=== PATIENT | female | born 1940 | race Caucasian/White ===

== ENCOUNTER 2024-03-10 19:37 | Emergency (ER) | payer MEDICARE, SELFPAY ==
[2024-03-10 19:46] VITALS: BP 127/60; PULSE 84; RESP 18; TEMP 37.8; O2SAT 94; BMI 26.6
[2024-03-10 20:00] VITALS: O2SAT 96
--- NOTE | 2024-03-10 20:02 | ED_ITS ---
HPI - General Adult General Chief complaint: Fever Stated complaint: cancer patient, temp of 101.5 Time Seen by Provider: 03/10/24 20:00 History of Present Illness HPI narrative: Pt presents worried about a fever that she had tonight of 101.5. Upon arrival temp was 100.1. Pt was diagnosed with pancreatic cancer and just recently moved to [place]. Pts daughter has noticed she has been sleeping more often and has had an ongoing cough for 3 weeks. Pt states when she coughs it can cause shortness of breath and abdominal pain. Pt denies any other symptoms. 83-year-old woman presenting to the emergency department with concern of a fever. He does have pancreatic cancer in is currently receiving chemotherapy. Last dosing was 4 days ago. Recently moved to the area from [place]. This evening noted a fever measured at home of 101.5. Arrives here with a temperature of 100.1?. Daughter and son-in-law I believe accompany here today. They noticed that she has been more fatigued. There has been a cough for about 3 weeks as well. 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 Currently anticoagulated with apixaban. Further questioning later about this cough it appears that it is in large part because of a tickle in her throat how she describes it. Is not associated with wheeze. She is not necessarily short of breath otherwise. While coughing can be short of breath along with some abdominal pain. Related Data Home Medications ?Medication ?Instructions ?Recorded ?Confirmed apixaban 5 mg tablet (Eliquis) mg PO 03/06/24 03/06/24 lidocaine-prilocaine 2.5 %-2.5 % topical 03/06/24 03/06/24 topical cream lisinopril 10 mg tablet 10 mg PO DAILY 03/06/24 03/10/24 macularprotect complete PO 03/06/24 magnesium oxide 400 mg (241.3 mg 400 mg PO DAILY 03/06/24 03/10/24 magnesium) tablet metformin 500 mg tablet,extended 500 mg PO BID 03/06/24 03/10/24 release 24 hr metoprolol succinate 50 mg 50 mg PO DAILY 03/06/24 03/10/24 tablet,extended release 24 hr ondansetron 4 mg disintegrating 4 mg PO Q8H PRN 12/09/24 12/13/24 tablet raloxifene 60 mg tablet 60 mg PO DAILY 03/06/24 03/10/24 rosuvastatin 10 mg tablet 10 mg PO QPM 03/06/24 03/10/24 tramadol 50 mg tablet 50 mg PO BID PRN 03/06/24 03/10/24 vitamin D3 25 mcg (1,000 unit)-vit tab PO 03/06/24 03/06/24 K2 90 mcg disintegrating tablet (D3 Plus K2 Dots) Previous Rx's ?Medication ?Instructions ?Recorded benzonatate 100 mg capsule 100 - 200 mg (1 - 2 x 100 mg) PO 03/10/24 TID PRN cough #30 caps Allergies Allergy/AdvReac Type Severity Reaction Status Date / Time No Known Drug Allergies Allergy Verified 03/10/24 19:53 Review of Systems Status of ROS: Reports: 6 or more systems reviewed and unremarkable except as noted in History and below [facility] Social History Smoking Status: Never smoker Do you use any of these nicotine containing products: None Second hand tobacco smoke exposure: No How often do you have a drink containing alcohol: never AUDIT-C Alcohol total score: 0 Non-prescribed substance use: denies use service: No Exam Narrative: Exam Narrative: Very pleasant. NAD. Seated in wheelchair. Breathing easily. Skin is warm and dry. She is well-perfused. Lungs appear to be clear. Oropharynx without notable cobblestoning. There is no facial swelling or erythema and does not sound congested in the nasopharynx. Heart in regular rate and rhythm. Abdomen is soft protuberant nontender. Lower extremities with trace pretibial edema. Const: Vital Signs, click to edit/add: Vital Signs - 24 hr 03/10/24 19:46 03/10/24 20:02 Temperature 100.1 F H Pulse Rate [Right Pulse Oximeter] 84 Respiratory Rate 18 Blood Pressure [Ri ght Upper Arm] 127/60 Pulse Oximetry 94 Oxygen Delivery Me thod Room Air Room Air Documenting provider has reviewed patient's vital signs: yes Course Vital Signs Vital signs: Initial Vital Signs Temperature 100.1 F H 03/10/24 19:46 Temperature Source Temporal Artery Scan 03/10/24 19:46 Pulse Rate 84 03/10/24 19:46 Respiratory Rate 18 03/10/24 19:46 Blood Pressure 127/60 03/10/24 19:46 Blood Pressure Mean 82 03/10/24 19:46 Blood Pressure Position Sitting 03/10/24 19:46 Pulse Oximetry 94 03/10/24 19:46 Oxygen Delivery Method Room Air 03/10/24 19:46 Vital Signs Temperature 100.1 F H 03/10/24 19:46 Pulse Rate 84 03/10/24 19:46 Respiratory Rate 18 03/10/24 19:46 Blood Pressure 127/60 03/10/24 19:46 Pulse Oximetry 94 03/10/24 19:46 Oxygen Delivery Method Room Air 03/10/24 19:46 Temperature 99.5 F 03/11/24 00:26 Pulse Rate 85 03/11/24 00:26 Respiratory Rate 16 03/11/24 00:26 Blood Pressure 120/74 03/11/24 00:26 Pulse Oximetry 96 03/10/24 23:56 Oxygen Delivery Method Room Air 03/10/24 23:56 Medications Administered Medications: Discontinued Medications Generic Name Dose Route Start Last Admin Trade Name Freq PRN Reason Stop Dose Admin Acetaminophen 1,000 mg 03/10/24 23:40 03/10/24 23:45 Acetaminophen 500 Mg Tablet PO 03/10/24 23:41 1,000 mg ONCE ONE Administration Sodium Chloride 1,000 mls @ 1,000 mls/hr 03/10/24 20:09 03/10/24 23:50 0.9 % Sodium Chloride 1000 Ml IV 03/10/24 21:08 Infused .Q1H ONE Infusion Medical Decision Making MDM Narrative Medical decision making narrative: With reported fever in the setting of chemotherapy/immunosuppression will be need look for infection. Only symptom otherwise at this point seems to be cough. Cough might be triggered by allergies or postnasal drip otherwise or perhaps these pulmonary emboli. Possible pneumonia. Suppose it is possible that clot burden may have contributed to elevated temperature as well though this is not a new event. Neutropenia? Does not appear to be demonstrating sepsis. I suspect would benefit from acetaminophen and normal saline fluid bolus. Labs do show mild hyponatremia at 130. Was 134 4 days ago Hemoglobin is 8.3; was 8.9 4 days ago Mild elevation of CRP Is not neutropenic. Chest x-ray independently reviewed by me looks to show some atelectatic changes and port is evident as expected. I do not appreciate infiltrate. Radiology over-read below TECHNIQUE: Chest radiograph, 1 view. COMPARISON: None. FINDINGS: Lines/devices: Right IJ Port-A-Cath. Left anterior chest wall pacemaker pulse generator. Cardiovascular/Mediastinum: Normal heart size. Unremarkable. Lungs: No focal consolidation. Linear band like opacification of the lungs bilaterally, likely subsegmental atelectasis and/or scarring. Airways: Trachea remains midline. Pleura: No pleural effusions or pneumothorax. Bones: No acute osseous abnormalities. Upper abdomen: Unremarkable. IMPRESSION: No acute cardiopulmonary process. Temperature improved over time in the ER. No further events. Given a she describes this tickle in her throat, perhaps Tessalon Perles would be helpful. Again the cough does seem to correspond to timing of pulmonary embolus as well. No source of infection found at this point. Urinalysis also clear. Is not neutropenic. Blood culture pending. See patient discharge plan for further discussion Do focus on hydration. Consider sleeping under the mist of a cool mist humidifier. Mental vapors might be helpful. If your cough drops are helpful for your cough, you certainly can continue those. Perhaps you would like to try Tessalon Perles for your cough as discussed. I will send in a prescription for these to the pharmacy and you can consider them. Can take to 1000 mg of acetaminophen per dose. Certainly something is driving this fever, I just not have not identified it. This may simply be a nonspecific viral illness as prevalent in the community. You have a mildly elevated but nonspecific inflammatory marker. We will be culturing your blood and call if it might warrant treatment. Please a check in on Wednesday with your oncology team and otherwise follow-up with Dr. Negrete as scheduled. Medical Records Medical records reviewed: Yes I reviewed the patient's medical records Lab Data Lab results reviewed: Yes I reviewed the patient's lab results Labs: Lab Results 03/10/24 03/10/24 03/10/24 Range/Units 20:15 20:46 22:36 WBC 5.23 (4.50-11.00) K/uL RBC 2.77 L (4.00-5.20) m/uL Hgb 8.3 L (12.0-16.0) gm/dL Hct 25.3 L (33.0-51.0) % MCV 91 (80-100) fL MCH 30 (26-34) pg MCHC 33 (32-36) gm/dL RDW Coeff of [place] 15.9 H (11.5-15.5) % Plt Count 333 (140-440) K/uL Neut % (Auto) 88.2 H (42.0-72.0) % Lymph % (Auto) 7.6 L (20-44) % Placer % (Auto) 1.3 (0.0-11.0) % Eos % (Auto) 2.3 (0.0-7.0) % Baso % (Auto) 0.4 (0.0-3.0) % Neut # (Auto) 4.60 (1.7-7.0) K/uL Lymph # (Auto) 0.40 L (0.90-2.90) K/uL Placer # (Auto) 0.10 (0.00-0.90) K/UL Eos # (Auto) 0.12 (0.00-0.50) K/uL Baso # (Auto) 0.02 (0.00-0.30) K/uL Abs Immat Gran (auto) 0.01 (0.00-0.30) K/uL Imm/Tot Granulo (auto) 0.2 % Sodium 130 L (135-149) mmol/L Potassium 4.1 (3.6-5.1) mmol/L Chloride 99 (96-114) mmol/L Carbon Dioxide 24 (20-32) mmol/L Anion Gap 7 (7-15) mEq/L BUN 12 (7-30) mg/dL Creatinine 0.4 L (0.5-1.5) mg/dL Estimated Creat Clear 35.26 Estimated GFR 98 ml/min Glucose 200 H (60-115) mg/dL Calcium 8.7 (8.4-10.6) mg/dL Total Bilirubin 0.7 (0.1-1.5) mg/dL Direct Bilirubin 0.0 (0.0-0.5) mg/dL AST 41 H (12-35) U/L ALT 35 (4-35) U/L Alkaline Phosphatase 77 (40-150) U/L C-Reactive Protein 6.7 H (0.5-1.0) mg/dL Total Protein 6.5 (6.0-8.3) g/dL Albumin 3.4 (3.3-5.0) g/dL Urine Color Yellow (Yellow) Urine Appearance Clear (Clear) Urine pH 5.0 (5.0-8.5) Ur Specific [place] 1.020 (1.000-1.030) Urine Protein Trace A (Negative) Urine Glucose (UA) Trace A (Negative) Urine Ketones Trace A (Negative) Urine Blood Negative (Negative) Urine Nitrite Negative (Negative) Urine Bilirubin Negative (Negative) Urine Urobilinogen 1.0 (0.2-1.0) Ur Leukocyte Esterase Negative (Negative) Urine RBC 0-2 (0-2) Urine WBC 0-2 (0-5) Ur Squamous Epith Cells Few (None-Few) Urine Bacteria Few A (None) SARS-CoV-2 (PCR) Negative SARS-CoV-2 (Negative) Influenza Type A (PCR) Negative PCR FLU A (Negative) Influenza Type B (PCR) Negative PCR FLU B (Negative) RSV (PCR) Negative PCR RSV (Negative) Discharge Plan Discharge Clinical Impression: Fever, Cough Patient Disposition: Home w/ Parent or Adult Condition: Stable Additional Instructions: Do focus on hydration. Consider sleeping under the mist of a cool mist humidifier. Mental vapors might be helpful. If your cough drops are helpful for your cough, you certainly can continue those. Perhaps you would like to try Tessalon Perles for your cough as discussed. I will send in a prescription for these to the pharmacy and you can consider them. Can take to 1000 mg of acetaminophen per dose. Certainly something is driving this fever, I just not have not identified it. This may simply be a nonspecific viral illness as prevalent in the community. You have a mildly elevated but nonspecific inflammatory marker. We will be culturing your blood and call if it might warrant treatment. Please a check in on Wednesday morning with your oncology team and otherwise follow-up with Dr. Negrete as scheduled. Prescriptions: New benzonatate 100 mg capsule 100 - 200 mg PO TID PRN (Reason: cough) Qty: 30 0RF No Action magnesium oxide 400 mg (241.3 mg magnesium) tablet 400 mg PO DAILY metformin 500 mg tablet extended release 24 hr 500 mg PO BID metoprolol succinate 50 mg tablet extended release 24 hr 50 mg PO DAILY Eliquis 5 mg tablet PO tramadol 50 mg tablet 50 mg PO BID PRN rosuvastatin 10 mg tablet 10 mg PO QPM ondansetron 4 mg tablet,disintegrating 4 mg PO Q8H PRN lidocaine-prilocaine 2.5-2.5 % cream topical lisinopril 10 mg tablet 10 mg PO DAILY raloxifene 60 mg tablet 60 mg PO DAILY macularprotect complete PO D3 Plus K2 Dots 25 mcg (1,000 unit)-90 mcg tablet,disintegrating PO Follow Up/Referrals: Provider,Not a Local [Non-Staff] - Stand Alone Forms: [facility]
--- NOTE | 2024-03-10 20:09 | CRLHL7_ITS ---
For Patients: As a result of the Century Cures Act, medical imaging exams and procedure reports are released immediately into your electronic medical record. You may view this report before your referring provider. If you have questions, please contact your health care provider. INDICATION: Fever. TECHNIQUE: Chest radiograph, 1 view. COMPARISON: None. FINDINGS: Lines/devices: Right IJ Port-A-Cath. Left anterior chest wall pacemaker pulse generator. Cardiovascular/Mediastinum: Normal heart size. Unremarkable. Lungs: No focal consolidation. Linear band like opacification of the lungs bilaterally, likely subsegmental atelectasis and/or scarring. Airways: Trachea remains midline. Pleura: No pleural effusions or pneumothorax. Bones: No acute osseous abnormalities. Upper abdomen: Unremarkable. IMPRESSION: No acute cardiopulmonary process. Dictated by Jessee Kline MD @ 03/10/2024 8:23:07 PM (Electronically Signed)
[2024-03-10 20:54] LABS: PCR FLU A Negative PCR FLU A (Negative); PCR FLU B Negative PCR FLU B (Negative); PCR RSV Negative PCR RSV (Negative); SARS PCR* Negative SARS-CoV-2 (Negative)
[2024-03-10 21:03] LABS: Basophils Absolute Auto 0.02 K/uL (0.00-0.30); Basophils Percent Auto 0.4 % (0.0-3.0); Eosinophils Absolute Auto 0.12 K/uL (0.00-0.50); Eosinophils Percent Auto 2.3 % (0.0-7.0); Hematocrit 25.3 % (33.0-51.0); Hemoglobin* 8.3 gm/dL (12.0-16.0); Immature Granulocytes Abs Auto 0.01 K/uL (0.00-0.30); Immature Granulocytes Pct Auto 0.2 %; Lymphocytes Percent Auto 7.6 % (20-44); Mean Corpuscular HGB Conc 33 gm/dL (32-36); Mean Corpuscular Hemoglobin 30 pg (26-34); Mean Corpuscular Volume 91 fL (80-100); Monocytes Percent Auto 1.3 % (0.0-11.0); Neutrophils Percent Auto 88.2 % (42.0-72.0); Platelet Count* 333 K/uL (140-440); RDW Coefficient of Variation % 15.9 % (11.5-15.5); Red Blood Count 2.77 m/uL (4.00-5.20); Slide Review Reflex No; White Blood Count* 5.23 K/uL (4.50-11.00)
[2024-03-10 21:12] LABS: Albumin* 3.4 g/dL (3.3-5.0); Chloride* 99 mmol/L (96-114)
[2024-03-10 21:13] LABS: Potassium* 4.1 mmol/L (3.6-5.1); Sodium* 130 mmol/L (135-149)
[2024-03-10 21:15] LABS: Creatinine* 0.4 mg/dL (0.5-1.5); Est. Creatinine Clearance* 35.26; Estimated Glomerular Filt Rate 98 ml/min
[2024-03-10 21:16] LABS: Alanine Aminotransferase* 35 U/L (4-35); Alkaline Phosphatase* 77 U/L (40-150); Anion Gap 7 mEq/L (7-15); Aspartate Amino Transferase* 41 U/L (12-35); Bilirubin Total* 0.7 mg/dL (0.1-1.5); Blood Urea Nitrogen* 12 mg/dL (7-30); Calcium* 8.7 mg/dL (8.4-10.6); Carbon Dioxide* 24 mmol/L (20-32); Glucose* 200 mg/dL (60-115); Total Protein* 6.5 g/dL (6.0-8.3)
[2024-03-10 21:19] LABS: C Reactive Protein* 6.7 mg/dL (0.5-1.0)
[2024-03-10 21:45] VITALS: BP 126/46; PULSE 80; RESP 16; O2SAT 96
[2024-03-10 22:38] LABS: Appearance Urine Clear (Clear); Bilirubin Urine Negative (Negative); Blood Urine Negative (Negative); Color Urine Yellow (Yellow); Glucose Urine Trace (Negative); Ketones Urine Trace (Negative); Leukocyte Esterase Urine Negative (Negative); Nitrite Urine Negative (Negative); Protein Urine Trace (Negative)
[2024-03-10 22:48] LABS: Bacteria Urine Few; RBC Urine 0-2 (0-2); Squamous Epithelial Cell Urine Few (None-Few); WBC Urine 0-2 (0-5)
[2024-03-10] MEDS: 0.9 % SODIUM CHLORIDE 1000 ml 1,000 ML IV (23:03)
[2024-03-10 23:45] VITALS: TEMP 37.8
[2024-03-10] MEDS: ACETAMINOPHEN 500 MG TABLET 1000 MG PO (23:45)
[2024-03-10 23:56] VITALS: BP 120/74; PULSE 85; RESP 16; TEMP 37.5; O2SAT 96
[2024-03-11 00:26] VITALS: BP 120/74; PULSE 85; RESP 16; TEMP 37.5
== END 2024-03-11 00:26 | disposition home or self-care (01) ==
PROVIDERS: Emergency Provider Family Medicine; PCP Internal Medicine
DX: R50.9 Fever, unspecified (principal); R05.9 Cough, unspecified
CPT/HCPCS: 36415; 71045; 80048; 80076; 81001; 85025; 86140; 87040; 87086; 87631; 94761; 99284; A9270; J7030

== ENCOUNTER 2024-03-17 20:15 | Emergency (ER) | payer MEDICARE, SELFPAY ==
[2024-03-17 20:18] VITALS: BP 127/69; PULSE 77; RESP 16; TEMP 37.1; O2SAT 98; BMI 26.6
--- NOTE | 2024-03-17 20:43 | CRLHL7_ITS ---
For Patients: As a result of the Cures Act, medical imaging exams and procedure reports are released immediately into your electronic medical record. You may view this report before your referring provider. If you have questions, please contact your health care provider. Indication: Cough, chemo patient, left lower lobe crackles Technique: Two views of the chest Comparison: Chest radiograph performed 03/10/2024 Findings/Impression: Mild atelectasis, no acute cardiopulmonary process detected. Dictated by Lenard Strauss MD @ 03/17/2024 9:40:05 PM (Electronically Signed)
--- NOTE | 2024-03-17 20:45 | ED.FEVER ---
HPI - Fever General Date Seen: 03/17/24 Chief Complaint: Fever Stated Complaint: fever, cancer patient at [facility] Time Seen by Provider: 03/17/24 20:17 Source: patient and family Mode of arrival: ambulatory Limitations: no limitations History of Present Illness HPI Narrative: Pleasant 83-year-old female with stage III pancreatic cancer presents, she is undergoing treatment here in [facility], with her last treatment being Wednesday. She has had fevers on and off, with up to 101 at home, taken orally. She has taken some Tylenol for this, but because of the fever and ongoing symptoms she came in she was here 7 days ago, for fever and cough also, the workup then was entirely negative including negative blood culture negative urine culture negative chest x-ray. She otherwise feels fine, maybe a little bit more of a cough than then. Denies any shortness of breath coughing up any purulent sputum dysuria frequency of urination any rashes or ulcers noted on her body. She has had no nausea vomiting abdominal pain, headaches, sore throat, or any other symptoms at all. Does have a history of elevated glucose with diabetes. Recently moved here from [place] to be treated, family lives locally. elicited complaint: fever Context: on chemotherapy Exacerbating factors: nothing Relieving factors: nothing Associated symptoms: cough Treatments prior to arrival fever: acetaminophen Related Data Home Medications ?Medication ?Instructions ?Recorded ?Confirmed apixaban 5 mg tablet (Eliquis) 5 mg PO Q12H 03/06/24 03/14/24 lidocaine-prilocaine 2.5 %-2.5 % 1 applic topical DAILY PRN 03/06/24 03/17/24 topical cream lisinopril 10 mg tablet 10 mg PO DAILY 03/06/24 03/14/24 macularprotect complete PO 03/06/24 magnesium oxide 400 mg (241.3 mg 400 mg PO DAILY 03/06/24 03/14/24 magnesium) tablet metformin 500 mg tablet,extended 500 mg PO BID 03/06/24 03/14/24 release 24 hr metoprolol succinate 50 mg 50 mg PO DAILY 03/06/24 03/14/24 tablet,extended release 24 hr ondansetron 4 mg disintegrating 4 mg PO Q8H PRN 03/06/24 03/14/24 tablet raloxifene 60 mg tablet 60 mg PO DAILY 03/06/24 03/14/24 rosuvastatin 10 mg tablet 10 mg PO QPM 03/06/24 03/14/24 tramadol 50 mg tablet 50 mg PO BID PRN 03/06/24 03/14/24 vitamin D3 25 mcg (1,000 unit)-vit tab PO 03/06/24 03/06/24 K2 90 mcg disintegrating tablet (D3 Plus K2 Dots) Previous Rx's ?Medication ?Instructions ?Recorded benzonatate 100 mg capsule 100 - 200 mg (1 - 2 x 100 mg) PO 03/10/24 TID PRN cough #30 caps Allergies Allergy/AdvReac Type Severity Reaction Status Date / Time No Known Drug Allergies Allergy Verified 03/17/24 10:50 Review of Systems Status of ROS Reports: 10 or more systems reviewed and unremarkable except as noted in History and below PFSH [facility] Social History Smoking Status: Never smoker Do you use any of these nicotine containing products: None Second hand tobacco smoke exposure: No How often do you have a drink containing alcohol: never AUDIT-C Alcohol total score: 0 Non-prescribed substance use: denies use service: No Exam Narrative Exam Narrative: On examination in room 1 she is in no apparent distress speaking to me in full sentences, her daughter is also here, her vital signs are listed in entirely normal. Pupils are equal round reactive to light there is no scleral icterus redness, the TMs are normal oropharynx is entirely normal, conjunctiva well perfused, but a little bit pale. Neck is supple, chest is good air entry bilaterally with slight crackles noted in the left base. These do not clear with deep inspiration, she does not splint, heart sounds no clicks murmurs or gallops her abdomen is entirely soft, negative Allen sign, no masses noted, bowel sounds are normal, moves all extremities independently well, and no evidence of rashes, or negative edema of her lower legs with negative Homans sign. Blood tests were done today showing a CBC stable hemoglobin at 7.9, white count of 5.42, platelet count is gone down to 171. Const Vital Signs, click to edit/add: Vital Signs - 24 hr 03/17/24 20:18 Temperature 98.8 F Pulse Rate [Left Pulse Oximeter] 77 Respiratory Rate 16 Blood Pressure [Right Upper Arm] 127/69 Pulse Oximetry 98 Oxygen Delivery Method Room Air Documenting provider has reviewed patient's vital signs: yes Course Course ED Course: Patient looks well, I do not see any evidence of sepsis, her vital signs are stable I will re do her labs, with the absence of the CBC which was just done at a [facility] [place], do blood culture from her port and also peripherally. A urine culture and do a new chest x-ray. I will also repeat her viral studies. She was comfortable this plan. I do not think given the fact that she has a good white count that she needs to be prophylactic on antibiotics if we do not find anything. Reevaluation(s) Time of Reevaluation #1: 22:16 Reevaluation #1: She is feeling good, I went over the laboratory results with her, the chest x-ray, it is all within fairly normal, with a slight decrease in her sodium, and the slight elevation in her attic transaminases, at this point I would just watch this, I think the likelihood of this being sepsis or a septic type picture is low, given how she is doing. She may use some Tylenol feel better. Course if her cultures grow something, then we will call her back. I went over in detail signs and symptoms to watch for, and when to bring her back to the hospital. I would anticipate with her drop in her platelet count also that she will go on to likely get it least Neulasta, or possible blood transfusion in the near future. But given the fact that she is asymptomatic right now, hold off on this. Vital Signs Vital signs: Initial Vital Signs Temperature 98.8 F 03/17/24 20:18 Temperature Source Oral 03/17/24 20:18 Pulse Rate 77 03/17/24 20:18 Pulse Rhythm Regular 03/17/24 20:18 Respiratory Rate 16 03/17/24 20:18 Blood Pressure 127/69 03/17/24 20:18 Blood Pressure Mean 88 03/17/24 20:18 Blood Pressure Position Sitting 03/17/24 20:18 Pulse Oximetry 98 03/17/24 20:18 Oxygen Delivery Method Room Air 03/17/24 20:18 Vital Signs Temperature 98.8 F 03/17/24 20:18 Pulse Rate 77 03/17/24 20:18 Respiratory Rate 16 03/17/24 20:18 Blood Pressure 127/69 03/17/24 20:18 Pulse Oximetry 98 03/17/24 20:18 Oxygen Delivery Method Room Air 03/17/24 20:18 Temperature 98.8 F 03/17/24 20:18 Pulse Rate 77 03/17/24 20:18 Respiratory Rate 16 03/17/24 20:18 Blood Pressure 127/69 03/17/24 20:18 Pulse Oximetry 98 03/17/24 20:18 Oxygen Delivery Method Room Air 03/17/24 20:18 MDM - Fever MDM Narrative Medical decision making narrative: Life-threatening differential diagnosis is include meningitis, encephalitis, pneumonia, intra-abdominal infection, bacteremia, other differential diagnosis include but are not limited to viral upper respiratory tract infection, strep, urinary tract infection, skin infection, osteomyelitis, influenza, fungal infections, diskitis, epidural abscess, or fever of unknown origin. Differential Diagnosis Differential diagnosis: Likely cellulitis, fever of unknown origin, gastroenteritis, community acquired pneumonia, pyelonephritis, viral infection, sepsis and influenza Medical Records Attestation: I reviewed the patient's medical records. Lab Data Attestation: I reviewed the patient's lab results. Lab results narrative: Lab results returned showing slight elevation of her transaminases of her liver. Her pro yee normal. Urinalysis showed just trace leukocyte esterase but no white cells, somewhat a call this negative. Sodium was slightly low, the remainder of the basic metabolic profile was otherwise okay. We will culture urine, Labs: Lab Results 03/17/24 03/17/24 03/17/24 Range/Units 20:43 21:10 21:10 Sodium Cancelled 131 L Potassium Cancelled Chloride Carbon Dioxide Anion Gap BUN Creatinine Estimated Creat Clear Estimated GFR Glucose Calcium Total Bilirubin (0.1-1.5) mg/dL Direct Bilirubin (0.0-0.5) mg/dL AST (12-35) U/L ALT (4-35) U/L Alkaline Phosphatase (40-150) U/L Total Protein (6.0-8.3) g/dL Albumin (3.3-5.0) g/dL Procalcitonin (<0.50) ng/mL Urine Color Yellow (Yellow) Urine Appearance Clear (Clear) Urine pH 5.5 (5.0-8.5) Ur Specific [place] 1.025 (1.000-1.030) Urine Protein Trace A (Negative) Urine Glucose (UA) Negative (Negative) Urine Ketones Trace A (Negative) Urine Blood Trace-intact A (Negative) Urine Nitrite Negative (Negative) Urine Bilirubin Negative (Negative) Urine Urobilinogen 0.2 (0.2-1.0) Ur Leukocyte Esterase Trace A (Negative) Urine RBC 0-2 (0-2) Urine WBC 2-5 (0-5) Ur Squamous Epith Cells Few (None-Few) Amorphous Sediment Few A (None) Urine Bacteria Few A (None) 03/17/24 03/17/24 03/17/24 Range/Units 21:10 21:10 21:10 Sodium Potassium 4.1 Chloride Cancelled 101 Carbon Dioxide Cancelled 26 Anion Gap Cancelled BUN Creatinine Estimated Creat Clear Estimated GFR Glucose Calcium Total Bilirubin (0.1-1.5) mg/dL Direct Bilirubin (0.0-0.5) mg/dL AST (12-35) U/L ALT (4-35) U/L Alkaline Phosphatase (40-150) U/L Total Protein (6.0-8.3) g/dL Albumin (3.3-5.0) g/dL Procalcitonin (<0.50) ng/mL Urine Color (Yellow) Urine Appearance (Clear) Urine pH (5.0-8.5) Ur Specific [place] (1.000-1.030) Urine Protein (Negative) Urine Glucose (UA) (Negative) Urine Ketones (Negative) Urine Blood (Negative) Urine Nitrite (Negative) Urine Bilirubin (Negative) Urine Urobilinogen (0.2-1.0) Ur Leukocyte Esterase (Negative) Urine RBC (0-2) Urine WBC (0-5) Ur Squamous Epith Cells (None-Few) Amorphous Sediment (None) Urine Bacteria (None) 03/17/24 03/17/24 03/17/24 Range/Units 21:10 21:10 21:10 Sodium Potassium Chloride Carbon Dioxide Anion Gap 4 L BUN Cancelled 16 Creatinine Cancelled 0.4 L Estimated Creat Clear Cancelled Estimated GFR Glucose Calcium Total Bilirubin (0.1-1.5) mg/dL Direct Bilirubin (0.0-0.5) mg/dL AST (12-35) U/L ALT (4-35) U/L Alkaline Phosphatase (40-150) U/L Total Protein (6.0-8.3) g/dL Albumin (3.3-5.0) g/dL Procalcitonin (<0.50) ng/mL Urine Color (Yellow) Urine Appearance (Clear) Urine pH (5.0-8.5) Ur Specific [place] (1.000-1.030) Urine Protein (Negative) Urine Glucose (UA) (Negative) Urine Ketones (Negative) Urine Blood (Negative) Urine Nitrite (Negative) Urine Bilirubin (Negative) Urine Urobilinogen (0.2-1.0) Ur Leukocyte Esterase (Negative) Urine RBC (0-2) Urine WBC (0-5) Ur Squamous Epith Cells (None-Few) Amorphous Sediment (None) Urine Bacteria (None) 03/17/24 03/17/24 03/17/24 Range/Units 21:10 21:10 21:10 Sodium Potassium Chloride Carbon Dioxide Anion Gap BUN Creatinine Estimated Creat Clear 35.26 Estimated GFR Cancelled 98 Glucose Cancelled 228 H Calcium Cancelled Total Bilirubin (0.1-1.5) mg/dL Direct Bilirubin (0.0-0.5) mg/dL AST (12-35) U/L ALT (4-35) U/L Alkaline Phosphatase (40-150) U/L Total Protein (6.0-8.3) g/dL Albumin (3.3-5.0) g/dL Procalcitonin (<0.50) ng/mL Urine Color (Yellow) Urine Appearance (Clear) Urine pH (5.0-8.5) Ur Specific [place] (1.000-1.030) Urine Protein (Negative) Urine Glucose (UA) (Negative) Urine Ketones (Negative) Urine Blood (Negative) Urine Nitrite (Negative) Urine Bilirubin (Negative) Urine Urobilinogen (0.2-1.0) Ur Leukocyte Esterase (Negative) Urine RBC (0-2) Urine WBC (0-5) Ur Squamous Epith Cells (None-Few) Amorphous Sediment (None) Urine Bacteria (None) 03/17/24 Range/Units 21:10 Sodium Potassium Chloride Carbon Dioxide Anion Gap BUN Creatinine Estimated Creat Clear Estimated GFR Glucose Calcium 8.8 Total Bilirubin 0.5 (0.1-1.5) mg/dL Direct Bilirubin 0.2 (0.0-0.5) mg/dL AST 57 H (12-35) U/L ALT 54 H (4-35) U/L Alkaline Phosphatase 77 (40-150) U/L Total Protein 6.5 (6.0-8.3) g/dL Albumin 3.5 (3.3-5.0) g/dL Procalcitonin 0.10 (<0.50) ng/mL Urine Color (Yellow) Urine Appearance (Clear) Urine pH (5.0-8.5) Ur Specific [place] (1.000-1.030) Urine Protein (Negative) Urine Glucose (UA) (Negative) Urine Ketones (Negative) Urine Blood (Negative) Urine Nitrite (Negative) Urine Bilirubin (Negative) Urine Urobilinogen (0.2-1.0) Ur Leukocyte Esterase (Negative) Urine RBC (0-2) Urine WBC (0-5) Ur Squamous Epith Cells (None-Few) Amorphous Sediment (None) Urine Bacteria (None) Imaging Data Chest x-ray: Attestation: I have reviewed the pertinent imaging results. My impression: non acute findings Radiologist's impression: Patient: JUSTUS DE SANTIAGO Facility:?[facility] Patient ID:?[id number] Site Patient ID:?[id number]. Site :?[id number] Study:?XRay-Chest 2V-03/17/2024 8:56:40 PM Ordering Physician:Liane Devine Final Report: Indication: Cough, chemo patient, left lower lobe crackles Technique: Two views of the chest Comparison: Chest radiograph performed 03/10/2024 Findings/Impression: Mild atelectasis, no acute cardiopulmonary process detected. Dictated by Lenard Strauss MD @ 03/17/2024 9:40:05 PM (Electronic Signature) Discharge Plan Discharge Clinical Impression: Fever, Pancreatic cancer, Cough, Acute hyponatremia Patient Disposition: Home w/ Parent or Adult Condition: Stable Instructions: Hyponatremia (ED), Fever in Adults (ED), Pancreatic Cancer (DC), How to Take a Temperature (ED) Additional Instructions: Home rest, continue you may use the Tylenol as needed, follow up here if signs symptoms of worsening which we have gone over, we will call you if the culture results show any infection. Reassuring today your laboratory work and your examination. Prescriptions: No Action magnesium oxide 400 mg (241.3 mg magnesium) tablet 400 mg PO DAILY metformin 500 mg tablet extended release 24 hr 500 mg PO BID metoprolol succinate 50 mg tablet extended release 24 hr 50 mg PO DAILY Eliquis 5 mg tablet 5 mg PO Q12H tramadol 50 mg tablet 50 mg PO BID PRN rosuvastatin 10 mg tablet 10 mg PO QPM ondansetron 4 mg tablet,disintegrating 4 mg PO Q8H PRN lidocaine-prilocaine 2.5-2.5 % cream 1 applic topical DAILY PRN lisinopril 10 mg tablet 10 mg PO DAILY raloxifene 60 mg tablet 60 mg PO DAILY macularprotect complete PO D3 Plus K2 Dots 25 mcg (1,000 unit)-90 mcg tablet,disintegrating PO benzonatate 100 mg capsule 100 - 200 mg PO TID PRN (Reason: cough) Qty: 30 0RF Follow Up/Referrals: Yamil Negrete MD [Primary Care Provider] - Stand Alone Forms: MyHealth Info Instructions
[2024-03-17 21:38] LABS: Albumin* 3.5 g/dL (3.3-5.0); Chloride* 101 mmol/L (96-114); Potassium* 4.1 mmol/L (3.6-5.1); Sodium* 131 mmol/L (135-149)
[2024-03-17 21:40] LABS: Anion Gap 4 mEq/L (7-15); Carbon Dioxide* 26 mmol/L (20-32); Creatinine* 0.4 mg/dL (0.5-1.5); Est. Creatinine Clearance* 35.26; Estimated Glomerular Filt Rate 98 ml/min
[2024-03-17 21:41] LABS: Alanine Aminotransferase* 54 U/L (4-35); Alkaline Phosphatase* 77 U/L (40-150); Aspartate Amino Transferase* 57 U/L (12-35); Bilirubin Direct* 0.2 mg/dL (0.0-0.5); Bilirubin Total* 0.5 mg/dL (0.1-1.5); Blood Urea Nitrogen* 16 mg/dL (7-30); Calcium* 8.8 mg/dL (8.4-10.6); Glucose* 228 mg/dL (60-115); Total Protein* 6.5 g/dL (6.0-8.3)
[2024-03-17 21:51] LABS: Appearance Urine Clear (Clear); Bilirubin Urine Negative (Negative); Blood Urine Trace-intact (Negative); Color Urine Yellow (Yellow); Glucose Urine Negative (Negative); Ketones Urine Trace (Negative); Leukocyte Esterase Urine Trace (Negative); Nitrite Urine Negative (Negative); Protein Urine Trace (Negative); Specific Gravity Urine 1.025 (1.000-1.030); Urobilinogen Urine 0.2 (0.2-1.0); pH Urine 5.5 (5.0-8.5)
[2024-03-17 22:12] LABS: Amorphous Sediment Urine Few; Bacteria Urine Few; RBC Urine 0-2 (0-2); Squamous Epithelial Cell Urine Few (None-Few)
[2024-03-17 23:57] LABS: PCR FLU A Negative PCR FLU A (Negative); PCR FLU B Negative PCR FLU B (Negative); PCR RSV Negative PCR RSV (Negative); SARS PCR* Negative SARS-CoV-2 (Negative)
== END 2024-03-17 22:30 | disposition home or self-care (01) ==
PROVIDERS: Emergency Provider Family Medicine; PCP Internal Medicine
DX: R50.9 Fever, unspecified (principal); C25.9 Malignant neoplasm of pancreas, unspecified; R05.9 Cough, unspecified; E87.6 Hypokalemia
CPT/HCPCS: 36415; 71046; 80048; 80076; 81001; 84145; 87040; 87086; 87631; 96374; 99284

== ENCOUNTER 2024-03-28 09:34 | Outpatient (CLI) | payer MEDICARE, SELFPAY | END 2024-03-28 09:35 | disposition home or self-care (01) | PROVIDERS: PCP Internal Medicine; Visit Provider Internal Medicine | DX: C25.9 Malignant neoplasm of pancreas, unspecified (principal) | CPT/HCPCS: 80048; 83735 ==

== ENCOUNTER 2024-05-19 18:29 | Emergency (ER) | payer MEDICARE, SELFPAY ==
--- OUTSIDE RECORDS SUMMARY | 2024-05-19 18:31 | XMS_ITS | Encounter Summary ---
Author Organization [facility] Address [address] [place] [address] Care Team Providers Care Ground Defence Officer Name Role Phone Elsewhere, Pcp Primary Care Provider Unavailabl e Reason for Referral * Radiation Therapy (Routine) - Authorized Specialty Diagnoses / Procedures Referred By Leann joseph Referred To Contact Diagnoses Malignant Neoplasm Of Pancreas Head (HCC) Procedures Initial Rad Onc Treatment Planning CT Simulation Initial Rad Onc Treatment Planning CT Simulation [place] IMRT RADIOTHERAPY PLAN Aidan Estrada M.D. [address] [place] [address] Phone: tel: fax: [facility] Region Referral ID Status Reason Start Date Expiration Date V isits Requested Visits Authorized [id number] Authorized 05/16/2024 08/16/2025 2 2 ONTRACT ADMINISTRATOR * Outpatient (Routine) - Authorized Specialty Diagnoses / Procedures Referred By Leann joseph Referred To Contact Social Work Diagnoses Malignant Neoplasm Of Pancreas Head (HCC) Aidan Estrada M.D. [address] [place] [address] Phone: tel: fax: [facility] Region Referral ID Status Reason Start Date Expiration Date V isits Requested Visits Authorized [id number] Authorized 05/16/2024 11/15/2025 1 1 ONTRACT ADMINISTRATOR * Outpatient (Routine) - Authorized Specialty Diagnoses / Procedures Referred By Contac t Referred To Contact Radiation Oncology Diagnoses Malignant Neoplasm Of Pancreas Head (HCC) Aidan Estrada M.D. [address] [place] [phone] Phone: tel: fax: [facility] Region Referral ID Status Reason Start Date Expiration Date V isits Requested Visits Authorized [id number] Authorized 05/16/2024 11/15/2025 1 1 ONTRACT ADMINISTRATOR * Specialty Diagnoses / Procedures Referred By Contac t Referred To Contact Diagnoses Malignant Neoplasm Of Pancreas Head (HCC) Joyce Kenyon P.A.-C., M.S. [address] [place] [phone] Phone: tel: fax: [facility] Region Referral ID Status Reason Start Date Expiration Date Visits Re quested Visits Authorized Scheduling Instructions Please do not schedule if patient has 10 fractions or less, unless requested by care team. ONTRACT ADMINISTRATOR * Radiation Therapy (Routine) - Authorized Specialty Diagnoses / Procedures Referred By Contac t Referred To Contact Diagnoses Malignant Neoplasm Of Pancreas Head (HCC) Procedures Management Visit Aidan Estrada M.D. [address] [place] [phone] Phone: tel: fax: [facility] Region Referral ID Status Reason Start Date Expiration Date V isits Requested Visits Authorized [id number] Authorized 05/16/2024 08/16/2025 10 10 ONTRACT ADMINISTRATOR * Radiation Therapy (Routine) - Authorized Specialty Diagnoses / Procedures Referred By Leann t Referred To Contact Diagnoses Malignant Neoplasm Of Pancreas Head (HCC) Procedures Prior Auth Rad Tx [place] IMRT COMPLEX [place] GUIDANCE FOR LOC RAD TX [place] IMRT RADIOTHERAPY PLAN IMRT Aidan Estrada M.D. [address] [place] [address] Phone: tel: fax: [place] Region Referral ID Status Reason Start Date Expiration Date V isits Requested Visits Authorized [id number] Authorized 05/29/2024 08/16/2025 25 25 ONTRACT ADMINISTRATOR Encounter Details Date Type Department Care Team (Late st Contact Info) Description 05/16/2024 Orders Only Department of Radiation Oncology in [place], [place] [address] [place] [address] Joyce Kenyon P.A.-C., M.S. [address] [place] [phone] 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) Social History Tobacco Use Types Packs/Day Years Used Date Smoking Tobacco: Never Smokeless Tobacco: Never Alcohol Use Standard Drinks/Week Comments Never 0 (1 standard drink = 0.6 oz pur e alcohol) [facility] Utilities Answer Date Recorded In the past 12 months has P[employer], gas, oil, or water [employer] threatened to shut off services in your home? No 02/04/2024 Exercise Vital Sign Answer Date Recorde d On average, how many days pe r week do you engage in moderate to strenuous exercise (like a brisk walk)? 0 days 02/04/2024 On average, how many minutes do you engage in exercise at this level? 0 min 02/04/2024 Hunger Vital Sign Answer Date Recorded Within the past 12 months, y ou worried that your food would run out before you got the money to buy more. Never true 02/04/20 24 Within the past 12 months, t he food you bought just didn't last and you didn't have money to get more. Never true 02/04/2024 PRAPARE - Transportation Answer Date Re corded In the past 12 months, has l ack of transportation kept you from medical appointments or from getting medications? No 10/2023 In the past 12 months, has l ack of transportation kept you from meetings, work, or from getting things needed for daily living? No 02/04/2024 Nutrition Answer Date Recorded On average, how many serving s of fruits and vegetables do you eat per day (serving size is equal to 1 cup or approximately the size of a tennis ball)? 3-5 02/04/2024 Dental Answer Date Recorded Dental: Regular Dentist Yes 02/04/20 Employment Answer Date Recorded Employment status Retired 02/04/2024 Housing Stability Answer Date Recorded What is your living situation today? I have a [facility] place to live 02/04/2024 Comments Unknown Sex and Gender Information Value Date Recorded Sex Assigned at Female 01/30/2024 2:33 PM SUBCONTRACT ADMINISTRATOR Legal Sex Female 4:38 PM CDT Gender Identity Female 01/30/2024 2:33 PM SUBCONTRACT ADMINISTRATOR Sexual Orientation Straight 01/30/2024 2: 33 PM SUBCONTRACT ADMINISTRATOR documented as of this encounter Plan of Treatment Upcoming Encounters Date Type Department Care Team (Late st Contact Info) Description 05/26/2024 12:30 PM SUBCONTRACT ADMINISTRATOR Appointment Department of Radiation Oncology in [place] [address] [place] [address] Aidan Estrada M.D. [address] [place] [phone] Carlos Gibson R.N. 05/26/2024 1:00 PM SUBCONTRACT ADMINISTRATOR Appointment Department of Radiation Oncology in [place] [address] [place] [phone] Antonette Schulte M.D. [address] [place] [address] 05/26/2024 2:00 PM SUBCONTRACT ADMINISTRATOR Appointment Department of Radiation Oncology in [place] [address] [place] [address] Aidan Estrada M.D. [address] [place] [phone] Antonette Schulte M.D. [address] [place] [phone] Scheduled Orders Name Type Priority Associated Diagnoses Order Schedule Prior Auth Rad Tx Radiation Oncology Routine Malignant Neoplasm Of Pancreas Head (HCC) Ordered: 05/16/2024 Management Visit Radiation Oncology Routine Malignant Neoplasm Of Pancreas Head (HCC) 10 Occurrences starting 05/16/2024 until 08/13/2025 Creatinine with Estimated GFR Lab Routine Malignant Neoplasm Of Pancreas Head (HCC) Expected: 05/19/2024, Expires: 05/27/2024 Scheduled Referrals Name Type Priority Associated Diagnoses Orde r Schedule Radiation Oncology - Nurse education visit (clinic) Outpatient Referral Routine Malignant Neoplasm Of Pancreas Head (HCC) Expected: 05/16/2024, Expires: 08/13/2025 Radiation Oncology - Medical nutrition therapy consult (clinic) Outpatient Referral Routine Malignant Neoplasm Of Pancreas Head (HCC) Expected: 05/16/2024, Expires: 08/13/2025 Social Work - General consult (clinic) Outpatient Referral Routine Malignant Neoplasm Of Pancreas Head (HCC) Expected: 05/16/2024, Expires: 08/13/2025 documented as of this encounter Visit Diagnoses Diagnosis Malignant Neoplasm Of Pancreas Head (HCC)- Primary documented in this encounter Additional Health Concerns Infection Onset Date Last Indicated Resolved Time Protective Environment 02/08/2024 02/08/2024 documented as of this encounter Care Teams Ground Defence Officer Relationship Specialty Start Date End Date Elsewhere, Pcp PCP - General Internal Medicine 01/27/24 documented as of this encounter
--- OUTSIDE RECORDS SUMMARY | 2024-05-19 18:31 | XMS_ITS | Clinical Summary ---
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 For routine questions regarding patient records, call [phone] during business hours, M-F 8:00 AM - 5:00 PM Central Time. Record requests for emergency care only can be directed to [phone] at any time.[facility] Allergies No known active allergies Medications * This document contains information received from the source organization and may not represent a complete record from that organization. metoprolol succinate (Toprol XL) 50 mg 24 hr tablet Take 1 tablet by mouth every morning. 11/04/19 23 Active metFORMIN XR (Glucophage-XR) 500 mg 24 hr tablet Take 500 mg by mouth 2 (two) times a day. Active rosuvastatin (Crestor) 10 mg tablet Take 1 tablet by mouth every evening. 07/12/19 24 Active raloxifene (Evista) 60 mg tablet Take 60 mg by mouth every evening. 01/22/20 23 Active multivit-min/FA/faith tein/zeaxant (MACULAR VITAMIN ORAL) Take 1 tablet by mouth 2 (two) times a day. Macular Protect Active traMADoL (Ultram) 50 mg tablet Take 1 tablet by mouth as needed for pain. 01/06/20 24 Active ondansetron ODT (Zofran-ODT) 4 mg disintegrating tablet Dissolve 4 mg in the mouth as needed for nausea or vomiting. Active lidocaine-prilocai ne (Emla) 2.5-2.5 % cream Apply 1 Application topically as needed (prior to port access). 01/06/20 24 Active cholecalciferol, vitD3,/vit K2 (VITAMIN D3-VITAMIN K2 ORAL) Take 1 tablet by mouth daily. Vitamin D3 5000 units and K2 90 mcg Active apixaban (Eliquis) 5 mg tablet Take 2 tablets (10 mg total) by mouth 2 (two) times a day for 7 days, THEN 1 tablet (5 mg total) 2 (two) times a day. 374 tablet 4 8:48 PM [employer] OPERATOR 02/01/20 24 025 Active dexAMETHasone (Decadron) 4 mg/mL injection Infuse 10 mg into a venous catheter. 02/10/20 24 Active diphenhydrAMINE in NaCl 0.9 % (BenadryL) 25 mg/50 mL IVPB Infuse 50 mg into a venous catheter. 01/13/20 Active famotidine (Pepcid) 10 mg/mL injection Infuse 20 mg into a venous catheter. 01/13/20 24 Active PROTEIN-BOUND PACLItaxel (Abraxane) 5 mg/mL IVPB Infuse 130 mg into a venous catheter. 02/10/20 Active methylPREDNISolone sodium succinate (SOLU-MedroL) 125 mg/mL injection Infuse 125 mg into a venous catheter. 01/13/20 24 Active gemcitabine in 0.9 % NaCl 1,200 mg/120 mL (10 mg/mL) piggyback Infuse 1,000 mg into a venous catheter. 02/10/20 Active granisetron (KytriL) 1 mg/mL injection Infuse 1,000 mcg into a venous catheter. 02/10/20 24 Active magnesium oxide (Mag-Ox) 400 mg (241.3 mg magnesium) tablet Take 1 tablet by mouth daily. 01/28/20 Active sennosides-docusat e sodium (Senokot-S) 8.6-50 mg per tablet Take 1 tablet by mouth daily. Active acetaminophen (TylenoL) 500 mg capsule Take 500 mg by mouth every 6 (six) hours as needed for pain. Active lisinopriL 40 mg tablet Take 1 tablet by mouth daily. 04/27/19 25 Active furosemide (Lasix) 20 mg tablet Take 1 tablet by mouth daily. 04/27/19 25 Active potassium chloride (Klor-Con M) 20 mEq ER tablet Take 1 tablet by mouth daily. 04/27/19 25 Active lisinopriL 10 mg tablet Take 1 tablet by mouth every evening. 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 on 02/03/2024 Repeated Falls 02/01/2024 Supraventricular Tachycardia, Unspecified 2018 Abnormal Cardiovascular Function Test 09/14/2018 Overview (02/01/2024): EF 60% Pacemaker Cardiac Status Post 08/24/2018 Sick Sinus Syndrome 08/11/2018 Hypertension Essential Primary 07/07/2018 Diabetes Mellitus Type 2 Without Complication Encounters * This document contains information received from the source organization and may not represent a complete record from that organization. Date Type Department Care Team Description 05/16/2024 Orders Only Department of Radiation Oncology in [place], [place] [address] [place] [address] Joyce Kenyon P.A.-C., M.S. 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) 05/15/2024 Orders Only Department of Radiation Oncology in [place], [place] [address] [place] [address] Antonette Schulte M.D. 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) 05/10/2024 2:40 PM [employer] OPERATOR Office Visit Department of Oncology in [place], [place] [address] [place] [phone] Dana Guillen APRN, C.N.P., M.S. 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) 05/09/2024 3:11 PM [employer] OPERATOR - 05/09/2024 11:59 PM [employer] OPERATOR Hospital Encounter Department of Radiology, [facility], in [place], [place] [address] [place] [phone] Sanjeev Woods M.D., M.P.H. Malignant Neoplasm Of Pancreas Head (HCC) Discharge Disposition: Home or Self Care 05/09/2024 2:40 PM [employer] PL[employer] OPERATOR Lab Department of Infusion Therapy in [place], [place] [address] [place] [phone] Sanjeev Woods M.D., M.P.H. 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) 05/04/2024 2:00 PM [employer] OPERATOR Clinical Communication Virtual Review in [place], [place] [address] [place] [address] Pre-visit Intake 03/15/2024 Orders Only Department of Oncology in [place], [place] [address] [place] [phone] Sanjeev Woods M.D., M.P.H. 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) 03/15/2024 Clinical Communication Department of Oncology in [address] [phone] Sanjeev Woods M.D., M.P.H. Appointment 03/08/2024 8:55 AM [employer]IN PL[employer] OPERATOR - 03/08/2024 11:59 PM [employer]IN [employer] OPERATOR Hospital Encounter Department of Neurology in [place], [place] [address] [place] [phone] Compa Arnold M.D. Foot Drop Left; Foot Drop Right Discharge Disposition: Home or Self Care 03/07/2024 2:00 PM [employer] OPERATOR Comprehensive Visit Department of Physical Medicine and Rehabilitation in [place], [place] [address] [place] [phone] Compa Arnold M.D. Shoemaker, Alexander, P.T., D.PGerri. Abnormal Gait Non Orthopedic (Primary Dx); Foot Drop Left; Foot Drop Right 03/07/2024 1:00 PM [employer] OPERATOR Comprehensive Visit Department of Physical Medicine and Rehabilitation in [place], [place] [address] [place] [phone] Compa Arnold M.D. Mandler, Krista L, O.T., MOT Foot Drop Right (Primary Dx); Foot Drop Left 03/03/2024 3:00 PM [employer] OPERATOR Comprehensive Visit Department of Physical Medicine and Rehabilitation in [place], [place] [address] [place] [phone] Aidan Easley D.O. Foot Drop Right (Primary Dx); Malignant Neoplasm Of Pancreas Head (HCC); Foot Drop Left 03/01/2024 9:45 AM [employer] OPERATOR Clinical Communication Virtual Review in [place], [place] [address] [place] [address] Pre-visit Intake from Last 3 Months Family History Medical History Relation Name Comments Coronary artery disease Father Celso Salazar Diabetes Mother Chase Salazar Relation Name Status Comments Father Celso Salazar Alive Mother Chase Salazar Alive Social History Tobacco Use Types Packs/Day Years Used Date Smoking Tobacco: Never Smokeless Tobacco: Never Tobacco Cessation:Counseling Given: Not Answered Alcohol Use Standard Drinks/Week Comments Never 0 (1 standard drink = 0.6 oz pur e alcohol) [facility] Answer Date Recorded In the past 12 months has [employer], gas, oil, or water [employer] threatened to shut off services in your [...] your living situation today? I have a [facility] place to live 02/04/2024 Comments Unknown Sex and Gender Information Value Date Recorded Sex Assigned at Female 01/30/2024 2:33 PM [employer] OPERATOR Legal Sex Female 4:38 PM CDT Gender Identity Female 01/30/2024 2:33 PM [employer] OPERATOR Sexual Orientation Straight 01/30/2024 2: 33 PM [employer] OPERATOR Last Filed Vital Signs Vital Sign Reading Time Taken Comments Blood Pressure 156/66 05/10/2024 2:28 PM [employer] OPERATOR Pulse 67 05/10/2024 2:28 PM [employer] OPERATOR Temperature 37.4 C (99.3 F) 05/10/2024 2:25 PM [employer] OPERATOR Respiratory Rate 16 05/10/2024 2:25 PM [employer] OPERATOR Oxygen Saturation 97% 05/10/2024 2:25 PM [employer] OPERATOR Inhaled Oxygen Concentration - - Weight 67.1 kg (147 lb 14.9 oz) 05/10/2024 2:25 PM [employer] OPERATOR Height 155.2 cm (5' 1.1) 05/10/2024 2:25 PM [employer] OPERATOR Body Mass Index 27.86 05/10/2024 2:25 PM [employer] OPERATOR Plan of Treatment Upcoming Encounters Date Type Department Care Team (Late st Contact Info) Description 05/26/2024 12:30 PM [employer] OPERATOR Appointment Department of Radiation Oncology in [place], [place] [address] [place] [phone] Aidan Estrada M.D. [address] [place] [address] Carlos Gibson R.N. 05/26/2024 1:00 PM [employer] OPERATOR Appointment Department of Radiation Oncology in [place], [place] [address] [place] [phone] Antonette Schulte M.D. [address] [place] [phone] 05/26/2024 2:00 PM [employer] OPERATOR Appointment Department of Radiation Oncology in [place], [place] [address] [place] [address] Aidan Estrada M.D. [address] [place] [phone] Antonette Schulte M.D. [address] [place] [phone] Health Maintenance Due Date Last Done Comments Diabetic Office Visit with Foot Exam 1940 Dilated Eye Exam 1940 Hemoglobin A1C 1940 Urine Albumin 1940 COVID-19 Vaccine (#1) 1945 DTaP,Tdap,and Td Vaccines (1 - Tdap) 10/29/1959 Pneumococcal vaccine (50+ years) (1 of 2 - PCV) 10/29/1959 Zoster Vaccines (1 of 2) 10/29/1959 Hepatitis B Vaccines (1 of 3 - Risk 3-dose series) 2000 RSV vaccine - (32-36 weeks) or 60+ years (1 - 1-dose 75+ series) 10/29/2015 Influenza Vaccine (#1) 2023 Depression Screening (Annual PHQ-2) 03/29/2024 Fall Risk Screen (Annual) 03/29/2024 Office Visit for Blood Pressure Check / Re-check 08/07/2024 05/10/2024 Creatinine Level (Kidney Function Test) 05/09/2025 05/09/2024, 05/09/2024, 02/01/2024, Additional history exists Potassium Level 05/09/2025 05/09/2024, 0 07/2023, 02/01/2024 Sodium Level 05/09/2025 05/09/2024, 0 07/2023, 02/01/2024 IPV Vaccines Aged Out No longer eligi ble based on patient's age to complete this topic Medical Devices Implanted Type Area Knit Goods Mender Device Identifier Shelf Expiration Date Model / Serial / Lot Cardiac Stent Cardiac Stent Heart Implantable Port-01/04/2024 Implanted:01/03 (Quantity not on file) Implantable Port Right: Chest Pacemaker-2018 Implanted:08/10 (Quantity not on file) Pacemaker Heart [employer] [id number] / [id number] / Description:Placed in 9 Procedures Procedure Name Priority Date/Time Associated Diagnosis Comments CT ABDOMEN PELVIS WITH IV CONTRAST RAD - Routine (most inpatients and all outpatients) 05/09/2024 4:43 PM [employer] OPERATOR Malignant Neoplasm Of Pancreas Head (HCC) CT CHEST WITH IV CONTRAST RAD - Routine (most inpatients and all outpatients) 05/09/2024 4:43 PM [employer] PL[employer] OPERATOR Malignant Neoplasm Of Pancreas Head (HCC) CREATININE, POCT, B Routine 05/09/2024 3 :38 PM [employer]IN PL[employer] OPERATOR CREATININE, POCT, B Routine 05/09/2024 3 :38 PM [employer]IN PL[employer] OPERATOR CARBOHYDRATE AG 19-9 (CA 19-9), S Routine 05/09/2024 2:59 PM [employer] OPERATOR Malignant Neoplasm Of Pancreas Head (HCC) COMPREHENSIVE METABOLIC PANEL, S/P Routine 05/09/2024 2:59 PM [employer] OPERATOR Malignant Neoplasm Of Pancreas Head (HCC) CBC WITH DIFFERENTIAL, B Routine 05/09/2024 2:59 PM [employer] OPERATOR Malignant Neoplasm Of Pancreas Head (HCC) EMG Routine 03/08/2024 8:55 AM [employer]IN PL[employer] OPERATOR Foot Drop Left Foot Drop Right from Last 3 Months Results * CT Abdomen Pelvis with IV Contrast (05/09/2024 4:43 PM [employer] OPERATOR) Anatomical Region Laterality Modality Abdomen, Pelvis, Abdominal R ST LOS, Abdominal ARZ LOS, Abdominal FLA LOS N/A Computed Tomography 05/09/2024 5:53 PM [employer] PL[employer] OPERATOR Impressions 05/10/2024 7:21 AM [employer]IN PL[employer] OPERATOR Slight decrease size of pancreas head mass. Extensive vascular involvement persists. No new CT evidence of metastatic disease in the abdomen or pelvis. Narrative 05/10/2024 7:21 AM [employer]IN PL[employer] OPERATOR EXAM: CT ABDOMEN PELVIS WITH IV CONTRAST COMPARISON: CT pancreas 02/01/2024 FINDINGS: Slight decrease in size of previously seen hypoenhancing mass in the head of the pancreas, now measuring 3.1 x 2.0 cm compared to 3.3 by 2.3 cm previously. Again seen is upstream atrophy of the pancreas parenchyma and mild dilatation of the main pancreatic duct measuring up to 5 mm. Metallic bile duct stent in place. Also again seen is extensive vascular contact, with less than 180 degrees solid soft tissue contact with the SMA, greater than 180 degrees solid soft tissue contact with the common hepatic artery which remains patent, and less than 180 degrees solid soft tissue contact with the main portal vein and SMV as well as a short segment of the splenic vein, which remain patent. There is very slight narrowing of the portal confluence, unchanged. Tiny focus of ill-defined enhancement in the right hepatic lobe and patchy geographic enhancement in segment 4 are presumed perfusional. No new suspicious liver lesion. No abdominal or pelvic lymphadenopathy. No discrete peritoneal or omental nodularity. No ascites. Splenic granulomas. Adrenals and kidneys are unremarkable. Circumaortic left renal vein. Mild vascular calcifications. Tiny hiatal hernia. This examination was performed in conjunction with a CT of the chest, which will be reported separately. Procedure Note Williams Galaviz M.D. - 05/10/2024 EXAM: CT ABDOMEN PELVIS WITH IV CONTRAST COMPARISON: CT pancreas 02/01/2024 FINDINGS: Slight decrease in size of previously seen hypoenhancing mass in the headof the pancreas, now measuring 3.1 x 2.0 cm compared to 3.3 by 2.3 cmpreviously. Again seen is upstream atrophy of the pancreas parenchyma andmild dilatation of the main pancreatic duct measuring up to 5 mm. Metallic bile duct stent in place. Also again seen is extensive vascular contact, with less than 180 degreessolid soft tissue contact with the SMA, greater than 180 degrees solidsoft tissue contact with the common hepatic artery which remains patent,and less than 180 degrees solid soft tissue contact with the main portal vein and SMV as well as a shortsegment of the splenic vein, which remain patent. There is very slightnarrowing of the portal confluence, unchanged. Tiny focus of ill-defined enhancement in the right hepatic lobe and patchygeographic enhancement in segment 4 are presumed perfusional. No newsuspicious liver lesion. No abdominal or pelvic lymphadenopathy. Nodiscrete peritoneal or omental nodularity. No ascites. Splenic granulomas. Adrenals and kidneys are unremarkable. Circumaorticleft renal vein. Mild vascular calcifications. Tiny hiatal hernia. This examination was performed in conjunction with a CT of the chest,which will be reported separately. IMPRESSION: Slight decrease size of pancreas head mass. Extensive vascular involvementpersists. No new CT evidence of metastatic disease in the abdomen orpelvis. Sanjeev Woods M.D., M.P.H. IMG CT PROCEDURES Final Result * CT Chest with IV Contrast (05/09/2024 4:43 PM [employer]IN PL[employer] OPERATOR) Anatomical Region Laterality Modality Chest, Thoracic RST LOS, Tho racic ARZ LOS, Thoracic ARZ LOS, Thoracic FLA LOS N/A Computed Tomography 05/09/2024 5:08 PM [employer]IN PL[employer] OPERATOR Impressions 05/10/2024 8:22 AM [employer]IN PLANT OPERATOR 1. New small bilateral pleural effusions with suspected pleural nodularities, indeterminate. Short-term follow-up CT can be considered. 2. New patchy groundglass opacities throughout the lungs could be due to infection/inflammation. 3. Stable 5 mm nodule in right lower lobe. 4. Stable mild enlargement of mediastinal lymph nodes. 5. Interval resolution of previously seen right lower lobe pulmonary emboli. Narrative 05/10/2024 8:22 AM LAN[employer]IN PLANT OPERATOR EXAM: CT CHEST WITH IV CONTRAST 3D maximum intensity projection (MIP) images were created on a dependent workstation as ordered by the treating provider and reviewed by the radiologist to increase sensitivity for detection of pulmonary nodules. COMPARISON: 02/01/2024 FINDINGS: Right IJ Port-A-Cath with the tip in the upper SVC. Trachea and central bronchi are patent. No central endobronchial lesion. Biapical scarring. Unchanged 5 mm nodule in right lower lobe (3/410). A few calcified granulomas. No new or enlarging lung nodule. New patchy groundglass opacities throughout the lungs. New small bilateral pleural effusions, right greater than left. Mild pleural nodularity for example in the right lower lobe (3/410, 443) and left lower lobe (3/350, 351). No pneumothorax. Stable mild enlargement of mediastinal lymph nodes. For example, 12 mm right lower paratracheal lymph node. 10 mm left lower paratracheal and para-aortic lymph nodes. A few calcified mediastinal and right hilar lymph nodes. Heterogeneous attenuation of thyroid gland. No cardiomegaly or pericardial effusion. Dual-lead left subclavian pacemaker with lead tips in the right atrium and right ventricle. Small amount of mitral annular and coronary arterial calcifications. The thoracic aorta is normal in course and caliber with mild atherosclerotic changes. The central pulmonary arteries normal in caliber. Degenerative changes spine and glenohumeral joints. No suspicious osseous abnormality. Pectus excavatum deformity. This examination was performed in conjunction with a CT of the abdomen, which will be reported separately. Procedure Note Gaudencio Ferreira M.B.B.S., M.D. - 05/10/2024 EXAM: CT CHEST WITH IV CONTRAST 3D maximum intensity projection (MIP) images were created on a dependentworkstation as ordered by the treating provider and reviewed by theradiologist to increase sensitivity for detection of pulmonary nodules. COMPARISON: 02/01/2024 FINDINGS: Right IJ Port-A-Cath with the tip in the upper SVC. Trachea and central bronchi are patent. No central endobronchial lesion.Biapical scarring. Unchanged 5 mm nodule in right lower lobe (3/410). Afew calcified granulomas. No new or enlarging lung nodule. New patchygroundglass opacities throughout the lungs. New small bilateral pleural effusions, right greater than left.Mild pleural nodularity for example in the right lower lobe (3/410, 443)and left lower lobe (3/350, 351). No pneumothorax. Stable mild enlargement of mediastinal lymph nodes. For example, 12 mmright lower paratracheal lymph node. 10 mm left lower paratracheal andpara-aortic lymph nodes. A few calcified mediastinal and right hilar lymphnodes. Heterogeneous attenuation of thyroid gland. No cardiomegaly or pericardial effusion. Dual-lead left subclavianpacemaker with lead tips in the right atrium and right ventricle. Smallamount of mitral annular and coronary arterial calcifications. Thethoracic aorta is normal in course and caliber with mild atherosclerotic changes. The central pulmonary arteries normalin caliber. Degenerative changes spine and glenohumeral joints. No suspicious osseousabnormality. Pectus excavatum deformity. This examination was performed in conjunction with a CT of the abdomen,which will be reported separately. IMPRESSION: 1. New small bilateral pleural effusions with suspected pleuralnodularities, indeterminate. Short-term follow-up CT can be considered. 2. New patchy groundglass opacities throughout the lungs could be due toinfection/inflammation. 3. Stable 5 mm nodule in right lower lobe. 4. Stable mild enlargement of mediastinal lymph nodes. 5. Interval resolution of previously seen right lower lobe pulmonaryemboli. Sanjeev Woods M.D., M.P.H. IMG CT PROCEDURES Final Result * Creatinine, POCT (05/09/2024 3:38 PM [employer]IN PL[employer] OPERATOR) Only the most recent of2 resultswithin the time period is included. Creatinine, POCT, B 0.8 0.6 - 1.0 mg/dL 05/09/2024 3:46 PM [employer]IN PL[employer] OPERATOR PCDT Comment: ----ADDITIONAL INFORMATION---- Performed at the Point of Care Blood 05/09/2024 3:38 PM [employer]IN PL[employer] OPERATOR 05/09/2024 3:46 PM [employer]IN PL[employer] OPERATOR Unknown Provider LAB POCT ORDERABLES - DEVICE Fi nal Result [facility] [address] [place] [address], [facility] PCDT [facility] POC [address] [place] [address] * (ABNORMAL) Carbohydrate Antigen 19-9 (CA 19-9) (05/09/2024 2:59 PM [employer]IN PL[employer] OPERATOR) Pathologist [facility] Carbohydrate Ag 19-9, S 1313(H) <35 U/mL 05/09/2024 8:43 PM [employer]IN PL[employer] OPERATOR [facility] Comment: ----ADDITIONAL INFORMATION---- The testing method is an immunoenzymatic assay manufactured by [employer] and performed on the freee DxI 800. Values obtained with different assay methods or kits may be different and cannot be used interchangeably. Test results cannot be interpreted as absolute evidence for the presence or absence of malignant disease. Blood (Blood, Venous) 05/09/2024 2:59 PM [employer]IN PL[employer] OPERATOR 05/09/2024 7:51 PM [employer]IN PL[employer] OPERATOR Sanjeev Woods M.D., M.P.H. LAB BLOOD ADD-ON F inal Result [facility] [address] [place] [address] [facility] [address] [place] [address] * (ABNORMAL) CBC with Differential, Blood (05/09/2024 2:59 PM [employer]IN PL[employer] OPERATOR) [facility] Hemoglobin 8.4(L) 11.6 - 15.0 g/dL 05/09/2024 3:43 PM [employer]IN PLANT OPERATOR DTL Hematocrit 26.5(L) 35.5 - 44.9 % 05/09/2024 3:43 PM [employer]IN PLANT OPERATOR DTL Erythrocytes 2.96(L) 3.92 - 5.13 x10(12)/L 05/09/2024 3:43 PM [employer]IN PL[employer] OPERATOR DTL MCV 89.5 78.2 - 97.9 fL 05/09/2024 3:43 PM [employer]IN PL[employer] OPERATOR DTL RBC Distrib Width 15.9 12.2 - 16.1 % 05/09/2024 3:43 PM [employer]IN PL[employer] OPERATOR DTL Platelet Count 104(L) 157 - 371 x10(9)/L 05/09/2024 4:38 PM [employer]IN PL[employer] OPERATOR DTL Leukocytes 7.2 3.4 - 9.6 x10(9)/L 05/09/2024 4:38 PM [employer]IN PL[employer] OPERATOR DTL Neutrophils 4.65 1.56 - 6.45 x10(9)/L 05/09/2024 3:43 PM [employer]IN PL[employer] OPERATOR [facility] Lymphocytes 1.80 0.95 - 3.07 x10(9)/L 05/09/2024 3:43 PM [employer]IN PL[employer] OPERATOR DTL Monocytes 0.45 0.26 - 0.81 x10(9)/L 05/09/2024 3:43 PM [employer]IN PLANT OPERATOR DTL Eosinophils 0.25 0.03 - 0.48 x10(9)/L 05/09/2024 3:43 PM [employer]IN PLANT OPERATOR DTL Basophils <0.03 0.01 - 0.08 x10(9)/L 05/09/2024 3:43 PM [employer]IN PLANT OPERATOR DTL Blood (Blood, Venous) 05/09/2024 2:59 PM [employer] PL[employer] OPERATOR 05/09/2024 3:32 PM [employer]IN PL[employer] OPERATOR Sanjeev Woods M.D., M.P.H. LAB BLOOD ADD-ON F inal Result [facility] [address] [place] [address], [facility] DTL [facility] [address] [place] [address] * (ABNORMAL) Comprehensive Metabolic Panel (05/09/2024 2:59 PM LAN[employer]IN PL[employer] OPERATOR) [facility] Potassium, S 3.9 3.6 - 5.2 mmol/L 05/09/2024 4:05 PM [employer]IN PL[employer] OPERATOR DTL Sodium, S 137 135 - 145 mmol/L 05/09/2024 4:05 PM [employer]IN PL[employer] OPERATOR DTL Chloride, S 101 98 - 107 mmol/L 05/09/2024 4:05 PM [employer]IN PL[employer] OPERATOR DTL Bicarbonate, S 27 22 - 29 mmol/L 05/09/2024 4:05 PM [employer]IN PL[employer] OPERATOR DTL Anion Gap 9 7 - 15 05/09/2024 4:05 PM [employer]IN PL[employer] OPERATOR DTL BUN (Blood Urea Nitrogen), S 18 6 - 21 mg/dL 05/09/2024 4:05 PM [employer]IN PL[employer] OPERATOR DTL Creatinine 0.79 0.59 - 1.04 mg/dL 05/09/2024 4:05 PM [employer]IN [employer] OPERATOR DTL Estimated GFR (eGFR) 74 >=60 mL/min/BS A 05/09/2024 4:05 PM [employer]IN PLANT OPERATOR DTL Comment: Estimated GFR calculated using the 2020 CKD_EPI creatinine equation. Calcium, Total, S 8.4(L) 8.8 - 10.2 mg/dL 05/09/2024 4:05 PM [employer]IN PL[employer] OPERATOR DTL Glucose, S 200(H) 70 - 140 mg/dL 05/09/2024 4:05 PM [employer]IN [employer] OPERATOR DTL Protein, Total, S 6.2(L) 6.3 - 7.9 g/dL 05/09/2024 4:05 PM [employer]IN [employer] OPERATOR DTL Albumin, S 3.1(L) 3.5 - 5.0 g/dL 05/09/2024 4:05 PM [employer] DTL Aspartate Aminotransferase (AST), S 29 8 - 43 U/L 05/09/2024 4:05 PM [employer] DTL Alkaline Phosphatase, S 128(H) 35 - 104 U/L 05/09/2024 4:05 PM [employer] DTL Alanine Aminotransferase (ALT), S 25 7 - 45 U/L 05/09/2024 4:05 PM [employer] DTL Bilirubin, Total, S 0.4 0.0 - 1.2 mg/dL 05/09/2024 4:05 PM [employer] DTL Blood (Blood, Venous) 05/09/2024 2:59 PM [employer] 05/09/2024 3:42 PM [employer] Sanjeev Woods M.D., M.P.H. LAB BLOOD ADD-ON F inal Result [facility] [address] [place] [address], [facility] DTL [facility] [address] [place] [address] * EMG (03/08/2024 8:55 AM [employer]) 03/08/2024 9:15 AM [employer] Narrative [facility] EMG - 03/08/2024 12:01 PM [employer] Table formatting from the original result was not included. 08-Mar-2024 Electromyography Final Report Study Number: 1 EMG Project Portfolio Analyst: Karan Bhat 127 or [phone] Referred by: COMPA RANOLD ([id number])) Referred for: Bilat foot drop L>R Referral Code: 251 RX: 251 [id number] SUMMARY: Prior to starting the procedure, the patient's identity was verified, all available records were reviewed, the nature of the procedure was explained, the appropriate sites of the exam were confirmed directly with the patient, and a pre-procedure pause was performed for final verification of all of the above. Given the patient's use of anticoagulation, the risks and benefits of the needle EMG were reviewed and the patient agreed to proceed. During the examination, adequate hemostasis was achieved and no bleeding complications were noted. Nerve conduction studies demonstrated low amplitude lower limb compound muscle action potentials with focal conduction block in the fibular nerves (68% on the left and 80% on the right) immediately proximal to the fibular heads bilaterally. Sural sensory nerve action potentials were present bilaterally, and fibular sensory nerve action potentials were absent bilaterally. The left median sensory conduction velocity was mildly slowed. Needle electrode examination demonstrated fibrillation potentials and reduced recruitment of large motor unit potentials in distal muscles, more conspicuously in muscles innervated by the fibular nerves distal to the knee. 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 Citlali Bhat (127 or [phone])/SMB NERVE CONDUCTIONS Record Rep Normal Normal Distal Normal F-Wave F-Wave Temp Nerve Type Site Stim Side Amp Amp CV CV Lat Lat Lat Est ( C) Fibular Motor EDB L 0.1 (> 2.0) 36 (> 41) 4.5 (< 6.6) 30.8 Fibular Motor EDB R 0.3 (> 2.0) 38 (> 41) 4.6 (< 6.6) 28.4 Fibular Sensory Ankle L NR (> 0.0) NR (< 4.1) 29.8 Remark: Moved G1 Fibular Sensory Ankle R NR (> 0.0) NR (< 4.1) 28.5 Remark: Moved G1 Tibial Motor AH L 0.8 (> 4.0) 45 (> 40) 4.8 (< 6.1) 30.9 Tibial Motor AH R 0.9 (> 4.0) 40 (> 40) 3.6 (< 6.1) 28.4 Sural Sensory Ankle L 4 (> 0.0) 44 (> 40) 4.0 (< 4.5) 28.9 Sural Sensory Ankle R 5 (> 0.0) 45 (> 40) 4.6 (< 4.5) 28.5 Ulnar Motor ADM L 6.4 (> 6.0) 62 (> 51) 2.2 (< 3.6) 26.5 22.4 33.1 Median Sensory Dig II L 18 (> 15.0) 53 (> 56) 3.5 (< 3.6) 33.6 NEEDLE EMG Ins Spont MUP Recruitment Duration Amplitude Phases Muscle Side Act Fib Fasc Normal Activ Reduced Rapid Long Short High Low % Turns First dorsal interosseous L INC + 0 + Comment: Tremor Brachioradialis L NL 0 0 NL Tensor fasciae latae L NL 0 0 NL Biceps femoris (short head) L NL 0 0 NL Vastus medialis L NL 0 0 NL Gastrocnemius (medial head) L NL 0 0 + + 25% + Tibialis anterior L INC ++ 0 +++ ++ + First dorsal interosseous (pedis) L NL 0 0 ----- This interpretation has been electronically signed: Karan Bhat M.D. at 03/08/2024 12:00:45 PM [employer] Procedure Note Karan Bhat Jr., M.D. - 03/08/2024 08-Mar-2024 Electromyography Final Report Study Number: 1 EMG Project Portfolio Analyst: Karan Bhat 127 or [phone] Referred by: COMPA ARNOLD ([id number])) Referred for: Bilat foot drop L>R Referral Code: 251 RX: 251 200 SUMMARY: Prior to starting the procedure, the patient's identity wasverified, all available records were reviewed, the nature of the procedurewas explained, the appropriate sites of the exam were confirmed directlywith the patient, and a pre-procedure pause was performed for finalverification of all of the above. Given the patient's use ofanticoagulation, the risks and benefits of the needle EMG were reviewedand the patient agreed to proceed. During the examination, adequatehemostasis was achieved and no bleeding complications were noted. Nerve conduction studies demonstrated low amplitude lower limb compoundmuscle action potentials with focal conduction block in the fibular nerves(68% on the left and 80% on the right) immediately proximal to the fibularheads bilaterally. Sural sensory nerve action potentials were presentbilaterally, and fibular sensory nerve action potentials were absentbilaterally. The left median sensory conduction velocity was mildlyslowed. Needle electrode examination demonstrated fibrillation potentialsand reduced recruitment of large motor unit potentials in distal muscles,more conspicuously in muscles innervated by the fibular nerves distal tothe knee. CLINICAL INTERPRETATION: There is evidence of 1) bilateral subacute tochronic fibular neuropathies at the knees, and 2) a chroniclength-dependent sensorimotor peripheral neuropathy with features thatshould anticipate a primarily axonal process. Citlali Bhat (127 or [phone])/SMB NERVE CONDUCTIONS Record Rep Normal Normal Distal Normal F-Wave F-Wave Temp Nerve Type Site Stim Side Amp Amp CV CV Lat Lat Lat Est ( C) Fibular Motor EDB L 0.1 (> 2.0) 36 (> 41) 4.5 (< 6.6) 30.8 Fibular Motor EDB R 0.3 (> 2.0) 38 (> 41) 4.6 (< 6.6) 28.4 Fibular Sensory Ankle L NR (> 0.0) NR (< 4.1) 29.8 Remark: Moved G1 Fibular Sensory Ankle R NR (> 0.0) NR (< 4.1) 28.5 Remark: Moved G1 Tibial Motor AH L 0.8 (> 4.0) 45 (> 40) 4.8 (< 6.1) 30.9 Tibial Motor AH R 0.9 (> 4.0) 40 (> 40) 3.6 (< 6.1) 28.4 Sural Sensory Ankle L 4 (> 0.0) 44 (> 40) 4.0 (< 4.5) 28.9 Sural Sensory Ankle R 5 (> 0.0) 45 (> 40) 4.6 (< 4.5) 28.5 Ulnar Motor ADM L 6.4 (> 6.0) 62 (> 51) 2.2 (< 3.6) 26.5 22.4 33.1 Median Sensory Dig II L 18 (> 15.0) 53 (> 56) 3.5 (< 3.6) 33.6 NEEDLE EMG Ins Spont MUP Recruitment Duration Amplitude Phases Muscle Side Act Fib Fasc Normal Activ Reduced Rapid Long Short High Low %Turns First dorsal interosseous L INC + 0 + Comment: Tremor Brachioradialis L NL 0 0 NL Tensor fasciae latae L NL 0 0 NL Biceps femoris (short head) L NL 0 0 NL Vastus medialis L NL 0 0 NL Gastrocnemius (medial head) L NL 0 0 + + 25% + Tibialis anterior L INC ++ 0 +++ ++ + First dorsal interosseous (pedis) L NL 0 0 ----- This interpretation has been electronically signed: Karan Bhat M.D. at 03/08/2024 12:00:45 PM [employer] Compa Arnold M.D. 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
--- OUTSIDE RECORDS SUMMARY | 2024-05-19 18:31 | XMS_ITS ---
Author Organization [facility] Address [address] [place] [address] Care Team Providers Care Customer Counter Associate Name Role Phone Elsewhere, Pcp Primary Care Provider Unavailabl e Active Problems * This document contains information received from the source organization and may not represent a complete record from that organization. 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 Past Treatment and Therapy Plans No past plan information found.
--- OUTSIDE RECORDS SUMMARY | 2024-05-19 18:31 | XMS_ITS | Encounter Summary ---
Author Organization [facility] Address [address] [place] [id number] Care Team Providers Care Manager Product Name Role Phone Elsewhere, Pcp Primary Care Provider Unavailabl e Reason for Referral * Outpatient (Routine) - Closed Specialty Diagnoses / Procedures Referred By Leann joseph Referred To Contact General Surgery Diagnoses Malignant Neoplasm Of Pancreas (HCC) Ricky Schaefer M.D., Ph.D. [address] [place] [phone] Phone: tel: fax: [facility] Referral ID Status Reason Start Date Expiration Date Visits Re quested Visits Authorized [id number] Closed 01/11/2024 07/12/2025 1 1 * MRI/CAT/PET Scan (Routine) - Closed Specialty Diagnoses / Procedures Referred By Leann joseph Referred To Contact Radiology Diagnoses Malignant Neoplasm Of Pancreas (HCC) Procedures CT Pancreas Angiogram Triple Phase and Pelvis with IV Contrast Ricky Schaefer M.D., Ph.D. [address] [place] [phone] Phone: tel: fax: [facility] Referral ID Status Reason Start Date Expiration Date Visits Re quested Visits Authorized [id number] Closed 01/14/2024 01/13/2025 1 1 * MRI/CAT/PET Scan (Routine) - Closed Specialty Diagnoses / Procedures Referred By Contac t Referred To Contact Radiology Diagnoses Malignant Neoplasm Of Pancreas (HCC) Procedures CT Chest with IV Contrast Sanjeev Woods M.D., M.P.H. [facility] Referral ID Status Reason Start Date Expiration Date Visits Re quested Visits Authorized [id number] Closed 01/14/2024 01/13/2025 1 1 Encounter Details Date Type Department Care Team (Late st Contact Info) Description 12/29/2023 Orders Only Department of Oncology in [place], [place] [address] [place] [phone] [facility], ProviderMD Malignant Neoplasm Of Pancreas (HCC) Social History Tobacco Use Types Packs/Day Years Used Date Smoking Tobacco: Never Assessed Dental Answer Date Recorded Dental: Regular Dentist Unknown 12/28/19 24 Comments Unknown Sex and Gender Information Value Date Recorded Sex Assigned at Female 01/30/2024 2:33 PM DIRECTOR OF STUDENT AFFAIRS Legal Sex Female 4:38 PM CDT Gender Identity Female 01/30/2024 2:33 PM DIRECTOR OF STUDENT AFFAIRS Sexual Orientation Straight 01/30/2024 2: 33 PM DIRECTOR OF STUDENT AFFAIRS documented as of this encounter Plan of Treatment Upcoming Encounters Date Type Department Care Team (Late st Contact Info) Description 05/26/2024 12:30 PM DIRECTOR OF STUDENT AFFAIRS Appointment Department of Radiation Oncology in [place], [place] [address] [place] [phone] Aidan Estrada M.D. [address] [place] [phone] Carlos Gibson, RMelvinNMelvin 05/26/2024 1:00 PM DIRECTOR OF STUDENT AFFAIRS Appointment Department of Radiation Oncology in [place], [place] [address] [place] [phone] Antonette Schulte M.D. [address] [place] [phone] 05/26/2024 2:00 PM DIRECTOR OF STUDENT AFFAIRS Appointment Department of Radiation Oncology in [place], [place] [address] [place] [phone] Aidan Estrada M.D. [address] [place] [phone] Antonette Schulte M.D. [address] [place] [phone] Scheduled Referrals Name Type Priority Associated Diagnoses Order Schedule General Surgery - Pancreas consult (clinic) Outpatient Referral Routine Malignant Neoplasm Of Pancreas (HCC) 1 Occurrences starting 01/11/2024 until 04/12/2025 documented as of this encounter Results * CT Pancreas Angiogram Triple Phase and Pelvis with IV Contrast (02/01/2024 1:34 PM DIRECTOR OF STUDENT AFFAIRS) Anatomical Region Laterality Modality Abdomen, Pelvis, Abdominal R ST LOS, Abdominal ARZ LOS, Vascular Interventional ARZ LOS, Vascular Interventional FLA LOS, Abdominal FLA LOS N/A Computed Tomography, Compute d Tomography 02/01/2024 1:23 PM DIRECTOR OF STUDENT AFFAIRS Impressions 02/01/2024 4:15 PM DIRECTOR OF STUDENT AFFAIRS Tumor: Ill-defined hypoattenuated mass in the pancreatic head/neck. Vascular contact: Present, involving the SMA, TRE, GDA, main portal vein, SMV, splenic vein Metastasis: Mesenteric lymph node contacting the SMA and SMV Narrative 02/01/2024 4:15 PM DIRECTOR OF STUDENT AFFAIRS EXAM: CT PANCREAS ANGIOGRAM TRIPLE PHASE AND PELVIS WITH IV CONTRAST Including 3D image post-processing with or without AI assistance. COMPARISON: FDG PET/CT from January 07, 2024; CT from January 02, 2024 FINDINGS: Pancreatic Mass Morphologic Evaluation Appearance of mass: Ill-defined hypoattenuated mass in the pancreatic parenchymal phase. Size: 3.1 x 2.4cm. Location: Head/Neck of the pancreas. Pancreatic duct: The lesion is associated with upstream dilatation of the main pancreatic duct. Obstructive atrophy of body/tail: Present. Bile duct: The previous observed CBD dilatation is no longer observed, likely related to biliary stent placement. This is now associated with resolution of intra- and extrahepatic biliary ductal dilatation, with mild expected pneumobilia noted. Arterial Evaluation SMA: Tumor Contact: Present Degree of solid soft-tissue contact: less than or equal to 180 degrees (series 5 images 146-152) Ostial stenosis: Absent Collateral flow: Absent Celiac Artery: Tumor Contact: Absent Ostial stenosis: Absent Collateral flow: Absent TRE: Tumor Contact: Present Degree of solid soft-tissue contact: less than or equal to 180 degrees (series 10 image 39, series 15 image 66) Degree of increased hazy attenuation/stranding contact: Greater than 180 degrees (series 15, image 62) Focal vessel narrowing or contour irregularity: Absent Extension to celiac artery: Absent Extension to bifurcation of right/left hepatic artery: Absent Extension to GDA: Present. Degree of solid soft-tissue contact: Greater than 180 degrees (series 5, image 124, series 13 image 18 series 10 image 34), associated with vessel narrowing and contour irregularity. Splenic Artery: Tumor Contact: Absent . Arterial Variant: Present Variant anatomy: Other (origin of replaced or accessory artery. Anatomic variant with trifurcation of the gastroduodenal artery, right hepatic artery, and left hepatic artery, without a proper hepatic artery. This configuration is noted as a variation from the usual hepatic arterial anatomy (series 10, image 34). Variant vessel contact: Absent Venous Evaluation Main Portal Vein: Tumor Contact: Present Patency: Patent Degree of solid soft-tissue contact: less than or equal to 180 degrees Degree of increased hazy attenuation/stranding contact: less than or equal to 180 degrees Focal vessel narrowing or contour irregularity: Present. SMV: Tumor Contact: Present Patency: Patent Degree of solid soft-tissue contact: less than or equal to 180 degrees Degree of increased hazy attenuation/stranding contact: less than or equal to 180 degrees Focal vessel narrowing or contour irregularity: Absent. No tethering or tear drop Extension of first draining vein: Present Venous collaterals: Absent. Splenic Vein: tumor involving the confluence (series 9, image 122) Tumor Contact: Present Patency: Patent Degree of solid soft-tissue contact: less than or equal to 180 degrees Focal vessel narrowing or contour irregularity: Absent. No tethering or tear drop. Venous collaterals: Absent. Venous Drainage Anatomy: IMV drainage: SMV Coronary vein drainage: Portal vein Extrapancreatic Findings: Liver: No suspicious focal liver lesions. Peritoneum/Omentum: Absent Ascites: Absent Suspicious lymph nodes: [place]-regional: Enlarged mesenteric lymph node with ill-defined margins, contacting the SMA and SMV, measuring up to 1.9 cm x 1.3 cm (series 9, image 142 and series 16 image 39). Other scattered celiac, portacaval and mao hepatis lymph nodes do not have suspicious features. Distant: Absent. Other extrapancreatic disease: Absent. Additional findings: Decompressed gallbladder, presenting air content. Adenomyomatosis of gallbladder fundus. Calcified splenic granulomas. Aortic calcifications. Colonic diverticulosis. No suspicious bone lesions. This examination was performed in conjunction with a CT of the chest, which will be reported separately. Procedure Note Jose Yao M.B., Ch.B. - 02/01/2024 EXAM: CT PANCREAS ANGIOGRAM TRIPLE PHASE AND PELVIS WITH IV CONTRAST Including 3D image post-processing with or without AI assistance. COMPARISON: FDG PET/CT from January 07, 2024; CT from January 02, 2024 FINDINGS: Pancreatic Mass Morphologic Evaluation Appearance of mass: Ill-defined hypoattenuated mass in the pancreaticparenchymal phase. Size: 3.1 x 2.4cm. Location: Head/Neck of the pancreas. Pancreatic duct: The lesion is associated with upstream dilatation of themain pancreatic duct. Obstructive atrophy of body/tail: Present. Bile duct: The previous observed CBD dilatation is no longer observed,likely related to biliary stent placement. This is now associated withresolution of intra- and extrahepatic biliary ductal dilatation, with mildexpected pneumobilia noted. Arterial Evaluation SMA: Tumor Contact: Present Degree of solid soft-tissue contact: less than or equal to 180 degrees(series 5 images 146-152) Ostial stenosis: Absent Collateral flow: Absent Celiac Artery: Tumor Contact: Absent Ostial stenosis: Absent Collateral flow: Absent TRE: Tumor Contact: Present Degree of solid soft-tissue contact: less than or equal to 180 degrees(series 10 image 39, series 15 image 66) Degree of increased hazy attenuation/stranding contact: Greater than 180degrees (series 15, image 62) Focal vessel narrowing or contour irregularity: Absent Extension to celiac artery: Absent Extension to bifurcation of right/left hepatic artery: Absent Extension to GDA: Present. Degree of solid soft-tissue contact: Greaterthan 180 degrees (series 5, image 124, series 13 image 18 series 10image 34), associated with vessel narrowing and contour irregularity. Splenic Artery: Tumor Contact: Absent . Arterial Variant: Present Variant anatomy: Other (origin of replaced or accessory artery. Anatomicvariant with trifurcation of the gastroduodenal artery, right hepaticartery, and left hepatic artery, without a proper hepatic artery. Thisconfiguration is noted as a variation from the usual hepatic arterial anatomy (series 10, image 34). Variant vessel contact: Absent Venous Evaluation Main Portal Vein: Tumor Contact: Present Patency: Patent Degree of solid soft-tissue contact: less than or equal to 180 degrees Degree of increased hazy attenuation/stranding contact: less than or equalto 180 degrees Focal vessel narrowing or contour irregularity: Present. SMV: Tumor Contact: Present Patency: Patent Degree of solid soft-tissue contact: less than or equal to 180 degrees Degree of increased hazy attenuation/stranding contact: less than or equalto 180 degrees Focal vessel narrowing or contour irregularity: Absent. No tethering ortear drop Extension of first draining vein: Present Venous collaterals: Absent. Splenic Vein: tumor involving the confluence (series 9, image 122) Tumor Contact: Present Patency: Patent Degree of solid soft-tissue contact: less than or equal to 180 degrees Focal vessel narrowing or contour irregularity: Absent. No tethering ortear drop. Venous collaterals: Absent. Venous Drainage Anatomy: IMV drainage: SMV Coronary vein drainage: Portal vein Extrapancreatic Findings: Liver: No suspicious focal liver lesions. Peritoneum/Omentum: Absent Ascites: Absent Suspicious lymph nodes: [place]-regional: Enlarged mesenteric lymph node with ill-defined margins,contacting the SMA and SMV, measuring up to 1.9 cm x 1.3 cm (series 9,image 142 and series 16 image 39). Other scattered celiac, portacaval andporta hepatis lymph nodes do not have suspicious features. Distant: Absent. Other extrapancreatic disease: Absent. Additional findings: Decompressed gallbladder, presenting air content.Adenomyomatosis of gallbladder fundus. Calcified splenic granulomas.Aortic calcifications. Colonic diverticulosis. No suspicious bonelesions. This examination was performed in conjunction with a CT of the chest,which will be reported separately. IMPRESSION: Tumor: Ill-defined hypoattenuated mass in the pancreatic head/neck. Vascular contact: Present, involving the SMA, TRE, GDA, main portal vein,SMV, splenic vein Metastasis: Mesenteric lymph node contacting the SMA and SMV Ricky Schaefer M.D., Ph.D. IMG CT PROCEDURES Final Result * CT Chest with IV Contrast (02/01/2024 1:34 PM DIRECTOR OF STUDENT AFFAIRS) Anatomical Region Laterality Modality Chest, Thoracic RST LOS, Tho racic ARZ LOS, Thoracic ARZ LOS, Thoracic FLA LOS N/A Computed Tomography, Compute d Tomography 02/01/2024 1:25 PM DIRECTOR OF STUDENT AFFAIRS Impressions 02/01/2024 2:38 PM DIRECTOR OF STUDENT AFFAIRS 1. Acute pulmonary embolism in segmental and subsegmental pulmonary arteries in posterior lower lobes. No right heart strain. 2. Stable 5 mm nodule in right lower lobe. 3. Stable mild enlargement of mediastinal lymph nodes. Narrative 02/01/2024 2:38 PM DIRECTOR OF STUDENT AFFAIRS EXAM: CT CHEST WITH IV CONTRAST 3D maximum intensity projection (MIP) images were created on a dependent workstation as ordered by the treating provider and reviewed by the radiologist to increase sensitivity for detection of pulmonary nodules. COMPARISON: PET/CT 01/07/2024, CT abdomen 01/02/2024 FINDINGS: Right IJ Port-A-Cath with the tip in the upper SVC. Trachea and central bronchi are patent. No central endobronchial lesion. Biapical scarring. Unchanged 5 mm nodule in right lower lobe (3/396). A few calcified granulomas. No new or enlarging lung nodule. Scattered subsegmental atelectasis. No consolidation, pleural effusion or pneumothorax. Stable mild enlargement of mediastinal lymph nodes. For example, 12 mm subcarinal lymph node. 11 mm right hilar lymph node. A few other subcentimeter mediastinal lymph nodes. Heterogeneous attenuation of thyroid gland. No cardiomegaly or pericardial effusion. Dual-lead left subclavian pacemaker with lead tips in the right atrium and right ventricle. Small amount of mitral annular calcifications. The thoracic aorta is normal in course and caliber with mild atherosclerotic changes. The central pulmonary arteries normal in caliber. Acute pulmonary emboli in bilateral posterior cerebral segmental and subsegmental branches of lower lobes. No evidence of right heart strain. Degenerative changes spine and glenohumeral joints. No suspicious osseous abnormality. Pectus excavatum deformity. This examination was performed in conjunction with a CT of the abdomen, which will be reported separately. CRITICAL FINDINGS (CF): Pulmonary embolism Critical findings discussed with Dr. Sanjeev Woods at 1-59 PM on 02/01/2024. Procedure Note Gaudencio Ferreira M.B.B.S., M.D. - 02/01/2024 EXAM: CT CHEST WITH IV CONTRAST 3D maximum intensity projection (MIP) images were created on a dependentworkstation as ordered by the treating provider and reviewed by theradiologist to increase sensitivity for detection of pulmonary nodules. COMPARISON: PET/CT 01/07/2024, CT abdomen 01/02/2024 FINDINGS: Right IJ Port-A-Cath with the tip in the upper SVC. Trachea and central bronchi are patent. No central endobronchial lesion.Biapical scarring. Unchanged 5 mm nodule in right lower lobe (3/396). Afew calcified granulomas. No new or enlarging lung nodule. Scatteredsubsegmental atelectasis. No consolidation, pleural effusion or pneumothorax. Stable mild enlargement of mediastinal lymph nodes. For example, 12 mmsubcarinal lymph node. 11 mm right hilar lymph node. A few othersubcentimeter mediastinal lymph nodes. Heterogeneous attenuation ofthyroid gland. No cardiomegaly or pericardial effusion. Dual-lead left subclavianpacemaker with lead tips in the right atrium and right ventricle. Smallamount of mitral annular calcifications. The thoracic aorta is normal incourse and caliber with mild atherosclerotic changes. The central pulmonary arteries normal in caliber.Acute pulmonary emboli in bilateral posterior cerebral segmental andsubsegmental branches of lower lobes. No evidence of right heart strain. Degenerative changes spine and glenohumeral joints. No suspicious osseousabnormality. Pectus excavatum deformity. This examination was performed in conjunction with a CT of the abdomen,which will be reported separately. CRITICAL FINDINGS (CF): Pulmonary embolism Critical findings discussed with Dr. Sanjeev Woods at 1-59 PM on02/01/2024. IMPRESSION: 1. Acute pulmonary embolism in segmental and subsegmental pulmonaryarteries in posterior lower lobes. No right heart strain. 2. Stable 5 mm nodule in right lower lobe. 3. Stable mild enlargement of mediastinal lymph nodes. Sanjeev Woods M.D., M.P.H. IMG CT PROCEDURES Final Result * (ABNORMAL) CEA (Carcinoembryonic Antigen) (02/01/2024 11:26 AM DIRECTOR OF STUDENT AFFAIRS) Carcinoembryonic Ag (CEA), S 30.5(H) ng/mL 02/01/2024 5:52 PM DIRECTOR OF STUDENT AFFAIRS [facility] Comment: ----REFERENCE VALUE---- <=3.0 (Non-smokers) Some smokers may have elevated CEA, usually <5.0. ----ADDITIONAL INFORMATION---- The testing method is an immunoenzymatic assay manufactured by [employer]. and performed on the [employer] 800. Values obtained with different assay methods or kits may be different and cannot be used interchangeably. Test results cannot be interpreted as absolute evidence for the presence or absence of malignant disease. Blood (Blood, Venous) 02/01/2024 11:26 AM DIRECTOR OF STUDENT AFFAIRS 02/01/2024 5:03 PM DIRECTOR OF STUDENT AFFAIRS Sanjeev Woods M.D., M.P.H. LAB BLOOD ADD-ON F inal Result [facility] [address] [place] [address] [facility] [address] [place] [id number] * (ABNORMAL) Carbohydrate Antigen 19-9 (CA 19-9) (02/01/2024 11:26 AM DIRECTOR OF STUDENT AFFAIRS) Pathologist [facility] Carbohydrate Ag 19-9, S 5433(H) <35 U/mL 02/01/2024 6:24 PM DIRECTOR OF STUDENT AFFAIRS [facility] Comment: ----ADDITIONAL INFORMATION---- The testing method is an immunoenzymatic assay manufactured by [employer] and performed on the [employer] 800. Values obtained with different assay methods or kits may be different and cannot be used interchangeably. Test results cannot be interpreted as absolute evidence for the presence or absence of malignant disease. Blood (Blood, Venous) 02/01/2024 11:26 AM DIRECTOR OF STUDENT AFFAIRS 02/01/2024 5:03 PM DIRECTOR OF STUDENT AFFAIRS us Sanjeev Woods M.D., M.P.H. LAB BLOOD ADD-ON F inal Result [facility] [address] [place] [address] [facility] [address] [place] [address] * (ABNORMAL) Comprehensive Metabolic Panel (02/01/2024 11:26 AM DIRECTOR OF STUDENT AFFAIRS) Pathologist [facility] Potassium, S 5.0 3.6 - 5.2 mmol/L 02/01/2024 12:35 PM DIRECTOR OF STUDENT AFFAIRS DTL Sodium, S 135 135 - 145 mmol/L 02/01/2024 12:35 PM DIRECTOR OF STUDENT AFFAIRS DTL Chloride, S 100 98 - 107 mmol/L 02/01/2024 12:35 PM DIRECTOR OF STUDENT AFFAIRS DTL Bicarbonate, S 25 22 - 29 mmol/L 02/01/2024 12:35 PM DIRECTOR OF STUDENT AFFAIRS DTL Anion Gap 10 7 - 15 02/01/2024 12:35 PM DIRECTOR OF STUDENT AFFAIRS DTL BUN (Blood Urea Nitrogen), S 11 6 - 21 mg/dL 02/01/2024 12:35 PM DIRECTOR OF STUDENT AFFAIRS DTL Creatinine 0.51(L) 0.59 - 1.04 mg/dL 02/01/2024 12:35 PM DIRECTOR OF STUDENT AFFAIRS DTL Estimated GFR (eGFR) >90 >=60 mL/min/BS A 02/01/2024 12:35 PM DIRECTOR OF STUDENT AFFAIRS DTL Comment: Estimated GFR calculated using the 2020 CKD_EPI creatinine equation. Calcium, Total, S 8.8 8.8 - 10.2 mg/dL 02/01/2024 12:35 PM DIRECTOR OF STUDENT AFFAIRS DTL Glucose, S 227(H) 70 - 140 mg/dL 02/01/2024 12:35 PM DIRECTOR OF STUDENT AFFAIRS DTL Protein, Total, S 6.3 6.3 - 7.9 g/dL 02/01/2024 12:35 PM DIRECTOR OF STUDENT AFFAIRS DTL Albumin, S 3.5 3.5 - 5.0 g/dL 02/01/2024 12:35 PM DIRECTOR OF STUDENT AFFAIRS DTL Aspartate Aminotransferase (AST), S 23 8 - 43 U/L 02/01/2024 12:35 PM DIRECTOR OF STUDENT AFFAIRS DTL Alkaline Phosphatase, S 98 35 - 104 U/L 02/01/2024 12:35 PM DIRECTOR OF STUDENT AFFAIRS DTL Alanine Aminotransferase (ALT), S 25 7 - 45 U/L 02/01/2024 12:35 PM DIRECTOR OF STUDENT AFFAIRS DTL Bilirubin, Total, S 0.3 0.0 - 1.2 mg/dL 02/01/2024 12:35 PM DIRECTOR OF STUDENT AFFAIRS DTL Blood (Blood, Venous) 02/01/2024 11:26 AM DIRECTOR OF STUDENT AFFAIRS 02/01/2024 12:10 PM DIRECTOR OF STUDENT AFFAIRS Sanjeev Woods M.D., M.P.H. LAB BLOOD ADD-ON F inal Result [facility] [address] [place] [address], [facility] [address] [place] [address] * (ABNORMAL) CBC with Differential, Blood (02/01/2024 11:26 AM DIRECTOR OF STUDENT AFFAIRS) Hemoglobin 8.9(L) 11.6 - 15.0 g/dL 02/01/2024 12:17 PM DIRECTOR OF STUDENT AFFAIRS DTL Hematocrit 27.4(L) 35.5 - 44.9 % 02/01/2024 12:17 PM DIRECTOR OF STUDENT AFFAIRS DTL Erythrocytes 3.05(L) 3.92 - 5.13 x10(12)/L 02/01/2024 12:17 PM DIRECTOR OF STUDENT AFFAIRS DTL MCV 89.8 78.2 - 97.9 fL 02/01/2024 12:17 PM DIRECTOR OF STUDENT AFFAIRS DTL RBC Distrib Width 14.1 12.2 - 16.1 % 02/01/2024 12:17 PM DIRECTOR OF STUDENT AFFAIRS DTL Platelet Count 233 157 - 371 x10(9)/L 02/01/2024 12:17 PM DIRECTOR OF STUDENT AFFAIRS DTL Leukocytes 3.6 3.4 - 9.6 x10(9)/L 02/01/2024 12:17 PM DIRECTOR OF STUDENT AFFAIRS DTL Neutrophils 1.91 1.56 - 6.45 x10(9)/L 02/01/2024 12:17 PM DIRECTOR OF STUDENT AFFAIRS DHPM Lymphocytes 1.34 0.95 - 3.07 x10(9)/L 02/01/2024 12:17 PM DIRECTOR OF STUDENT AFFAIRS DTL Monocytes 0.21(L) 0.26 - 0.81 x10(9)/L 02/01/2024 12:17 PM DIRECTOR OF STUDENT AFFAIRS DTL Eosinophils 0.08 0.03 - 0.48 x10(9)/L 02/01/2024 12:17 PM DIRECTOR OF STUDENT AFFAIRS DTL Basophils <0.03 0.01 - 0.08 x10(9)/L 02/01/2024 12:17 PM DIRECTOR OF STUDENT AFFAIRS DTL Blood (Blood, Venous) 02/01/2024 11:26 AM DIRECTOR OF STUDENT AFFAIRS 02/01/2024 11:55 AM DIRECTOR OF STUDENT AFFAIRS Sanjeev Woods M.D., M.P.H. LAB BLOOD ADD-ON F inal Result [facility] [address] [place] [address], [facility] DTL [facility] [address] [place] [address] DHPM [facility] [address] [place] [address] documented in this encounter Visit Diagnoses Diagnosis Malignant Neoplasm Of Pancreas (HCC) Malignant Neoplasm Of Pancreas (HCC) documented in this encounter Additional Health Concerns Infection Onset Date Last Indicated Resolved Time Protective Environment 02/08/2024 02/08/2024 documented as of this encounter Care Teams Manager Product Relationship Specialty Start Date End Date Elsewhere, Pcp PCP - General Internal Medicine 01/27/24 documented as of this encounter
--- OUTSIDE RECORDS SUMMARY | 2024-05-19 18:31 | XMS_ITS | Encounter Summary ---
Author Organization [facility] Address [address] [place] [address] Care Team Providers Care Petroleum Terminal Plant Operator Name Role Phone Elsewhere, Pcp Primary Care Provider Unavailabl e Reason for Visit * Reason Onset Date Comments Appointment 03/15/2024 Encounter Details Date Type Department Care Team (Late st Contact Info) Description 03/15/2024 Clinical Communication Department of Oncology in [place], [place] [address] [place] [address] Sanjeev Woods M.D., M.P.H. Appointment Social History Tobacco Use Types Packs/Day Years Used Date Smoking Tobacco: Never Smokeless Tobacco: Never Alcohol Use Standard Drinks/Week Comments Never 0 (1 standard drink = 0.6 oz pur e alcohol) [facility] Utilities Answer Date Recorded In the past 12 months has e electric, gas, oil, or water company threatened to shut off services in your [...] your living situation today? I have a [facility] place to live 02/04/2024 Comments Unknown Sex and Gender Information Value Date Recorded Sex Assigned at Female 01/30/2024 2:33 PM STEAM TABLE ASSOCIATE Legal Sex Female 4:38 PM CDT Gender Identity Female 01/30/2024 2:33 PM STEAM TABLE ASSOCIATE Sexual Orientation Straight 01/30/2024 2: 33 PM STEAM TABLE ASSOCIATE documented as of this encounter Plan of Treatment Upcoming Encounters Date Type Department Care Team (Late st Contact Info) Description 05/26/2024 12:30 PM STEAM TABLE ASSOCIATE Appointment Department of Radiation Oncology in [place], [place] [address] [place] [phone] Aidan Estrada M.D. [address] [place] [phone] Carlos Gibson R.N. 05/26/2024 1:00 PM STEAM TABLE ASSOCIATE Appointment Department of Radiation Oncology in [place], [place] [address] [place] [phone] Antonette Schulte M.D. [address] [place] [phone] 05/26/2024 2:00 PM STEAM TABLE ASSOCIATE Appointment Department of Radiation Oncology in [place], [place] [address] [place] [address] Aidan Estrada M.D. [address] [place] [phone] Antonette Schulte M.D. [address] [place] [address] documented as of this encounter Visit Diagnoses Not on filedocumented in this encounter Additional Health Concerns Infection Onset Date Last Indicated Resolved Time Protective Environment 02/08/2024 02/08/2024 documented as of this encounter Care Teams Petroleum Terminal Plant Operator Relationship Specialty Start Date End Date Elsewhere, Pcp PCP - General Internal Medicine 01/27/24 documented as of this encounter
--- OUTSIDE RECORDS SUMMARY | 2024-05-19 18:31 | XMS_ITS | Encounter Summary ---
Author Organization [facility] Address [address] [place] [address] Care Team Providers Care School Age Teacher Name Role Phone Elsewhere, Pcp Primary Care Provider Unavailabl e Encounter Details Date Type Department Care Team (Late st Contact Info) Description 05/15/2024 Orders Only Department of Radiation Oncology in [place], [place] [address] [place] [phone] Antonette Schulte M.D. 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 I have a [facility] place to live 02/04/2024 Comments Unknown Sex and Gender Information Value Date Recorded Sex Assigned at Female 01/30/2024 2:33 PM RELIGIOUS ASSISTANT Legal Sex Female 4:38 PM CDT Gender Identity Female 01/30/2024 2:33 PM RELIGIOUS ASSISTANT Sexual Orientation Straight 01/30/2024 2: 33 PM RELIGIOUS ASSISTANT documented as of this encounter Plan of Treatment Upcoming Encounters Date Type Department Care Team (Late st Contact Info) Description 05/26/2024 12:30 PM RELIGIOUS ASSISTANT Appointment Department of Radiation Oncology in [place], [place] [address] [place] [phone] Aidan Estrada M.D. [address] [place] [address] Carlos Gibson R.N. 05/26/2024 1:00 PM RELIGIOUS ASSISTANT Appointment Department of Radiation Oncology in [place], [place] [address] [place] [address] Antonette Schulte M.D. [address] [place] [address] 05/26/2024 2:00 PM RELIGIOUS ASSISTANT Appointment Department of Radiation Oncology in [place], [place] [address] [place] [address] Aidan Estrada M.D. [address] [place] [phone] Antonette Schulte M.D. [address] [place] [phone] Scheduled Orders Name Type Priority Associated Diagnoses Order Schedule Cardiac Device Interrogation Implantable Cardiac Device Routine Malignant Neoplasm Of Pancreas Head (HCC) Expected: 05/15/2024, Expires: 08/12/2025 documented as of this encounter Visit Diagnoses Diagnosis Malignant Neoplasm Of Pancreas Head (HCC)- Primary documented in this encounter Additional Health Concerns Infection Onset Date Last Indicated Resolved Time Protective Environment 02/08/2024 02/08/2024 documented as of this encounter Care Teams School Age Teacher Relationship Specialty Start Date End Date Elsewhere, Pcp PCP - General Internal Medicine 01/27/24 documented as of this encounter
--- OUTSIDE RECORDS SUMMARY | 2024-05-19 18:32 | XMS_ITS | Encounter Summary ---
Author Organization [facility] Address [address] [place] [address] Care Team Providers Care Carving Machine Operator Name Role Phone Elsewhere, Pcp Primary Care Provider Unavailabl e Encounter Details Date Type Department Care Team (Latest Contact Info) Description 02/01/2024 Intake [facility] Social History Tobacco Use Types Packs/Day Years Used Date Smoking Tobacco: Never Smokeless Tobacco: Never [facility] Utilities Answer Date Recorded In the past 12 months has th e electric, gas, oil, or water company [...] your living situation today? I have a [facility] place to live 02/04/2024 Comments Unknown Sex and Gender Information Value Date Recorded Sex Assigned at Female 01/30/2024 2:33 PM WATCH ENGINEER Legal Sex Female 4:38 PM CDT Gender Identity Female 01/30/2024 2:33 PM WATCH ENGINEER Sexual Orientation Straight 01/30/2024 2: 33 PM WATCH ENGINEER documented as of this encounter Plan of Treatment Upcoming Encounters Date Type Department Care Team (Late st Contact Info) Description 05/26/2024 12:30 PM WATCH ENGINEER Appointment Department of Radiation Oncology in [address] [phone] Aidan Estrada M.D. [address] [place] [phone] Carlos Gibson, RMelvinNMelvin 05/26/2024 1:00 PM WATCH ENGINEER Appointment Department of Radiation Oncology in [address] [phone] Antonette Schulte M.D. [address] [place] [phone] 05/26/2024 2:00 PM WATCH ENGINEER Appointment Department of Radiation Oncology in [address] [phone] Aidan Estrada M.D. [address] [place] [address] [place] [phone] Antonette Schulte M.D. 200 [place] [phone] documented as of this encounter Visit Diagnoses Not on filedocumented in this encounter Additional Health Concerns Infection Onset Date Last Indicated Resolved Time Protective Environment 02/08/2024 02/08/2024 documented as of this encounter Care Teams Carving Machine Operator Relationship Specialty Start Date End Date Elsewhere, Pcp PCP - General Internal Medicine 01/27/24 documented as of this encounter
--- OUTSIDE RECORDS SUMMARY | 2024-05-19 18:32 | XMS_ITS | Encounter Summary ---
Author Organization [facility] Address [address] [place] [address] Care Team Providers Care Spray Gun Operator Name Role Phone Elsewhere, Pcp Primary Care Provider Unavailabl e Reason for Visit * Reason Onset Date Comments Pre-visit Intake 05/04/2024 * Appointment Request (Routine) - Authorized Specialty Diagnoses / Procedures Referred By Leann joseph Referred To Contact Oncology Referral ID Status Reason Start Date Expiration Date V isits Requested Visits Authorized [id number] Authorized 03/15/2024 03/15/2025 1 1 Encounter Details Date Type Department Care Team (Latest Contact Info) Description 05/04/2024 2:00 PM TRANSFER COORDINATOR Clinical Communication Virtual Review in [place], [place] [address] [place] [address] Pre-visit Intake Social History Tobacco Use Types Packs/Day Years Used Date Smoking Tobacco: Never Smokeless Tobacco: Never Tobacco Cessation:Counseling Given: Not Answered Alcohol Use Standard Drinks/Week Comments Never 0 (1 standard drink = 0.6 oz pur e alcohol) [facility] Utilities Answer Date Recorded In the [...] your living situation today? I have a [facility] place to live 02/04/2024 Comments Unknown Sex and Gender Information Value Date Recorded Sex Assigned at Female 01/30/2024 2:33 PM TRANSFER COORDINATOR Legal Sex Female 4:38 PM CDT Gender Identity Female 01/30/2024 2:33 PM TRANSFER COORDINATOR Sexual Orientation Straight 01/30/2024 2: 33 PM TRANSFER COORDINATOR documented as of this encounter Plan of Treatment Upcoming Encounters Date Type Department Care Team (Late st Contact Info) Description 05/26/2024 12:30 PM TRANSFER COORDINATOR Appointment Department of Radiation Oncology in [place], [place] [address] [place] [phone] Aidan Estrada M.D. [address] [place] [address] Carlos Gibson RMelvinNMelvin 05/26/2024 1:00 PM TRANSFER COORDINATOR Appointment Department of Radiation Oncology in [place], [place] [address] [place] [address] Antonette Schulte M.D. [address] [place] [phone] 05/26/2024 2:00 PM TRANSFER COORDINATOR Appointment Department of Radiation Oncology in [place], [place] [address] [place] [address] Aidan Estrada M.D. [address] [place] [address] Antonette Schulte M.D. [address] [place] [phone] documented as of this encounter Visit Diagnoses Not on filedocumented in this encounter Additional Health Concerns Infection Onset Date Last Indicated Resolved Time Protective Environment 02/08/2024 02/08/2024 documented as of this encounter Care Teams Spray Gun Operator Relationship Specialty Start Date End Date Elsewhere, Pcp PCP - General Internal Medicine 01/27/24 documented as of this encounter
--- OUTSIDE RECORDS SUMMARY | 2024-05-19 18:32 | XMS_ITS | Encounter Summary ---
Author Organization [facility] Address [address] [place] [address] Care Team Providers Care Product Safety Coordinator Name Role Phone Elsewhere, Pcp Primary Care Provider Unavailabl e Reason for Referral * MRI/CAT/PET Scan (Routine) - Closed Specialty Diagnoses / Procedures Referred By Contac t Referred To Contact Radiology Diagnoses Malignant Neoplasm Of Pancreas Head (HCC) Procedures CT Abdomen Pelvis with IV Contrast Sanjeev Woods M.D., M.P.H. [facility] Referral ID Status Reason Start Date Expiration Date Visits Re quested Visits Authorized [id number] Closed 03/15/2024 03/15/2025 1 1 ODS STUDY ANALYST * MRI/CAT/PET Scan (Routine) - Closed Specialty Diagnoses / Procedures Referred By Contac t Referred To Contact Radiology Diagnoses Malignant Neoplasm Of Pancreas Head (HCC) Procedures CT Chest with IV Contrast Sanjeev Woods M.D., M.P.H. [facility] Referral ID Status Reason Start Date Expiration Date Visits Re quested Visits Authorized [id number] Closed 03/15/2024 03/15/2025 1 1 ODS STUDY ANALYST Reason for Visit * MRI/CAT/PET Scan (Routine) - Closed Specialty Diagnoses / Procedures Referred By Contac t Referred To Contact Radiology Diagnoses Malignant Neoplasm Of Pancreas Head (HCC) Procedures CT Abdomen Pelvis with IV Contrast Sanjeev Woods M.D., M.P.H. [facility] Referral ID Status Reason Start Date Expiration Date Visits Re quested Visits Authorized [id number] Closed 03/15/2024 03/15/2025 1 1 Encounter Details Date Type Department Care Team (Latest Contact Info) Description 05/09/2024 3:11 PM METHODS STUDY ANALYST - 05/09/2024 11:59 PM METHODS STUDY ANALYST Hospital Encounter Department of Radiology, [facility], in [place], [place] [address] [place] [address] Sanjeev Woods M.D., M.P.H. Malignant Neoplasm Of Pancreas Head (HCC) Discharge Disposition: Home or Self Care Social History Tobacco Use Types Packs/Day Years Used Date Smoking Tobacco: Never Smokeless Tobacco: Never Alcohol Use Standard Drinks/Week Comments Never 0 (1 standard drink = 0.6 oz pur e alcohol) [facility] Utilities Answer Date Recorded In the past 12 months has e electric, gas, oil, or water [employer] threatened to shut off services in your [...] Date Recorded Dental: Regular Dentist Yes 02/04/20 24 Employment Answer Date Recorded Employment status Retired 02/04/2024 Housing Stability Answer Date Recorded What is your living situation today? I have a [facility] place to live 02/04/2024 Comments Unknown Sex and Gender Information Value Date Recorded Sex Assigned at Female 01/30/2024 2:33 PM METHODS STUDY ANALYST Legal Sex Female 4:38 PM CDT Gender Identity Female 01/30/2024 2:33 PM METHODS STUDY ANALYST Sexual Orientation Straight 01/30/2024 2: 33 PM METHODS STUDY ANALYST documented as of this encounter Medications at Time of Discharge acetaminophen (TylenoL) 500 mg capsule Take 500 mg by mouth every 6 (six) hours as needed for pain. apixaban (Eliquis) 5 mg tablet Take 2 tablets (10 mg total) by mouth 2 (two) times a day for 7 days, THEN 1 tablet (5 mg total) 2 (two) times a day. 374 tablet 02/01/2024 8:48 PM METHODS STUDY ANALYST 02/01/2024 07/31/19 25 cholecalciferol, vitD3,/vit K2 (VITAMIN D3-VITAMIN K2 ORAL) Take 1 tablet by mouth daily. Vitamin D3 5000 units and K2 90 mcg dexAMETHasone (Decadron) 4 mg/mL injection Infuse 10 mg into a venous catheter. 02/10/2024 diphenhydrAMINE in NaCl 0.9 % (BenadryL) 25 mg/50 mL IVPB Infuse 50 mg into a venous catheter. 01/13/2024 famotidine (Pepcid) 10 mg/mL injection Infuse 20 mg into a venous catheter. 01/13/2024 furosemide (Lasix) 20 mg tablet Take 1 tablet by mouth daily. 04/27/2024 gemcitabine in 0.9 % NaCl 1,200 mg/120 mL (10 mg/mL) piggyback Infuse 1,000 mg into a venous catheter. 02/10/2024 granisetron (KytriL) 1 mg/mL injection Infuse 1,000 mcg into a venous catheter. 02/10/2024 lidocaine-prilocain e (Emla) 2.5-2.5 % cream Apply 1 Application topically as needed (prior to port access). 01/06/2024 lisinopriL 40 mg tablet Take 1 tablet by mouth daily. 04/27/2024 magnesium oxide (Mag-Ox) 400 mg (241.3 mg magnesium) tablet Take 1 tablet by mouth daily. 01/28/2024 metFORMIN XR (Glucophage-XR) 500 mg 24 hr tablet Take 500 mg by mouth 2 (two) times a day. methylPREDNISolone sodium succinate (SOLU-MedroL) 125 mg/mL injection Infuse 125 mg into a venous catheter. 01/13/2024 metoprolol succinate (Toprol XL) 50 mg 24 hr tablet Take 1 tablet by mouth every morning. 11/03/2022 multivit-min/FA/lut ein/zeaxant (MACULAR VITAMIN ORAL) Take 1 tablet by mouth 2 (two) times a day. Macular Protect ondansetron ODT (Zofran-ODT) 4 mg disintegrating tablet Dissolve 4 mg in the mouth as needed for nausea or vomiting. potassium chloride (Klor-Con M) 20 mEq ER tablet Take 1 tablet by mouth daily. 04/27/2024 PROTEIN-BOUND PACLItaxel (Abraxane) 5 mg/mL IVPB Infuse 130 mg into a venous catheter. 02/10/2024 raloxifene (Evista) 60 mg tablet Take 60 mg by mouth every evening. 01/21/2023 rosuvastatin (Crestor) 10 mg tablet Take 1 tablet by mouth every evening. 07/12/2023 sennosides-docusate sodium (Senokot-S) 8.6-50 mg per tablet Take 1 tablet by mouth daily. traMADoL (Ultram) 50 mg tablet Take 1 tablet by mouth as needed for pain. 01/06/2024 documented as of this encounter Plan of Treatment Upcoming Encounters Date Type Department Care Team (Late st Contact Info) Description 05/26/2024 12:30 PM METHODS STUDY ANALYST Appointment Department of Radiation Oncology in [place], [place] [address] [place] [address] Aidan Estrada M.D. [address] [place] [phone] Carlos Gibson R.N. 05/26/2024 1:00 PM METHODS STUDY ANALYST Appointment Department of Radiation Oncology in [place], [place] [address] [place] [phone] Antonette Schulte M.D. [address] [place] [phone] 05/26/2024 2:00 PM METHODS STUDY ANALYST Appointment Department of Radiation Oncology in [place], [place] [address] [place] [phone] Aidan Estrada M.D. [address] [place] [phone] Antonette Schulte M.D. [address] [place] [phone] Scheduled Orders Name Type Priority Associated Diagnoses Orde r Schedule Creatinine, POCT Point of Care Testing-Docked Device Routine Routine lab collecti on (next collection) for 1 Occurrences starting 05/09/2024 until 05/09/2024 documented as of this encounter Procedures Procedure Name Priority Date/Time Associated Diagnosis Comments CT ABDOMEN PELVIS WITH IV CONTRAST RAD - Routine (most inpatients and all outpatients) 05/09/2024 4:43 PM METHODS STUDY ANALYST Malignant Neoplasm Of Pancreas Head (HCC) CT CHEST WITH IV CONTRAST RAD - Routine (most inpatients and all outpatients) 05/09/2024 4:43 PM METHODS STUDY ANALYST Malignant Neoplasm Of Pancreas Head (HCC) CREATININE, POCT, B Routine 05/09/2024 3:38 PM METHODS STUDY ANALYST CREATININE, POCT, B Routine 05/09/2024 3:38 PM METHODS STUDY ANALYST documented in this encounter Results * CT Abdomen Pelvis with IV Contrast (05/09/2024 4:43 PM METHODS STUDY ANALYST) Anatomical Region Laterality Modality Abdomen, Pelvis, Abdominal R ST LOS, Abdominal ARZ LOS, Abdominal FLA LOS N/A Computed Tomography 05/09/2024 5:53 PM METHODS STUDY ANALYST Impressions 05/10/2024 7:21 AM METHODS STUDY ANALYST Slight decrease size of pancreas head mass. Extensive vascular involvement persists. No new CT evidence of metastatic disease in the abdomen or pelvis. Narrative 05/10/2024 7:21 AM METHODS STUDY ANALYST EXAM: CT ABDOMEN PELVIS WITH IV CONTRAST [...] Chest with IV Contrast (05/09/2024 4:43 PM METHODS STUDY ANALYST) Anatomical Region Laterality Modality Chest, Thoracic RST LOS, Tho racic ARZ LOS, Thoracic ARZ LOS, Thoracic FLA LOS N/A Computed Tomography 05/09/2024 5:08 PM METHODS STUDY ANALYST Impressions 05/10/2024 8:22 AM METHODS STUDY ANALYST 1. New small bilateral pleural effusions with suspected pleural nodularities, indeterminate. Short-term follow-up CT can be considered. 2. New patchy groundglass opacities throughout the lungs could be due to infection/inflammation. 3. Stable 5 mm nodule in right lower lobe. 4. Stable mild enlargement of mediastinal lymph nodes. 5. Interval resolution of previously seen right lower lobe pulmonary emboli. Narrative 05/10/2024 8:22 AM METHODS STUDY ANALYST EXAM: CT CHEST WITH IV CONTRAST 3D [...] Result * Creatinine, POCT (05/09/2024 3:38 PM METHODS STUDY ANALYST) Creatinine, POCT, B 0.8 0.6 - 1.0 mg/dL 05/09/2024 3:46 PM METHODS STUDY ANALYST PCDT Comment: ----ADDITIONAL INFORMATION---- Performed at the Point of Care Blood 05/09/2024 3:38 PM METHODS STUDY ANALYST 05/09/2024 3:46 PM METHODS STUDY ANALYST Unknown Provider LAB POCT ORDERABLES - DEVICE Fi nal Result [facility] PERFORMING LABS [address] [place] [address], [facility] PCDT [facility] POC [address] [place] [address] * Creatinine, POCT (05/09/2024 3:38 PM METHODS STUDY ANALYST) Estimated GFR (eGFR), POCT 73 >=60 mL/min/BSA 05/09/2024 3:46 PM METHODS STUDY ANALYST PCDT Comment: Estimated GFR calculated using the 2020 CKD_EPI creatinine equation. Blood 05/09/2024 3:38 PM METHODS STUDY ANALYST 05/09/2024 3:46 PM METHODS STUDY ANALYST us Unknown Provider LAB POCT ORDERABLES - DEVICE Fi nal Result POC [facility] PERFORMING LABS [address] [place] [address], [facility] PCDT [facility] POC [address] [place] [address] documented in this encounter Visit Diagnoses Diagnosis Malignant Neoplasm Of Pancreas Head (HCC) documented in this encounter Administered Medications Inactive Administered Medications - up to 3 most recent administrations Medication Order MAR Action Action Date Dose Rate Site heparin flush 500-1,000 Units 500-1,000 Units, intra-catheter, During hospitalization, line care, Prior to discharge, Starting on Wed05/09/24 at 1538, For 1 dose, Implanted Vascular Access Device (IVAD) Venous Non-Valved: flush 5 mL (500 units) per port/lumen following saline flush prior to discharge. Given 05/09/2024 3:40 PM METHODS STUDY ANALYST 500 Units iohexoL 300 mg iodine/mL solution 1-200 mL (Omnipaque) 1-200 mL, intravenous, Once in imaging, contrast, Starting on Wed05/09/24 at 1520, For 1 dose, Imaging Protocol Orders, Dose per Radiant Medication Guidelines Given 05/09/2024 4:04 PM METHODS STUDY ANALYST 100 mL sodium chloride (PF) 0.9 % injection 1-100 mL 1-100 mL, intravenous, Once, On Wed05/09/24 at 1545, For 1 dose, Imaging Protocol Orders, Dose per Radiant Medication Guidelines Given 05/09/2024 4:04 PM METHODS STUDY ANALYST 50 mL sodium chloride 0.9 % injection 10-20 mL 10-20 mL, intravenous, As needed, line care, Implanted Vascular Access Device (IVAD) Venous Non-Valved, Starting on Wed05/09/24 at 1538, Prior to and following infusion and between multiple consecutive infusions, flush 10 mL to each port/lumen. Given 05/09/2024 3:40 PM METHODS STUDY ANALYST 10 mL documented in this encounter Additional Health Concerns Infection Onset Date Last Indicated Resolved Time Protective Environment 02/08/2024 02/08/2024 documented as of this encounter Care Teams Product Safety Coordinator Relationship Specialty Start Date End Date Elsewhere, Pcp PCP - General Internal Medicine 01/27/24 documented as of this encounter
--- OUTSIDE RECORDS SUMMARY | 2024-05-19 18:32 | XMS_ITS | Encounter Summary ---
Author Organization [facility] Address [address] [place] [address] Care Team Providers Care Senior Training Specialist Name Role Phone Elsewhere, Pcp Primary Care Provider Unavailabl e Reason for Referral * Outpatient (Routine) - Authorized Specialty Diagnoses / Procedures Referred By Leann t Referred To Contact Radiation Oncology Diagnoses Malignant Neoplasm Of Pancreas Head (HCC) Dana Guillen APRN, C.N.P., M.S. [address] [place] [address] Phone: tel: fax: [facility] Referral ID Status Reason Start Date Expiration Date V isits Requested Visits Authorized [id number] Authorized 05/10/2024 11/09/2025 1 1 TREATMENT TECHNICIAN Reason for Visit * Outpatient (Routine) - Closed Specialty Diagnoses / Procedures Referred By Contac t Referred To Contact Oncology Sanjeev Woods M.D., M.P.H. [facility] Referral ID Status Reason Start Date Expiration Date Visits Re quested Visits Authorized [id number] Closed 03/15/2024 09/14/2025 1 1 Encounter Details Date Type Department Care Team (Late st Contact Info) Description 05/10/2024 2:40 PM HEAT TREATMENT TECHNICIAN Office Visit Department of Oncology in [place], [place] [address] [place] [address] Dana Guillen, SERGIO C.N.P., M.S. [address] [place] [address] 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) Social History Tobacco Use Types Packs/Day Years Used Date Smoking Tobacco: Never Smokeless Tobacco: Never Alcohol Use Standard Drinks/Week Comments Never 0 (1 standard drink = 0.6 oz pur e alcohol) [facility] Utilities Answer Date Recorded In the past 12 months has e [employer], gas, oil, or water [employer] threatened to shut off services in your [...] your living situation today? I have a [facility] place to live 02/04/2024 Comments Unknown Sex and Gender Information Value Date Recorded Sex Assigned at Female 01/30/2024 2:33 PM HEAT TREATMENT TECHNICIAN Legal Sex Female 4:38 PM CDT Gender Identity Female 01/30/2024 2:33 PM HEAT TREATMENT TECHNICIAN Sexual Orientation Straight 01/30/2024 2: 33 PM HEAT TREATMENT TECHNICIAN documented as of this encounter Last Filed Vital Signs Vital Sign Reading Time Taken Comments Blood Pressure 156/66 05/10/2024 2:28 PM HEAT TREATMENT TECHNICIAN Pulse 67 05/10/2024 2:28 PM HEAT TREATMENT TECHNICIAN Temperature 37.4 C (99.3 F) 05/10/2024 2:25 PM HEAT TREATMENT TECHNICIAN Respiratory Rate 16 05/10/2024 2:25 PM HEAT TREATMENT TECHNICIAN Oxygen Saturation 97% 05/10/2024 2:25 PM HEAT TREATMENT TECHNICIAN Inhaled Oxygen Concentration - - Weight 67.1 kg (147 lb 14.9 oz) 05/10/2024 2:25 PM HEAT TREATMENT TECHNICIAN Height 155.2 cm (5' 1.1) 05/10/2024 2:25 PM HEAT TREATMENT TECHNICIAN Body Mass Index 27.86 05/10/2024 2:25 PM HEAT TREATMENT TECHNICIAN documented in this encounter Progress Notes * Dana Guillen, SERGIO, C.N.P., M.S. 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 CHIEF COMPLAINT / REASON FOR VISIT Marta Carrillo is a 83 y.o. female who presents for evaluation while on therapy for unresectable locally advanced pancreatic adenocarcinoma. The patient verbally consented to an audio recording of their visit to assist with the completion of documentation. HISTORY OF PRESENT ILLNESS Oncology History Malignant Neoplasm Of Pancreas Head (HCC) 12/18/2023 Initial Diagnosis Malignant Neoplasm Of Pancreas Head (HCC) Initially presented with jaundice in December 17, 2023. Workup showed a mass in the head of the pancreas. ERCP and EUS were performed, including a biopsy showing adenocarcinoma. 01/13/2024 - Chemotherapy Gemcitabine + nab-paclitaxel (Days 1, 8, and 15) 02/01/[address] Pancreas Angiogram: Tumor: Ill-defined hypoattenuated mass in the pancreatic head/neck measuring approximately 3.1 x 2.4 cm. Vascular contact: Present, involving the SMA, TRE, GDA, main portal vein, SMV, splenic vein Metastasis: Mesenteric lymph node contacting the SMA and SMV CT Chest: Acute pulmonary embolism in segmental and subsegmental pulmonary arteries in posterior lower lobes.No right heart strain. Stable 5 mm nodule in right lower lobe. Stable mild enlargement of mediastinal lymph nodes. CT PET (External, performed 01/07/24): Large moderately hypermetabolic mass occupying the head and neck of the pancreas most consistent with biopsy-proven adenocarcinoma. Additional moderately hypermetabolic focus in the distal body/tail the pancreas appearing to correspond to a 9 mm low-density lesion on CT. This is concerning for additional pancreatic tumor versus metastasis. Enlarged irregular moderately hypermetabolic central mesenteric lymph node/soft tissue nodule, mostconsistent with metastasis. Additional mildly enlarged mild- moderately hypermetabolic periportal/peripancreatic lymph node is indeterminant with the differential including locoregional metastatic disease versus metastasis. 7 mm nodule in the left adrenal gland with mild-moderate FDG uptake, similar to background liver activity. This may simply represent an adenoma or adenomatous hyperplasia, but metastasis cannot be entirely excluded. Correlation with more remote studies would be helpful to assess for stability. Attention on follow-up is recommended. Mildly hypermetabolic 6-7 mm ill-defined pulmonary nodular opacity in the right lower lobe unchanged in size on the subsequent chest CT from 02/01/2024. This nodule is indeterminate for metastatic disease. 02/03/2024 Clinical Stage Staging form: Exocrine Pancreas, AJCC 8th Edition - Clinical stage from 02/03/2024: Stage III (cT4, cN1, cM0) Stage prefix: Initial diagnosis 05/09/24: CT: C/A/P: New small bilateral pleural effusions with suspected pleural nodularities, indeterminate. Short-term follow-up CT can be considered. New patchy groundglass opacities throughout the lungs could be due to infection/inflammation. Stable 5 mm nodule in right lower lobe. Stable mild enlargement of mediastinal lymph nodes. Interval resolution of previously seen right lower lobe pulmonary emboli. Slight decrease size of pancreas head mass. Extensive vascular involvement persists. No new CT evidence of metastatic disease in the abdomen or pelvis. History of Present Illness Marta Carrillo is an 83 year old female with metastatic pancreatic adenocarcinoma who presentsfor restaging. She is accompanied by Georgette, her caregiver. She is currently undergoing treatment with gemcitabine and Abraxane for metastatic pancreatic adenocarcinoma. She has completed ten treatments, with the eleventh skipped due to low blood counts. Her treatment schedule was adjusted to every other week due to previous low blood counts, and she has not experienced low counts since the adjustment. Her blood work shows a decrease in CA 19-9 levels from 5433 in January to 1313 currently. Hemoglobin has decreased from 9.2 in January to 8.4, and she received a transfusion when levels were at 7.3. Platelet count has decreased from 234 to 104, but white blood cell count is normal. She experiences fatigue, particularly on the third, fourth, and fifth days post-treatment, but has not experiencednausea or pain. She has lost her hair due to chemotherapy. She has peripheral neuropathy with numbness in her left foot, described as 'drop foot' or 'toe drop', which was present slightly before her current treatment. This condition necessitates the use of awalker, and she has had two falls in December, both at a hospital in [place], [place]. She has had a persistent cough since January, which was noted during a recent CT scan showing a small pleural effusion. She visited the emergency room three weeks ago due to breathing difficulties and was diagnosed with pneumonia, treated with antibiotics and furosemide. She is currently taking furosemide once daily. Her previous pulmonary embolism, diagnosed in January, has resolved. She reports a good appetite, mentioning a recent meal where she had seconds of spaghetti and felt very full after eating at a restaurant. Her weight has remained stable. REVIEW OF SYSTEMS Pertinent items are noted in HPI; all other review of systems were negative. OBJECTIVE BP 156/66 Pulse 67 Temp 37.4 ??C (Tympanic) Resp 16 Ht 155.2 cm Wt 67.1 kg SpO2 97% BMI 27.86 kg/m?? DISTRESS SCORE Rate your distress: 1 PHYSICAL EXAMINATION General: Well appearing 83 y.o. who is in no apparent distress. Skin: Non-jaundice. No rashes. Eyes: No scleral icterus. ENT: Oral mucosa is pink and moist. No lesions, ulcerations or thrush. Lungs: non-labored, absent of a cough Extremities: No edema. Neuro: Alert and oriented x 3. Calm interactive and appropriate. No focal neuro deficits. DIAGNOSTICS: I have reviewed the pertinent labs and recent imaging studies. I agree with the interpretation as recorded. ASSESSMENT / PLAN Cancer Staging Malignant Neoplasm Of Pancreas Head (HCC) Staging form: Exocrine Pancreas, AJCC 8th Edition - Clinical stage from 02/03/2024: Stage III (cT4, cN1, cM0) Current Therapy: Gemcitabine/Abraxane Current Disease Status: Responding ECOG Performance Status: 1 Intent of Therapy: Control Intent to Change Therapy: No #1 Malignant Neoplasm Of Pancreas Head (HCC) Assessment & Plan Metastatic Pancreatic Adenocarcinoma An 83-year-old non-binary individual is undergoing gemcitabine and Abraxane therapy, having completed ten treatments with one skipped due to low blood counts. Tumor size has reduced from 3.3 x 2.3 cmto 3.1 x 2.0 cm, and CA 19-9 levels have decreased from 5433 to 1313. She is tolerating treatment well with minimal side effects, primarily fatigue. Family questioning if the plan would be to eventually transitioning to radiation therapy for disease control and a chemotherapy break was discussed. Explained that radiation is administered on a Wednesday - Wednesday schedule for a total of 15 treatments. She would like that administered in [place]. Would recommend using capecitabine to enhance efficacy. Continue gemcitabine and Abraxane until the radiation plan is set up. Schedule a radiation therapy consultation. After completion of the radiation therapy would have a new scan one month later and then go to an every 3 month surveillance. Discussed that the intent is to cause the cancer to become dormant and that at some time the cancer will regrow. Pleural Effusion A small pleural effusion noted on a recent CT scan is likely related to cancer or treatment. A chronic cough since January is not causing significant symptoms. Current diuretic therapy with furosemide should help manage fluid levels. Monitor the pleural effusion and continue current diuretic therapy. Peripheral Neuropathy She reports numbness and toe drop in the left foot, likely chemotherapy-induced. She uses a walker for mobility and has a history of two falls. The potential benefit of a brace for the left foot was discussed. Continue using a walker and evaluate for a brace for the left foot. Pneumonia Treated for pneumonia in March with antibiotics and diuretics. Recent imaging shows some lung infiltration and inflammation, possibly residual from pneumonia or related to chemotherapy. Monitor lung condition and consider further antibiotics if symptoms worsen. General Health Maintenance She is maintaining weight and a good appetite. Blood work shows low protein and albumin levels, expected during chemotherapy. Hemoglobin is 8.4, and platelets are 104,000, both within acceptable ranges for continuing chemotherapy. Monitor blood counts regularly, consider a blood transfusion if hemoglobin drops below 7.0, and monitor nutritional status while encouraging protein intake. Follow-up Schedule a follow-up scan one month after radiation and another scan three months after the initialpost-radiation scan. Coordinate with radiation oncology for treatment planning. They expressed understanding and agreement with the plan. PATIENT EDUCATION Ready to learn, no apparent learning barriers were identified; learning preferences include listening. Explained diagnosis and treatment plan; patient expressed understanding of the content. ADMINISTRATIVE BILLING I personally spent 45 minutes in care of the patient today. Time includes both non face to face andface to face patient care. TREATMENT TECHNICIAN documented in this encounter Plan of Treatment Upcoming Encounters Date Type Department Care Team (Late st [facility] Info) Description 05/26/2024 12:30 PM HEAT TREATMENT TECHNICIAN Appointment Department of Radiation Oncology in [address] [phone] Aidan Estrada M.D. [address] [place] [phone] Carlos Gibson R.N. 05/26/2024 1:00 PM HEAT TREATMENT TECHNICIAN Appointment Department of Radiation Oncology in [address] [phone] Antonette Schulte M.D. [address] [place] [phone] 05/26/2024 2:00 PM HEAT TREATMENT TECHNICIAN Appointment Department of Radiation Oncology in [address] [phone] Aidan Estrada M.D. [address] [place] [phone] Antonette Schulte M.D. [address] [place] [address] Scheduled Referrals Name Type Priority Associated Diagnoses Orde r Schedule Radiation Oncology - GI consult (clinic) Outpatient Referral Routine Malignant Neoplasm Of Pancreas Head (HCC) Expected: 05/10/2024, Expires: 08/07/2025 documented as of this encounter Visit Diagnoses Diagnosis Malignant Neoplasm Of Pancreas Head (HCC)- Primary documented in this encounter Additional Health Concerns Infection Onset Date Last Indicated Resolved Time Protective Environment 02/08/2024 02/08/2024 documented as of this encounter Care Teams Senior Training Specialist Relationship Specialty Start Date End Date Elsewhere, Pcp PCP - General Internal Medicine 01/27/24 documented as of this encounter
--- OUTSIDE RECORDS SUMMARY | 2024-05-19 18:32 | XMS_ITS | Encounter Summary ---
Author Organization [facility] Address [address] [place] [address] Care Team Providers Care Vegetable Farmer Name Role Phone Elsewhere, Pcp Primary Care Provider Unavailabl e Encounter Details Date Type Department Care Team (Late st Contact Info) Description 05/09/2024 2:40 PM [employer] Lab Department of Infusion Therapy in [place], [place] [address] [place] [address] Sanjeev Woods M.D., M.P.H. 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) Social History Tobacco Use Types Packs/Day Years Used Date Smoking Tobacco: Never Smokeless Tobacco: Never Alcohol Use Standard Drinks/Week Comments Never 0 (1 standard drink = 0.6 oz pur e alcohol) [facility] Utilities Answer Date Recorded In the past [...] your living situation today? I have a [facility] place to live 02/04/2024 Comments Unknown Sex and Gender Information Value Date Recorded Sex Assigned at Female 01/30/2024 2:33 PM [employer] Legal Sex Female 4:38 PM CDT Gender Identity Female 01/30/2024 2:33 PM [employer] Sexual Orientation Straight 01/30/2024 2: 33 PM [employer] documented as of this encounter Plan of Treatment Upcoming Encounters Date Type Department Care Team (Late st Contact Info) Description 05/26/2024 12:30 PM [employer] Appointment Department of Radiation Oncology in [place], [place] [address] [place] [phone] Aidan Estrada M.D. [address] [place] [phone] Carlos Gibson R.N. 05/26/2024 1:00 PM [employer] Appointment Department of Radiation Oncology in [place], [place] [address] [place] [phone] Antonette Schulte M.D. [address] [place] [phone] 05/26/2024 2:00 PM [employer] Appointment Department of Radiation Oncology in [place], [place] [address] [place] [phone] Aidan Estrada M.D. [address] [place] [phone] Antonette Schulte M.D. [address] [place] [phone] documented as of this encounter Procedures Procedure Name Priority Date/Time Associated Diagnosis Comments CARBOHYDRATE AG 19-9 (CA 19-9), S Routine 05/09/2024 2:59 PM [employer] Malignant Neoplasm Of Pancreas Head (HCC) CBC WITH DIFFERENTIAL, B Routine 05/09/2024 2:59 PM [employer] Malignant Neoplasm Of Pancreas Head (HCC) COMPREHENSIVE METABOLIC PANEL, S/P Routine 05/09/2024 2:59 PM [employer] Malignant Neoplasm Of Pancreas Head (HCC) documented in this encounter Results * (ABNORMAL) Carbohydrate Antigen 19-9 (CA 19-9) (05/09/2024 2:59 PM [employer]) Carbohydrate Ag 19-9, S 1313(H) <35 U/mL 05/09/2024 8:43 PM [employer] [facility] Comment: ----ADDITIONAL INFORMATION---- The testing method is an immunoenzymatic assay manufactured by [employer] and performed on the [employer] DxI 800. Values obtained with different assay methods or kits may be different and cannot be used interchangeably. Test results cannot be interpreted as absolute evidence for the presence or absence of malignant disease. Blood (Blood, Venous) 05/09/2024 2:59 PM [employer] 05/09/2024 7:51 PM [employer] us Sanjeev Woods M.D., M.P.H. LAB BLOOD ADD-ON F inal Result [facility] [address] [place] [address] [facility] [address] [place] [address] * (ABNORMAL) Comprehensive Metabolic Panel (05/09/2024 2:59 PM [employer]) [facility] Potassium, S 3.9 3.6 - 5.2 mmol/L 05/09/2024 4:05 PM [employer] DTL Sodium, S 137 135 - 145 mmol/L 05/09/2024 4:05 PM [employer] DTL Chloride, S 101 98 - 107 mmol/L 05/09/2024 4:05 PM [employer] DTL Bicarbonate, S 27 22 - 29 mmol/L 05/09/2024 4:05 PM [employer] DTL Anion Gap 9 7 - 15 05/09/2024 4:05 PM [employer] DTL BUN (Blood Urea Nitrogen), S 18 6 - 21 mg/dL 05/09/2024 4:05 PM [employer] DTL Creatinine 0.79 0.59 - 1.04 mg/dL 05/09/2024 4:05 PM [employer] DTL Estimated GFR (eGFR) 74 >=60 mL/min/BS A 05/09/2024 4:05 PM [employer] D[facility] Comment: Estimated GFR calculated using the 2020 CKD_EPI creatinine equation. Calcium, Total, S 8.4(L) 8.8 - 10.2 mg/dL 05/09/2024 4:05 PM [employer] DTL Glucose, S 200(H) 70 - 140 mg/dL 05/09/2024 4:05 PM [employer] DTL Protein, Total, S 6.2(L) 6.3 - 7.9 g/dL 05/09/2024 4:05 PM [employer] DTL Albumin, S 3.1(L) 3.5 - 5.0 g/dL 05/09/2024 4:05 PM [employer] DTL Aspartate Aminotransferase (AST), S 29 8 - 43 U/L 05/09/2024 4:05 PM [employer] DTL Alkaline Phosphatase, S 128(H) 35 - 104 U/L 05/09/2024 4:05 PM [employer] DTL Alanine Aminotransferase (ALT), S 25 7 - 45 U/L 05/09/2024 4:05 PM [employer] DTL Bilirubin, Total, S 0.4 0.0 - 1.2 mg/dL 05/09/2024 4:05 PM [employer] DTL Blood (Blood, Venous) 05/09/2024 2:59 PM [employer] 05/09/2024 3:42 PM [employer] Sanjeev Woods M.D., M.P.H. LAB BLOOD ADD-ON F inal Result [facility] [address] [place] [address], [facility] [place] [address] [place] [address] * (ABNORMAL) CBC with Differential, Blood (05/09/2024 2:59 PM [employer]) Hemoglobin 8.4(L) 11.6 - 15.0 g/dL 05/09/2024 3:43 PM [employer] DTL Hematocrit 26.5(L) 35.5 - 44.9 % 05/09/2024 3:43 PM [employer] DTL Erythrocytes 2.96(L) 3.92 - 5.13 x10(12)/L 05/09/2024 3:43 PM [employer] DTL MCV 89.5 78.2 - 97.9 fL 05/09/2024 3:43 PM [employer] DTL RBC Distrib Width 15.9 12.2 - 16.1 % 05/09/2024 3:43 PM [employer] DTL Platelet Count 104(L) 157 - 371 x10(9)/L 05/09/2024 4:38 PM [employer] DTL Leukocytes 7.2 3.4 - 9.6 x10(9)/L 05/09/2024 4:38 PM [employer] DTL Neutrophils 4.65 1.56 - 6.45 x10(9)/L 05/09/2024 3:43 PM [employer] [facility] Lymphocytes 1.80 0.95 - 3.07 x10(9)/L 05/09/2024 3:43 PM [employer] DTL Monocytes 0.45 0.26 - 0.81 x10(9)/L 05/09/2024 3:43 PM [employer] DTL Eosinophils 0.25 0.03 - 0.48 x10(9)/L 05/09/2024 3:43 PM [employer] DTL Basophils <0.03 0.01 - 0.08 x10(9)/L 05/09/2024 3:43 PM [employer] DTL Blood (Blood, Venous) 05/09/2024 2:59 PM [employer] 05/09/2024 3:32 PM [employer] us Sanjeev Woods M.D., M.P.H. LAB BLOOD ADD-ON F inal Result [facility] [address] [place] [address], [facility] DTL [facility] [address] [place] [address] [facility] [address] [place] [address] documented in this encounter Visit Diagnoses Diagnosis Malignant Neoplasm Of Pancreas Head (HCC)- Primary documented in this encounter Administered Medications Inactive Administered Medications - up to 3 most recent administrations Medication Order MAR Action Action Date Dose Rate Site heparin flush 500 Units 500 Units, intra-catheter, As needed, line care, Starting on Wed05/09/24 at 1504, When IVAD accessed and not infusing: When no infusion to maintain patency flush every 7 days following NaCL flush. 5 mL (500 units) of Heparin 100 units/mL to each port/lumen. When IVAD not accessed or infusing: When no infusion to maintain patency flush every 28 days following NaCL flush. 5 mL (500 units) of Heparin 100 units/mL to each port/lumen.Indications:Malignan t Neoplasm Of Pancreas Head (HCC) Given 05/09/2024 3:05 PM [employer] 500 Units sodium chloride 0.9 % injection 10-20 mL 10-20 mL, intra-catheter, As needed, line care, Starting on Wed05/09/24 at 1504, When IVAD accessed and infusing: Flush prior to and following infusion, between multiple consecutive infusions. 10 mL to each port/lumen.Indications:Malignan t Neoplasm Of Pancreas Head (HCC) Given 05/09/2024 3:05 PM [employer] 20 mL documented in this encounter Additional Health Concerns Infection Onset Date Last Indicated Resolved Time Protective Environment 02/08/2024 02/08/2024 documented as of this encounter Care Teams Vegetable Farmer Relationship Specialty Start Date End Date Elsewhere, Pcp PCP - General Internal Medicine 01/27/24 documented as of this encounter
[2024-05-19 18:40] VITALS: BP 140/58; PULSE 69; RESP 16; TEMP 37.1; O2SAT 95; BMI 27.4
--- NOTE | 2024-05-19 18:52 | CRLHL7_ITS ---
For Patients: As a result of the Century Cures Act, medical imaging exams and procedure reports are released immediately into your electronic medical record. You may view this report before your referring provider. If you have questions, please contact your health care provider. INDICATION: Abdominal Pain, constipation TECHNIQUE: Abdomen Pelvis radiograph 3 views COMPARISON: None FINDINGS: Bowel: Moderate amount of stool is present throughout the colon which may be due to chronic constipation. The bowel gas pattern is normal without evidence of bowel obstruction. Soft tissue: No evidence of pneumoperitoneum present. No suspicious calcifications noted. Pacer wires are partially visualized in the right atrium and ventricle. A metallic biliary stent is noted in the right upper quadrant. Bone: Unremarkable for age. IMPRESSION: 1. Moderate amount of stool is present throughout the colon which may be due to chronic constipation. Dictated by Noah Greenfield MD @ 05/19/2024 8:08:42 PM Dictated by: Noah Greenfield MD @ 05/19/2024 20:08:55 (Electronically Signed)
--- OUTSIDE RECORDS SUMMARY | 2024-05-19 19:08 | XMS_ITS | Encounter Summary ---
Author Organization [facility] Address [address] [place] [address] Care Team Providers Care Equine Pharmacology Technician Name Role Phone Elsewhere, Pcp Primary Care Provider Unavailabl e Reason for Referral * Radiation Therapy (Routine) - Authorized Specialty Diagnoses / Procedures Referred By Leann joseph Referred To Contact Diagnoses Malignant Neoplasm Of Pancreas Head (HCC) Procedures Initial Rad Onc Treatment Planning CT Simulation Initial Rad Onc Treatment Planning CT Simulation IA IMRT RADIOTHERAPY PLAN Aidan Estrada M.D. [address] [place] [address] Phone: tel: fax: [facility] Region Referral ID Status Reason Start Date Expiration Date V isits Requested Visits Authorized [id number] Authorized 05/16/2024 08/16/2025 2 2 ATE INVESTIGATOR SURVEILLANCE * Outpatient (Routine) - Authorized Specialty Diagnoses / Procedures Referred By Leann joseph Referred To Contact Social Work Diagnoses Malignant Neoplasm Of Pancreas Head (HCC) Aidan Estrada M.D. [address] [place] [address] Phone: tel: fax: [facility] Region Referral ID Status Reason Start Date Expiration Date V isits Requested Visits Authorized [id number] Authorized 05/16/2024 11/15/2025 1 1 ATE INVESTIGATOR SURVEILLANCE * Outpatient (Routine) - Authorized Specialty Diagnoses / Procedures Referred By Contac t Referred To Contact Radiation Oncology Diagnoses Malignant Neoplasm Of Pancreas Head (HCC) Aidan Estrada M.D. [address] [place] [phone] Phone: tel: fax: [facility] Region Referral ID Status Reason Start Date Expiration Date V isits Requested Visits Authorized [id number] Authorized 05/16/2024 11/15/2025 1 1 ATE INVESTIGATOR SURVEILLANCE * Specialty Diagnoses / Procedures Referred By Contac t Referred To Contact Diagnoses Malignant Neoplasm Of Pancreas Head (HCC) Joyce Kenyon P.A.-C., M.S. [address] [place] [phone] Phone: tel: fax: [facility] Region Referral ID Status Reason Start Date Expiration Date Visits Re quested Visits Authorized Scheduling Instructions Please do not schedule if patient has 10 fractions or less, unless requested by care team. ATE INVESTIGATOR SURVEILLANCE * Radiation Therapy (Routine) - Authorized Specialty Diagnoses / Procedures Referred By Contac t Referred To Contact Diagnoses Malignant Neoplasm Of Pancreas Head (HCC) Procedures Management Visit Aidan Estrada M.D. [address] [place] [phone] Phone: tel: fax: [facility] Region Referral ID Status Reason Start Date Expiration Date V isits Requested Visits Authorized [id number] Authorized 05/16/2024 08/16/2025 10 10 ATE INVESTIGATOR SURVEILLANCE * Radiation Therapy (Routine) - Authorized Specialty Diagnoses / Procedures Referred By Leann t Referred To Contact Diagnoses Malignant Neoplasm Of Pancreas Head (HCC) Procedures Prior Auth Rad Tx IA IMRT COMPLEX IA GUIDANCE FOR LOC RAD TX IA IMRT RADIOTHERAPY PLAN IMRT Aidan Estrada M.D. [address] [place] [address] Phone: tel: fax: [facility] Region Referral ID Status Reason Start Date Expiration Date V isits Requested Visits Authorized [id number] Authorized 05/29/2024 08/16/2025 25 25 ATE INVESTIGATOR SURVEILLANCE Encounter Details Date Type Department Care Team (Late st Contact Info) Description 05/16/2024 Orders Only Department of Radiation Oncology in [place], [place] [address] [place] [address] Joyce Kenyon P.A.-C., M.S. [address] [place] [phone] 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) Social History Tobacco Use Types Packs/Day Years Used Date Smoking Tobacco: Never Smokeless Tobacco: Never Alcohol Use Standard Drinks/Week Comments Never 0 (1 standard drink = 0.6 oz pur e alcohol) [facility] Utilities Answer Date Recorded In the past 12 months has [employer], gas, oil, or water [employer] threatened to shut off services in your [...] Sex Assigned at Female 01/30/2024 2:33 PM PRIVATE INVESTIGATOR SURVEILLANCE Legal Sex Female 4:38 PM CDT Gender Identity Female 01/30/2024 2:33 PM PRIVATE INVESTIGATOR SURVEILLANCE Sexual Orientation Straight 01/30/2024 2: 33 PM PRIVATE INVESTIGATOR SURVEILLANCE documented as of this encounter Plan of Treatment Upcoming Encounters Date Type Department Care Team (Late st Contact Info) Description 05/26/2024 12:30 PM PRIVATE INVESTIGATOR SURVEILLANCE Appointment Department of Radiation Oncology in [place] [address] [place] [address] Aidan Estrada M.D. [address] [place] [phone] Carlos Gibson R.N. 05/26/2024 1:00 PM PRIVATE INVESTIGATOR SURVEILLANCE Appointment Department of Radiation Oncology in [place] [address] [place] [phone] Antonette Schulte M.D. [address] [place] [phone] 05/26/2024 2:00 PM PRIVATE INVESTIGATOR SURVEILLANCE Appointment Department of Radiation Oncology in [place] [address] [place] [address] Aidan Estrada M.D. [address] [place] [phone] Antonette Schulte M.D. [address] [place] [phone] Scheduled Orders Name Type Priority Associated Diagnoses [...] documented as of this encounter Care Teams Equine Pharmacology Technician Relationship Specialty Start Date End Date Elsewhere, Pcp PCP - General Internal Medicine 01/27/24 documented as of this encounter
--- OUTSIDE RECORDS SUMMARY | 2024-05-19 19:08 | XMS_ITS | Encounter Summary ---
Author Organization [facility] Address [address] [place] [address] Care Team Providers Care Cd Reactor Operator Head Name Role Phone Elsewhere, Pcp Primary Care Provider Unavailabl e Encounter Details Date Type Department Care Team (Late st Contact Info) Description 05/15/2024 Orders Only Department of Radiation Oncology in [place], [place] [address] [place] [phone] Antonette Schulte M.D. [address] [place] [address] 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) Social History Tobacco Use Types Packs/Day Years Used Date Smoking Tobacco: Never Smokeless Tobacco: Never Alcohol Use Standard Drinks/Week Comments Never 0 (1 standard drink = 0.6 oz pur e alcohol) [facility] Utilities Answer Date Recorded In the past 12 months has e [employer], gas, oil, or water company threatened to [...] your living situation today? I have a [facility] place to live 02/04/2024 Comments Unknown Sex and Gender Information Value Date Recorded Sex Assigned at Female 01/30/2024 2:33 PM GENERAL MAINTENANCE MECHANIC Legal Sex Female 4:38 PM CDT Gender Identity Female 01/30/2024 2:33 PM GENERAL MAINTENANCE MECHANIC Sexual Orientation Straight 01/30/2024 2: 33 PM GENERAL MAINTENANCE MECHANIC documented as of this encounter Plan of Treatment Upcoming Encounters Date Type Department Care Team (Late st Contact Info) Description 05/26/2024 12:30 PM GENERAL MAINTENANCE MECHANIC Appointment Department of Radiation Oncology in [place], [place] [address] [place] [phone] Aidan Estrada M.D. [address] [place] [address] Carlos Gibson R.N. 05/26/2024 1:00 PM GENERAL MAINTENANCE MECHANIC Appointment Department of Radiation Oncology in [place], [place] [address] [place] [address] Antonette Schulte M.D. [address] [place] [address] 05/26/2024 2:00 PM GENERAL MAINTENANCE MECHANIC Appointment Department of Radiation Oncology in [place], [place] [address] [place] [address] Aidan Estrada M.D. [address] [place] [phone] Antonette Schulte M.D. [address] [place] [phone] Scheduled Orders Name Type Priority Associated Diagnoses [...] documented as of this encounter Care Teams Cd Reactor Operator Head Relationship Specialty Start Date End Date Elsewhere, Pcp PCP - General Internal Medicine 01/27/24 documented as of this encounter
--- OUTSIDE RECORDS SUMMARY | 2024-05-19 19:08 | XMS_ITS | Encounter Summary ---
Author Organization [facility] Address [address] [place] [address] Care Team Providers Care Dry Kiln Burner Name Role Phone Elsewhere, Pcp Primary Care Provider Unavailabl e Reason for Referral * Outpatient (Routine) - Authorized Specialty Diagnoses / Procedures Referred By Leann t Referred To Contact Radiation Oncology Diagnoses Malignant Neoplasm Of Pancreas Head (HCC) Dana Guillen APRN, C.N.P., M.S. [address] [place] [address] Phone: tel: fax: [facility] Referral ID Status Reason Start Date Expiration Date V isits Requested Visits Authorized [id number] Authorized 05/10/2024 11/09/2025 1 1 PEDIATRICIAN Reason for Visit * Outpatient (Routine) - Closed Specialty Diagnoses / Procedures Referred By Contac t Referred To Contact Oncology Sanjeev Woods M.D., M.P.H. [facility] Referral ID Status Reason Start Date Expiration Date Visits Re quested Visits Authorized [id number] Closed 03/15/2024 09/14/2025 1 1 Encounter Details Date Type Department Care Team (Late st Contact Info) Description 05/10/2024 2:40 PM PODOPEDIATRICIAN Office Visit Department of Oncology in [place], [place] [address] [place] [address] Dana Guillen, SERGIO C.N.P., M.S. [address] [place] [address] 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) Social History Tobacco Use Types Packs/Day Years Used Date Smoking Tobacco: Never Smokeless Tobacco: Never Alcohol Use Standard Drinks/Week Comments Never 0 (1 standard drink = 0.6 oz pur e alcohol) [facility] Utilities Answer Date Recorded In the past 12 months has e [employer], gas, oil, or water [employer] threatened to shut off services in your [...] Sex Assigned at Female 01/30/2024 2:33 PM PODOPEDIATRICIAN Legal Sex Female 4:38 PM CDT Gender Identity Female 01/30/2024 2:33 PM PODOPEDIATRICIAN Sexual Orientation Straight 01/30/2024 2: 33 PM PODOPEDIATRICIAN documented as of this encounter Last Filed Vital Signs Vital Sign Reading Time Taken Comments Blood Pressure 156/66 05/10/2024 2:28 PM PODOPEDIATRICIAN Pulse 67 05/10/2024 2:28 PM PODOPEDIATRICIAN Temperature 37.4 C (99.3 F) 05/10/2024 2:25 PM PODOPEDIATRICIAN Respiratory Rate 16 05/10/2024 2:25 PM PODOPEDIATRICIAN Oxygen Saturation 97% 05/10/2024 2:25 PM PODOPEDIATRICIAN Inhaled Oxygen Concentration - - Weight 67.1 kg (147 lb 14.9 oz) 05/10/2024 2:25 PM PODOPEDIATRICIAN Height 155.2 cm (5' 1.1) 05/10/2024 2:25 PM PODOPEDIATRICIAN Body Mass Index 27.86 05/10/2024 2:25 PM PODOPEDIATRICIAN documented in this encounter Progress Notes * Dana Guillen, SERGIO, C.N.P., M.S. - 05/10/2024 2:40 PM CST SUBJECTIVE PRIMARY CARE PHYSICIAN ELSEWHERE, PCP LOCAL ONCOLOGIST No care team psychologist to display PRIMARY MACY ONCOLOGIST Sanjeev Woods M.D., M.P.H. CHIEF COMPLAINT [...] in December, both at a hospital in [place], [place]. She has had a persistent cough [...] treatments. She would like that administered in [place]. Would recommend using capecitabine to enhance efficacy. [...] to face andface to face patient care. PEDIATRICIAN documented in this encounter Plan of Treatment Upcoming Encounters Date Type Department Care Team (Late st [facility] Info) Description 05/26/2024 12:30 PM PODOPEDIATRICIAN Appointment Department of Radiation Oncology in [address] [phone] Aidan Estrada M.D. [address] [place] [phone] Carlos Gibson R.N. 05/26/2024 1:00 PM PODOPEDIATRICIAN Appointment Department of Radiation Oncology in [address] [phone] Antonette Schulte M.D. [address] [place] [phone] 05/26/2024 2:00 PM PODOPEDIATRICIAN Appointment Department of Radiation Oncology in [address] [phone] Aidan Estrada M.D. [address] [place] [phone] Antonette Schulte M.D. [address] [place] [address] Scheduled Referrals Name Type Priority Associated Diagnoses [...] documented as of this encounter Care Teams Dry Kiln Burner Relationship Specialty Start Date End Date Elsewhere, Pcp PCP - General Internal Medicine 01/27/24 documented as of this encounter
--- OUTSIDE RECORDS SUMMARY | 2024-05-19 19:08 | XMS_ITS | Encounter Summary ---
Author Organization [facility] Address [address] [place] [address] Care Team Providers Care Medical Illustrator Name Role Phone Elsewhere, Pcp Primary Care Provider Unavailabl e Reason for Referral * Outpatient (Routine) - Closed Specialty Diagnoses / Procedures Referred By Leann joseph Referred To Contact General Surgery Diagnoses Malignant Neoplasm Of Pancreas (HCC) Ricky Schaefer M.D., Ph.D. [address] [place] [phone] Phone: tel: fax: [facility] Referral ID Status Reason Start Date Expiration Date Visits Re quested Visits Authorized [id number] Closed 01/11/2024 07/12/2025 1 1 * MRI/CAT/PET Scan (Routine) - Closed Specialty Diagnoses / Procedures Referred By Leann joseph Referred To Contact Radiology Diagnoses Malignant Neoplasm Of Pancreas (HCC) Procedures CT Pancreas Angiogram Triple Phase and Pelvis with IV Contrast Ricky Schaefer M.D., Ph.D. [address] [place] [phone] Phone: tel: fax: [facility] Referral ID Status Reason Start Date Expiration Date Visits Re quested Visits Authorized [id number] Closed 01/14/2024 01/13/2025 1 1 * MRI/CAT/PET Scan (Routine) - Closed Specialty Diagnoses / Procedures Referred By Contac t Referred To Contact Radiology Diagnoses Malignant Neoplasm Of Pancreas (HCC) Procedures CT Chest with IV Contrast Sanjeev Woods M.D., M.P.H. [facility] Referral ID Status Reason Start Date Expiration Date Visits Re quested Visits Authorized [id number] Closed 01/14/2024 01/13/2025 1 1 Encounter Details Date Type Department Care Team (Late st Contact Info) Description 12/29/2023 Orders Only Department of Oncology in [place], [place] [address] [place] [address] [facility], ProviderMD Malignant Neoplasm Of Pancreas (HCC) Social History Tobacco Use Types Packs/Day Years Used Date Smoking Tobacco: Never Assessed Dental Answer Date Recorded Dental: Regular Dentist Unknown 12/28/19 24 Comments Unknown Sex and Gender Information Value Date Recorded Sex Assigned at Female 01/30/2024 2:33 PM STRUCTURES MECHANIC Legal Sex Female 4:38 PM CDT Gender Identity Female 01/30/2024 2:33 PM STRUCTURES MECHANIC Sexual Orientation Straight 01/30/2024 2: 33 PM STRUCTURES MECHANIC documented as of this encounter Plan of Treatment Upcoming Encounters Date Type Department Care Team (Late st Contact Info) Description 05/26/2024 12:30 PM STRUCTURES MECHANIC Appointment Department of Radiation Oncology in [place], [place] [address] [place] [phone] Aidan Estrada M.D. [address] [place] [address] Carlos Gibson, RMelvinNMelvin 05/26/2024 1:00 PM STRUCTURES MECHANIC Appointment Department of Radiation Oncology in [place], [place] [address] [place] [phone] Antonette Schulte M.D. [address] [place] [phone] 05/26/2024 2:00 PM STRUCTURES MECHANIC Appointment Department of Radiation Oncology in [place], [place] [address] [place] [phone] Aidan Estrada M.D. [address] [place] [phone] Antonette Schulte M.D. [address] [place] [phone] Scheduled Referrals Name Type Priority Associated Diagnoses Order Schedule General Surgery - Pancreas consult (clinic) Outpatient Referral Routine Malignant Neoplasm Of Pancreas (HCC) 1 Occurrences starting 01/11/2024 until 04/12/2025 documented as of this encounter Results * CT Pancreas Angiogram Triple Phase and Pelvis with IV Contrast (02/01/2024 1:34 PM STRUCTURES MECHANIC) Anatomical Region Laterality Modality Abdomen, Pelvis, Abdominal R ST LOS, Abdominal ARZ LOS, Vascular Interventional ARZ LOS, Vascular Interventional FLA LOS, Abdominal FLA LOS N/A Computed Tomography, Compute d Tomography 02/01/2024 1:23 PM STRUCTURES MECHANIC Impressions 02/01/2024 4:15 PM STRUCTURES MECHANIC Tumor: Ill-defined hypoattenuated mass in the pancreatic head/neck. Vascular contact: Present, involving the SMA, TRE, GDA, main portal vein, SMV, splenic vein Metastasis: Mesenteric lymph node contacting the SMA and SMV Narrative 02/01/2024 4:15 PM STRUCTURES MECHANIC EXAM: CT PANCREAS ANGIOGRAM TRIPLE PHASE AND [...] Peritoneum/Omentum: Absent Ascites: Absent Suspicious lymph nodes: Lefor-regional: Enlarged mesenteric lymph node with ill-defined margins, [...] Peritoneum/Omentum: Absent Ascites: Absent Suspicious lymph nodes: Lefor-regional: Enlarged mesenteric lymph node with ill-defined margins,contacting [...] Chest with IV Contrast (02/01/2024 1:34 PM STRUCTURES MECHANIC) Anatomical Region Laterality Modality Chest, Thoracic RST LOS, Tho racic ARZ LOS, Thoracic ARZ LOS, Thoracic FLA LOS N/A Computed Tomography, Compute d Tomography 02/01/2024 1:25 PM STRUCTURES MECHANIC Impressions 02/01/2024 2:38 PM STRUCTURES MECHANIC 1. Acute pulmonary embolism in segmental and subsegmental pulmonary arteries in posterior lower lobes. No right heart strain. 2. Stable 5 mm nodule in right lower lobe. 3. Stable mild enlargement of mediastinal lymph nodes. Narrative 02/01/2024 2:38 PM STRUCTURES MECHANIC EXAM: CT CHEST WITH IV CONTRAST 3D [...] (ABNORMAL) CEA (Carcinoembryonic Antigen) (02/01/2024 11:26 AM STRUCTURES MECHANIC) Carcinoembryonic Ag (CEA), S 30.5(H) ng/mL 02/01/2024 5:52 PM STRUCTURES MECHANIC [facility] Comment: ----REFERENCE VALUE---- <=3.0 (Non-smokers) Some smokers may have elevated CEA, usually <5.0. ----ADDITIONAL INFORMATION---- The testing method is an immunoenzymatic assay manufactured by [employer]. and performed on the [employer] 800. Values obtained with different assay methods or kits may be different and cannot be used interchangeably. Test results cannot be interpreted as absolute evidence for the presence or absence of malignant disease. Blood (Blood, Venous) 02/01/2024 11:26 AM STRUCTURES MECHANIC 02/01/2024 5:03 PM STRUCTURES MECHANIC aSnjeev Woods M.D., M.P.H. LAB BLOOD ADD-ON F inal Result [facility] [address] [place] [address] [facility] [address] [place] [phone] * (ABNORMAL) Carbohydrate Antigen 19-9 (CA 19-9) (02/01/2024 11:26 AM STRUCTURES MECHANIC) Pathologist [facility] Carbohydrate Ag 19-9, S 5433(H) <35 U/mL 02/01/2024 6:24 PM STRUCTURES MECHANIC [facility] Comment: ----ADDITIONAL INFORMATION---- The testing method is an immunoenzymatic assay manufactured by [employer] and performed on the [employer] DxI 800. Values obtained with different assay methods or kits may be different and cannot be used interchangeably. Test results cannot be interpreted as absolute evidence for the presence or absence of malignant disease. Blood (Blood, Venous) 02/01/2024 11:26 AM STRUCTURES MECHANIC 02/01/2024 5:03 PM STRUCTURES MECHANIC us Sanjeev Woods M.D., M.P.H. LAB BLOOD ADD-ON F inal Result [facility] [address] [place] [address] [facility] [address] [place] [address] * (ABNORMAL) Comprehensive Metabolic Panel (02/01/2024 11:26 AM STRUCTURES MECHANIC) Pathologist [facility] Potassium, S 5.0 3.6 - 5.2 mmol/L 02/01/2024 12:35 PM STRUCTURES MECHANIC DTL Sodium, S 135 135 - 145 mmol/L 02/01/2024 12:35 PM STRUCTURES MECHANIC DTL Chloride, S 100 98 - 107 mmol/L 02/01/2024 12:35 PM STRUCTURES MECHANIC DTL Bicarbonate, S 25 22 - 29 mmol/L 02/01/2024 12:35 PM STRUCTURES MECHANIC DTL Anion Gap 10 7 - 15 02/01/2024 12:35 PM STRUCTURES MECHANIC DTL BUN (Blood Urea Nitrogen), S 11 6 - 21 mg/dL 02/01/2024 12:35 PM STRUCTURES MECHANIC DTL Creatinine 0.51(L) 0.59 - 1.04 mg/dL 02/01/2024 12:35 PM STRUCTURES MECHANIC DTL Estimated GFR (eGFR) >90 >=60 mL/min/BS A 02/01/2024 12:35 PM STRUCTURES MECHANIC [facility] Comment: Estimated GFR calculated using the 2020 CKD_EPI creatinine equation. Calcium, Total, S 8.8 8.8 - 10.2 mg/dL 02/01/2024 12:35 PM STRUCTURES MECHANIC DTL Glucose, S 227(H) 70 - 140 mg/dL 02/01/2024 12:35 PM STRUCTURES MECHANIC DTL Protein, Total, S 6.3 6.3 - 7.9 g/dL 02/01/2024 12:35 PM STRUCTURES MECHANIC DTL Albumin, S 3.5 3.5 - 5.0 g/dL 02/01/2024 12:35 PM STRUCTURES MECHANIC DTL Aspartate Aminotransferase (AST), S 23 8 - 43 U/L 02/01/2024 12:35 PM STRUCTURES MECHANIC DTL Alkaline Phosphatase, S 98 35 - 104 U/L 02/01/2024 12:35 PM STRUCTURES MECHANIC DTL Alanine Aminotransferase (ALT), S 25 7 - 45 U/L 02/01/2024 12:35 PM STRUCTURES MECHANIC DTL Bilirubin, Total, S 0.3 0.0 - 1.2 mg/dL 02/01/2024 12:35 PM STRUCTURES MECHANIC DTL Blood (Blood, Venous) 02/01/2024 11:26 AM STRUCTURES MECHANIC 02/01/2024 12:10 PM STRUCTURES MECHANIC Sanjeev Woods M.D., M.P.H. LAB BLOOD ADD-ON F inal Result [facility] [address] [place] [address], [facility] [address] [place] [address] * (ABNORMAL) CBC with Differential, Blood (02/01/2024 11:26 AM STRUCTURES MECHANIC) Hemoglobin 8.9(L) 11.6 - 15.0 g/dL 02/01/2024 12:17 PM STRUCTURES MECHANIC DTL Hematocrit 27.4(L) 35.5 - 44.9 % 02/01/2024 12:17 PM STRUCTURES MECHANIC DTL Erythrocytes 3.05(L) 3.92 - 5.13 x10(12)/L 02/01/2024 12:17 PM STRUCTURES MECHANIC DTL MCV 89.8 78.2 - 97.9 fL 02/01/2024 12:17 PM STRUCTURES MECHANIC DTL RBC Distrib Width 14.1 12.2 - 16.1 % 02/01/2024 12:17 PM STRUCTURES MECHANIC DTL Platelet Count 233 157 - 371 x10(9)/L 02/01/2024 12:17 PM STRUCTURES MECHANIC DTL Leukocytes 3.6 3.4 - 9.6 x10(9)/L 02/01/2024 12:17 PM STRUCTURES MECHANIC DTL Neutrophils 1.91 1.56 - 6.45 x10(9)/L 02/01/2024 12:17 PM STRUCTURES MECHANIC DH[facility] Lymphocytes 1.34 0.95 - 3.07 x10(9)/L 02/01/2024 12:17 PM STRUCTURES MECHANIC DTL Monocytes 0.21(L) 0.26 - 0.81 x10(9)/L 02/01/2024 12:17 PM STRUCTURES MECHANIC DTL Eosinophils 0.08 0.03 - 0.48 x10(9)/L 02/01/2024 12:17 PM STRUCTURES MECHANIC DTL Basophils <0.03 0.01 - 0.08 x10(9)/L 02/01/2024 12:17 PM STRUCTURES MECHANIC DTL Blood (Blood, Venous) 02/01/2024 11:26 AM STRUCTURES MECHANIC 02/01/2024 11:55 AM STRUCTURES MECHANIC Sanjeev Woods M.D., M.P.H. LAB BLOOD ADD-ON F inal Result [facility] [address] [place] [address], [facility] DTL [facility] [address] [place] [address] [facility] [address] [place] [address] documented in this encounter Visit Diagnoses Diagnosis Malignant Neoplasm Of Pancreas (HCC) Malignant Neoplasm Of Pancreas (HCC) documented in this encounter Additional Health Concerns Infection Onset Date Last Indicated Resolved Time Protective Environment 02/08/2024 02/08/2024 documented as of this encounter Care Teams Medical Illustrator Relationship Specialty Start Date End Date Elsewhere, Pcp PCP - General Internal Medicine 01/27/24 documented as of this encounter
--- OUTSIDE RECORDS SUMMARY | 2024-05-19 19:08 | XMS_ITS | Encounter Summary ---
Author Organization [facility] Address [address] [place] [address] Care Team Providers Care Nailing Machine Operator Automatic Name Role Phone Elsewhere, Pcp Primary Care Provider Unavailabl e Reason for Visit * Reason Onset Date Comments Appointment 03/15/2024 Encounter Details Date Type Department Care Team (Late st Contact Info) Description 03/15/2024 Clinical Communication Department of Oncology in [place], [place] [address] [place] [address] Sanjeev Woods M.D., M.P.H. Appointment Social History Tobacco Use Types Packs/Day Years Used Date Smoking Tobacco: Never Smokeless Tobacco: Never Alcohol Use Standard Drinks/Week Comments Never 0 (1 standard drink = 0.6 oz pur e alcohol) [facility] Utilities Answer Date Recorded In [...] your living situation today? I have a [facility] place to live 02/04/2024 Comments Unknown Sex and Gender Information Value Date Recorded Sex Assigned at Female 01/30/2024 2:33 PM DIRECTOR OF TEENAGE ACTIVITIES Legal Sex Female 4:38 PM CDT Gender Identity Female 01/30/2024 2:33 PM DIRECTOR OF TEENAGE ACTIVITIES Sexual Orientation Straight 01/30/2024 2: 33 PM DIRECTOR OF TEENAGE ACTIVITIES documented as of this encounter Plan of Treatment Upcoming Encounters Date Type Department Care Team (Late st Contact Info) Description 05/26/2024 12:30 PM DIRECTOR OF TEENAGE ACTIVITIES Appointment Department of Radiation Oncology in [place], [place] [address] [place] [phone] Aidan Estrada M.D. [address] [place] [phone] Carlos Gibson R.N. 05/26/2024 1:00 PM DIRECTOR OF TEENAGE ACTIVITIES Appointment Department of Radiation Oncology in [place], [place] [address] [place] [phone] Antonette Schulte M.D. [address] [place] [phone] 05/26/2024 2:00 PM DIRECTOR OF TEENAGE ACTIVITIES Appointment Department of Radiation Oncology in [place], [place] [address] [place] [phone] Aidan Estrada M.D. [address] [place] [phone] Antonette Schulte M.D. [address] [place] [address] documented as of this encounter Visit Diagnoses Not on filedocumented in this encounter Additional Health Concerns Infection Onset Date Last Indicated Resolved Time Protective Environment 02/08/2024 02/08/2024 documented as of this encounter Care Teams Nailing Machine Operator Automatic Relationship Specialty Start Date End Date Elsewhere, Pcp PCP - General Internal Medicine 01/27/24 documented as of this encounter
--- OUTSIDE RECORDS SUMMARY | 2024-05-19 19:08 | XMS_ITS | Encounter Summary ---
Author Organization [facility] Address [address] [place] [address] Care Team Providers Care Vamp Seamer Name Role Phone Elsewhere, Pcp Primary Care Provider Unavailabl e Reason for Referral * MRI/CAT/PET Scan (Routine) - Closed Specialty Diagnoses / Procedures Referred By Contac t Referred To Contact Radiology Diagnoses Malignant Neoplasm Of Pancreas Head (HCC) Procedures CT Abdomen Pelvis with IV Contrast Sanjeev Woods M.D., M.P.H. [facility] Referral ID Status Reason Start Date Expiration Date Visits Re quested Visits Authorized [id number] Closed 03/15/2024 03/15/2025 1 1 FILLER * MRI/CAT/PET Scan (Routine) - Closed Specialty Diagnoses / Procedures Referred By Contac t Referred To Contact Radiology Diagnoses Malignant Neoplasm Of Pancreas Head (HCC) Procedures CT Chest with IV Contrast Sanjeev Woods M.D., M.P.H. [facility] Referral ID Status Reason Start Date Expiration Date Visits Re quested Visits Authorized [id number] Closed 03/15/2024 03/15/2025 1 1 FILLER Reason for Visit * MRI/CAT/PET Scan (Routine) - Closed Specialty Diagnoses / Procedures Referred By Contac t Referred To Contact Radiology Diagnoses Malignant Neoplasm Of Pancreas Head (HCC) Procedures CT Abdomen Pelvis with IV Contrast Sanjeev Woods M.D., M.P.H. [facility] Referral ID Status Reason Start Date Expiration Date Visits Re quested Visits Authorized [id number] Closed 03/15/2024 03/15/2025 1 1 Encounter Details Date Type Department Care Team (Latest Contact Info) Description 05/09/2024 3:11 PM SLIP FILLER - 05/09/2024 11:59 PM SLIP FILLER Hospital Encounter Department of Radiology, [facility], in [place], [place] [address] [place] [address] Sanjeev Woods M.D., M.P.H. Malignant Neoplasm Of Pancreas Head (HCC) Discharge Disposition: Home or Self Care Social History Tobacco Use Types Packs/Day Years Used Date Smoking Tobacco: Never Smokeless Tobacco: Never Alcohol Use Standard Drinks/Week Comments Never 0 (1 standard drink = 0.6 oz pur e alcohol) [facility] Utilities Answer Date Recorded In the past 12 months has e electric, gas, oil, or water [employer] threatened to shut off services in your [...] your living situation today? I have a [facility] place to live 02/04/2024 Comments Unknown Sex and Gender Information Value Date Recorded Sex Assigned at Female 01/30/2024 2:33 PM SLIP FILLER Legal Sex Female 4:38 PM CDT Gender Identity Female 01/30/2024 2:33 PM SLIP FILLER Sexual Orientation Straight 01/30/2024 2: 33 PM SLIP FILLER documented as of this encounter Medications at [...] a day. 374 tablet 02/01/2024 8:48 PM SLIP FILLER 02/01/2024 07/31/19 25 cholecalciferol, vitD3,/vit K2 (VITAMIN [...] st Contact Info) Description 05/26/2024 12:30 PM SLIP FILLER Appointment Department of Radiation Oncology in [place], [place] [address] [place] [address] Aidan Estrada M.D. [address] [place] [phone] Carlos Gibson R.N. 05/26/2024 1:00 PM SLIP FILLER Appointment Department of Radiation Oncology in [place], [place] [address] [place] [phone] Antonette Schulte M.D. [address] [place] [phone] 05/26/2024 2:00 PM SLIP FILLER Appointment Department of Radiation Oncology in [place], [place] [address] [place] [phone] Aidan Estrada M.D. [address] [place] [phone] Antonette Schulte M.D. [address] [place] [phone] Scheduled Orders Name Type Priority Associated Diagnoses Orde r Schedule Creatinine, POCT Point of Care Testing-Docked Device Routine Routine lab collecti on (next collection) for 1 Occurrences starting 05/09/2024 until 05/09/2024 documented as of this encounter Procedures Procedure Name Priority Date/Time Associated Diagnosis Comments CT ABDOMEN PELVIS WITH IV CONTRAST RAD - Routine (most inpatients and all outpatients) 05/09/2024 4:43 PM SLIP FILLER Malignant Neoplasm Of Pancreas Head (HCC) CT CHEST WITH IV CONTRAST RAD - Routine (most inpatients and all outpatients) 05/09/2024 4:43 PM SLIP FILLER Malignant Neoplasm Of Pancreas Head (HCC) CREATININE, POCT, B Routine 05/09/2024 3:38 PM SLIP FILLER CREATININE, POCT, B Routine 05/09/2024 3:38 PM SLIP FILLER documented in this encounter Results * CT Abdomen Pelvis with IV Contrast (05/09/2024 4:43 PM SLIP FILLER) Anatomical Region Laterality Modality Abdomen, Pelvis, Abdominal R ST LOS, Abdominal ARZ LOS, Abdominal FLA LOS N/A Computed Tomography 05/09/2024 5:53 PM SLIP FILLER Impressions 05/10/2024 7:21 AM SLIP FILLER Slight decrease size of pancreas head mass. Extensive vascular involvement persists. No new CT evidence of metastatic disease in the abdomen or pelvis. Narrative 05/10/2024 7:21 AM SLIP FILLER EXAM: CT ABDOMEN PELVIS WITH IV CONTRAST [...] Chest with IV Contrast (05/09/2024 4:43 PM SLIP FILLER) Anatomical Region Laterality Modality Chest, Thoracic RST LOS, Tho racic ARZ LOS, Thoracic ARZ LOS, Thoracic FLA LOS N/A Computed Tomography 05/09/2024 5:08 PM SLIP FILLER Impressions 05/10/2024 8:22 AM SLIP FILLER 1. New small bilateral pleural effusions with suspected pleural nodularities, indeterminate. Short-term follow-up CT can be considered. 2. New patchy groundglass opacities throughout the lungs could be due to infection/inflammation. 3. Stable 5 mm nodule in right lower lobe. 4. Stable mild enlargement of mediastinal lymph nodes. 5. Interval resolution of previously seen right lower lobe pulmonary emboli. Narrative 05/10/2024 8:22 AM SLIP FILLER EXAM: CT CHEST WITH IV CONTRAST 3D [...] Result * Creatinine, POCT (05/09/2024 3:38 PM SLIP FILLER) Creatinine, POCT, B 0.8 0.6 - 1.0 mg/dL 05/09/2024 3:46 PM SLIP FILLER PCDT Comment: ----ADDITIONAL INFORMATION---- Performed at the Point of Care Blood 05/09/2024 3:38 PM SLIP FILLER 05/09/2024 3:46 PM SLIP FILLER Unknown Provider LAB POCT ORDERABLES - DEVICE Fi nal Result [facility] [address] [place] [address], [facility] PCDT [facility] P[facility] [address] [place] [address] * Creatinine, POCT (05/09/2024 3:38 PM SLIP FILLER) Estimated GFR (eGFR), POCT 73 >=60 mL/min/BSA 05/09/2024 3:46 PM SLIP FILLER PCDT Comment: Estimated GFR calculated using the 2020 CKD_EPI creatinine equation. Blood 05/09/2024 3:38 PM SLIP FILLER 05/09/2024 3:46 PM SLIP FILLER us Unknown Provider LAB POCT ORDERABLES - DEVICE Fi nal Result POC [place] [facility] [address] [place] [address], [facility] PCDT [facility] POC [address] [place] [address] documented in this encounter Visit Diagnoses Diagnosis [...] prior to discharge. Given 05/09/2024 3:40 PM SLIP FILLER 500 Units iohexoL 300 mg iodine/mL solution 1-200 mL (Omnipaque) 1-200 mL, intravenous, Once in imaging, contrast, Starting on Wed05/09/24 at 1520, For 1 dose, Imaging Protocol Orders, Dose per Radiant Medication Guidelines Given 05/09/2024 4:04 PM SLIP FILLER 100 mL sodium chloride (PF) 0.9 % injection 1-100 mL 1-100 mL, intravenous, Once, On Wed05/09/24 at 1545, For 1 dose, Imaging Protocol Orders, Dose per Radiant Medication Guidelines Given 05/09/2024 4:04 PM SLIP FILLER 50 mL sodium chloride 0.9 % injection 10-20 mL 10-20 mL, intravenous, As needed, line care, Implanted Vascular Access Device (IVAD) Venous Non-Valved, Starting on Wed05/09/24 at 1538, Prior to and following infusion and between multiple consecutive infusions, flush 10 mL to each port/lumen. Given 05/09/2024 3:40 PM SLIP FILLER 10 mL documented in this encounter Additional Health Concerns Infection Onset Date Last Indicated Resolved Time Protective Environment 02/08/2024 02/08/2024 documented as of this encounter Care Teams Vamp Seamer Relationship Specialty Start Date End Date Elsewhere, Pcp PCP - General Internal Medicine 01/27/24 documented as of this encounter
--- OUTSIDE RECORDS SUMMARY | 2024-05-19 19:08 | XMS_ITS ---
Author Organization [facility] Address [address] [place] [address] Care Team Providers Care Warp Yarn Sorter Name Role Phone Elsewhere, Pcp Primary Care [...]
--- OUTSIDE RECORDS SUMMARY | 2024-05-19 19:08 | XMS_ITS | Encounter Summary ---
Author Organization [facility] Address [address] [place] [address] Care Team Providers Care Rigging Slinger Name Role Phone Elsewhere, Pcp Primary Care Provider Unavailabl e Reason for Visit * Reason Onset Date Comments Pre-visit Intake 05/04/2024 * Appointment Request (Routine) - Authorized Specialty Diagnoses / Procedures Referred By Leann joseph Referred To Contact Oncology Referral ID Status Reason Start Date Expiration Date V isits Requested Visits Authorized [id number] Authorized 03/15/2024 03/15/2025 1 1 Encounter Details Date Type Department Care Team (Latest Contact Info) Description 05/04/2024 2:00 PM SOUVENIR AND NOVELTY MAKER Clinical Communication Virtual Review in [place], [place] [address] [place] [phone] Pre-visit Intake Social History Tobacco Use Types Packs/Day Years Used Date Smoking Tobacco: Never Smokeless Tobacco: Never Tobacco Cessation:Counseling Given: Not Answered Alcohol Use Standard Drinks/Week Comments Never 0 (1 standard drink = 0.6 oz pur e alcohol) [facility] Utilities Answer Date Recorded In the [...] your living situation today? I have a [facility] place to live 02/04/2024 Comments Unknown Sex and Gender Information Value Date Recorded Sex Assigned at Female 01/30/2024 2:33 PM SOUVENIR AND NOVELTY MAKER Legal Sex Female 4:38 PM CDT Gender Identity Female 01/30/2024 2:33 PM SOUVENIR AND NOVELTY MAKER Sexual Orientation Straight 01/30/2024 2: 33 PM SOUVENIR AND NOVELTY MAKER documented as of this encounter Plan of Treatment Upcoming Encounters Date Type Department Care Team (Late st Contact Info) Description 05/26/2024 12:30 PM SOUVENIR AND NOVELTY MAKER Appointment Department of Radiation Oncology in [place], [place] [address] [place] [phone] Aidan Estrada M.D. [address] [place] [phone] Carlos Gibson RMelvinNMelvin 05/26/2024 1:00 PM SOUVENIR AND NOVELTY MAKER Appointment Department of Radiation Oncology in [place], [place] [address] [place] [address] Antonette Schulte M.D. [address] [place] [phone] 05/26/2024 2:00 PM SOUVENIR AND NOVELTY MAKER Appointment Department of Radiation Oncology in [place], [place] [address] [place] [address] Aidan Estrada M.D. [address] [place] [address] Antonette Schulte M.D. [address] [place] [phone] documented as of this encounter Visit Diagnoses Not on filedocumented in this encounter Additional Health Concerns Infection Onset Date Last Indicated Resolved Time Protective Environment 02/08/2024 02/08/2024 documented as of this encounter Care Teams Rigging Slinger Relationship Specialty Start Date End Date Elsewhere, Pcp PCP - General Internal Medicine 01/27/24 documented as of this encounter
--- OUTSIDE RECORDS SUMMARY | 2024-05-19 19:08 | XMS_ITS | Clinical Summary ---
Author Organization [facility] Address [address] [place] [address] Care Team Providers Care Line Appliance Assembler Name Role Phone Elsewhere, Pcp Primary Care Provider Unavailabl e Source Comments Patient records contain information from all sites at [facility]. For routine questions regarding patient records, call [phone] during business hours, M-F 8:00 AM - 5:00 PM Central Time. Record requests for emergency care only can be directed to [phone] at any time.[facility] Allergies No known active allergies Medications * [...] a day. 374 tablet 4 8:48 PM IDEA WORKER 02/01/20 24 025 Active dexAMETHasone (Decadron) 4 [...] Orders Only Department of Radiation Oncology in [place], [place] [address] [place] [address] Joyce Kenyon P.A.-C., M.S. 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 Malignant Neoplasm Of Pancreas Head (HCC) Discharge Disposition: Home or Self Care 05/09/2024 2:40 PM IDEA WORKER Lab Department of Infusion Therapy in [place], [place] [address] [place] [phone] Sanjeev Woods M.D., M.P.H. 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 Appointment 03/08/2024 8:55 AM IDEA WORKER - 03/08/2024 11:59 PM IDEA WORKER Hospital Encounter Department of Neurology in [place], [place] [address] [place] [phone] Compa Arnold M.D. Foot Drop Left; Foot Drop Right Discharge Disposition: Home or Self Care 03/07/2024 2:00 PM IDEA WORKER Comprehensive Visit Department of Physical Medicine and Rehabilitation in [place], [place] [address] [place] [phone] Compa Arnold M.D. Shoemaker, Alexander, P.T., D.PGerri. Abnormal Gait Non Orthopedic (Primary Dx); Foot Drop Left; Foot Drop Right 03/07/2024 1:00 PM IDEA WORKER Comprehensive Visit Department of Physical Medicine and Rehabilitation in [place], [place] [address] [place] [phone] Compa Arnold M.D. Mandler, Krista L, O.T., MOT Foot Drop Right (Primary Dx); Foot Drop Left 03/03/2024 3:00 PM IDEA WORKER Comprehensive Visit Department of Physical Medicine and Rehabilitation in [place], [place] [address] [place] [phone] Aidan Easley D.O. Foot Drop Right (Primary Dx); Malignant Neoplasm Of Pancreas Head (HCC); Foot Drop Left 03/01/2024 9:45 AM IDEA WORKER Clinical Communication Virtual Review in [place], [place] [address] [place] [phone] Pre-visit Intake from Last 3 Months Family [...] drink = 0.6 oz pur e alcohol) [facility] [employer] Answer Date Recorded In the past 12 months has [employer], gas, oil, or water modu threatened to shut off services in your [...] your living situation today? I have a [facility] place to live 02/04/2024 Comments Unknown Sex and Gender Information Value Date Recorded Sex Assigned at Female 01/30/2024 2:33 PM IDEA WORKER Legal Sex Female 4:38 PM CDT Gender Identity Female 01/30/2024 2:33 PM IDEA WORKER Sexual Orientation Straight 01/30/2024 2: 33 PM IDEA WORKER Last Filed Vital Signs Vital Sign Reading Time Taken Comments Blood Pressure 156/66 05/10/2024 2:28 PM IDEA WORKER Pulse 67 05/10/2024 2:28 PM IDEA WORKER Temperature 37.4 C (99.3 F) 05/10/2024 2:25 PM IDEA WORKER Respiratory Rate 16 05/10/2024 2:25 PM IDEA WORKER Oxygen Saturation 97% 05/10/2024 2:25 PM IDEA WORKER Inhaled Oxygen Concentration - - Weight 67.1 kg (147 lb 14.9 oz) 05/10/2024 2:25 PM IDEA WORKER Height 155.2 cm (5' 1.1) 05/10/2024 2:25 PM IDEA WORKER Body Mass Index 27.86 05/10/2024 2:25 PM IDEA WORKER Plan of Treatment Upcoming Encounters Date Type Department Care Team (Late st Contact Info) Description 05/26/2024 12:30 PM IDEA WORKER Appointment Department of Radiation Oncology in [place], [place] [address] [place] [phone] Aidan Estrada M.D. [address] [place] [address] Carlos Gibson R.N. 05/26/2024 1:00 PM IDEA WORKER Appointment Department of Radiation Oncology in [place], [place] [address] [place] [phone] Antonette Schulte M.D. [address] [place] [phone] 05/26/2024 2:00 PM IDEA WORKER Appointment Department of Radiation Oncology in [place], [place] [address] [place] [address] Aidan Estrada M.D. [address] [place] [phone] Antonette Schulte M.D. [address] [place] [phone] Health Maintenance Due Date Last Done Comments [...] this topic Medical Devices Implanted Type Area Solar Energy Sales Specialist Device Identifier Shelf Expiration Date Model / Serial / Lot Cardiac Stent Cardiac Stent Heart Implantable Port-01/04/2024 Implanted:01/03 (Quantity not on file) Implantable Port Right: Chest Pacemaker-2018 Implanted:08/10 (Quantity not on file) Pacemaker Heart [employer] [id number] / [id number] / Description:Placed in 9 Procedures Procedure Name Priority Date/Time Associated Diagnosis Comments CT ABDOMEN PELVIS WITH IV CONTRAST RAD - Routine (most inpatients and all outpatients) 05/09/2024 4:43 PM IDEA WORKER Malignant Neoplasm Of Pancreas Head (HCC) CT CHEST WITH IV CONTRAST RAD - Routine (most inpatients and all outpatients) 05/09/2024 4:43 PM IDEA WORKER Malignant Neoplasm Of Pancreas Head (HCC) CREATININE, POCT, B Routine 05/09/2024 3 :38 PM IDEA WORKER CREATININE, POCT, B Routine 05/09/2024 3 :38 PM IDEA WORKER CARBOHYDRATE AG 19-9 (CA 19-9), S Routine 05/09/2024 2:59 PM IDEA WORKER Malignant Neoplasm Of Pancreas Head (HCC) COMPREHENSIVE METABOLIC PANEL, S/P Routine 05/09/2024 2:59 PM IDEA WORKER Malignant Neoplasm Of Pancreas Head (HCC) CBC WITH DIFFERENTIAL, B Routine 05/09/2024 2:59 PM IDEA WORKER Malignant Neoplasm Of Pancreas Head (HCC) EMG Routine 03/08/2024 8:55 AM IDEA WORKER Foot Drop Left Foot Drop Right from Last 3 Months Results * CT Abdomen Pelvis with IV Contrast (05/09/2024 4:43 PM IDEA WORKER) Anatomical Region Laterality Modality Abdomen, Pelvis, Abdominal R ST LOS, Abdominal ARZ LOS, Abdominal FLA LOS N/A Computed Tomography 05/09/2024 5:53 PM IDEA WORKER Impressions 05/10/2024 7:21 AM IDEA WORKER Slight decrease size of pancreas head mass. Extensive vascular involvement persists. No new CT evidence of metastatic disease in the abdomen or pelvis. Narrative 05/10/2024 7:21 AM IDEA WORKER EXAM: CT ABDOMEN PELVIS WITH IV CONTRAST [...] Chest with IV Contrast (05/09/2024 4:43 PM IDEA WORKER) Anatomical Region Laterality Modality Chest, Thoracic RST LOS, Tho racic ARZ LOS, Thoracic ARZ LOS, Thoracic FLA LOS N/A Computed Tomography 05/09/2024 5:08 PM IDEA WORKER Impressions 05/10/2024 8:22 AM IDEA WORKER 1. New small bilateral pleural effusions with suspected pleural nodularities, indeterminate. Short-term follow-up CT can be considered. 2. New patchy groundglass opacities throughout the lungs could be due to infection/inflammation. 3. Stable 5 mm nodule in right lower lobe. 4. Stable mild enlargement of mediastinal lymph nodes. 5. Interval resolution of previously seen right lower lobe pulmonary emboli. Narrative 05/10/2024 8:22 AM IDEA WORKER EXAM: CT CHEST WITH IV CONTRAST 3D [...] Result * Creatinine, POCT (05/09/2024 3:38 PM IDEA WORKER) Only the most recent of2 resultswithin the time period is included. Creatinine, POCT, B 0.8 0.6 - 1.0 mg/dL 05/09/2024 3:46 PM IDEA WORKER PCDT Comment: ----ADDITIONAL INFORMATION---- Performed at the Point of Care Blood 05/09/2024 3:38 PM IDEA WORKER 05/09/2024 3:46 PM IDEA WORKER Unknown Provider LAB POCT ORDERABLES - DEVICE Fi nal Result [facility] [address] [place] [address], [facility] PCDT [facility] [address] [place] [address] * (ABNORMAL) Carbohydrate Antigen 19-9 (CA 19-9) (05/09/2024 2:59 PM IDEA WORKER) Pathologist [facility] Carbohydrate Ag 19-9, S 1313(H) <35 U/mL 05/09/2024 8:43 PM IDEA WORKER [facility] Comment: ----ADDITIONAL INFORMATION---- The testing method is an immunoenzymatic assay manufactured by [employer] and performed on the [employer] DxI 800. Values obtained with different assay methods or kits may be different and cannot be used interchangeably. Test results cannot be interpreted as absolute evidence for the presence or absence of malignant disease. Blood (Blood, Venous) 05/09/2024 2:59 PM IDEA WORKER 05/09/2024 7:51 PM IDEA WORKER Sanjeev Woods M.D., M.P.H. LAB BLOOD ADD-ON F inal Result [facility] [address] [place] [address] [facility] [address] [place] [address] * (ABNORMAL) CBC with Differential, Blood (05/09/2024 2:59 PM IDEA WORKER) [facility] Hemoglobin 8.4(L) 11.6 - 15.0 g/dL 05/09/2024 3:43 PM IDEA WORKER DTL Hematocrit 26.5(L) 35.5 - 44.9 % 05/09/2024 3:43 PM IDEA WORKER DTL Erythrocytes 2.96(L) 3.92 - 5.13 x10(12)/L 05/09/2024 3:43 PM IDEA WORKER DTL MCV 89.5 78.2 - 97.9 fL 05/09/2024 3:43 PM IDEA WORKER DTL RBC Distrib Width 15.9 12.2 - 16.1 % 05/09/2024 3:43 PM IDEA WORKER DTL Platelet Count 104(L) 157 - 371 x10(9)/L 05/09/2024 4:38 PM IDEA WORKER DTL Leukocytes 7.2 3.4 - 9.6 x10(9)/L 05/09/2024 4:38 PM IDEA WORKER DTL Neutrophils 4.65 1.56 - 6.45 x10(9)/L 05/09/2024 3:43 PM IDEA WORKER DHPM Lymphocytes 1.80 0.95 - 3.07 x10(9)/L 05/09/2024 3:43 PM IDEA WORKER DTL Monocytes 0.45 0.26 - 0.81 x10(9)/L 05/09/2024 3:43 PM IDEA WORKER DTL Eosinophils 0.25 0.03 - 0.48 x10(9)/L 05/09/2024 3:43 PM IDEA WORKER DTL Basophils <0.03 0.01 - 0.08 x10(9)/L 05/09/2024 3:43 PM IDEA WORKER DTL Blood (Blood, Venous) 05/09/2024 2:59 PM IDEA WORKER 05/09/2024 3:32 PM IDEA WORKER Sanjeev Woods M.D., M.P.H. LAB BLOOD ADD-ON F inal Result [facility] [address] [place] [address], [facility] DTL [facility] [address] [place] [address] * (ABNORMAL) Comprehensive Metabolic Panel (05/09/2024 2:59 PM IDEA WORKER) [facility] Potassium, S 3.9 3.6 - 5.2 mmol/L 05/09/2024 4:05 PM IDEA WORKER DTL Sodium, S 137 135 - 145 mmol/L 05/09/2024 4:05 PM IDEA WORKER DTL Chloride, S 101 98 - 107 mmol/L 05/09/2024 4:05 PM IDEA WORKER DTL Bicarbonate, S 27 22 - 29 mmol/L 05/09/2024 4:05 PM IDEA WORKER DTL Anion Gap 9 7 - 15 05/09/2024 4:05 PM IDEA WORKER DTL BUN (Blood Urea Nitrogen), S 18 6 - 21 mg/dL 05/09/2024 4:05 PM IDEA WORKER DTL Creatinine 0.79 0.59 - 1.04 mg/dL 05/09/2024 4:05 PM IDEA WORKER DTL Estimated GFR (eGFR) 74 >=60 mL/min/BS A 05/09/2024 4:05 PM IDEA WORKER DTL Comment: Estimated GFR calculated using the 2020 CKD_EPI creatinine equation. Calcium, Total, S 8.4(L) 8.8 - 10.2 mg/dL 05/09/2024 4:05 PM IDEA WORKER DTL Glucose, S 200(H) 70 - 140 mg/dL 05/09/2024 4:05 PM IDEA WORKER DTL Protein, Total, S 6.2(L) 6.3 - 7.9 g/dL 05/09/2024 4:05 PM IDEA WORKER DTL Albumin, S 3.1(L) 3.5 - 5.0 g/dL 05/09/2024 4:05 PM IDEA WORKER DTL Aspartate Aminotransferase (AST), S 29 8 - 43 U/L 05/09/2024 4:05 PM IDEA WORKER DTL Alkaline Phosphatase, S 128(H) 35 - 104 U/L 05/09/2024 4:05 PM IDEA WORKER DTL Alanine Aminotransferase (ALT), S 25 7 - 45 U/L 05/09/2024 4:05 PM IDEA WORKER DTL Bilirubin, Total, S 0.4 0.0 - 1.2 mg/dL 05/09/2024 4:05 PM IDEA WORKER DTL Blood (Blood, Venous) 05/09/2024 2:59 PM IDEA WORKER 05/09/2024 3:42 PM IDEA WORKER Sanjeev Woods M.D., M.P.H. LAB BLOOD ADD-ON F inal Result [facility] [address] [place] [address], [facility] DTL [facility] [address] [place] [address] * EMG (03/08/2024 8:55 AM IDEA WORKER) 03/08/2024 9:15 AM IDEA WORKER Narrative [facility] EMG - 03/08/2024 12:01 PM IDEA WORKER Table formatting from the original result was not included. 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 Citlali Bhat (127 or [id number])/SMB NERVE CONDUCTIONS Record Rep Normal Normal Distal [...] Karan Bhat M.D. at 03/08/2024 12:00:45 PM IDEA WORKER Procedure Note Karan Bhat Jr., M.D. - 03/08/2024 08-Mar-2024 Electromyography Final Report Study Number: 1 EMG Instrument Lens Grinder: Karan Bhat 127 or [phone] Referred by: COMPA ARNOLD ([id number])) Referred for: Bilat foot drop L>R Referral [...] primarily axonal process. Citlali Bhat (127 or [phone])/SMB NERVE CONDUCTIONS Record Rep Normal Normal Distal [...] Karan Bhat M.D. at 03/08/2024 12:00:45 PM IDEA WORKER Compa Arnold M.D. 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
--- OUTSIDE RECORDS SUMMARY | 2024-05-19 19:09 | XMS_ITS | Encounter Summary ---
Author Organization [facility] Address [address] [place] [address] Care Team Providers Care Modeling Analyst Name Role Phone Elsewhere, Pcp Primary Care Provider Unavailabl e Encounter Details Date Type Department Care Team (Late st Contact Info) Description 05/09/2024 2:40 PM WINE STEWARD Lab Department of Infusion Therapy in [place], [place] [address] [place] [address] Sanjeev Woods M.D., M.P.H. 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 I have a [facility] place to live 02/04/2024 Comments Unknown Sex and Gender Information Value Date Recorded Sex Assigned at Female 01/30/2024 2:33 PM WINE STEWARD Legal Sex Female 4:38 PM CDT Gender Identity Female 01/30/2024 2:33 PM WINE STEWARD Sexual Orientation Straight 01/30/2024 2: 33 PM WINE STEWARD documented as of this encounter Plan of Treatment Upcoming Encounters Date Type Department Care Team (Late st Contact Info) Description 05/26/2024 12:30 PM WINE STEWARD Appointment Department of Radiation Oncology in [place], [place] [address] [place] [phone] Aidan Estrada M.D. [address] [place] [phone] Carlos Gibson R.N. 05/26/2024 1:00 PM WINE STEWARD Appointment Department of Radiation Oncology in [place], [place] [address] [place] [phone] nAtonette Schulte M.D. [address] [place] [phone] 05/26/2024 2:00 PM WINE STEWARD Appointment Department of Radiation Oncology in [place], [place] [address] [place] [phone] Aidan Estrada M.D. [address] [place] [phone] Antonette Schulte M.D. [address] [place] [phone] documented as of this encounter Procedures Procedure Name Priority Date/Time Associated Diagnosis Comments CARBOHYDRATE AG 19-9 (CA 19-9), S Routine 05/09/2024 2:59 PM WINE STEWARD Malignant Neoplasm Of Pancreas Head (HCC) CBC WITH DIFFERENTIAL, B Routine 05/09/2024 2:59 PM WINE STEWARD Malignant Neoplasm Of Pancreas Head (HCC) COMPREHENSIVE METABOLIC PANEL, S/P Routine 05/09/2024 2:59 PM WINE STEWARD Malignant Neoplasm Of Pancreas Head (HCC) documented in this encounter Results * (ABNORMAL) Carbohydrate Antigen 19-9 (CA 19-9) (05/09/2024 2:59 PM WINE STEWARD) Carbohydrate Ag 19-9, S 1313(H) <35 U/mL 05/09/2024 8:43 PM WINE STEWARD [facility] Comment: ----ADDITIONAL INFORMATION---- The testing method is an immunoenzymatic assay manufactured by [employer] and performed on the [employer] DxI 800. Values obtained with different assay methods or kits may be different and cannot be used interchangeably. Test results cannot be interpreted as absolute evidence for the presence or absence of malignant disease. Blood (Blood, Venous) 05/09/2024 2:59 PM WINE STEWARD 05/09/2024 7:51 PM WINE STEWARD us Sanjeev Woods M.D., M.P.H. LAB BLOOD ADD-ON F inal Result [facility] [address] [place] [address] [facility] [address] [place] [address] * (ABNORMAL) Comprehensive Metabolic Panel (05/09/2024 2:59 PM WINE STEWARD) [facility] Potassium, S 3.9 3.6 - 5.2 mmol/L 05/09/2024 4:05 PM WINE STEWARD DTL Sodium, S 137 135 - 145 mmol/L 05/09/2024 4:05 PM WINE STEWARD DTL Chloride, S 101 98 - 107 mmol/L 05/09/2024 4:05 PM WINE STEWARD DTL Bicarbonate, S 27 22 - 29 mmol/L 05/09/2024 4:05 PM WINE STEWARD DTL Anion Gap 9 7 - 15 05/09/2024 4:05 PM WINE STEWARD DTL BUN (Blood Urea Nitrogen), S 18 6 - 21 mg/dL 05/09/2024 4:05 PM WINE STEWARD DTL Creatinine 0.79 0.59 - 1.04 mg/dL 05/09/2024 4:05 PM WINE STEWARD DTL Estimated GFR (eGFR) 74 >=60 mL/min/BS A 05/09/2024 4:05 PM WINE STEWARD DTL Comment: Estimated GFR calculated using the 2020 CKD_EPI creatinine equation. Calcium, Total, S 8.4(L) 8.8 - 10.2 mg/dL 05/09/2024 4:05 PM WINE STEWARD DTL Glucose, S 200(H) 70 - 140 mg/dL 05/09/2024 4:05 PM WINE STEWARD DTL Protein, Total, S 6.2(L) 6.3 - 7.9 g/dL 05/09/2024 4:05 PM WINE STEWARD DTL Albumin, S 3.1(L) 3.5 - 5.0 g/dL 05/09/2024 4:05 PM WINE STEWARD DTL Aspartate Aminotransferase (AST), S 29 8 - 43 U/L 05/09/2024 4:05 PM WINE STEWARD DTL Alkaline Phosphatase, S 128(H) 35 - 104 U/L 05/09/2024 4:05 PM WINE STEWARD DTL Alanine Aminotransferase (ALT), S 25 7 - 45 U/L 05/09/2024 4:05 PM WINE STEWARD DTL Bilirubin, Total, S 0.4 0.0 - 1.2 mg/dL 05/09/2024 4:05 PM WINE STEWARD DTL Blood (Blood, Venous) 05/09/2024 2:59 PM WINE STEWARD 05/09/2024 3:42 PM WINE STEWARD Sanjeev Woods M.D., M.P.H. LAB BLOOD ADD-ON F inal Result [facility] [address] [place] [address], [facility] [address] [place] [address] * (ABNORMAL) CBC with Differential, Blood (05/09/2024 2:59 PM WINE STEWARD) Hemoglobin 8.4(L) 11.6 - 15.0 g/dL 05/09/2024 3:43 PM WINE STEWARD DTL Hematocrit 26.5(L) 35.5 - 44.9 % 05/09/2024 3:43 PM WINE STEWARD DTL Erythrocytes 2.96(L) 3.92 - 5.13 x10(12)/L 05/09/2024 3:43 PM WINE STEWARD DTL MCV 89.5 78.2 - 97.9 fL 05/09/2024 3:43 PM WINE STEWARD DTL RBC Distrib Width 15.9 12.2 - 16.1 % 05/09/2024 3:43 PM WINE STEWARD DTL Platelet Count 104(L) 157 - 371 x10(9)/L 05/09/2024 4:38 PM WINE STEWARD DTL Leukocytes 7.2 3.4 - 9.6 x10(9)/L 05/09/2024 4:38 PM WINE STEWARD DTL Neutrophils 4.65 1.56 - 6.45 x10(9)/L 05/09/2024 3:43 PM WINE STEWARD [facility] Lymphocytes 1.80 0.95 - 3.07 x10(9)/L 05/09/2024 3:43 PM WINE STEWARD DTL Monocytes 0.45 0.26 - 0.81 x10(9)/L 05/09/2024 3:43 PM WINE STEWARD DTL Eosinophils 0.25 0.03 - 0.48 x10(9)/L 05/09/2024 3:43 PM WINE STEWARD DTL Basophils <0.03 0.01 - 0.08 x10(9)/L 05/09/2024 3:43 PM WINE STEWARD DTL Blood (Blood, Venous) 05/09/2024 2:59 PM WINE STEWARD 05/09/2024 3:32 PM WINE STEWARD us Sanjeev Woods M.D., M.P.H. LAB BLOOD ADD-ON F inal Result [facility] [address] [place] [address], [facility] DTL [facility] [address] [place] [address] [facility] [address] [place] [address] documented in this encounter Visit Diagnoses Diagnosis [...] Pancreas Head (HCC) Given 05/09/2024 3:05 PM WINE STEWARD 500 Units sodium chloride 0.9 % injection 10-20 mL 10-20 mL, intra-catheter, As needed, line care, Starting on Wed05/09/24 at 1504, When IVAD accessed and infusing: Flush prior to and following infusion, between multiple consecutive infusions. 10 mL to each port/lumen.Indications:Malignan t Neoplasm Of Pancreas Head (HCC) Given 05/09/2024 3:05 PM WINE STEWARD 20 mL documented in this encounter Additional Health Concerns Infection Onset Date Last Indicated Resolved Time Protective Environment 02/08/2024 02/08/2024 documented as of this encounter Care Teams Modeling Analyst Relationship Specialty Start Date End Date Elsewhere, Pcp PCP - General Internal Medicine 01/27/24 documented as of this encounter
--- OUTSIDE RECORDS SUMMARY | 2024-05-19 19:09 | XMS_ITS | Encounter Summary ---
Author Organization [facility] Address [address] [place] [address] Care Team Providers Care Compound Mixer Name Role Phone Elsewhere, Pcp Primary Care Provider Unavailabl e Encounter Details Date Type Department Care Team (Latest Contact Info) Description 02/01/2024 Intake [facility] Social History Tobacco Use Types Packs/Day Years Used Date Smoking Tobacco: Never Smokeless Tobacco: Never [facility] Utilities Answer Date Recorded In the [...] your living situation today? I have a [facility] place to live 02/04/2024 Comments Unknown Sex and Gender Information Value Date Recorded Sex Assigned at Female 01/30/2024 2:33 PM SHOTGUN SHELL REPRINTING UNIT OPERATOR Legal Sex Female 4:38 PM CDT Gender Identity Female 01/30/2024 2:33 PM SHOTGUN SHELL REPRINTING UNIT OPERATOR Sexual Orientation Straight 01/30/2024 2: 33 PM SHOTGUN SHELL REPRINTING UNIT OPERATOR documented as of this encounter Plan of Treatment Upcoming Encounters Date Type Department Care Team (Late st Contact Info) Description 05/26/2024 12:30 PM SHOTGUN SHELL REPRINTING UNIT OPERATOR Appointment Department of Radiation Oncology in [address] [phone] Aidan Estrada M.D. [address] [place] [phone] Carlos Gibson, RMelvinNMelvin 05/26/2024 1:00 PM SHOTGUN SHELL REPRINTING UNIT OPERATOR Appointment Department of Radiation Oncology in [address] [phone] Antonette Schulte M.D. [address] [place] [phone] 05/26/2024 2:00 PM SHOTGUN SHELL REPRINTING UNIT OPERATOR Appointment Department of Radiation Oncology in [address] [phone] Aidan Estrada M.D. [address] [place] [address] [place] [address] Antonette Schulte M.D. [address] [place] [phone] documented as of this encounter Visit Diagnoses Not on filedocumented in this encounter Additional Health Concerns Infection Onset Date Last Indicated Resolved Time Protective Environment 02/08/2024 02/08/2024 documented as of this encounter Care Teams Compound Mixer Relationship Specialty Start Date End Date Elsewhere, Pcp PCP - General Internal Medicine 01/27/24 documented as of this encounter
--- NOTE | 2024-05-19 19:16 | ED.GENADULT ---
HPI - General Adult General Chief complaint: Abdominal Pain Stated complaint: constipation, cancer patient Time Seen by Provider: 05/19/24 18:33 Source: patient Mode of arrival: ambulatory Limitations: no limitations History of Present Illness HPI narrative: Patient is an 83-year-old female coming in today complaining of abdominal pain. Pain is located across the lower abdomen, both sides and central. It is constant. Nothing makes it better or worse. Patient is concerned that she is constipated. States that she has not had a bowel movement in approximately 5-6 days. She tried an enema today with no output. Patient is currently undergoing chemotherapy and started tramadol this week as well. She states that she has been having dry heaves for the entire week, no fevers. No pain with urination. She denies urinary frequency or urgency. She has had very little appetite this week. States that she is not sure if she has passed gas in approximately 3 days. Related Data Home Medications ?Medication ?Instructions ?Recorded ?Confirmed lidocaine-prilocaine 2.5 %-2.5 % 1 applic topical DAILY PRN 03/06/24 05/18/24 topical cream metformin 500 mg tablet,extended 500 mg PO BID 03/06/24 05/18/24 release 24 hr ondansetron 4 mg disintegrating 4 mg PO Q8H PRN 03/06/24 05/18/24 tablet raloxifene 60 mg tablet 60 mg PO DAILY 03/06/24 05/18/24 rosuvastatin 10 mg tablet 10 mg PO QPM 03/06/24 05/18/24 tramadol 50 mg tablet 50 mg PO BID PRN 03/06/24 05/18/24 macularprotect complete PO BID 04/03/24 05/18/24 cholecalciferol (vitamin D3) 50 50 mcg PO QDAY 05/01/24 05/18/24 mcg (2,000 unit) capsule Previous Rx's ?Medication ?Instructions ?Recorded apixaban 5 mg tablet (Eliquis) 5 mg PO Q12H #60 tabs 04/17/24 furosemide 20 mg tablet 20 mg PO QAM #30 tabs 05/02/24 potassium chloride 20 mEq/15 mL 20 meq (15 mL) PO QDAY #1,200 mL 05/18/24 oral liquid bisacodyl 10 mg rectal suppository 10 mg HI ONCE constipation not 05/19/24 (Dulcolax (bisacodyl)) relieved with miralax #12 ea lisinopril 40 mg tablet 40 mg PO QDAY #90 tabs 05/19/24 metoprolol succinate 50 mg 50 mg PO DAILY #90 tabs 05/19/24 tablet,extended release 24 hr prochlorperazine maleate 5 mg 5 mg PO Q4H PRN nausea #20 tabs 05/19/24 tablet Allergies Allergy/AdvReac Type Severity Reaction Status Date / Time No Known Drug Allergies Allergy Verified 05/18/24 10:29 Review of Systems Status of ROS: Reports: 10 or more systems reviewed and unremarkable except as noted in History and below [facility] Medical History Diastolic dysfunction ?I51.89 - Other ill-defined heart diseases (ICD-10) Essential hypertension ?I10 - Essential (primary) hypertension (ICD-10) Bilateral foot-drop ?M21.371 - Foot drop, right foot (ICD-10) ?M21.372 - Foot drop, left foot (ICD-10) 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 - Lesion of lateral popliteal nerve, unspecified lower limb (ICD-10) Cataracts, bilateral ?H26.9 - Unspecified cataract (ICD-10) Hyperlipidemia ?E78.5 - Hyperlipidemia, unspecified (ICD-10) Neutropenia ?D70.9 - Neutropenia, unspecified (ICD-10) Anemia ?D64.9 - Anemia, unspecified (ICD-10) Pancreatic cancer (12/17/23) ?C25.9 - Malignant neoplasm of pancreas, unspecified (ICD-10) DM2 (diabetes mellitus, type 2) ?E11.9 - Type 2 diabetes mellitus without complications (ICD-10) Chronic anticoagulation ?Z79.01 - intermediate project manager (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) use of anticoagulants (ICD-10) Pacemaker ?Z95.0 - Presence of cardiac pacemaker (ICD-10) DVT (deep venous thrombosis) (02/01/24) ?I82.409 - Acute embolism and thrombosis of unspecified deep veins of unspecified lower extremity (ICD-10) Pulmonary embolism (02/01/24) ?I26.99 - Other pulmonary embolism without acute cor pulmonale (ICD-10) Surgical History History of electromyography ?Z92.89 - Personal history of other medical treatment (ICD-10) History of tonsillectomy (1947) ?Z90.89 - Acquired absence of other organs (ICD-10) History of cardiac pacemaker (2019) ?Z95.0 - Presence of cardiac pacemaker (ICD-10) Family History Mother Diabetes High blood pressure High cholesterol Heart disease Osteoporosis Father Heart disease Kidney disease Osteoporosis Social History What is your current living situation?: I presently have a place to live Problems where you live: no known problems In the past 12 months, utilities in danger of being shut off: no In past 12 months, lack of transportation kept you from medical appts, meetings, work, or getting things needed for daily living: no In the past 12 mos, have been you worried that your food would run out before you had money to buy more?: never true In the past 12 mos, the food you bought just didn't last and you didn't have money to buy more?: never true Smoking Status: Never smoker Do you use any of these nicotine containing products: None Second hand tobacco smoke exposure: No How often do you have a drink containing alcohol: never AUDIT-C Alcohol total score: 0 Non-prescribed substance use: denies use How often does anyone, including family, friends and others, physically hurt you: never How often does anyone, including family, friends and others, insult or talk down to you: never How often does anyone, including family, friends and others, threaten you with harm: never How often does anyone, including family, friends and others, scream or curse at you: never service: No Exam Narrative: Exam Narrative: The patient acute distress. Alert and oriented x3. Answers questions appropriately. Mood and affect are appropriate. Thoughts are goal oriented and rational. No tangential or magical thinking noted. Patient speaks in full sentences without needing to catch her breath. She does not appear ill or toxic. HEENT: Extraocular muscles are intact. Conjunctivae are moist without any icterus noted. dry mucous membranes. Posterior pharynx is normal. Neck is soft Cardiovascular: Heart is regular rate and rhythm S1 and S2 are present without any murmurs. Lungs: Clear to auscultation bilaterally no wheezes rhonchi or rales are appreciated. Patient takes deep breaths without any discomfort. Abdomen: Soft and nondistended. Patient has epigastric discomfort and suprapubic discomfort. She has hypoactive bowel sounds. No significant tenderness in the right or left upper or lower quadrants. Extremities: Bilateral lower extremities show trace edema. Skin: Well perfused. Pale. Const: Vital Signs, click to edit/add: Vital Signs - 24 hr 05/19/24 18:40 05/19/24 21:07 Temperature 98.7 F Pulse Rate [Right Radial] 69 76 Respiratory Rate 16 16 Blood Pressure [Ri ght Upper Arm] 140/58 H 146/86 H Pulse Oximetry 95 94 Oxygen Delivery Me thod Room Air Room Air Course Course ED Course: Patient was having dry heaving while she was here. She received IV Zofran which did help her symptoms. CBC was unremarkable. Hemoglobins up today from yesterday. Normal lactate. Chemistries show hyponatremia, improved from yesterday a.m.. Normal potassium. Normal LFTs. CRP is elevated at 15.6. Abdominal x-ray, read by me, does not show evidence of obstruction. Given her dry heaving and pain we did proceed with an abdominal CT scan which showed moderate colonic stool burden, no evidence of obstruction. Pancreatic cancer visible consistent with current diagnosis. Patient was seen in the Cancer Clinic yesterday where she did receive IV fluids. Vital Signs Vital signs: Initial Vital Signs Temperature 98.7 F 05/19/24 18:40 Temperature Source Temporal Artery Scan 05/19/24 18:40 Pulse Rate 69 05/19/24 18:40 Pulse Rhythm Regular 05/19/24 18:40 Respiratory Rate 16 05/19/24 18:40 Blood Pressure 140/58 H 05/19/24 18:40 Blood Pressure Mean 85 05/19/24 18:40 Pulse Oximetry 95 05/19/24 18:40 Oxygen Delivery Method Room Air 05/19/24 18:40 Vital Signs Temperature 98.7 F 05/19/24 18:40 Pulse Rate 69 05/19/24 18:40 Respiratory Rate 16 05/19/24 18:40 Blood Pressure 140/58 H 05/19/24 18:40 Pulse Oximetry 95 05/19/24 18:40 Oxygen Delivery Method Room Air 05/19/24 18:40 Temperature 98.7 F 05/19/24 18:40 Pulse Rate 76 05/19/24 21:07 Respiratory Rate 16 05/19/24 21:07 Blood Pressure 146/86 H 05/19/24 21:07 Pulse Oximetry 94 05/19/24 21:07 Oxygen Delivery Method Room Air 05/19/24 21:07 Medications Administered Medications: Discontinued Medications Generic Name Dose Route Start Last Admin Trade Name Hermila PRN Reason Stop Dose Admin Ondansetron HCl 4 mg 05/19/24 19:40 05/19/24 19:44 Ondansetron 2 Mg/Ml Inj IVP 05/19/24 19:41 4 mg ONCE ONE Administration Medical Decision Making MDM Narrative Medical decision making narrative: 83-year-old female with a history of cancer, recent tramadol use presenting with constipation. Discussed 3 day clean out: MiraLax 2 cap fulls 2 times per day along with senna 2 tablets once daily. Elevated lipase and CRP: Potentially represents an acute pancreatitis. Discussed admission and observation verses MiraLax and fluids at home. Patient's daughter feel comfortable doing MiraLax and fluids at home. We discussed having a very low threshold to return to the ER including inability to keep down MiraLax and fluids throughout the day, developing a fever or worsening abdominal pain. Patient has an appointment scheduled for Wednesday already, she will have a lipase repeated at that time. Discussed these plans with Dr. Rivera. Lab Data Lab results reviewed: Yes I reviewed the patient's lab results Labs: Lab Results 05/19/24 Range/Units 19:40 WBC 9.56 (4.50-11.00) K/uL RBC 3.55 L (4.00-5.20) m/uL Hgb 10.4 L (12.0-16.0) gm/dL Hct 32.1 L (33.0-51.0) % MCV 90 (80-100) fL MCH 29 (26-34) pg MCHC 32 (32-36) gm/dL RDW Coeff of [place] 16.1 H (11.5-15.5) % Plt Count 290 (140-440) K/uL Neut % (Auto) 89.0 H (42.0-72.0) % Lymph % (Auto) 8.9 L (20-44) % Barry % (Auto) 0.6 (0.0-11.0) % Eos % (Auto) 1.2 (0.0-7.0) % Baso % (Auto) 0.1 (0.0-3.0) % Neut # (Auto) 8.50 H (1.7-7.0) K/uL Lymph # (Auto) 0.90 (0.90-2.90) K/uL Barry # (Auto) 0.10 (0.00-0.90) K/UL Eos # (Auto) 0.11 (0.00-0.50) K/uL Baso # (Auto) 0.01 (0.00-0.30) K/uL Abs Immat Gran (auto) 0.02 (0.00-0.30) K/uL Imm/Tot Granulo (auto) 0.2 % Sodium 131 L (135-149) mmol/L Potassium 4.1 (3.6-5.1) mmol/L Chloride 95 L (96-114) mmol/L Carbon Dioxide 28 (20-32) mmol/L Anion Gap 8 (7-15) mEq/L BUN 29 (7-30) mg/dL Creatinine 0.8 (0.5-1.5) mg/dL Estimated Creat Clear 32.17 Estimated GFR 73 ml/min Glucose 202 H (60-115) mg/dL Lactate 1.6 (0.5-1.9) mmol/L Calcium 8.9 (8.4-10.6) mg/dL Total Bilirubin 0.6 (0.1-1.5) mg/dL Direct Bilirubin 0.4 (0.0-0.5) mg/dL AST 34 (12-35) U/L ALT 25 (4-35) U/L Alkaline Phosphatase 140 (40-150) U/L C-Reactive Protein 15.6 H (0.5-1.0) mg/dL Total Protein 7.1 (6.0-8.3) g/dL Albumin 3.5 (3.3-5.0) g/dL Lipase 560 H (23-300) U/L Imaging Data CT scan - abdomen: Attestation: I have reviewed the pertinent imaging results. Radiologist's impression: CT abdomen and pelvis acquired with 71 cc Isovue 370 IV contrast. COMPARISON: None. FINDINGS: Lower chest: Small left pleural effusion. Bibasilar atelectasis. Liver: Unremarkable. Normal in size and attenuation. No suspicious masses. Gallbladder and bile ducts: Common bile duct stent with expected pneumobilia. No stones or inflammation. No biliary dilatation. Pancreas: Ill-defined pancreatic head lesion, measuring approximately 1.6 centimeters with pancreatic body/tail atrophy consistent with known pancreatic malignancy. Spleen: Splenic granulomas. Normal in size. No masses. Adrenal glands: Unremarkable. No nodules. Kidneys: Unremarkable. No suspicious masses, stones, or hydronephrosis. GI tract: Tiny hiatal hernia. Moderate colonic stool burden in the proximal colon. Colonic diverticulosis without diverticulitis. No bowel obstruction. Vasculature: Abdominal aorta is normal in caliber. Mesenteric arteries are patent. Lymph nodes: No lymphadenopathy. Peritoneum/Abdominal Wall: Unremarkable. No sign of mass or infiltration. No free air or significant free fluid. Pelvis: Unremarkable. Bones: Unremarkable for age. IMPRESSION: No acute intra-abdominal/pelvic abnormality. Ill-defined pancreatic head lesion with pancreatic body/tail atrophy consistent with known malignancy. Moderate colonic stool burden most pronounced in the proximal colon. Colonic diverticulosis without diverticulitis. Abdominal x-ray: Attestation: I have reviewed the pertinent imaging results. Radiologist's impression: TECHNIQUE: Abdomen Pelvis radiograph 3 views COMPARISON: None FINDINGS: Bowel: Moderate amount of stool is present throughout the colon which may be due to chronic constipation. The bowel gas pattern is normal without evidence of bowel obstruction. Soft tissue: No evidence of pneumoperitoneum present. No suspicious calcifications noted. Pacer wires are partially visualized in the right atrium and ventricle. A metallic biliary stent is noted in the right upper quadrant. Bone: Unremarkable for age. IMPRESSION: 1. Moderate amount of stool is present throughout the colon which may be due to chronic constipation. Discharge Plan Discharge Clinical Impression: Constipation, Pancreatic cancer, Elevated pancreatic enzyme Patient Disposition: Home, Self-Care Condition: Stable Additional Instructions: For 3 days do the following: Take MiraLax 2 cap fulls 2 times per day along with senna 2 tablets once daily at bedtime. Then would recommend continue MiraLax 1 capful daily for the next three weeks. Make sure you are drinking plenty of liquids throughout the day. Recommend a mainly clear liquid diet for the next couple of days. Taking tramadol can also cause constipation-you should discuss this with your primary care doctor. Your lipase, this is your pancreatic enzymes were elevated today as well. This could represent an acute inflammation of the pancreas which can also cause abdominal discomfort and dry heaving like you have been having. This is why a clear liquid diet for the next couple days will be important - to rest the pancreas. In the event you cannot keep down the fluids, you develop a fever or worsening abdominal pain, I want you to have a very low threshold to return to the emergency department right away. You may need to be admitted and receive IV fluids. Prescriptions: No Action metformin 500 mg tablet extended release 24 hr 500 mg PO BID tramadol 50 mg tablet 50 mg PO BID PRN rosuvastatin 10 mg tablet 10 mg PO QPM ondansetron 4 mg tablet,disintegrating 4 mg PO Q8H PRN lidocaine-prilocaine 2.5-2.5 % cream 1 applic topical DAILY PRN raloxifene 60 mg tablet 60 mg PO DAILY macularprotect complete PO BID furosemide 20 mg tablet 20 mg PO QAM Qty: 30 3RF cholecalciferol (vitamin D3) 50 mcg (2,000 unit) capsule 50 mcg PO QDAY potassium chloride 20 mEq/15 mL liquid 20 meq PO QDAY Qty: 1200 0RF Eliquis 5 mg tablet 5 mg PO Q12H Qty: 60 2RF lisinopril 40 mg tablet 40 mg PO QDAY Qty: 90 3RF metoprolol succinate 50 mg tablet extended release 24 hr 50 mg PO DAILY Qty: 90 0RF prochlorperazine maleate 5 mg tablet 5 mg PO Q4H MDD 3 PRN (Reason: nausea) Qty: 20 0RF bisacodyl [Dulcolax (bisacodyl)] 10 mg suppository 10 mg HI ONCE Qty: 12 0RF Follow Up/Referrals: Yamil Negrete MD [Primary Care Provider] - Stand Alone Forms: [employer] Info Instructions
--- NOTE | 2024-05-19 19:41 | CRLHL7_ITS ---
For Patients: As a result of the Century Cures Act, medical imaging exams and procedure reports are released immediately into your electronic medical record. You may view this report before your referring provider. If you have questions, please contact your health care provider. INDICATION: Diffuse abdominal pain, current pancreatic cancer treatment. TECHNIQUE: CT abdomen and pelvis acquired with 71 cc Isovue 370 IV contrast. COMPARISON: None. FINDINGS: Lower chest: Small left pleural effusion. Bibasilar atelectasis. Liver: Unremarkable. Normal in size and attenuation. No suspicious masses. Gallbladder and bile ducts: Common bile duct stent with expected pneumobilia. No stones or inflammation. No biliary dilatation. Pancreas: Ill-defined pancreatic head lesion, measuring approximately 1.6 centimeters with pancreatic body/tail atrophy consistent with known pancreatic malignancy. Spleen: Splenic granulomas. Normal in size. No masses. Adrenal glands: Unremarkable. No nodules. Kidneys: Unremarkable. No suspicious masses, stones, or hydronephrosis. GI tract: Tiny hiatal hernia. Moderate colonic stool burden in the proximal colon. Colonic diverticulosis without diverticulitis. No bowel obstruction. Vasculature: Abdominal aorta is normal in caliber. Mesenteric arteries are patent. Lymph nodes: No lymphadenopathy. Peritoneum/Abdominal Wall: Unremarkable. No sign of mass or infiltration. No free air or significant free fluid. Pelvis: Unremarkable. Bones: Unremarkable for age. IMPRESSION: No acute intra-abdominal/pelvic abnormality. Ill-defined pancreatic head lesion with pancreatic body/tail atrophy consistent with known malignancy. Moderate colonic stool burden most pronounced in the proximal colon. Colonic diverticulosis without diverticulitis. Please note that all CT scans at this facility use dose modulation, iterative reconstruction, and/or weight-based dosing when appropriate to reduce radiation dose to as low as reasonably achievable. Dictated by Gregg Burger MD @ 05/19/2024 8:53:09 PM (Electronically Signed)
[2024-05-19 19:42] LABS: Lactate* 1.6 mmol/L (0.5-1.9)
[2024-05-19] MEDS: ONDANSETRON 2 MG/ML inj 4 MG IVP (19:44)
[2024-05-19 19:45] LABS: Basophils Absolute Auto 0.01 K/uL (0.00-0.30); Basophils Percent Auto 0.1 % (0.0-3.0); Eosinophils Absolute Auto 0.11 K/uL (0.00-0.50); Eosinophils Percent Auto 1.2 % (0.0-7.0); Hematocrit 32.1 % (33.0-51.0); Hemoglobin* 10.4 gm/dL (12.0-16.0); Immature Granulocytes Abs Auto 0.02 K/uL (0.00-0.30); Immature Granulocytes Pct Auto 0.2 %; Lymphocytes Percent Auto 8.9 % (20-44); Mean Corpuscular HGB Conc 32 gm/dL (32-36); Mean Corpuscular Hemoglobin 29 pg (26-34); Mean Corpuscular Volume 90 fL (80-100); Monocytes Percent Auto 0.6 % (0.0-11.0); Platelet Count* 290 K/uL (140-440); RDW Coefficient of Variation % 16.1 % (11.5-15.5); Red Blood Count 3.55 m/uL (4.00-5.20); White Blood Count* 9.56 K/uL (4.50-11.00)
[2024-05-19 19:46] LABS: Slide Review Reflex No
[2024-05-19 21:03] LABS: Albumin* 3.5 g/dL (3.3-5.0)
[2024-05-19 21:04] LABS: Potassium* 4.1 mmol/L (3.6-5.1)
[2024-05-19 21:06] LABS: Aspartate Amino Transferase* 34 U/L (12-35); Bilirubin Direct* 0.4 mg/dL (0.0-0.5); Bilirubin Total* 0.6 mg/dL (0.1-1.5); Carbon Dioxide* 28 mmol/L (20-32); Creatinine* 0.8 mg/dL (0.5-1.5); Est. Creatinine Clearance* 32.17; Estimated Glomerular Filt Rate 73 ml/min; Total Protein* 7.1 g/dL (6.0-8.3)
[2024-05-19 21:07] VITALS: BP 146/86; PULSE 76; RESP 16; O2SAT 94
[2024-05-19 21:07] LABS: Alanine Aminotransferase* 25 U/L (4-35); Alkaline Phosphatase* 140 U/L (40-150); Blood Urea Nitrogen* 29 mg/dL (7-30); Calcium* 8.9 mg/dL (8.4-10.6); Glucose* 202 mg/dL (60-115); Lipase* 560 U/L (23-300)
[2024-05-19 21:10] LABS: Anion Gap 8 mEq/L (7-15); Chloride* 95 mmol/L (96-114); Sodium* 131 mmol/L (135-149)
[2024-05-19 21:21] LABS: C Reactive Protein* 15.6 mg/dL (0.5-1.0)
[2024-05-19 21:46] VITALS: BP 140/96; PULSE 71; RESP 16
== END 2024-05-19 21:47 | disposition home or self-care (01) ==
PROVIDERS: Emergency Provider Family Medicine; PCP Internal Medicine
DX: K59.00 Constipation, unspecified (principal); C25.9 Malignant neoplasm of pancreas, unspecified
CPT/HCPCS: 36415; 74019; 74177; 80048; 80076; 81001; 83605; 83690; 85025; 86140; 87086; 96374; 99284; J2405; Q9967

== ENCOUNTER 2024-05-22 11:11 | Inpatient (IN) | payer MEDICARE, SELFPAY ==
[2024-05-22 11:31] VITALS: BP 197/70; PULSE 66; RESP 18; TEMP 36.9; O2SAT 94; BMI 27.7
--- NOTE | 2024-05-22 11:47 | CRLHL7_ITS ---
For Patients: As a result of the Century Cures Act, medical imaging exams and procedure reports are released immediately into your electronic medical record. You may view this report before your referring provider. If you have questions, please contact your health care provider. INDICATION: FOLLOWING UP PANCREATITIS. PT HAS PANCREAS CANCER TECHNIQUE: CT abdomen and pelvis acquired with 72 cc Isovue 370 IV contrast. COMPARISON: May 19, 2024. FINDINGS: Lower chest: Small left pleural effusion with associated adjacent passive atelectasis. ICD/pacer. Multiple calcified granulomas. ABDOMEN: Liver: Normal enhancement. No focal suspicious hepatic lesions. Gallbladder and biliary: Cholecystectomy. Pneumobilia. Common bile duct stent. Normal caliber bile ducts. Spleen: Calcified splenic granulomas. Pancreas: Atrophic pancreatic body and tail. Stable hypoattenuating mass abutting the common bile duct stent. Increased soft tissue stranding abutting the uncinate region. No peripancreatic fluid collections. Adrenal glands: Normal adrenal glands. Kidneys and ureters: Normal enhancement. No radio-opaque calculi. No hydroureteronephrosis. GI tract: Tiny hiatal hernia. Stomach is relatively decompressed. Normal caliber small and large bowel loops. Normal appendix. Colonic diverticulosis without diverticulitis. Vascular structures: Normal caliber aorta with atherosclerotic calcifications. Lymph nodes: No lymphadenopathy in the abdomen or pelvis by size criteria. Peritoneum: No free air, free fluid, or focal drainable fluid collection. PELVIS: Genitourinary system: Normal urinary bladder. Age-appropriate uterus. SKELETAL STRUCTURES AND SOFT TISSUES: Stable osseous structures. IMPRESSION: 1. Increased soft tissue stranding abutting the uncinate region. No peripancreatic fluid collections. Findings concordant with given history of pancreatitis. 2. Otherwise, stable exam from May 19, 2024. Please note that all CT scans at this facility use dose modulation, iterative reconstruction, and/or weight-based dosing when appropriate to reduce radiation dose to as low as reasonably achievable. Dictated by Jose Mcdaniel MD @ 05/22/2024 1:45:47 PM (Electronically Signed)
--- NOTE | 2024-05-22 12:35 | P.IMHP_ITS ---
Hospitalist- H&P: HPI History of Present Illness Date Seen: 05/22/24 Chief complaint: Direct Admit Narrative: ADMISSION HISTORY AND PHYSICAL - HOSPITALIST Chief Complaint: HPI: 83-year-old female patient presents from the [facility] infusion center. She is currently being treated for primary adenocarcinoma of the pancreas. She received her last round (11. At dose reduced protocols (on May 15. She developed nausea, dry heaving, mild abdominal distension and fatigue within 24 hours of this particular infusion. This was surprising to her because she has been tolerating them so well. She denies fever. She denies diarrhea or abnormal stools. In fact she reports being constipated. She denies vomiting. She denies cough in the blood. She does describe waves of nausea, abdominal burning that radiates to her back and fatigue. She was seen in the Cancer Center 2 days after the onset of symptoms and was given IV fluids and steroids. At that time and throughout her presentation to the hospital she has not had an elevated white blood cell count. It was noted at this 1st follow-up at the [facility] that her lipase was mildly elevated at 430 H but the rest of her electrolytes and LFTs were normal. Her symptoms continued and she was seen in the emergency room 3 days prior to admission. This was on 05/19. She was noted to have a mildly increasing lipase 438 up to 560. Her CT was reassuring and only showed known malignancy changes. No evidence of acute intra-abdominal findings other than for constipation. She was sent home. Her follow-up was today with Gricelda White. Repeat labs show worsening anemia; increasing lipase. Her pain has increased and she is not tolerating substantial oral intake. No fever. No rash. No vomiting. Did pass stool over the weekend. CODE STATUS: EMERGENCY CONTACT PLAN: Tran Blanco Rel To Pat Daughter Cell I've updated the PFSH, medications and allergies in the Expanse tabs. INVESTIGATIONS: LABS/MICRO/ECG/IMAGING Blood pressure has been 172 up to 197/72 and 70 Pulses been in the 60s Respiratory rate 18, unlabored. On room air, with saturations around 94-96% 66.4 kilos CBC this morning in the [facility] reveals a white count of 8.2. Hemoglobin 7.9. Platelets are normal at 205. Goal hemoglobin is 7.8-7.9 her oncology. The 10.4 that is listed at 05/18 04/22 was thought to be lab error/dehydrated She has chronic hyponatremia and is just about 2 points to 3 points less than her baseline at 130. Her potassium is normal. Her renal function is normal. Glucose is 245. Her magnesium is normal her LFTs including bilirubin are normal. Her CRP is elevated and only minimally decreased since last check on 05/19. 15.6 down to 13.9 Her albumin is decreasing. Her lipase is slightly increased from 05/19 [id number] No recent UA Abd/Pelvic CT 1. Increased soft tissue stranding abutting the uncinate region. No peripancreatic fluid collections. Findings concordant with given history of pancreatitis. 2. Otherwise, stable exam from May 19, 2024. REVIEW OF SYSTEMS: 12-point ROS completed with patient and negative unless otherwise stated in HPI or below. PHYSICAL EXAM: CONSTITUTIONAL: Conversive, good historian. A/O. Knows setting and context. looks chronically ill; pale. Not jaundice. GENERAL: Well-developed and above ideal body weight, in no respiratory distress. VITAL SIGNS: see record. HEENT: Sclerae are anicteric. No petechiae. CARDIAC: rhythm is regular. There is no S3 or rub. No harsh murmurs. Extremities show trace edema with symmetrical pulses. ABDOMEN: soft. mild tenderness midepigastric and LUQ. no guarding. PULM: good air entry with no wheeze. NEURO: Speech is fluent. A brief neurologic exam is negative. SKIN: No rashes, petechiae, concerning changes PSYCHIATRIC: Euthymic. ADMIT TO MEDSURG: FLOOR CARE DVT: home eliquis GI: PPI Time spent: Today I spent 75 minutes seeing the patient, discussing the patient with ER staff, reviewing Expanse and EPIC notes/diagnostics, discussing the care plan with our care time that includes social work, PT/OT, pharmacy, RT, [place] [facility] and documenting my impressions and plan in the medical record. MEDICAL NECESSITY FOR HOSPITALIZATION Anticipated midnights in the hospital: 2 Admitting diagnosis: acute pancreatitis Risk of morbidity and mortality: high Acuity is characterized as high and reflected in: advanced age, current immunosuppression from chemotherapy for actively treated pancreatic adenocarcinoma, chronic anticoagulation for atrial fibrillation. This patient will require hospital services as outlined in the assessment and plan in order to stabilize and be safely discharged to a lower level of care. Because of the risk and acuity as described above, this patient cannot be managed at a lower level of care. LENGTH OF STAY: 2 IP ? Anticipated LOS>2 midnights due to acuity of clinical presentation requiring inpatient level of care [facility] Medical History (Updated 05/22/24 @ 14:59 by Sharon Zabala MD) History of sick sinus syndrome ?Z86.79 - Personal history of other diseases of the circulatory system (ICD- 10) Primary pancreatic adenocarcinoma ?C25.9 - Malignant neoplasm of pancreas, unspecified (ICD-10) Hx of deep venous thrombosis ?Z86.718 - Personal history of other venous thrombosis and embolism (ICD-10) History of pulmonary embolus (PE) ?Z86.711 - Personal history of pulmonary embolism (ICD-10) Diastolic dysfunction ?I51.89 - Other ill-defined heart diseases (ICD-10) Essential hypertension ?I10 - Essential (primary) hypertension (ICD-10) Bilateral foot-drop ?M21.371 - Foot drop, right foot (ICD-10) ?M21.372 - Foot drop, left foot (ICD-10) 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 - Lesion of lateral popliteal nerve, unspecified lower limb (ICD-10) Cataracts, bilateral ?H26.9 - Unspecified cataract (ICD-10) Hyperlipidemia ?E78.5 - Hyperlipidemia, unspecified (ICD-10) Pancreatic cancer (12/17/23) ?C25.9 - Malignant neoplasm of pancreas, unspecified (ICD-10) DM2 (diabetes mellitus, type 2) ?E11.9 - Type 2 diabetes mellitus without complications (ICD-10) Chronic anticoagulation ?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 (ICD-10) Pacemaker ?Z95.0 - Presence of cardiac pacemaker (ICD-10) Surgical History History of electromyography ?Z92.89 - Personal history of other medical treatment (ICD-10) History of tonsillectomy (1947) ?Z90.89 - Acquired absence of other organs (ICD-10) History of cardiac pacemaker (2018) ?Z95.0 - Presence of cardiac pacemaker (ICD-10) Family History Mother Diabetes High blood pressure High cholesterol Heart disease Osteoporosis Father Heart disease Kidney disease Osteoporosis Social History What is your current living situation?: I presently have a place to live Problems where you live: no known problems Problems where you live details: N/A In the past 12 months, utilities in danger of being shut off: no In past 12 months, lack of transportation kept you from medical appts, meetings, work, or getting things needed for daily living: no In the past 12 mos, have been you worried that your food would run out before you had money to buy more?: never true In the past 12 mos, the food you bought just didn't last and you didn't have money to buy more?: never true Highest level of school completed/degree received: Bachelor's degree Smoking Status: Never smoker Do you use any of these nicotine containing products: None Second hand tobacco smoke exposure: No How often do you have a drink containing alcohol: never AUDIT-C Alcohol total score: 0 Non-prescribed substance use: denies use Caffeine: Yes How often does anyone, including family, friends and others, physically hurt you : never How often does anyone, including family, friends and others, insult or talk down to you: never How often does anyone, including family, friends and others, threaten you with harm: never How often does anyone, including family, friends and others, scream or curse at you: never service: No Meds Home Medications and Allergies Home Medications ?Medication ?Instructions ?Recorded ?Confirmed ?Type lidocaine-prilocaine 2.5 %-2.5 % 1 applic topical DAILY PRN 03/06/24 05/22/24 History topical cream metformin 500 mg tablet,extended 500 mg PO BID 03/06/24 05/18/24 History release 24 hr ondansetron 4 mg disintegrating 4 mg PO Q8H PRN 03/06/24 05/22/24 History tablet raloxifene 60 mg tablet 60 mg PO HS 03/06/24 05/22/24 History rosuvastatin 10 mg tablet 10 mg PO QPM 03/06/24 05/22/24 History tramadol 50 mg tablet 50 mg PO BID PRN 03/06/24 05/22/24 History macularprotect complete PO BID 04/03/24 05/18/24 History cholecalciferol (vitamin D3) 50 50 mcg PO DAILY 05/01/24 05/22/24 History mcg (2,000 unit) capsule lisinopril 40 mg tablet 40 mg PO DAILY 05/22/24 05/22/24 History potassium chloride 20 mEq 20 meq PO DAILY 05/22/24 05/22/24 History tablet,extended release(part/cryst) Allergies Allergy/AdvReac Type Severity Reaction Status Date / Time No Known Drug Allergies Allergy Verified 05/22/24 13:19 Exam Const: Vital Signs, click to edit/add: Vital Signs - 24 hr 05/22/24 11:31 Temperature 98.4 F Pulse Rate [Pulse Oximeter] 66 Respiratory Rate 18 Blood Pressure [Ri ght Arm] 197/70 H Pulse Oximetry 94 Oxygen Delivery Me thod Room Air Assessment and Plan Assessment and plan (1) Acute pancreatitis: Problem comment: -clears, IVF, IV PPI, bowel rest -trend labs -updated imaging reassuring - no necrosis, pseudocyst or abscess Status: Acute (2) Primary pancreatic adenocarcinoma: Problem comment: -stage III, T4 N1 M0 -dx in 12/20 - invasive moderately differentiated adenoca of pancreas -Gemcitabine and Abraxane every other week; started in 01/19 -lives in [place] - up to [place] for chemo/[facility] consultations - staying with daughter Status: Acute (3) Essential hypertension: Problem comment: -lisinopril, metoprolol ER -hypertensive upon admission, additional Metoprolol IV PRN Status: Chronic (4) DM2 (diabetes mellitus, type 2): Problem comment: -A1C pending -SSI -metformin monotherapy (on hold) Status: Chronic (5) Chronic anticoagulation: Problem comment: Eliquis for hx of DVT and PE Status: Chronic (6) Diastolic dysfunction: Problem comment: reviewed recent [facility] office visit. No known evidence of CHF. Status: Acute (7) History of pulmonary embolus (PE): Status: Acute (8) Hx of deep venous thrombosis: Problem comment: R calf. 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 See scanned report. Status: Chronic
[2024-05-22 12:39] VITALS: PULSE 64
[2024-05-22] MEDS: METOPROLOL TARTRATE 1 MG/ML inj 5 MG IVP ×2 (12:59→17:40)
[2024-05-22] MEDS: 5 % DEXTROSE IN LAC RINGER'S 1,000 ML 125 ML IV ×2 (12:59→20:49)
[2024-05-22 15:00] VITALS: BP 168/56; PULSE 64; PULSE 66; RESP 16; TEMP 36.8; O2SAT 92
[2024-05-22] MEDS: lisinopriL 20 MG TABLET 40 MG PO (15:40)
[2024-05-22] MEDS: PANTOPRAZOLE SODIUM 40 MG INJ IVP (15:40)
[2024-05-22] MEDS: INSULIN ASPART 100 UNIT/ML SUBCUT ×2 (17:37→20:49)
[2024-05-22] MEDS: ROSUVASTATIN CALCIUM 10 MG TABLET PO (17:41)
[2024-05-22 18:48] LABS: Appearance Urine Clear (Clear); Bilirubin Urine Negative (Negative); Blood Urine 3+ (Negative); Color Urine Yellow (Yellow); Glucose Urine Trace (Negative); Ketones Urine Negative (Negative); Leukocyte Esterase Urine Negative (Negative); Nitrite Urine Negative (Negative); Protein Urine 2+ (Negative); Urobilinogen Urine 0.2 (0.2-1.0); pH Urine 5.5 (5.0-8.5)
[2024-05-22 18:54] LABS: Bacteria Urine Few; Squamous Epithelial Cell Urine Few (None-Few)
[2024-05-22 19:00] VITALS: BP 170/58; PULSE 70; RESP 16; TEMP 36.7; O2SAT 92
[2024-05-22] MEDS: APIXABAN 5 MG TABLET PO (20:51)
--- NOTE | 2024-05-22 22:38 | PC.NURSE ---
Patient a direct admit from [facility] for pancreatitis. Abdomen CT completed today. Patient ambulating with SBA and walker. Hypertensive- PRN medications administered. D5LR running at 125mL/hr. Monitoring blood glucose levels and insulin PRN. Patient not reporting abdominal pain. Reported pain in back and knee- better with movement and heat application.? Clear liquid diet. Patient nauseated a couple of times throughout the shift, no vomiting. Patient refusing PRN zofran at this time.?Nursing to continue to monitor.
[2024-05-22 23:00] VITALS: BP 168/65; PULSE 65; PULSE 68; RESP 16; TEMP 36.7; O2SAT 93
[2024-05-23] VITALS (16 sets, daily range): BP systolic 136–186; BP diastolic 53–73; PULSE 58–66; RESP 16–20; TEMP 36.5–37; O2SAT 91–96; BMI 27.8
[2024-05-23] MEDS: ACETAMINOPHEN 325 MG TABLET 650 MG PO (00:30)
[2024-05-23] MEDS: ONDANSETRON ODT 4 MG TAB PO ×2 (00:32→11:46)
--- NOTE | 2024-05-23 03:57 | PC.NURSE ---
Pt alert, oriented and vitally stable. Pt states head and back ache rated 6/10, prn Tylenol given. Pt states mild nausea, prn Zofran given, pt stated improvement. Pt up via 1a, walker and gait belt. Pt in bed, appears to be resting, call light within reach.?
[2024-05-23] MEDS: INSULIN ASPART 100 UNIT/ML SUBCUT ×3 (04:24→11:56)
[2024-05-23] MEDS: 5 % DEXTROSE IN LAC RINGER'S 1,000 ML 125 ML IV (05:02)
[2024-05-23 06:37] LABS: Mean Corpuscular HGB Conc 33 gm/dL (32-36); Mean Corpuscular Hemoglobin 30 pg (26-34); Mean Corpuscular Volume 91 fL (80-100); Platelet Count* 167 K/uL (140-440); Red Blood Count 2.42 m/uL (4.00-5.20); White Blood Count* 9.54 K/uL (4.50-11.00)
[2024-05-23 06:42] LABS: Albumin* 2.5 g/dL (3.3-5.0); Chloride* 99 mmol/L (96-114)
[2024-05-23 06:43] LABS: Potassium* 3.5 mmol/L (3.6-5.1); Sodium* 131 mmol/L (135-149)
[2024-05-23 06:44] LABS: Blood Urea Nitrogen* 17 mg/dL (7-30); Creatinine* 0.8 mg/dL (0.5-1.5)
[2024-05-23 06:45] LABS: Alkaline Phosphatase* 107 U/L (40-150); Anion Gap 6 mEq/L (7-15); Aspartate Amino Transferase* 23 U/L (12-35); Bilirubin Direct* 0.3 mg/dL (0.0-0.5); Bilirubin Total* 0.4 mg/dL (0.1-1.5); Carbon Dioxide* 26 mmol/L (20-32); Est. Creatinine Clearance* 32.17; Estimated Glomerular Filt Rate 73 ml/min; Glucose* 264 mg/dL (60-115); Total Protein* 5.4 g/dL (6.0-8.3)
[2024-05-23 06:46] LABS: Alanine Aminotransferase* 18 U/L (4-35); Calcium* 8.3 mg/dL (8.4-10.6); Lipase* 264 U/L (23-300); Phosphorus* 2.9 mg/dL (2.5-4.5)
[2024-05-23 06:50] LABS: Hemoglobin* 7.2 gm/dL (12.0-16.0); Slide Review Reflex No
[2024-05-23 07:19] LABS: C Reactive Protein* 11.1 mg/dL (0.5-1.0)
[2024-05-23] MEDS: ACETAMINOPHEN 500 MG TABLET 1000 MG PO (08:17)
[2024-05-23] MEDS: FUROSEMIDE 20 MG TABLET PO (09:01)
[2024-05-23] MEDS: APIXABAN 5 MG TABLET PO (09:01)
[2024-05-23] MEDS: METOPROLOL SUCCINATE (XL) 50 MG TAB PO (09:02)
[2024-05-23] MEDS: lisinopriL 20 MG TABLET 40 MG PO (09:03)
[2024-05-23] MEDS: INSULIN GLARGINE,HUM.REC.ANLOG 100 UNIT/ML INSULN.PEN 12 UNIT SUBCUT (09:04)
[2024-05-23] MEDS: SODIUM CHLORIDE 0.9 % (FLUSH) 10 ML SYRINGE 5 ML IVF ×2 (10:06→17:46)
[2024-05-23] MEDS: FUROSEMIDE 10 MG/ML inj 20 MG IV (12:45)
--- NOTE | 2024-05-23 14:54 | PC.NURSE ---
End of shift [id number]: Pt AxOx4, pleasant, and cooperative with cares. Pt SBA GB W, continent of the bladder. Pt advanced to reg diet, tolerating well. Sliding scale BG protocol given, see MAR. Pt given 1 unit of RBC and has 2nd unit of RBC currently running. Pt felt nauseous during the first unit of RBCs, PRN zofran given. Relief noted. Pt had a rise in SBP at the end of the first unit of RBCs. Dr. Jason notified regarding BP and nausea, no further intervention needed. Continued to administer blood per MD orders. Pt tolerating 2nd unit of RBC well. Pt appears resting with family member at bedside, call light within reach.
--- NOTE | 2024-05-23 16:57 | P.DS_ITS ---
DS: Providers Provider Date Seen: 05/23/24 Date of admission: 05/22/24 11:47 Primary care physician: Yamil Negrete MD Admitting Clinician: Sharon Zabala MD Attending Physician on discharge: Huber Jacob MD Date of Discharge: 05/23/24 DS: Diagnosis Discharge Diagnosis (1) Abdominal pain: Status: Acute (2) Constipation: Status: Acute (3) Primary pancreatic adenocarcinoma: Status: Acute Problem details: -stage III, T4 N1 M0 -dx in 12/20 - invasive moderately differentiated adenoca of pancreas -Gemcitabine and Abraxane every other week; started in 01/19 -lives in [place] - up to [place] for chemo/[facility] consultations - staying with daughter (4) Acute pancreatitis: Status: Acute Problem details: -clears, IVF, IV PPI, bowel rest -trend labs -updated imaging reassuring - increased stranding suggestive of acute pancreatitis, with no necrosis, pseudocyst or abscess (5) Hyponatremia: Status: Acute (6) Chronic anticoagulation: Status: Chronic Problem details: Eliquis for hx of DVT and PE (7) Hx of deep venous thrombosis: Status: Acute Problem details: R calf. (8) History of pulmonary embolus (PE): Status: Acute (9) DM2 (diabetes mellitus, type 2): Status: Chronic Problem details: -A1C pending -SSI -metformin monotherapy (on hold) (10) Essential hypertension: Status: Chronic Problem details: -lisinopril, metoprolol ER -hypertensive upon admission, additional Metoprolol IV PRN (11) Diastolic dysfunction: Status: Acute Problem details: reviewed recent [facility] office visit. No known evidence of CHF. (12) History of sick sinus syndrome: Status: Acute Problem details: has dual-chamber pacemaker DS: Summary Hospital Course Hospital Course: Admission history of present illness: ?83-year-old female patient presents from the cancer care and infusion center. She is currently being treated for primary adenocarcinoma of the pancreas. She received her last round (11. At dose reduced protocols (on May 15. She developed nausea, dry heaving, mild abdominal distension and fatigue within 24 hours of this particular infusion. This was surprising to her because she has been tolerating them so well. She denies fever. She denies diarrhea or abnormal stools. In fact she reports being constipated. She denies vomiting. She denies cough in the blood. She does describe waves of nausea, abdominal burning that radiates to her back and fatigue. She was seen in the Cancer Center 2 days after the onset of symptoms and was given IV fluids and steroids. At that time and throughout her presentation to the hospital she has not had an elevated white blood cell count. It was noted at this 1st follow-up at the cancer center that her lipase was mildly elevated at 430 H but the rest of her electrolytes and LFTs were normal. ?Her symptoms continued and she was seen in the emergency room 3 days prior to admission. This was on 05/19. She was noted to have a mildly increasing lipase 438 up to [address]. Her CT was reassuring and only showed known malignancy changes. No evidence of acute intra-abdominal findings other than for constipation. She was sent home. Her follow-up was today with Gricelda White. Repeat labs show worsening anemia; increasing lipase. Her pain has increased and she is not tolerating substantial oral intake. No fever. No rash. No vomiting. Did pass stool over the weekend.? She responded excellently to conservative management efforts such that she had total resolution of abdominal pain. Continues to have her chronic complaint of intermittent episodes of nausea. Status at Discharge Overall status at discharge: patient is back to baseline Time Spent with Patient Time attestation: Total time spent providing and/or coordinating discharge services: Time spent: Greater than 30 minutes Exam Narrative: Exam Narrative: CONSTITUTIONAL: Conversive, good historian. A/O. Knows setting and context. looks chronically ill; pale. Not jaundice. GENERAL: Well-developed and above ideal body weight, in no respiratory distress. VITAL SIGNS: see record. HEENT: Sclerae are anicteric. No petechiae. CARDIAC: rhythm is regular. There is no S3 or rub. No harsh murmurs. Extremities show trace edema with symmetrical pulses. ABDOMEN: soft. No more tenderness midepigastric and LUQ. no guarding. PULM: good air entry with no wheeze. NEURO: Speech is fluent. A brief neurologic exam is negative. SKIN: No rashes, petechiae, concerning changes PSYCHIATRIC: Euthymic. Gracious. Articulate. Const: Vital Signs, click to edit/add: Vital Signs - 24 hr 05/22/24 19:00 05/22/24 23:00 05/22/24 23:00 Temperature 98.0 F 98.1 F Pulse Rate 65 Pulse Rate [Pulse Oximeter] 70 68 Respiratory Rate 16 16 Blood Pressure Blood Pressure [Ri ght Arm] 170/58 H 168/65 H Pulse Oximetry 92 93 Oxygen Delivery Me thod Room Air Room Air 05/22/24 23:00 05/23/24 03:00 05/23/24 05:41 Temperature 97.7 F 97.8 F Pulse Rate Pulse Rate [Pulse Oximeter] 68 63 61 Respiratory Rate 16 16 16 Blood Pressure Blood Pressure [Ri ght Arm] 144/53 H 148/59 H Pulse Oximetry 92 91 Oxygen Delivery Me thod Room Air Room Air 05/23/24 06:18 05/23/24 09:03 05/23/24 09:49 Temperature 98.6 F Pulse Rate 64 61 Pulse Rate [Pulse Oximeter] 66 Respiratory Rate 16 Blood Pressure 152/59 H Blood Pressure [Ri ght Arm] 141/56 H Pulse Oximetry 95 Oxygen Delivery Me thod Room Air 05/23/24 10:13 05/23/24 10:41 05/23/24 12:01 Temperature 98.3 F 98.4 F 98.1 F Pulse Rate 61 60 Pulse Rate [Pulse Oximeter] 60 Respiratory Rate 16 18 18 Blood Pressure 151/64 H 136/56 L Blood Pressure [Ri ght Arm] 167/71 H Pulse Oximetry 96 94 96 Oxygen Delivery Me thod Room Air Room Air Room Air 05/23/24 12:38 05/23/24 13:23 05/23/24 13:42 Temperature 98.1 F 98.3 F 98.3 F Pulse Rate 60 58 L 65 Pulse Rate [Pulse Oximeter] Respiratory Rate 18 20 18 Blood Pressure 180/73 H 171/61 H 170/61 H Blood Pressure [Ri ght Arm] Pulse Oximetry 95 94 95 Oxygen Delivery Me thod Room Air Room Air Room Air 05/23/24 14:09 05/23/24 14:12 05/23/24 15:00 Temperature 98.2 F 98.0 F Pulse Rate 59 L 59 L Pulse Rate [Pulse Oximeter] 59 L Respiratory Rate 18 18 18 Blood Pressure 172/66 H 172/68 H Blood Pressure [Ri ght Arm] Pulse Oximetry 94 94 Oxygen Delivery Me thod Room Air Room Air 05/23/24 15:00 05/23/24 15:15 05/23/24 15:45 Temperature 98.0 F 98.2 F Pulse Rate 61 64 Pulse Rate [Pulse Oximeter] 59 L Respiratory Rate 18 18 Blood Pressure 183/71 H Blood Pressure [Ri ght Arm] 172/68 H Pulse Oximetry 94 94 Oxygen Delivery Me thod Room Air Room Air DS: Data Data Completed and Pending Labs on day of discharge: Labs from last 24 hours 05/23/24 05/22/24 05:46 18:33 WBC 9.54 RBC 2.42 L Hgb 7.2 L* Hct 22.0 L MCV 91 MCH 30 MCHC 33 Plt Count 167 Sodium 131 L Potassium 3.5 L Chloride 99 Carbon Dioxide 26 Anion Gap 6 L BUN 17 Creatinine 0.8 Estimated Creat Clear 32.17 Estimated GFR 73 Glucose 264 H Calcium 8.3 L Phosphorus 2.9 Total Bilirubin 0.4 Direct Bilirubin 0.3 AST 23 ALT 18 Alkaline Phosphatase 107 C-Reactive Protein 11.1 H Total Protein 5.4 L Albumin 2.5 L Lipase 264 Urine Color Yellow Urine Appearance Clear Urine pH 5.5 Ur Specific [place] 1.010 Urine Protein 2+ A Urine Glucose (UA) Trace A Urine Ketones Negative Urine Blood 3+ A Urine Nitrite Negative Urine Bilirubin Negative Urine Urobilinogen 0.2 Ur Leukocyte Esterase Negative Urine RBC 10-25 A Urine WBC 2-5 Ur Squamous Epith Cells Few Urine Bacteria Few A Blood Type A Positive Antibody Screen NEGATIVE Crossmatch (AHG) See Detail Preliminary micro results at discharge 05/22/24 18:33 Urine Culture - Preliminary Urine,Clean Catch <10,000 COL/ML GRAM POSITIVE TERRENCE Imaging CT scan of abdomen and pelvis: Radiologist's impression: IMPRESSION: 1. Increased soft tissue stranding abutting the uncinate region. No peripancreatic fluid collections. Findings concordant with given history of pancreatitis. 2. Otherwise, stable exam from May 19, 2024. Discharge Plan Discharge Disposition: Home, Self-Care Date of Admission: 05/22/24 11:47 Attending Provider on Discharge: Huber Jacob Primary Care Provider: Yamil Negrete Condition: Improved Anticipated Discharge Date/Time: 05/23/24 17:30 Discharge Medications: New senna 8.6 mg capsule 8.6 mg PO BID Qty: 60 1RF polyethylene glycol 3350 [Miralax] 17 gram/dose powder 17 g PO DAILY PRN (Reason: constipation) Qty: 238 1RF Continued metformin 500 mg tablet extended release 24 hr 500 mg PO BID tramadol 50 mg tablet 50 mg PO BID PRN rosuvastatin 10 mg tablet 10 mg PO QPM ondansetron 4 mg tablet,disintegrating 4 mg PO Q8H PRN lidocaine-prilocaine 2.5-2.5 % cream 1 applic topical DAILY PRN raloxifene 60 mg tablet 60 mg PO HS macularprotect complete PO BID furosemide 20 mg tablet 20 mg PO QAM Qty: 30 3RF cholecalciferol (vitamin D3) 50 mcg (2,000 unit) capsule 50 mcg PO DAILY potassium chloride 20 mEq tablet,ER particles/crystals 20 meq PO DAILY Eliquis 5 mg tablet 5 mg PO Q12H Qty: 60 2RF metoprolol succinate 50 mg tablet extended release 24 hr 50 mg PO DAILY Qty: 90 0RF prochlorperazine maleate 5 mg tablet 5 mg PO Q4H MDD 3 PRN (Reason: nausea) Qty: 20 0RF bisacodyl [Dulcolax (bisacodyl)] 10 mg suppository 10 mg SC ONCE Qty: 12 0RF Held lisinopril 40 mg tablet 40 mg PO DAILY Hold Instructions: Resume on 05/30/24. Discharge Orders: Discharge Order (Routine); Ordered 05/23/24 Ordered By: Huber Jacob Patient Education: Polyethylene Glycol 3350 (By mouth), Constipation (DC) Additional Instructions: 1. Keep all follow-up appointments with medical oncology, with pre-visit CBC, Basic metabolic panel at next follow-up 2. Keep all follow-up appointments with radiation oncology 3. Keep all follow-up appointments with primary care physician 4. Follow-up appointment with primary healthcare specialist in 5-10 days regarding low blood pressure 5. Return to clinic or hospital sooner if condition warrants Activity Level: Activity as Tolerated Discharge Diet: Regular Follow Up Appointments: Yamil Negrete MD [Primary Care Provider] - Forms: [employer] Info Instructions
[2024-05-23] MEDS: METOPROLOL TARTRATE 1 MG/ML inj 5 MG IVP (17:06)
[2024-05-23 17:10] LABS: Hemoglobin* 10.9 gm/dL (12.0-16.0)
[2024-05-23] MEDS: ROSUVASTATIN CALCIUM 10 MG TABLET PO (17:45)
[2024-05-23] MEDS: HEPARIN 500 UNIT/5 ML SYRINGE IVF (17:46)
--- NOTE | 2024-05-23 18:49 | PC.NURSE ---
Discharge Summary: Patient pleasant and cooperative. Afebrile. C/o pain in back and aqua k pad applied, declined PRN pain medication. Up to bathroom and chair with SBA, walker and gait belt. Tolerating regular diet with no nausea. Second unit of blood transfused without difficulty, vitals done at 1515, 1545 and 1645. BP increased to 186/69, updated MD, scheduled IV Metoprolol given. Patient discharged at 1800 with all personal belongings accompanied by daughter. Discharge instructions including diagnosis, medications and follow up appointment discussed with patient and voiced understanding. Port de-accessed prior to discharge.
== END 2024-05-23 18:00 | disposition home or self-care (01) | DRG 439 ==
PROVIDERS: Internal Medicine; Admitting Provider Family Medicine; PCP Internal Medicine; Visit Provider Family Medicine
DX: K85.90 Acute pancreatitis without necrosis or infection, unspecified (principal); C25.9 Malignant neoplasm of pancreas, unspecified; E87.1 Hypo-osmolality and hyponatremia; I50.30 Unspecified diastolic (congestive) heart failure; D64.9 Anemia, unspecified; K59.00 Constipation, unspecified; I48.91 Unspecified atrial fibrillation; Z79.01 Long term (current) use of anticoagulants; I11.0 Hypertensive heart disease with heart failure; E11.42 Type 2 diabetes mellitus with diabetic polyneuropathy; E11.65 Type 2 diabetes mellitus with hyperglycemia; Z95.0 Presence of cardiac pacemaker; Z86.711 Personal history of pulmonary embolism; E78.5 Hyperlipidemia, unspecified
CPT/HCPCS: 36415; 36430; 36591; 74019; 74177; 80048; 80053; 80069; 80076; 81001; 82962; 83036; 83605; 83690; 83735; 85018; 85025; 85027; 86140; 86850; 86900; 86901; 86922; 87086; 93005; 96374; 99211; 99214; 99284; A9270; J1642; J1815; J1940; J2405; J2470; J7030; P9016; Q9967

== ENCOUNTER 2024-06-06 19:04 | Inpatient (IN) | payer MEDICARE, SELFPAY ==
--- OUTSIDE RECORDS SUMMARY | 2024-06-06 19:05 | XMS_ITS | Encounter Summary ---
Author Organization [facility] Address [address] [place] [address] Care Team Providers Care Shaker Out Name Role Phone Elsewhere, Pcp Primary Care Provider Unavailabl e Encounter Details Date Type Department Care Team (Latest Contact Info) Description 02/01/2024 Intake [facility] Social History Tobacco Use Types Packs/Day Years Used Date Smoking Tobacco: Never Smokeless Tobacco: Never [facility] Utilities Answer Date Recorded In the [...] situation today? I have a [facility] place to live 02/04/2024 Comments Unknown Sex and Gender Information Value Date Recorded Sex Assigned at Female 01/30/2024 2:33 PM PROCESS SAFETY SPECIALIST Legal Sex Female 4:38 PM CDT Gender Identity Female 01/30/2024 2:33 PM PROCESS SAFETY SPECIALIST Sexual Orientation Straight 01/30/2024 2: 33 PM PROCESS SAFETY SPECIALIST documented as of this encounter Plan of Treatment Upcoming Encounters Date Type Department Care Team (Late st Contact Info) Description 06/09/2024 8:00 AM CDT Comprehensive Visit Department of Neurology in [place], [place] [address] [place] [address] Joanne Castro M.D., Ph.D. [address] [place] [address] 06/12/2024 1:00 PM CDT Appointment Department of Radiation Oncology in [place], [place] [address] [place] [phone] Antonette Schulte M.D. [address] [place] [address] documented as of this encounter Visit Diagnoses Not on filedocumented in this encounter Additional Health Concerns Infection Onset Date Last Indicated Resolved Time Protective Environment 02/08/2024 02/08/2024 documented as of this encounter Care Teams Shaker Out Relationship Specialty Start Date End Date Elsewhere, Pcp PCP - General Internal Medicine 01/27/24 documented as of this encounter
--- OUTSIDE RECORDS SUMMARY | 2024-06-06 19:06 | XMS_ITS | Encounter Summary ---
Author Organization [facility] Address [address] [place] [address] Care Team Providers Care Rink Rat Name Role Phone Elsewhere, Pcp Primary Care Provider Unavailabl e Reason for Referral * MRI/CAT/PET Scan (Routine) - Closed Specialty Diagnoses / Procedures Referred By Contac t Referred To Contact Radiology Diagnoses Malignant Neoplasm Of Pancreas Head (HCC) Procedures CT Abdomen Pelvis with IV Contrast Sanjeev Woods M.D., M.P.H. [facility] Referral ID Status Reason Start Date Expiration Date Visits Re quested Visits Authorized [id number] Closed 03/15/2024 03/15/2025 1 1 DY MILL WORKER * MRI/CAT/PET Scan (Routine) - Closed Specialty Diagnoses / Procedures Referred By Contac t Referred To Contact Radiology Diagnoses Malignant Neoplasm Of Pancreas Head (HCC) Procedures CT Chest with IV Contrast Sanjeev Woods M.D., M.P.H. [facility] Referral ID Status Reason Start Date Expiration Date Visits Re quested Visits Authorized [id number] Closed 03/15/2024 03/15/2025 1 1 DY MILL WORKER Reason for Visit * MRI/CAT/PET Scan (Routine) - Closed Specialty Diagnoses / Procedures Referred By Contac t Referred To Contact Radiology Diagnoses Malignant Neoplasm Of Pancreas Head (HCC) Procedures CT Abdomen Pelvis with IV Contrast Sanjeev Woods M.D., M.P.H. [facility] Referral ID Status Reason Start Date Expiration Date Visits Re quested Visits Authorized [id number] Closed 03/15/2024 03/15/2025 1 1 Encounter Details Date Type Department Care Team (Latest Contact Info) Description 05/09/2024 3:11 PM SHODDY MILL WORKER - 05/09/2024 11:59 PM SHODDY MILL WORKER Hospital Encounter Department of Radiology, [facility], in [place], [place] [address] [place] [address] Sanjeev Woods M.D., M.P.H. Malignant Neoplasm Of Pancreas Head (HCC) Discharge Disposition: Home or Self Care Social History Tobacco Use Types Packs/Day Years Used Date Smoking Tobacco: Never Smokeless Tobacco: Never Alcohol Use Standard Drinks/Week Comments Never 0 (1 standard drink = 0.6 oz pur e alcohol) [facility] Utilities Answer Date Recorded In the past 12 months has e electric, gas, oil, or water [employer] threatened to shut off services in your [...] your living situation today? I have a [facility] place to live 02/04/2024 Comments Unknown Sex and Gender Information Value Date Recorded Sex Assigned at Female 01/30/2024 2:33 PM SHODDY MILL WORKER Legal Sex Female 4:38 PM CDT Gender Identity Female 01/30/2024 2:33 PM SHODDY MILL WORKER Sexual Orientation Straight 01/30/2024 2: 33 PM SHODDY MILL WORKER documented as of this encounter Medications at [...] a day. 374 tablet 02/01/2024 8:48 PM SHODDY MILL WORKER 02/01/2024 07/31/19 25 cholecalciferol, vitD3,/vit K2 (VITAMIN [...] CDT Comprehensive Visit Department of Neurology in [place], [place] [address] [place] [address] Joanne Castro M.D., Ph.D. [address] [place] [phone] 06/12/2024 1:00 PM CDT Appointment Department of Radiation Oncology in [place], [place] [address] [place] [phone] Antonette Schulte M.D. [address] [place] [phone] Scheduled Orders Name Type Priority Associated Diagnoses Orde r Schedule Creatinine, POCT Point of Care Testing-Docked Device Routine Routine lab collecti on (next collection) for 1 Occurrences starting 05/09/2024 until 05/09/2024 documented as of this encounter Procedures Procedure Name Priority Date/Time Associated Diagnosis Comments CT ABDOMEN PELVIS WITH IV CONTRAST RAD - Routine (most inpatients and all outpatients) 05/09/2024 4:43 PM SHODDY MILL WORKER Malignant Neoplasm Of Pancreas Head (HCC) CT CHEST WITH IV CONTRAST RAD - Routine (most inpatients and all outpatients) 05/09/2024 4:43 PM SHODDY MILL WORKER Malignant Neoplasm Of Pancreas Head (HCC) CREATININE, POCT, B Routine 05/09/2024 3:38 PM SHODDY MILL WORKER CREATININE, POCT, B Routine 05/09/2024 3:38 PM SHODDY MILL WORKER documented in this encounter Results * CT Abdomen Pelvis with IV Contrast (05/09/2024 4:43 PM SHODDY MILL WORKER) Anatomical Region Laterality Modality Abdomen, Pelvis, Abdominal R ST LOS, Abdominal ARZ LOS, Abdominal FLA LOS N/A Computed Tomography 05/09/2024 5:53 PM SHODDY MILL WORKER Impressions 05/10/2024 7:21 AM SHODDY MILL WORKER Slight decrease size of pancreas head mass. Extensive vascular involvement persists. No new CT evidence of metastatic disease in the abdomen or pelvis. Narrative 05/10/2024 7:21 AM SHODDY MILL WORKER EXAM: CT ABDOMEN PELVIS WITH IV [...] the abdomen orpelvis. Sanjeev Woods M.D., M.P.H. IM CT PROCEDURES Final Result * CT Chest with IV Contrast (05/09/2024 4:43 PM SHODDY MILL WORKER) Anatomical Region Laterality Modality Chest, Thoracic RST LOS, Tho racic ARZ LOS, Thoracic ARZ LOS, Thoracic FLA LOS N/A Computed Tomography 05/09/2024 5:08 PM SHODDY MILL WORKER Impressions 05/10/2024 8:22 AM SHODDY MILL WORKER 1. New small bilateral pleural effusions with suspected pleural nodularities, indeterminate. Short-term follow-up CT can be considered. 2. New patchy groundglass opacities throughout the lungs could be due to infection/inflammation. 3. Stable 5 mm nodule in right lower lobe. 4. Stable mild enlargement of mediastinal lymph nodes. 5. Interval resolution of previously seen right lower lobe pulmonary emboli. Narrative 05/10/2024 8:22 AM SHODDY MILL WORKER EXAM: CT CHEST WITH IV CONTRAST [...] reported separately. Procedure Note Gaudencio Ferreira M.B.B.S., M.[place]. - 05/10/2024 EXAM: CT CHEST WITH IV [...] of previously seen right lower lobe pulmonaryemboli. us Sanjeev Woods M.D., M.P.H. IMG CT PROCEDURES Final Result * Creatinine, POCT (05/09/2024 3:38 PM SHODDY MILL WORKER) [facility] [address] Creatinine, POCT, B 0.8 0.6 - 1.0 mg/dL 05/09/2024 3:46 PM SHODDY MILL WORKER PCDT Comment: ----ADDITIONAL INFORMATION---- Performed at the Point of Care Blood 05/09/2024 3:38 PM SHODDY MILL WORKER 05/09/2024 3:46 PM SHODDY MILL WORKER Unknown Provider LAB POCT ORDERABLES - DEVICE Fi nal Result Performing Organization Address [facility] Co de Phone Number [facility] PERFORM[facility]S [address] PCDT [facility] POC [address] [place] [address] * Creatinine, POCT (05/09/2024 3:38 PM SHODDY MILL WORKER) [facility] [address] Estimated GFR (eGFR), POCT 73 >=60 mL/min/BSA 05/09/2024 3:46 PM SHODDY MILL WORKER PCDT Comment: Estimated GFR calculated using the 2020 CKD_EPI creatinine equation. Blood 05/09/2024 3:38 PM SHODDY MILL WORKER 05/09/2024 3:46 PM SHODDY MILL WORKER us Unknown Provider LAB POCT ORDERABLES - DEVICE Fi nal Result Performing Organization Address City/[facility] Co de Phone Number [facility] [address] PCDT [facility] POC [address] [place] [address] documented in this encounter Visit Diagnoses Diagnosis [...] prior to discharge. Given 05/09/2024 3:40 PM SHODDY MILL WORKER 500 Units iohexoL 300 mg iodine/mL solution 1-200 mL (Omnipaque) 1-200 mL, intravenous, Once in imaging, contrast, Starting on Wed05/09/24 at 1520, For 1 dose, Imaging Protocol Orders, Dose per Radiant Medication Guidelines Given 05/09/2024 4:04 PM SHODDY MILL WORKER 100 mL sodium chloride (PF) 0.9 % injection 1-100 mL 1-100 mL, intravenous, Once, On Wed05/09/24 at 1545, For 1 dose, Imaging Protocol Orders, Dose per Radiant Medication Guidelines Given 05/09/2024 4:04 PM SHODDY MILL WORKER 50 mL sodium chloride 0.9 % injection 10-20 mL 10-20 mL, intravenous, As needed, line care, Implanted Vascular Access Device (IVAD) Venous Non-Valved, Starting on Wed05/09/24 at 1538, Prior to and following infusion and between multiple consecutive infusions, flush 10 mL to each port/lumen. Given 05/09/2024 3:40 PM SHODDY MILL WORKER 10 mL documented in this encounter Additional Health Concerns Infection Onset Date Last Indicated Resolved Time Protective Environment 02/08/2024 02/08/2024 documented as of this encounter Care Teams Rink Rat Relationship Specialty Start Date End Date Elsewhere, Pcp PCP - General Internal Medicine 01/27/24 documented as of this encounter
--- OUTSIDE RECORDS SUMMARY | 2024-06-06 19:06 | XMS_ITS | Encounter Summary ---
Author Organization [facility] Address [address] [place] [address] Care Team Providers Care Parking Cashier Name Role Phone Elsewhere, Pcp Primary Care Provider Unavailabl e Reason for Referral * Radiation Therapy (Routine) - Authorized Specialty Diagnoses / Procedures Referred By Leann joseph Referred To Contact Diagnoses Malignant Neoplasm Of Pancreas Head (HCC) Procedures Initial Rad Onc Treatment Planning CT Simulation Initial Rad Onc Treatment Planning CT Simulation [place] IM[place] RADIOTHERAPY [place]AN Aidan Estrada M.D. [address] [place] [address] Phone: tel: fax: [facility] Region Referral ID Status Reason Start Date Expiration Date V isits Requested Visits Authorized [id number] Authorized 05/16/2024 08/16/2025 2 2 BASE PROGRAMMER * Outpatient (Routine) - Authorized Specialty Diagnoses / Procedures Referred By Leann joseph Referred To Contact Social Work Diagnoses Malignant Neoplasm Of Pancreas Head (HCC) Aidan Estrada M.D. [address] [place] [address] Phone: tel: fax: [facility] Region Referral ID Status Reason Start Date Expiration Date V isits Requested Visits Authorized [id number] Authorized 05/16/2024 11/15/2025 1 1 BASE PROGRAMMER * Outpatient (Routine) - Authorized Specialty Diagnoses / Procedures Referred By Contac t Referred To Contact Radiation Oncology Diagnoses Malignant Neoplasm Of Pancreas Head (HCC) Aidan Estrada M.D. [address] [place] [phone] Phone: tel: fax: [facility] Region Referral ID Status Reason Start Date Expiration Date V isits Requested Visits Authorized [id number] Authorized 05/16/2024 11/15/2025 1 1 BASE PROGRAMMER * Specialty Diagnoses / Procedures Referred By Contac t Referred To Contact Diagnoses Malignant Neoplasm Of Pancreas Head (HCC) Joyce Kenyon P.A.-C., M.S. [address] [place] [phone] Phone: tel: fax: [facility] Region Referral ID Status Reason Start Date Expiration Date Visits Re quested Visits Authorized Scheduling Instructions Please do not schedule if patient has 10 fractions or less, unless requested by care team. BASE PROGRAMMER * Radiation Therapy (Routine) - Authorized Specialty Diagnoses / Procedures Referred By Contac t Referred To Contact Diagnoses Malignant Neoplasm Of Pancreas Head (HCC) Procedures Management Visit Aidan Estrada M.D. [address] [place] [phone] Phone: tel: fax: [facility] Region Referral ID Status Reason Start Date Expiration Date V isits Requested Visits Authorized [id number] Authorized 05/16/2024 08/16/2025 10 10 BASE PROGRAMMER * Radiation Therapy (Routine) - Authorized Specialty Diagnoses / Procedures Referred By Leann t Referred To Contact Diagnoses Malignant Neoplasm Of Pancreas Head (HCC) Procedures Prior Auth Rad Tx [place] IMRT COMPLEX [place] GUIDANCE FOR LOC RAD [place] RADIOTHERAPY [place] IMRT Aidan Estrada M.D. [address] [place] [address] Phone: tel: fax: [facility] Region Referral ID Status Reason Start Date Expiration Date V isits Requested Visits Authorized [id number] Authorized 05/29/2024 08/16/2025 25 25 BASE PROGRAMMER Encounter Details Date Type Department Care Team (Late st Contact Info) Description 05/16/2024 Orders Only Department of Radiation Oncology in [place], [place] [address] [place] [address] Joyce Kenyon P.A.-C., M.S. [address] [place] [phone] 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) Social History Tobacco Use Types Packs/Day Years Used Date Smoking Tobacco: Never Smokeless Tobacco: Never Alcohol Use Standard Drinks/Week Comments Never 0 (1 standard drink = 0.6 oz pur e alcohol) [facility] Utilities Answer Date Recorded In the past 12 months has [employer], gas, oil, or water [employer] threatened to shut off services in your [...] your living situation today? I have a [facility] place to live 02/04/2024 Comments Unknown Sex and Gender Information Value Date Recorded Sex Assigned at Female 01/30/2024 2:33 PM DATABASE PROGRAMMER Legal Sex Female 4:38 PM CDT Gender Identity Female 01/30/2024 2:33 PM DATABASE PROGRAMMER Sexual Orientation Straight 01/30/2024 2: 33 PM DATABASE PROGRAMMER documented as of this encounter Miscellaneous Notes * Addendum Note - Carlos Ibanez, R.N. - 05/16/2024 8:48 AM CSTAddended by: CARLOS IBANEZ on: 05/29/2024 02:09 PM Modules accepted: Orders BASE PROGRAMMER documented in this encounter Plan of Treatment Upcoming Encounters Date Type Department Care Team (Late st Contact Info) Description 06/09/2024 8:00 AM CDT Comprehensive Visit Department of Neurology in [place], [place] [address] [place] [address] Joanne Castro M.D., Ph.D. [address] [place] [address] 06/12/2024 1:00 PM CDT Appointment Department of Radiation Oncology in [place] [id number] [place] [address] Antonette Schulte M.D. [address] [place] [address] Scheduled Orders Name Type Priority Associated Diagnoses Order Schedule Prior Auth Rad Tx Radiation Oncology Routine Malignant Neoplasm Of Pancreas Head (HCC) Ordered: 05/16/2024 Management Visit Radiation Oncology Routine Malignant Neoplasm Of Pancreas Head (HCC) 10 Occurrences starting 05/16/2024 until 08/13/2025 Cardiac Device Interrogation Implantable Cardiac Device Routine Malignant Neoplasm Of Pancreas Head (HCC) Expected: 06/27/2024, Expires: 08/29/2025 Scheduled Referrals Name Type Priority Associated Diagnoses [...] Expires: 08/13/2025 documented as of this encounter Results * Initial Rad Onc Treatment Planning CT Simulation (05/26/2024 2:00 PM DATABASE PROGRAMMER) Narrative JUDAH NAVARRETE - 05/26/2024 2:00 PM DATABASE PROGRAMMER Antonette Schulte M.D. 05/26/2024 3:13 PM Initial Rad Onc Treatment Planning CT Simulation Performed by: Antonette Schulte M.D. Authorized by: Aidan Estrada M.D. us Aidan Estrada M.D. RADIATION ONCOLOGY ORDERAB LES Final Result JUDAH NAVARRETE na documented in this encounter Visit Diagnoses Diagnosis Malignant Neoplasm Of Pancreas Head (HCC)- Primary Malignant Neoplasm Of Pancreas Head (HCC) documented in this encounter Additional Health Concerns Infection Onset Date Last Indicated Resolved Time Protective Environment 02/08/2024 02/08/2024 documented as of this encounter Care Teams Parking Cashier Relationship Specialty Start Date End Date Elsewhere, Pcp PCP - General Internal Medicine 01/27/24 documented as of this encounter
--- OUTSIDE RECORDS SUMMARY | 2024-06-06 19:06 | XMS_ITS | Encounter Summary ---
Author Organization [facility] Address [address] [place] [id number] Care Team Providers Care Integrated Marketing Specialist Name Role Phone Elsewhere, Pcp Primary Care Provider Unavailabl e Reason for Referral * Outpatient (Routine) - Closed Specialty Diagnoses / Procedures Referred By Contac t Referred To Contact Radiation Oncology Diagnoses Malignant Neoplasm Of Pancreas Head (HCC) Dana Guillen APRN, C.N.P., M.S. [address] [place] [phone] Phone: tel: fax: [facility] Referral ID Status Reason Start Date Expiration Date Visits Re quested Visits Authorized [id number] Closed 05/10/2024 11/09/2025 1 1 R GANG SUPERVISOR Reason for Visit * Outpatient (Routine) - Closed Specialty Diagnoses / Procedures Referred By Contac t Referred To Contact Radiation Oncology Diagnoses Malignant Neoplasm Of Pancreas Head (HCC) Dana Guillen APRN, C.N.P., M.S. [address] [place] [phone] Phone: tel: fax: [facility] Referral ID Status Reason Start Date Expiration Date Visits Re quested Visits Authorized [id number] Closed 05/10/2024 11/09/2025 1 1 Encounter Details Date Type Department Care Team (Latest Contact Info) Description 05/26/2024 11:33 AM LABOR GANG SUPERVISOR - 05/26/2024 1:29 PM LABOR GANG SUPERVISOR Hospital Encounter Department of Radiation Oncology in [place], [place] [address] [place] [phone] Antonette Schulte M.D. [address] [place] [phone] Malignant Neoplasm Of Pancreas Head (HCC) Social History Tobacco Use Types Packs/Day Years Used Date Smoking Tobacco: Never Smokeless Tobacco: Never Alcohol Use Standard Drinks/Week Comments Never 0 (1 standard drink = 0.6 oz pur e alcohol) [facility] Utilities Answer Date Recorded In the past 12 months has e [employer], gas, oil, or water [employer] threatened to shut off services in your [...] your living situation today? I have a [facility] place to live 02/04/2024 Comments Unknown Sex and Gender Information Value Date Recorded Sex Assigned at Female 01/30/2024 2:33 PM LABOR GANG SUPERVISOR Legal Sex Female 4:38 PM CDT Gender Identity Female 01/30/2024 2:33 PM LABOR GANG SUPERVISOR Sexual Orientation Straight 01/30/2024 2: 33 PM LABOR GANG SUPERVISOR documented as of this encounter Last Filed Vital Signs Vital Sign Reading Time Taken Comments Blood Pressure 185/74 05/26/2024 12:49 PM LABOR GANG SUPERVISOR Pulse 77 05/26/2024 12:49 PM LABOR GANG SUPERVISOR Temperature 35.9 C (96.7 F) 05/26/2024 12:49 PM LABOR GANG SUPERVISOR Respiratory Rate - - Oxygen Saturation - - Inhaled Oxygen Concentration - - Weight 68.7 kg (151 lb 7.3 oz) 05/26/2024 12:49 PM LABOR GANG SUPERVISOR Height - - Body Mass Index 28.52 05/10/2024 2:25 PM LABOR GANG SUPERVISOR documented in this encounter Medications at Time of Discharge acetaminophen (TylenoL) 500 mg capsule Take 500 mg by mouth every 6 (six) hours as needed for pain. apixaban (Eliquis) 5 mg tablet Take 2 tablets (10 mg total) by mouth 2 (two) times a day for 7 days, THEN 1 tablet (5 mg total) 2 (two) times a day. 374 tablet 02/01/2024 8:48 PM LABOR GANG SUPERVISOR 02/01/2024 07/31/19 25 cholecalciferol, vitD3,/vit K2 (VITAMIN [...] pain. 01/06/2024 documented as of this encounter Consult Notes * Leana Escalera APRN, C.N.Devyn., M.S.N. - 05/26/2024 1:00 PM CST REQUESTING PROVIDER Dana Guillen APRN, C.N.P., M.S. REASON FOR CONSULT Adenocarcinoma of the pancreas Collaborating physician: Dr. Schulte HISTORY OF PRESENT ILLNESS Marta Carrillo is a 83 y.o.-year-old female from [place], [place], who presents to the Department ofRadiation Oncology for discussion regarding the role of radiotherapy in the management of metastatic adenocarcinoma of the pancreas. Oncologic history is as follows: Oncology History Malignant Neoplasm Of Pancreas Head (HCC) 12/17/2023 Initial Diagnosis Malignant Neoplasm Of Pancreas Head (HCC) Initially presented with jaundice in December 17, 2023. Workup showed a mass in the head of the pancreas. ERCP and EUS were performed, including a biopsy showing adenocarcinoma. FINAL DIAGNOSIS Pancreas, Head, Mass, fine-needle biopsy ([id number]; 12/17/2023): Invasive moderately differentiated adenocarcinoma. 01/02/[address] Abdomen/Pelvis Impression: 1. Ill-defined mass noted in the pancreatic neck and superior pancreatic head. There is origin of the common bile duct with dilatation of the central intrahepatic ducts. The appearance is most compatible with primary pancreatic ductal adenocarcinoma. This lesion appears similar to a prior scan from12/16/23. 2. Multiple, heterogeneous lymph nodes identified along the periceliac, periportal, portacaval, andmesenteric regions concerning for local regional lymphadenopathy. 3. There is a plastic stent in the distal ileum extending into the cecum. This may represent a migrated common duct stent were pancreatic stent. Correlate clinically for any recent history of stent placement. No stent is currently within the common bile duct or pancreatic duct, respectively. 4. No evidence of mechanical small bowel obstruction. 5. Colonic diverticulosis without evidence of acute diverticulitis. 6. Tiny amount of free fluid adjacent to the gallbladder fundus. The gallbladder lumen is mildly distended. The gallbladder distention is likely secondary to distal common duct obstruction by the pancreatic mass. 7. Small amount of hyperdense fluid in the lumen of the cecum. This is of uncertain etiology. 01/03/2024 Surgery and Procedures ERCP was performed. The middle third of the main bile duct contained a single segmental stenosis 8 mm in length. The upper third of the main bile duct was moderately dilated. The largest diameter was13 mm. One 10 Fr by 6 cm uncovered metal stent was placed in the common bile duct. 01/07/2024 Critical Imaging [place] Interpretation of PET-CT Impression: 1. Large moderately hypermetabolic mass occupying the head and neck of the pancreas most consistentwith biopsy-proven adenocarcinoma. Please see the subsequently obtained CT abdomen and pelvis pancreatic angiogram protocol study for a better anatomic description of the mass and adjacent structure i nvolvement. 2. Additional moderately hypermetabolic focus in the distal body/tail the pancreas appearing to correspond to a 9 mm low-density lesion on CT. This is concerning for additional pancreatic tumor versus metastasis. 3. Enlarged irregular moderately hypermetabolic central mesenteric lymph node/soft tissue nodule, most consistent with metastasis. Additional mildly enlarged mild-moderately hypermetabolic periportal/peripancreatic lymph node is indeterminant with the differential including locoregional metastatic disease versus metastasis. 4. 7 mm nodule in the left adrenal gland with mild-moderate FDG uptake, similar to background liveractivity. This may simply represent an adenoma or adenomatous hyperplasia, but metastasis cannot beentirely excluded. Correlation with more remote studies would be helpful to assess for stability. Attention on follow-up is recommended. 5. Mildly hypermetabolic 6-7 mm ill-defined pulmonary nodular opacity in the right lower lobe unchanged in size on the subsequent chest CT from 02/01/2024. This nodule is indeterminate for metastatic disease. Correlation with more remote studies would be helpful to assess for stability. Attention onfollow-up is recommended. 6. Additional findings as described in the body of the report. 01/13/2024 - Chemotherapy Gemcitabine + nab-paclitaxel (Days 1, 8, and 15). 02/01/[address] Pancreas Angiogram: Tumor: [...] (cT4, cN1, cM0) Stage prefix: Initial diagnosis 02/09/[address] Gordon (Hepatobiliary and Pancreas Surgery); surgery was not recommended 05/09/[address] C/A/P: New small bilateral pleural effusions with suspected pleural nodularities, indeterminate.Short-term follow-up CT can be considered. New patchy [...] metastatic disease in the abdomen or pelvis. 05/10/2024 Other Medical Oncology appointment with Dana Guillen C.N.P. who discussed transitioning to radiation therapy for disease control and a chemotherapy break. Discussed that radiation therapy is administered in 15 fractions and recommended concurrent capecitabine to enhance efficacy. Continue gemcitabine and Abraxane until the radiation plan is set up. Referral to Radiation Oncology in [place]. Follow-up one month after radiation. 05/15/2024 - Chemotherapy Cycle 4, day 15, dropped day [address] Sr for future cycles. Gemcitabine dose reduced to final dose of 1000 mg and Abraxane dose reduced to final dose of 130 mg. Cycle 6, day 1, to commence on 05/29/2024. 06/05/2024 - Radiation Therapy Radiation Therapy Treatment Details (Noted on 05/16/2024) Site: Pancreas Technique: No technique specified Goal: Curative Planned Treatment Start Date: 06/05/2024 INTERVAL HISTORY Ms. Carrillo presents this morning accompanied by her daughter and son-in-law. She confirms the aboveinformation in regards to his history. Upon discussion today, she reports feeling fairly well. She tolerated most of her chemotherapy cycles fairly well, up until #12 she notes development of more significant side effects. She has recently been experiencing fatigue, alopecia, nausea with dry heaves, peripheral neuropathy with numbness in the left foot, and change in blood counts. Ms. Carrillo has had pain in her back (from the bra line down) and also across bilateral abdomen region for which she was provided prescription for Tramadol. Today she notes mild pain in the right flank and also had a headache this morning for which she took a dose of Tramadol. She has anti-emetics to use at home for nausea which does work well. She is known to be a small eater and only consumes light portions during meal times. Denies any weight loss. She reports variability in her bowel pattern with episodes of diarrhea as well as constipation for which she has used MiraLAX and Senna. No difficulty with urin ation. No difficulty or pain with swallowing. Ms. Carrillo is independent around the home completing all ADLs; uses a walker for ambulating longer distances. She has otherwise felt relatively well and is with no other complaints or concerns today. Of note, Ms. Carrillo was initiated on chemotherapy on 01/13/2024 while still residing in [place]. She has transferred care to [facility] and is receiving chemotherapy with Gemcitabine and Abraxane at the [facility] with Dr. Sr. She reports a total of 11 cycles received thus far, with #13due on Wednesday05/29/2024 (cycle #11 was skipped as per patient report). Most recent cycle was administered on 05/15/2024. Potential Contraindications to Radiation Therapy: Pacemaker since 2019 The patient IS on therapeutic anticoagulation with Eliquis* She also has a permanent bile duct stent The patient has no history of: - Prior radiation therapy - Inflammatory bowel disease such as ulcerative colitis or Crohn disease - Connective tissue disease such as lupus or scleroderma REVIEW OF SYSTEMS Pertinent items are noted in HPI; all other review of systems were negative. CURRENT MEDICATIONS Reviewed and updated in the EMR. ALLERGIES Reviewed and updated in the EMR. PAST MEDICAL HISTORY Medical History[1] Diabetes mellitus Bilateral segmental and subsegmental pulmonary embolism, bilateral calf vein DVT SURGICAL HISTORY Surgical History[2] SOCIAL HISTORY she reports that she has never smoked. She has never used smokeless tobacco. She reports that she does not drink alcohol and does not use drugs. FAMILY HISTORY Family History[3] PHYSICAL EXAM General: 83 year old female in no acute distress. Sitting comfortably in exam room. Arrived to our department ambulating with assistance of walker. HEENT: Head is normocephalic and atraumatic; alopecia (wearing wig). Extraocular movements intact, pupils equally round and equally reactive to light. Pulmonary: Pulmonary effort is normal; breathing is unlabored on room air. Abdomen: Soft, nontender, nondistended. Point tenderness to palpation across right flank; no palpable abnormalities present. Neuro: Alert and oriented. Speech is fluent without dysarthria. Skin: Right chest port. Musculoskeletal: Normal gait. ECOG 1 Weight: 68.7 kg Pain assessment: 0/10 DIAGNOSTICS: We have reviewed the available imaging, operative and pathology reports as described above and reviewed in the EMR. ASSESSMENT/PLAN #1 Locally advanced adenocarcinoma of the pancreas #2 Stable right lower lung nodule It was a pleasure meeting with Ms. Carrillo along with her daughter and son-in-law this afternoon. Wereviewed her clinical situation in detail, along with pertinent imaging, procedures, and pathologicfindings. In summary, she has unresectable locally advanced pancreatic adenocarcinoma. Ms. Carrillo has been receiving gemcitabine and Abraxane for a total of 11 cycles thus far under the care of our Medical Oncology colleagues, both at [facility] and at the [facility]. Surgical intervention has not been recommended, thus, she was referred to Radiation Oncology for consideration of local therapy and is also recommended to continue Capecitabine to enhance efficacy. Dr. Schulte and I discussed the role and rationale for use of radiation therapy in this setting. Recommend proceeding with external beam radiotherapy (IMRT) to aid in local tumor control. Dr. Schulte plans to also treat the distal tail pancreatic lesion. Reviewed treatment approach to consist of 25 fractions, thus, 5 weeks of once daily M-F treatments. Discussed the logistics of radiotherapy as well as risks, benefits, and alternatives. Discussed thepotential acute and late toxicities which may be associated, as follows: Acute reactions which could occur as a result of the procedure may include some or all of the following: Fatigue or weakness. Stomach inflammation, with nausea or vomiting (usually early-on in treatment), indigestion, or ulceration. Decreased appetite and weight loss. Change in bowel habit, diarrhea, or abdominal cramping. Skin reaction including dryness, redness, pain, loss of hair, and / or blistering and superficial ulceration. Late reactions which could occur as a result of the procedure may include some or all of the following: Permanent change in bowel habits, with a tendency toward diarrhea/intolerance of certain foods, or impaired absorption of certain nutrients. Scarring or narrowing of bowel causing obstruction, ulceration or bleeding, possibly requiring surgical correction. Kidney damage with variable loss of function including high blood pressure. Liver damage: in mild cases, with abnormal blood chemistry only; in severe cases, with fluid retention, disorders of nutrition and high blood pressure. Permanent skin changes including thickening or skin coloration. Rare risk of second cancers. Ms. Carrillo verbalized understanding of this information and wishes to proceed. Discussed logistics of radiotherapy simulation, including empty stomach instructions, use of our deep inspiratory breathhold technique, and subsequent daily treatments. Reviewed treatment start date of 06/05/2024. Questions and concerns were addressed to their satisfaction. Our contact information was provided if any further questions arise in the meantime. I spent 60 minutes face to face and non-face to face caring for the patient today. Signed by: Leana Escalera APRN, C.N.P., M.S.N. 05/26/2024 1:00 PM [1] Past Medical History: Diagnosis Date Cataract 2023 Degeneration Macular 1999 Diabetes Mellitus NOS 2020 Hyperlipidemia 2014 Hypertension NOS 2011 Malignant Primary Neoplasm (Unknown Site) Unspecified (HCC) 2023 Pancreatic Osteopenia 2022 [2] Past Surgical History: Procedure Laterality Date TONSILLECTOMY 194 [3] Family History Problem Relation Name Age of Onset Diabetes Mother Chase Salazar Coronary artery disease Father Moccasin Martin Cosigned by Antonette Schulte M.D. at 05/26/2024 3:12 PM LABOR GANG SUPERVISOR R GANG SUPERVISOR R GANG SUPERVISOR Associated attestation - Antonette Schulte M.D. - 05/26/2024 3:12 PM LABOR GANG SUPERVISOR RADIATION ONCOLOGY CONSULT I saw and evaluated the patient and participated in the meyer portions of the service. I reviewed thedocumentation of Ms. Leana Escalera APRN and agree with the findings and plan. Please see Melvin Lali's detailed note for the patient's initial presentation and work-up. Briefly, Ms. Carrillo is a very pleasant 83 year old with a locally advanced and unresectable pancreatic adenocarcinoma who has received 10 cycles of gemcitabine and abraxane with a nice clinical and biochemical response who presents now to discuss radiation options. I have independently reviewed her imaging, operative and pathology reports. On exam, she appears well. Detailed exam as per Ms. Escalera. We discussed her treatment alternatives including supportive care vs chemo/radiation with the understanding that she is not having surgery. I do not see the distal pancreatic mass well, but will still include this area in the target. We will follow the stable right lung nodule for now. We discussed the acute as well as long term care pharmacist risks from EBRT, including, but not limited to fatigue,nausea/vomiting, diarrhea, bowel/bladder changes (including small bowel obstruction and bowel changes), skin changes, chronic changes in bowel function and small risks for kidney or bone damage or secondary malignacies. They understood and their questions were answered. She wished to proceed with treatment. We tentatively plan on delivering [id number]/3750 cGy in 15 fractions starting June 05, 2024. I spoke with Dr. Sr and she will see her back on Wednesday. She will try to get her oral xeloda for June 05, but this is a quick turn around. So if they medication is not available so quickly, we will delay the start of her radiation to whenever it arrives. We also discussed that we will obtain a physics consultation to ensure that we are safe with her pacemaker. We discussed NPO and antinausea medications prior to each treatment. My thanks to Dana Guillen APRN, Orin Redmond, Heidi, and Pushpa for the opportunity to participate in this patient's care. EDUCATION Ready to learn, no apparent learning barriers were identified; learning preferences include listening. Explained diagnosis and treatment plan; patient expressed understanding of the content. CONSENT Discussed the risks, benefits, alternatives, and the necessity of other members of the healthcare team participating in the procedure. All questions answered and consent given. DIAGNOSIS #1 Locally advanced adenocarcinoma of the pancreas #2 Stable right lower lung nodule Signed by: Antonette Schulte M.D. 05/26/2024 documented in this encounter Plan of Treatment Upcoming Encounters Date Type Department Care Team (Late st Contact Info) Description 06/09/2024 8:00 AM CDT Comprehensive Visit Department of Neurology in [place], [place] [address] [place] [phone] Joanne Castro M.D., Ph.D. [address] [place] [phone] 06/12/2024 1:00 PM CDT Appointment Department of Radiation Oncology in [place], [place] [address] [place] [phone] Antonette Schulte M.D. [address] [place] [phone] Scheduled Referrals Name Type Priority Associated Diagnoses Order Schedule Radiation Oncology - GI consult (clinic) Outpatient Referral Routine Malignant Neoplasm Of Pancreas Head (HCC) Once for 1 Occurrences starting 05/26/2024 until 05/26/2024 documented as of this encounter Visit Diagnoses Diagnosis Malignant Neoplasm Of Pancreas Head (HCC) documented in this encounter Additional Health Concerns Infection Onset Date Last Indicated Resolved Time Protective Environment 02/08/2024 02/08/2024 documented as of this encounter Care Teams Integrated Marketing Specialist Relationship Specialty Start Date End Date Elsewhere, Pcp PCP - General Internal Medicine 01/27/24 documented as of this encounter
--- OUTSIDE RECORDS SUMMARY | 2024-06-06 19:06 | XMS_ITS | Clinical Summary ---
Author Organization [facility] Address [address] [place] [address] Care Team Providers Care Building Maintenance Technician Name Role Phone Elsewhere, Pcp Primary Care Provider Unavailabl e Source Comments Patient records contain information from all sites at [facility]. For routine questions regarding patient records, call [phone] during business hours, M-F 8:00 AM - 5:00 PM Central Time. Record requests for emergency care only can be directed to [phone] at any time.[facility] Allergies No known active allergies Medications * [...] by mouth as needed for pain. 01/06/20 Active ondansetron ODT (Zofran-ODT) 4 mg disintegrating [...] a day. 374 tablet 02/01/2024 8:48 PM BOX HINGE AND LOCK ATTACHER 02/01/20 24 025 Active dexAMETHasone (Decadron) 4 mg/mL injection Infuse 10 mg into a venous catheter. 02/10/20 Active diphenhydrAMINE in NaCl 0.9 % (BenadryL) [...] Take 1 tablet by mouth daily. 04/27/19 Active furosemide (Lasix) 20 mg tablet Take 1 tablet by mouth daily. 04/27/19 Active potassium chloride (Klor-Con M) 20 mEq ER tablet Take 1 tablet by mouth daily. 04/27/19 Active Active Problems Problem Noted Date Diagnosed Date [...] organization. Date Type Department Care Team Description 05/26/2024 2:00 PM BOX HINGE AND LOCK ATTACHER - 05/26/2024 3:13 PM BOX HINGE AND LOCK ATTACHER Hospital Encounter Department of Radiation Oncology in [address] [address] Aidan Estrada M.D. Garces, Yolanda I., M.D. Malignant Neoplasm Of Pancreas Head (HCC) 05/26/2024 1:30 PM BOX HINGE AND LOCK ATTACHER - 05/26/2024 1:59 PM BOX HINGE AND LOCK ATTACHER Hospital Encounter Department of Radiation Oncology in [address] [address] Antonette Schulte M.D. Moorhouse, Alexis E, RMelvinNMelvin 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) 05/26/2024 11:33 AM BOX HINGE AND LOCK ATTACHER - 05/26/2024 1:29 PM BOX HINGE AND LOCK ATTACHER Hospital Encounter Department of Radiation Oncology in [place], [place] [address] [place] [phone] Antonette Schulte M.D. Malignant Neoplasm Of Pancreas Head (HCC) 05/16/2024 Orders Only Department of Radiation Oncology in [address] [address] Joyce Kenyon P.A.-C., M.S. 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) 05/15/2024 Orders Only Department of Radiation Oncology in [address] [address] Antonette Schulte M.D. 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) 05/10/2024 2:40 PM BOX HINGE AND LOCK ATTACHER Office Visit Department of Oncology in [address] [address] Dana Guillen, SERGIO C.N.P., M.S. 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) 05/09/2024 3:11 PM BOX HINGE AND LOCK ATTACHER - 05/09/2024 11:59 PM BOX HINGE AND LOCK ATTACHER Hospital Encounter Department of Radiology, [facility], in [address] [address] Sanjeev Woods M.D., M.P.H. Malignant Neoplasm Of Pancreas Head (HCC) Discharge Disposition: Home or Self Care 05/09/2024 2:40 PM BOX HINGE AND LOCK ATTACHER Lab Department of Infusion Therapy in [address] [address] Sanjeev Woods M.D., M.P.H. 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) 05/04/2024 2:00 PM BOX HINGE AND LOCK ATTACHER Clinical Communication Virtual Review in [address] [address] Pre-visit Intake 03/15/2024 Orders Only Department of Oncology in [address] [address] Sanjeev Woods M.D., M.P.H. 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) 03/15/2024 Clinical Communication Department of Oncology in [place], [place] [address] [place] [address] Sanjeev Woods M.D., M.P.H. Appointment 03/08/2024 8:55 AM BOX HINGE AND LOCK ATTACHER - 03/08/2024 11:59 PM BOX HINGE AND LOCK ATTACHER Hospital Encounter Department of Neurology in [place], [place] [address] [place] [address] Compa Arnold M.D. Foot Drop Left; Foot Drop Right Discharge Disposition: Home or Self Care from Last 3 Months Family History Medical History Relation Name Comments Coronary artery disease Father Alpine Martin Diabetes Mother Chase Salazar Relation Name Status Comments Father Celso Salazar Alive Mother Chase Salazar Alive Social History Tobacco Use Types Packs/Day Years Used Date Smoking Tobacco: Never Smokeless Tobacco: Never Tobacco Cessation:Counseling Given: Not Answered Alcohol Use Standard Drinks/Week Comments Never 0 (1 standard drink = 0.6 oz pur e alcohol) [facility] Utilities Answer Date Recorded In the past 12 months has e electric, gas, oil, or water [employer] threatened to shut off services in your [...] Sex Assigned at Female 01/30/2024 2:33 PM BOX HINGE AND LOCK ATTACHER Legal Sex Female 4:38 PM CDT Gender Identity Female 01/30/2024 2:33 PM BOX HINGE AND LOCK ATTACHER Sexual Orientation Straight 01/30/2024 2: 33 PM BOX HINGE AND LOCK ATTACHER Last Filed Vital Signs Vital Sign Reading Time Taken Comments Blood Pressure 185/74 05/26/2024 12:49 PM BOX HINGE AND LOCK ATTACHER Pulse 77 05/26/2024 12:49 PM BOX HINGE AND LOCK ATTACHER Temperature 35.9 C (96.7 F) 05/26/2024 12:49 PM BOX HINGE AND LOCK ATTACHER Respiratory Rate 16 05/10/2024 2:25 PM BOX HINGE AND LOCK ATTACHER Oxygen Saturation 97% 05/10/2024 2:25 PM BOX HINGE AND LOCK ATTACHER Inhaled Oxygen Concentration - - Weight 68.7 kg (151 lb 7.3 oz) 05/26/2024 12:49 PM BOX HINGE AND LOCK ATTACHER Height 155.2 cm (5' 1.1) 05/10/2024 2:25 PM BOX HINGE AND LOCK ATTACHER Body Mass Index 28.52 05/10/2024 2:25 PM BOX HINGE AND LOCK ATTACHER Plan of Treatment Upcoming Encounters Date Type Department Care Team (Late st Contact Info) Description 06/09/2024 8:00 AM CDT Comprehensive Visit Department of Neurology in [place], [place] [address] [place] [address] Joanne Castro M.D., Ph.D. [address] [place] [address] 06/12/2024 1:00 PM CDT Appointment Department of Radiation Oncology in [place], [place] [address] [place] [phone] Antonette Schulte M.D. [address] [place] [address] Health Maintenance Due Date Last Done Comments [...] Additional history exists Potassium Level 05/09/2025 05/09/2024, 11/0 07/2023, 02/01/2024 Sodium Level 05/09/2025 05/09/2024, 11/0 07/2023, 02/01/2024 HPV Vaccines Aged Out No longer eligi ble based on patient's age to complete this topic IPV Vaccines Aged Out No longer eligi ble based on patient's age to complete this topic Medical Devices Implanted Type Area Cold Molding Press Operator Device Identifier Shelf Expiration Date Model / Serial / Lot Cardiac Stent Cardiac Stent Heart Implantable Port-01/04/2024 Implanted:01/03 (Quantity not on file) Implantable Port Right: Chest Pacemaker-2018 Implanted:08/10 (Quantity not on file) Pacemaker Heart Medtronic [id number] / [id number] / Description:Placed in 9 Procedures Procedure Name Priority Date/Time Associated Diagnosis Comments INITIAL RAD ONC TREATMENT PLANNING CT SIMULATION Routine 05/26/2024 2:00 PM BOX HINGE AND LOCK ATTACHER Malignant Neoplasm Of Pancreas Head (HCC) CT ABDOMEN PELVIS WITH IV CONTRAST RAD - Routine (most inpatients and all outpatients) 05/09/2024 4:43 PM BOX HINGE AND LOCK ATTACHER Malignant Neoplasm Of Pancreas Head (HCC) CT CHEST WITH IV CONTRAST RAD - Routine (most inpatients and all outpatients) 05/09/2024 4:43 PM BOX HINGE AND LOCK ATTACHER Malignant Neoplasm Of Pancreas Head (HCC) CREATININE, POCT, B Routine 05/09/2024 3 :38 PM BOX HINGE AND LOCK ATTACHER CREATININE, POCT, B Routine 05/09/2024 3 :38 PM BOX HINGE AND LOCK ATTACHER CARBOHYDRATE AG 19-9 (CA 19-9), S Routine 05/09/2024 2:59 PM BOX HINGE AND LOCK ATTACHER Malignant Neoplasm Of Pancreas Head (HCC) COMPREHENSIVE METABOLIC PANEL, S/P Routine 05/09/2024 2:59 PM BOX HINGE AND LOCK ATTACHER Malignant Neoplasm Of Pancreas Head (HCC) CBC WITH DIFFERENTIAL, B Routine 05/09/2024 2:59 PM BOX HINGE AND LOCK ATTACHER Malignant Neoplasm Of Pancreas Head (HCC) EMG Routine 03/08/2024 8:55 AM BOX HINGE AND LOCK ATTACHER Foot Drop Left Foot Drop Right from Last 3 Months Results * Initial Rad Onc Treatment Planning CT Simulation (05/26/2024 2:00 PM BOX HINGE AND LOCK ATTACHER) Narrative JUDAH NAVARRETE - 05/26/2024 2:00 PM BOX HINGE AND LOCK ATTACHER Antonette Schulte M.D. 05/26/2024 3:13 PM Initial Rad Onc Treatment Planning CT Simulation Performed by: Antonette Schulte M.D. Authorized by: Aidan Estrada M.D. us Aidan Estrada M.D. RADIATION ONCOLOGY ORDERAB LES Final Result JUDAH NAVARRETE na * CT Abdomen Pelvis with IV Contrast (05/09/2024 4:43 PM BOX HINGE AND LOCK ATTACHER) Anatomical Region Laterality Modality Abdomen, Pelvis, Abdominal R ST LOS, Abdominal ARZ LOS, Abdominal FLA LOS N/A Computed Tomography 05/09/2024 5:53 PM BOX HINGE AND LOCK ATTACHER Impressions 05/10/2024 7:21 AM BOX HINGE AND LOCK ATTACHER Slight decrease size of pancreas head mass. Extensive vascular involvement persists. No new CT evidence of metastatic disease in the abdomen or pelvis. Narrative 05/10/2024 7:21 AM BOX HINGE AND LOCK ATTACHER EXAM: CT ABDOMEN PELVIS WITH IV CONTRAST [...] Chest with IV Contrast (05/09/2024 4:43 PM BOX HINGE AND LOCK ATTACHER) Anatomical Region Laterality Modality Chest, Thoracic RST LOS, Tho racic ARZ LOS, Thoracic ARZ LOS, Thoracic FLA LOS N/A Computed Tomography 05/09/2024 5:08 PM BOX HINGE AND LOCK ATTACHER Impressions 05/10/2024 8:22 AM BOX HINGE AND LOCK ATTACHER 1. New small bilateral pleural effusions with suspected pleural nodularities, indeterminate. Short-term follow-up CT can be considered. 2. New patchy groundglass opacities throughout the lungs could be due to infection/inflammation. 3. Stable 5 mm nodule in right lower lobe. 4. Stable mild enlargement of mediastinal lymph nodes. 5. Interval resolution of previously seen right lower lobe pulmonary emboli. Narrative 05/10/2024 8:22 AM BOX HINGE AND LOCK ATTACHER EXAM: CT CHEST WITH IV CONTRAST 3D [...] Result * Creatinine, POCT (05/09/2024 3:38 PM BOX HINGE AND LOCK ATTACHER) Only the most recent of2 resultswithin the time period is included. Creatinine, POCT, B 0.8 0.6 - 1.0 mg/dL 05/09/2024 3:46 PM BOX HINGE AND LOCK ATTACHER PCDT Comment: ----ADDITIONAL INFORMATION---- Performed at the Point of Care Blood 05/09/2024 3:38 PM BOX HINGE AND LOCK ATTACHER 05/09/2024 3:46 PM BOX HINGE AND LOCK ATTACHER us Unknown Provider LAB POCT ORDERABLES - DEVICE Fi nal Result [facility] [address] [place] [address], [facility] PCDT [facility] POC [address] [place] [address] * (ABNORMAL) Carbohydrate Antigen 19-9 (CA 19-9) (05/09/2024 2:59 PM BOX HINGE AND LOCK ATTACHER) [facility] Carbohydrate Ag 19-9, S 1313(H) <35 U/mL 05/09/2024 8:43 PM BOX HINGE AND LOCK ATTACHER [facility] Comment: ----ADDITIONAL INFORMATION---- The testing method is an immunoenzymatic assay manufactured by [employer] and performed on the Meile[employer] DxI 800. Values obtained with different assay methods or kits may be different and cannot be used interchangeably. Test results cannot be interpreted as absolute evidence for the presence or absence of malignant disease. Blood (Blood, Venous) 05/09/2024 2:59 PM BOX HINGE AND LOCK ATTACHER 05/09/2024 7:51 PM BOX HINGE AND LOCK ATTACHER Sanjeev Woods M.D., M.P.H. LAB BLOOD ADD-ON F inal Result [facility] [address] [place] [address] [facility] [address] [place] [address] * (ABNORMAL) CBC with Differential, Blood (05/09/2024 2:59 PM BOX HINGE AND LOCK ATTACHER) [facility] Hemoglobin 8.4(L) 11.6 - 15.0 g/dL 05/09/2024 3:43 PM BOX HINGE AND LOCK ATTACHER DTL Hematocrit 26.5(L) 35.5 - 44.9 % 05/09/2024 3:43 PM BOX HINGE AND LOCK ATTACHER DTL Erythrocytes 2.96(L) 3.92 - 5.13 x10(12)/L 05/09/2024 3:43 PM BOX HINGE AND LOCK ATTACHER DTL MCV 89.5 78.2 - 97.9 fL 05/09/2024 3:43 PM BOX HINGE AND LOCK ATTACHER DTL RBC Distrib Width 15.9 12.2 - 16.1 % 05/09/2024 3:43 PM BOX HINGE AND LOCK ATTACHER DTL Platelet Count 104(L) 157 - 371 x10(9)/L 05/09/2024 4:38 PM BOX HINGE AND LOCK ATTACHER DTL Leukocytes 7.2 3.4 - 9.6 x10(9)/L 05/09/2024 4:38 PM BOX HINGE AND LOCK ATTACHER DTL Neutrophils 4.65 1.56 - 6.45 x10(9)/L 05/09/2024 3:43 PM BOX HINGE AND LOCK ATTACHER [facility] Lymphocytes 1.80 0.95 - 3.07 x10(9)/L 05/09/2024 3:43 PM BOX HINGE AND LOCK ATTACHER DTL Monocytes 0.45 0.26 - 0.81 x10(9)/L 05/09/2024 3:43 PM BOX HINGE AND LOCK ATTACHER DTL Eosinophils 0.25 0.03 - 0.48 x10(9)/L 05/09/2024 3:43 PM BOX HINGE AND LOCK ATTACHER DTL Basophils <0.03 0.01 - 0.08 x10(9)/L 05/09/2024 3:43 PM BOX HINGE AND LOCK ATTACHER DTL Blood (Blood, Venous) 05/09/2024 2:59 PM BOX HINGE AND LOCK ATTACHER 05/09/2024 3:32 PM BOX HINGE AND LOCK ATTACHER Sanjeev Woods M.D., M.P.H. LAB BLOOD ADD-ON F inal Result [facility] [address] [place] [address], [facility] DTL [facility] [address] [place] [address] [facility] [address] [place] [address] * (ABNORMAL) Comprehensive Metabolic Panel (05/09/2024 2:59 PM BOX HINGE AND LOCK ATTACHER) [facility] Potassium, S 3.9 3.6 - 5.2 mmol/L 05/09/2024 4:05 PM BOX HINGE AND LOCK ATTACHER DTL Sodium, S 137 135 - 145 mmol/L 05/09/2024 4:05 PM BOX HINGE AND LOCK ATTACHER DTL Chloride, S 101 98 - 107 mmol/L 05/09/2024 4:05 PM BOX HINGE AND LOCK ATTACHER DTL Bicarbonate, S 27 22 - 29 mmol/L 05/09/2024 4:05 PM BOX HINGE AND LOCK ATTACHER DTL Anion Gap 9 7 - 15 05/09/2024 4:05 PM BOX HINGE AND LOCK ATTACHER DTL BUN (Blood Urea Nitrogen), S 18 6 - 21 mg/dL 05/09/2024 4:05 PM BOX HINGE AND LOCK ATTACHER DTL Creatinine 0.79 0.59 - 1.04 mg/dL 05/09/2024 4:05 PM BOX HINGE AND LOCK ATTACHER DTL Estimated GFR (eGFR) 74 >=60 mL/min/BS A 05/09/2024 4:05 PM BOX HINGE AND LOCK ATTACHER DTL Comment: Estimated GFR calculated using the 2020 CKD_EPI creatinine equation. Calcium, Total, S 8.4(L) 8.8 - 10.2 mg/dL 05/09/2024 4:05 PM BOX HINGE AND LOCK ATTACHER DTL Glucose, S 200(H) 70 - 140 mg/dL 05/09/2024 4:05 PM BOX HINGE AND LOCK ATTACHER DTL Protein, Total, S 6.2(L) 6.3 - 7.9 g/dL 05/09/2024 4:05 PM BOX HINGE AND LOCK ATTACHER DTL Albumin, S 3.1(L) 3.5 - 5.0 g/dL 05/09/2024 4:05 PM BOX HINGE AND LOCK ATTACHER DTL Aspartate Aminotransferase (AST), S 29 8 - 43 U/L 05/09/2024 4:05 PM BOX HINGE AND LOCK ATTACHER DTL Alkaline Phosphatase, S 128(H) 35 - 104 U/L 05/09/2024 4:05 PM BOX HINGE AND LOCK ATTACHER DTL Alanine Aminotransferase (ALT), S 25 7 - 45 U/L 05/09/2024 4:05 PM BOX HINGE AND LOCK ATTACHER DTL Bilirubin, Total, S 0.4 0.0 - 1.2 mg/dL 05/09/2024 4:05 PM BOX HINGE AND LOCK ATTACHER DTL Blood (Blood, Venous) 05/09/2024 2:59 PM BOX HINGE AND LOCK ATTACHER 05/09/2024 3:42 PM BOX HINGE AND LOCK ATTACHER Sanjeev Woods M.D., M.P.H. LAB BLOOD ADD-ON F inal Result [facility] [address] [place] [address], [facility] DTL [facility] [address] [place] [address] * EMG (03/08/2024 8:55 AM BOX HINGE AND LOCK ATTACHER) 03/08/2024 9:15 AM BOX HINGE AND LOCK ATTACHER Narrative [facility] EMG - 03/08/2024 12:01 PM BOX HINGE AND LOCK ATTACHER Table formatting from the original result was not included. 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 Citlali Bhat (127 or [phone])/SMB NERVE CONDUCTIONS Record Rep Normal Normal Distal [...] Karan Bhat M.D. at 03/08/2024 12:00:45 PM BOX HINGE AND LOCK ATTACHER Procedure Note Karan Bhat Jr., M.D. 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 Citlali Bhat (127 or [phone])/SMB NERVE CONDUCTIONS Record Rep Normal Normal Distal [...] Karan Bhat M.D. at 03/08/2024 12:00:45 PM BOX HINGE AND LOCK ATTACHER Compa Arnold M.D. NEUROLOGY ORDERABLES Ed ited Result - Final [facility] EMG from Last 3 Months Additional Health Concerns Infection Onset Date Last Indicated Protective Environment 02/08/2024 Insurance Advance Directives For more information, please contact: [phone] Documents on File Type Date Recorded Patient Dope Firer Expl anation Advance Directives 02/03/2024 9:38 AM Aidan Carrillo HCPOA/ADVOCATE/AGENT/R EPRESENTATIVE/SURROGAT E Healthcare Agents on File Name Relationship Healthcare Agent Relationship Communication Aidan Blanco Son In-Law Health Care Agent Martin Carrillo First Alternate Health Care Agent Care Teams Building Maintenance Technician Relationship Specialty Start Date End Date Elsewhere, Pcp PCP - General Internal Medicine 01/27/24
--- OUTSIDE RECORDS SUMMARY | 2024-06-06 19:06 | XMS_ITS | Encounter Summary ---
Author Organization [facility] Address [address] [place] [id number] Care Team Providers Care Import Customer Service Manager Name Role Phone Elsewhere, Pcp Primary Care Provider Unavailabl e Reason for Visit * Reason Onset Date Comments Pre-visit Intake 05/04/2024 * Appointment Request (Routine) - Authorized Specialty Diagnoses / Procedures Referred By Leann joseph Referred To Contact Oncology Referral ID Status Reason Start Date Expiration Date V isits Requested Visits Authorized [id number] Authorized 03/15/2024 03/15/2025 1 1 Encounter Details Date Type Department Care Team (Latest Contact Info) Description 05/04/2024 2:00 PM FLAVORING OIL FILTERER Clinical Communication Virtual Review in [place], [place] [address] [place] [address] Pre-visit Intake Social History Tobacco Use Types Packs/Day Years Used Date Smoking Tobacco: Never Smokeless Tobacco: Never Tobacco Cessation:Counseling Given: Not Answered Alcohol Use Standard Drinks/Week Comments Never 0 (1 standard drink = 0.6 oz pur e alcohol) [facility] Utilities Answer Date Recorded In [...] your living situation today? I have a [facility] place to live 02/04/2024 Comments Unknown Sex and Gender Information Value Date Recorded Sex Assigned at Female 01/30/2024 2:33 PM FLAVORING OIL FILTERER Legal Sex Female 4:38 PM CDT Gender Identity Female 01/30/2024 2:33 PM FLAVORING OIL FILTERER Sexual Orientation Straight 01/30/2024 2: 33 PM FLAVORING OIL FILTERER documented as of this encounter Plan of Treatment Upcoming Encounters Date Type Department Care Team (Late st Contact Info) Description 06/09/2024 8:00 AM CDT Comprehensive Visit Department of Neurology in [place], [place] [address] [place] [address] Joanne Castro M.D., Ph.D. [address] [place] [address] 06/12/2024 1:00 PM CDT Appointment Department of Radiation Oncology in [address] [address] Antonette Schulte M.D. [address] [place] [address] documented as of this encounter Visit Diagnoses Not on filedocumented in this encounter Additional Health Concerns Infection Onset Date Last Indicated Resolved Time Protective Environment 02/08/2024 02/08/2024 documented as of this encounter Care Teams Import Customer Service Manager Relationship Specialty Start Date End Date Elsewhere, Pcp PCP - General Internal Medicine 01/27/24 documented as of this encounter
--- OUTSIDE RECORDS SUMMARY | 2024-06-06 19:06 | XMS_ITS ---
Author Organization [facility] Address [address] [place] [address] Care Team Providers Care Top Dyeing Machine Loader Name Role Phone Elsewhere, Pcp Primary Care [...]
--- OUTSIDE RECORDS SUMMARY | 2024-06-06 19:06 | XMS_ITS | Encounter Summary ---
Author Organization [facility] Address [address] [place] [address] Care Team Providers Care Pleating Supervisor Name Role Phone Elsewhere, Pcp Primary Care Provider Unavailabl e Reason for Referral * Radiation Therapy (Routine) - Authorized Specialty Diagnoses / Procedures Referred By Leann joseph Referred To Contact Diagnoses Malignant Neoplasm Of Pancreas Head (HCC) Procedures Initial Rad Onc Treatment Planning CT Simulation Initial Rad Onc Treatment Planning CT Simulation [place] IMRT RADIOTHERAPY PLAN Aidan Estrada M.D. [address] [place] [address] Phone: tel: fax: [facility] Region Referral ID Status Reason Start Date Expiration Date V isits Requested Visits Authorized [id number] Authorized 05/16/2024 08/16/2025 2 2 EY MANAGER Reason for Visit * Radiation Therapy (Routine) - Authorized Specialty Diagnoses / Procedures Referred By Leann joseph Referred To Contact Diagnoses Malignant Neoplasm Of Pancreas Head (HCC) Procedures Initial Rad Onc Treatment Planning CT Simulation Initial Rad Onc Treatment Planning CT Simulation TN IMRT RADIOTHERAPY PLAN Aidan Estrada M.D. [address] [place] [address] Phone: tel: fax: [facility] [employer] [facility] [employer] [facility] Region Referral ID Status Reason Start Date Expiration Date V isits Requested Visits Authorized [id number] Authorized 05/16/2024 08/16/2025 2 2 Encounter Details Date Type Department Care Team (Latest Contact Info) Description 05/26/2024 2:00 PM SURVEY MANAGER - 05/26/2024 3:13 PM SURVEY MANAGER Hospital Encounter Department of Radiation Oncology in [place], [place] [address] [place] [phone] Aidan Estrada M.D. [address] [place] [phone] Antonette Schulte M.D. [address] [place] [phone] Malignant Neoplasm Of Pancreas Head (HCC) Social History Tobacco Use Types Packs/Day Years Used Date Smoking Tobacco: Never Smokeless Tobacco: Never Alcohol Use Standard Drinks/Week Comments Never 0 (1 standard drink = 0.6 oz pur e alcohol) [facility] Utilities Answer Date Recorded In the past 12 months has th e [employer], gas, oil, or water [employer] threatened to shut off services in your [...] your living situation today? I have a [facility] place to live 02/04/2024 Comments Unknown Sex and Gender Information Value Date Recorded Sex Assigned at Female 01/30/2024 2:33 PM SURVEY MANAGER Legal Sex Female 4:38 PM CDT Gender Identity Female 01/30/2024 2:33 PM SURVEY MANAGER Sexual Orientation Straight 01/30/2024 2: 33 PM SURVEY MANAGER documented as of this encounter Medications at [...] a day. 374 tablet 02/01/2024 8:48 PM SURVEY MANAGER 02/01/2024 07/31/19 25 cholecalciferol, vitD3,/vit K2 (VITAMIN [...] pain. 01/06/2024 documented as of this encounter Procedure Notes * Marcia Pulido, RTT - 05/26/2024 2:00 PM CSTAssociated Order(s): Initial Rad Onc Treatment Planning CT Simulation Pre-Procedure Diagnose(s): Malignant Neoplasm Of Pancreas Head (HCC) Post-Procedure Diagnose(s): Malignant Neoplasm Of Pancreas Head (HCC) Initial Rad Onc Treatment Planning CT Simulation Performed by: Antonette Schulte M.D. Authorized by: Aidan Estrada M.D. Simulation was performed under physician supervision based on physician order in preparation for radiation therapy. Physician was immediately available to provide assistance and direction throughout the procedure. Written consent for treatment was completed or confirmed. The patient was appropriately identified and placed in the treatment position using the necessary immobilization to ensure a reproducible treatment position. Reference aviles were placed to facilitate marking of isocenter. Area scanned:Chest and Abdomen Contrast used for the simulation procedure: IV Patient position:head first supine and arms up Custom immobilization: Vac-ed Motion management: 4D CT scan Bolus: No CT guidance: Following positioning of the patient, a series of slices was obtained to be utilized in treatment planning. CT images were transferred to the Eclipse treatment planning system, after a reference isocenter was determined and marked. Segmentation and treatment planning will take place prior to treatment delivery. Patient set up and imaging was appropriate and completed without incident. Apple Peeler Operator use:No Cosigned by Antonette Schulte M.D. at 05/26/2024 3:13 PM SURVEY MANAGER EY MANAGER EY MANAGER Associated attestation - Antonette Schulte M.D. - 05/26/2024 3:13 PM SURVEY MANAGER I was present during all critical and meyer portions of the procedure(s) and immediately available [facility] the entire duration. See note for details. documented in this encounter Plan of Treatment Upcoming Encounters Date Type Department Care Team (Late st Contact Info) Description 06/09/2024 8:00 AM CDT Comprehensive Visit Department of Neurology in [place], [place] [address] [place] [address] Joanne Castro M.D., Ph.D. [address] [place] [address] 06/12/2024 1:00 PM CDT Appointment Department of Radiation Oncology in [place], [place] [address] [place] [phone] Antonette Schulte M.D. [address] [place] [address] documented as of this encounter Procedures Procedure Name Priority Date/Time Associated Diagnosis Comments INITIAL RAD ONC TREATMENT PLANNING CT SIMULATION Routine 05/26/2024 2:00 PM SURVEY MANAGER Malignant Neoplasm Of Pancreas Head (HCC) documented in this encounter Results * Initial Rad Onc Treatment Planning CT Simulation (05/26/2024 2:00 PM SURVEY MANAGER) Narrative JUDAH NAVARRETE - 05/26/2024 2:00 PM SURVEY MANAGER Antonette Schulte M.D. 05/26/2024 3:13 PM Initial Rad Onc Treatment Planning CT Simulation Performed by: Antonette Schulte M.D. Authorized by: Aidan Estrada M.D. Aidan Estrada M.D. RADIATION ONCOLOGY ORDERAB LES Final Result JUDAH NAVARRETE na documented in this encounter Visit Diagnoses Diagnosis Malignant Neoplasm Of Pancreas Head (HCC) documented in this encounter Additional Health Concerns Infection Onset Date Last Indicated Resolved Time Protective Environment 02/08/2024 02/08/2024 documented as of this encounter Care Teams Pleating Supervisor Relationship Specialty Start Date End Date Elsewhere, Pcp PCP - General Internal Medicine 01/27/24 documented as of this encounter
--- OUTSIDE RECORDS SUMMARY | 2024-06-06 19:06 | XMS_ITS | Encounter Summary ---
Author Organization [facility] Address [address] [place] [address] Care Team Providers Care Telescope Operator Name Role Phone Elsewhere, Pcp Primary Care Provider Unavailabl e Encounter Details Date Type Department Care Team (Latest Contact Info) Description 05/26/2024 1:30 PM FOURDRINIER MACHINE TENDER - 05/26/2024 1:59 PM FOURDRINIER MACHINE TENDER Hospital Encounter Department of Radiation Oncology in [place], [place] [address] [place] [address] Antonette Schulte M.D. [address] [place] [address] Carlos Gibson RMelvinNMelvin 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) Social History Tobacco Use Types Packs/Day Years Used Date Smoking Tobacco: Never Smokeless Tobacco: Never Alcohol Use Standard Drinks/Week Comments Never 0 (1 standard drink = 0.6 oz pur e alcohol) [facility] Utilities Answer Date Recorded In [...] your living situation today? I have a [facility] place to live 02/04/2024 Comments Unknown Sex and Gender Information Value Date Recorded Sex Assigned at Female 01/30/2024 2:33 PM FOURDRINIER MACHINE TENDER Legal Sex Female 4:38 PM CDT Gender Identity Female 01/30/2024 2:33 PM FOURDRINIER MACHINE TENDER Sexual Orientation Straight 01/30/2024 2: 33 PM FOURDRINIER MACHINE TENDER documented as of this encounter Medications at [...] a day. 374 tablet 02/01/2024 8:48 PM FOURDRINIER MACHINE TENDER 02/01/2024 07/31/19 25 cholecalciferol, vitD3,/vit K2 (VITAMIN [...] CDT Comprehensive Visit Department of Neurology in [place], [place] [address] [place] [phone] Joanne Castro M.D., Ph.D. [address] [place] [phone] 06/12/2024 1:00 PM CDT Appointment Department of Radiation Oncology in [place], [place] [address] [place] [phone] Antonette Schulte M.D. [address] [place] [address] documented as of this encounter Visit Diagnoses Diagnosis Malignant Neoplasm Of Pancreas Head (HCC)- Primary documented in this encounter Administered Medications Inactive Administered Medications - up to 3 most recent administrations Medication Order MAR Action Action Date Dose Rate Site heparin flush 500-1,000 Units 500-1,000 Units, intra-catheter, During hospitalization, line care, Prior to discharge, Starting on Wed05/26/24 at 1417, For 1 dose, Implanted Vascular Access Device (IVAD) Venous Non-Valved: flush 5 mL (500 units) per port/lumen following saline flush prior to discharge. Given 05/26/2024 2:55 PM FOURDRINIER MACHINE TENDER 500 Units iohexoL 300 mg iodine/mL solution 1-200 mL (Omnipaque) 1-200 mL, intravenous, Once in imaging, contrast, Starting on Wed05/26/24 at 1416, For 1 dose, Intraprocedure (RAD), Administer 1-200 mL, dosing per medication reference document and per protocol. Given 05/26/2024 2:50 PM FOURDRINIER MACHINE TENDER 140 mL NaCl 0.9 % bolus 1-100 mL 1-100 mL, intravenous, at 1-100 mL/hr, Administer over 1 Hours, Once in imaging, other, Give per medication reference and protocol, Starting on Wed05/26/24 at 1416, For 1 dose, Intraprocedure (RAD) New Bag 05/26/2024 2:50 PM FOURDRINIER MACHINE TENDER 50 mL 100 mL/hr sodium chloride 0.9 % injection 10-20 mL 10-20 mL, intravenous, As needed, line care, Implanted Vascular Access Device (IVAD) Venous Non-Valved, Starting on Wed05/26/24 at 1417, Prior to and following infusion and between multiple consecutive infusions, flush 10 mL to each port/lumen. Given 05/26/2024 2:50 PM FOURDRINIER MACHINE TENDER 10 mL sodium chloride 0.9 % injection 10-20 mL 10-20 mL, intravenous, During hospitalization, line care, Prior to discharge, Starting on Wed05/26/24 at 1417, For 1 dose, Implanted Vascular Access Device (IVAD) Venous Non-Valved: Flush 10 mL per port/lumen followed by heparin flush prior to discharge. Given 05/26/2024 2:55 PM FOURDRINIER MACHINE TENDER 10 mL documented in this encounter Additional Health Concerns Infection Onset Date Last Indicated Resolved Time Protective Environment 02/08/2024 02/08/2024 documented as of this encounter Care Teams Telescope Operator Relationship Specialty Start Date End Date Elsewhere, Pcp PCP - General Internal Medicine 01/27/24 documented as of this encounter
--- OUTSIDE RECORDS SUMMARY | 2024-06-06 19:06 | XMS_ITS | Encounter Summary ---
Author Organization [facility] Address [address] [place] [address] Care Team Providers Care Cook Vegetable Name Role Phone Elsewhere, Pcp Primary Care Provider Unavailabl e Reason for Referral * Outpatient (Routine) - Closed Specialty Diagnoses / Procedures Referred By Contac t Referred To Contact Radiation Oncology Diagnoses Malignant Neoplasm Of Pancreas Head (HCC) Dana Guillen APRN, C.N.P., M.S. [address] [place] [address] Phone: tel: fax: [facility] Referral ID Status Reason Start Date Expiration Date Visits Re quested Visits Authorized [id number] Closed 05/10/2024 11/09/2025 1 1 ER MEAT Reason for Visit * Outpatient (Routine) - Closed Specialty Diagnoses / Procedures Referred By Contac t Referred To Contact Oncology Sanjeev Woods M.D., M.P.H. [facility] Referral ID Status Reason Start Date Expiration Date Visits Re quested Visits Authorized [id number] Closed 03/15/2024 09/14/2025 1 1 Encounter Details Date Type Department Care Team (Late st Contact Info) Description 05/10/2024 2:40 PM MOLDER MEAT Office Visit Department of Oncology in [place], [place] [address] [place] [address] Dana Guillen, SERGIO C.N.P., M.S. [address] [place] [address] 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) Social History Tobacco Use Types Packs/Day Years Used Date Smoking Tobacco: Never Smokeless Tobacco: Never Alcohol Use Standard Drinks/Week Comments Never 0 (1 standard drink = 0.6 oz pur e alcohol) [facility] Utilities Answer Date Recorded In the past 12 months has e [employer], gas, oil, or water [employer] threatened to shut off services in your [...] Sex Assigned at Female 01/30/2024 2:33 PM MOLDER MEAT Legal Sex Female 4:38 PM CDT Gender Identity Female 01/30/2024 2:33 PM MOLDER MEAT Sexual Orientation Straight 01/30/2024 2: 33 PM MOLDER MEAT documented as of this encounter Last Filed Vital Signs Vital Sign Reading Time Taken Comments Blood Pressure 156/66 05/10/2024 2:28 PM MOLDER MEAT Pulse 67 05/10/2024 2:28 PM MOLDER MEAT Temperature 37.4 C (99.3 F) 05/10/2024 2:25 PM MOLDER MEAT Respiratory Rate 16 05/10/2024 2:25 PM MOLDER MEAT Oxygen Saturation 97% 05/10/2024 2:25 PM MOLDER MEAT Inhaled Oxygen Concentration - - Weight 67.1 kg (147 lb 14.9 oz) 05/10/2024 2:25 PM MOLDER MEAT Height 155.2 cm (5' 1.1) 05/10/2024 2:25 PM MOLDER MEAT Body Mass Index 27.86 05/10/2024 2:25 PM MOLDER MEAT documented in this encounter Progress Notes * Dana Guillen, SERGIO, C.N.P., M.S. - 05/10/2024 2:40 PM CST SUBJECTIVE PRIMARY CARE PHYSICIAN ELSEWHERE, PCP LOCAL ONCOLOGIST No care fast food team member to display PRIMARY MCFARLAN ONCOLOGIST Sanjeev Woods M.D., M.P.H. CHIEF COMPLAINT [...] in December, both at a hospital in [place], [place]. She has had a persistent cough [...] treatments. She would like that administered in [place]. Would recommend using capecitabine to enhance efficacy. [...] to face andface to face patient care. ER MEAT documented in this encounter Plan of Treatment Upcoming Encounters Date Type Department Care Team (Late st Contact Info) Description 06/09/2024 8:00 AM CDT Comprehensive Visit Department of Neurology in [place], [place] [address] [place] [phone] Joanne Castro M.D., Ph.D. [address] [place] [phone] 06/12/2024 1:00 PM CDT Appointment Department of Radiation Oncology in [place], [place] [address] [place] [phone] Antonette Schulte M.D. [address] [place] [phone] Scheduled Referrals Name Type Priority Associated Diagnoses [...] documented as of this encounter Care Teams Cook Vegetable Relationship Specialty Start Date End Date Elsewhere, Pcp PCP - General Internal Medicine 01/27/24 documented as of this encounter
--- OUTSIDE RECORDS SUMMARY | 2024-06-06 19:06 | XMS_ITS | Encounter Summary ---
Author Organization [facility] Address [address] [place] [address] Care Team Providers Care Claim Taker Name Role Phone Elsewhere, Pcp Primary Care Provider Unavailabl e Encounter Details Date Type Department Care Team (Late st Contact Info) Description 05/15/2024 Orders Only Department of Radiation Oncology in [place], [place] [address] [place] [phone] Antonette Schulte M.D. [address] [place] [address] 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) Social History Tobacco Use Types Packs/Day Years Used Date Smoking Tobacco: Never Smokeless Tobacco: Never Alcohol Use Standard Drinks/Week Comments Never 0 (1 standard drink = 0.6 oz pur e alcohol) [facility] Utilities Answer Date Recorded In the past 12 months has e [employer], gas, oil, or water company threatened to [...] your living situation today? I have a [facility] place to live 02/04/2024 Comments Unknown Sex and Gender Information Value Date Recorded Sex Assigned at Female 01/30/2024 2:33 PM BALANCE SHEET ANALYST Legal Sex Female 4:38 PM CDT Gender Identity Female 01/30/2024 2:33 PM BALANCE SHEET ANALYST Sexual Orientation Straight 01/30/2024 2: 33 PM BALANCE SHEET ANALYST documented as of this encounter Plan of Treatment Upcoming Encounters Date Type Department Care Team (Late st Contact Info) Description 06/09/2024 8:00 AM CDT Comprehensive Visit Department of Neurology in [place], [place] [address] [place] [address] Joanne Castro M.D., Ph.D. [address] [place] [address] 06/12/2024 1:00 PM CDT Appointment Department of Radiation Oncology in [place], [place] [address] [place] [address] Antonette Schulte M.D. [address] [place] [address] Scheduled Orders Name Type Priority Associated Diagnoses [...] documented as of this encounter Care Teams Claim Taker Relationship Specialty Start Date End Date Elsewhere, Pcp PCP - General Internal Medicine 01/27/24 documented as of this encounter
--- OUTSIDE RECORDS SUMMARY | 2024-06-06 19:06 | XMS_ITS | Encounter Summary ---
Author Organization [facility] Address [address] [place] [address] Care Team Providers Care Citizenship Teacher Name Role Phone Elsewhere, Pcp Primary Care Provider Unavailabl e Encounter Details Date Type Department Care Team (Late st Contact Info) Description 05/09/2024 2:40 PM SOAKER MEAT Lab Department of Infusion Therapy in [place], [place] [address] [place] [address] Sanjeev Woods M.D., M.P.H. 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) Social History Tobacco Use Types Packs/Day Years Used Date Smoking Tobacco: Never Smokeless Tobacco: Never Alcohol Use Standard Drinks/Week Comments Never 0 (1 standard drink = 0.6 oz pur e alcohol) [facility] Utilities Answer Date Recorded In [...] your living situation today? I have a [facility] place to live 02/04/2024 Comments Unknown Sex and Gender Information Value Date Recorded Sex Assigned at Female 01/30/2024 2:33 PM SOAKER MEAT Legal Sex Female 4:38 PM CDT Gender Identity Female 01/30/2024 2:33 PM SOAKER MEAT Sexual Orientation Straight 01/30/2024 2: 33 PM SOAKER MEAT documented as of this encounter Plan of Treatment Upcoming Encounters Date Type Department Care Team (Late st Contact Info) Description 06/09/2024 8:00 AM CDT Comprehensive Visit Department of Neurology in [place], [place] [address] [place] [address] Joanne Castro M.D., Ph.D. [address] [place] [address] 06/12/2024 1:00 PM CDT Appointment Department of Radiation Oncology in [place], [place] [address] [place] [phone] Antonette Schulte M.D. [address] [place] [address] documented as of this encounter Procedures Procedure Name Priority Date/Time Associated Diagnosis Comments CARBOHYDRATE AG 19-9 (CA 19-9), S Routine 05/09/2024 2:59 PM SOAKER MEAT Malignant Neoplasm Of Pancreas Head (HCC) CBC WITH DIFFERENTIAL, B Routine 05/09/2024 2:59 PM SOAKER MEAT Malignant Neoplasm Of Pancreas Head (HCC) COMPREHENSIVE METABOLIC PANEL, S/P Routine 05/09/2024 2:59 PM SOAKER MEAT Malignant Neoplasm Of Pancreas Head (HCC) documented in this encounter Results * (ABNORMAL) Carbohydrate Antigen 19-9 (CA 19-9) (05/09/2024 2:59 PM SOAKER MEAT) Pathologist [facility] Carbohydrate Ag 19-9, S 1313(H) <35 U/mL 05/09/2024 8:43 PM SOAKER MEAT [facility] Comment: ----ADDITIONAL INFORMATION---- The testing method is an immunoenzymatic assay manufactured by [employer]. and performed on the [employer] DxI 800. Values obtained with different assay methods or kits may be different and cannot be used interchangeably. Test results cannot be interpreted as absolute evidence for the presence or absence of malignant disease. Blood (Blood, Venous) 05/09/2024 2:59 PM SOAKER MEAT 05/09/2024 7:51 PM SOAKER MEAT Sanjeev Woods M.D., M.P.H. LAB BLOOD ADD-ON F inal Result [facility] [address] [place] [address] [facility] [address] [place] [address] * (ABNORMAL) Comprehensive Metabolic Panel (05/09/2024 2:59 PM SOAKER MEAT) Pathologist [facility] Potassium, S 3.9 3.6 - 5.2 mmol/L 05/09/2024 4:05 PM SOAKER MEAT DTL Sodium, S 137 135 - 145 mmol/L 05/09/2024 4:05 PM SOAKER MEAT DTL Chloride, S 101 98 - 107 mmol/L 05/09/2024 4:05 PM SOAKER MEAT DTL Bicarbonate, S 27 22 - 29 mmol/L 05/09/2024 4:05 PM SOAKER MEAT DTL Anion Gap 9 7 - 15 05/09/2024 4:05 PM SOAKER MEAT DTL BUN (Blood Urea Nitrogen), S 18 6 - 21 mg/dL 05/09/2024 4:05 PM SOAKER MEAT DTL Creatinine 0.79 0.59 - 1.04 mg/dL 05/09/2024 4:05 PM SOAKER MEAT DTL Estimated GFR (eGFR) 74 >=60 mL/min/BS A 05/09/2024 4:05 PM SOAKER MEAT DTL Comment: Estimated GFR calculated using the 2020 CKD_EPI creatinine equation. Calcium, Total, S 8.4(L) 8.8 - 10.2 mg/dL 05/09/2024 4:05 PM SOAKER MEAT DTL Glucose, S 200(H) 70 - 140 mg/dL 05/09/2024 4:05 PM SOAKER MEAT DTL Protein, Total, S 6.2(L) 6.3 - 7.9 g/dL 05/09/2024 4:05 PM SOAKER MEAT DTL Albumin, S 3.1(L) 3.5 - 5.0 g/dL 05/09/2024 4:05 PM SOAKER MEAT DTL Aspartate Aminotransferase (AST), S 29 8 - 43 U/L 05/09/2024 4:05 PM SOAKER MEAT DTL Alkaline Phosphatase, S 128(H) 35 - 104 U/L 05/09/2024 4:05 PM SOAKER MEAT DTL Alanine Aminotransferase (ALT), S 25 7 - 45 U/L 05/09/2024 4:05 PM SOAKER MEAT DTL Bilirubin, Total, S 0.4 0.0 - 1.2 mg/dL 05/09/2024 4:05 PM SOAKER MEAT DTL Blood (Blood, Venous) 05/09/2024 2:59 PM SOAKER MEAT 05/09/2024 3:42 PM SOAKER MEAT us Sanjeev Woods M.D., M.P.H. LAB BLOOD ADD-ON F inal Result [facility] [address] [place] [id number], [facility] DTL [facility] [address] [place] [address] * (ABNORMAL) CBC with Differential, Blood (05/09/2024 2:59 PM SOAKER MEAT) Hemoglobin 8.4(L) 11.6 - 15.0 g/dL 05/09/2024 3:43 PM SOAKER MEAT DTL Hematocrit 26.5(L) 35.5 - 44.9 % 05/09/2024 3:43 PM SOAKER MEAT DTL Erythrocytes 2.96(L) 3.92 - 5.13 x10(12)/L 05/09/2024 3:43 PM SOAKER MEAT DTL MCV 89.5 78.2 - 97.9 fL 05/09/2024 3:43 PM SOAKER MEAT DTL RBC Distrib Width 15.9 12.2 - 16.1 % 05/09/2024 3:43 PM SOAKER MEAT DTL Platelet Count 104(L) 157 - 371 x10(9)/L 05/09/2024 4:38 PM SOAKER MEAT DTL Leukocytes 7.2 3.4 - 9.6 x10(9)/L 05/09/2024 4:38 PM SOAKER MEAT DTL Neutrophils 4.65 1.56 - 6.45 x10(9)/L 05/09/2024 3:43 PM SOAKER MEAT [facility] Lymphocytes 1.80 0.95 - 3.07 x10(9)/L 05/09/2024 3:43 PM SOAKER MEAT DTL Monocytes 0.45 0.26 - 0.81 x10(9)/L 05/09/2024 3:43 PM SOAKER MEAT DTL Eosinophils 0.25 0.03 - 0.48 x10(9)/L 05/09/2024 3:43 PM SOAKER MEAT DTL Basophils <0.03 0.01 - 0.08 x10(9)/L 05/09/2024 3:43 PM SOAKER MEAT DTL Blood (Blood, Venous) 05/09/2024 2:59 PM SOAKER MEAT 05/09/2024 3:32 PM SOAKER MEAT us Sanjeev Woods M.D., M.P.H. LAB BLOOD ADD-ON F inal Result [facility] [address] [place] [address], [place] DTL [facility] [address] [place] [address] [facility] [address] [place] [address] documented in this encounter Visit Diagnoses Diagnosis [...] Pancreas Head (HCC) Given 05/09/2024 3:05 PM SOAKER MEAT 500 Units sodium chloride 0.9 % injection 10-20 mL 10-20 mL, intra-catheter, As needed, line care, Starting on Wed05/09/24 at 1504, When IVAD accessed and infusing: Flush prior to and following infusion, between multiple consecutive infusions. 10 mL to each port/lumen.Indications:Malignan t Neoplasm Of Pancreas Head (HCC) Given 05/09/2024 3:05 PM SOAKER MEAT 20 mL documented in this encounter Additional Health Concerns Infection Onset Date Last Indicated Resolved Time Protective Environment 02/08/2024 02/08/2024 documented as of this encounter Care Teams Citizenship Teacher Relationship Specialty Start Date End Date Elsewhere, Pcp PCP - General Internal Medicine 01/27/24 documented as of this encounter
[2024-06-06 19:14] VITALS: BP 175/69; PULSE 70; RESP 18; TEMP 37.2; O2SAT 94; BMI 27.8
[2024-06-06 19:32] LABS: Bilirubin Urine Negative (Negative); Blood Urine 3+ (Negative); Glucose Urine Trace (Negative); Ketones Urine Negative (Negative); Leukocyte Esterase Urine Trace (Negative); Nitrite Urine Negative (Negative); Protein Urine 3+ (Negative)
[2024-06-06 19:37] LABS: Appearance Urine Slightly Cloudy (Clear); Color Urine Yellow (Yellow)
[2024-06-06 20:27] LABS: Bacteria Urine Few; Squamous Epithelial Cell Urine Few (None-Few)
[2024-06-06 21:42] VITALS: BP 195/89; PULSE 66; RESP 18; O2SAT 93
[2024-06-06 22:50] VITALS: O2SAT 96
[2024-06-06] MEDS: 0.9 % SODIUM CHLORIDE 1000 ml 1,000 ML IV (22:52)
[2024-06-06] MEDS: MORPHINE 4 MG/ML INJ IVP (22:52)
[2024-06-06 22:55] LABS: PCR FLU A Negative PCR FLU A (Negative); PCR FLU B Negative PCR FLU B (Negative); PCR RSV Negative PCR RSV (Negative); SARS PCR* Negative SARS-CoV-2 (Negative)
[2024-06-06 23:23] LABS: Lactate Sepsis w/Reflex* 1.4 mmol/L (0.5-1.9)
--- OUTSIDE RECORDS SUMMARY | 2024-06-06 23:29 | XMS_ITS | Encounter Summary ---
Author Organization [facility] Address [address] [place] [phone] Care Team Providers Care Studio Data Analyst Name Role Phone Elsewhere, Pcp Primary Care Provider Unavailabl e Reason for Referral * Outpatient (Routine) - Closed Specialty Diagnoses / Procedures Referred By Contac t Referred To Contact Radiation Oncology Diagnoses Malignant Neoplasm Of Pancreas Head (HCC) Dana Guillen APRN, C.N.P., M.S. [address] [place] [phone] Phone: tel: fax: [facility] Referral ID Status Reason Start Date Expiration Date Visits Re quested Visits Authorized [id number] Closed 05/10/2024 11/09/2025 1 1 NEL DEVELOPMENT DIRECTOR Reason for Visit * Outpatient (Routine) - Closed Specialty Diagnoses / Procedures Referred By Contac t Referred To Contact Radiation Oncology Diagnoses Malignant Neoplasm Of Pancreas Head (HCC) Dana Guillen APRN, C.N.P., M.S. [address] [place] [phone] Phone: tel: fax: [facility] Referral ID Status Reason Start Date Expiration Date Visits Re quested Visits Authorized [id number] Closed 05/10/2024 11/09/2025 1 1 Encounter Details Date Type Department Care Team (Latest Contact Info) Description 05/26/2024 11:33 AM CHANNEL DEVELOPMENT DIRECTOR - 05/26/2024 1:29 PM CHANNEL DEVELOPMENT DIRECTOR Hospital Encounter Department of Radiation Oncology in [place], [place] [address] [place] [phone] Antonette Schulte M.D. [address] [place] [address] Malignant Neoplasm Of Pancreas Head (HCC) Social History Tobacco Use Types Packs/Day Years Used Date Smoking Tobacco: Never Smokeless Tobacco: Never Alcohol Use Standard Drinks/Week Comments Never 0 (1 standard drink = 0.6 oz pur e alcohol) [facility] Utilities Answer Date Recorded In the past 12 months has e [employer], gas, oil, or water [employer] threatened to shut off services in your [...] your living situation today? I have a [facility] place to live 02/04/2024 Comments Unknown Sex and Gender Information Value Date Recorded Sex Assigned at Female 01/30/2024 2:33 PM CHANNEL DEVELOPMENT DIRECTOR Legal Sex Female 4:38 PM CDT Gender Identity Female 01/30/2024 2:33 PM CHANNEL DEVELOPMENT DIRECTOR Sexual Orientation Straight 01/30/2024 2: 33 PM CHANNEL DEVELOPMENT DIRECTOR documented as of this encounter Last Filed Vital Signs Vital Sign Reading Time Taken Comments Blood Pressure 185/74 05/26/2024 12:49 PM CHANNEL DEVELOPMENT DIRECTOR Pulse 77 05/26/2024 12:49 PM CHANNEL DEVELOPMENT DIRECTOR Temperature 35.9 C (96.7 F) 05/26/2024 12:49 PM CHANNEL DEVELOPMENT DIRECTOR Respiratory Rate - - Oxygen Saturation - - Inhaled Oxygen Concentration - - Weight 68.7 kg (151 lb 7.3 oz) 05/26/2024 12:49 PM CHANNEL DEVELOPMENT DIRECTOR Height - - Body Mass Index 28.52 05/10/2024 2:25 PM CHANNEL DEVELOPMENT DIRECTOR documented in this encounter Medications at Time [...] a day. 374 tablet 02/01/2024 8:48 PM CHANNEL DEVELOPMENT DIRECTOR 02/01/2024 07/31/19 25 cholecalciferol, vitD3,/vit K2 (VITAMIN [...] Carrillo is a 83 y.o.-year-old female from [place], [place], who presents to the Department ofRadiation [...] FINAL DIAGNOSIS Pancreas, Head, Mass, fine-needle biopsy ([id number]; 12/17/2023): Invasive moderately differentiated adenocarcinoma. 01/02/2024 Critical [...] the common bile duct. 01/07/2024 Critical Imaging [place] Interpretation of PET-CT Impression: 1. Large moderately [...] set up. Referral to Radiation Oncology in [place]. Follow-up one month after radiation. 05/15/2024 - [...] chemotherapy on 01/13/2024 while still residing in [place]. She has transferred care to [facility] and is receiving chemotherapy with Gemcitabine and Abraxane at the [facility] with Dr. Sr. She reports a total [...] of our Medical Oncology colleagues, both at [facility] and at the [facility]. Surgical intervention has not been recommended, thus, [...] Mother Chase Salazar Coronary artery disease Father [place] Martin Cosigned by Antonette Schulte M.D. at 05/26/2024 3:12 PM CHANNEL DEVELOPMENT DIRECTOR NEL DEVELOPMENT DIRECTOR NEL DEVELOPMENT DIRECTOR Associated attestation - Antonette Schulte M.D. - 05/26/2024 3:12 PM CHANNEL DEVELOPMENT DIRECTOR RADIATION ONCOLOGY CONSULT I saw and evaluated [...] We discussed the acute as well as termite control technician risks from EBRT, including, but not limited to fatigue,nausea/vomiting, diarrhea, bowel/bladder changes (including small bowel obstruction and bowel changes), skin changes, chronic changes in bowel function and small risks for kidney or bone damage or secondary malignacies. They understood and their questions were answered. She wished to proceed with treatment. We tentatively plan on delivering 1300-5021/3750 cGy in 15 fractions starting June 05, [...] CDT Comprehensive Visit Department of Neurology in [place], [place] [address] [place] [phone] Joanne Castro M.D., Ph.D. [address] [place] [phone] 06/12/2024 1:00 PM CDT Appointment Department of Radiation Oncology in [place], [place] [address] [place] [address] Antonette Schulte M.D. [address] [place] [phone] Scheduled Referrals Name Type Priority Associated Diagnoses [...] documented as of this encounter Care Teams Studio Data Analyst Relationship Specialty Start Date End Date Elsewhere, Pcp PCP - General Internal Medicine 01/27/24 documented as of this encounter
--- OUTSIDE RECORDS SUMMARY | 2024-06-06 23:29 | XMS_ITS | Encounter Summary ---
Author Organization [facility] Address [address] [place] [address] Care Team Providers Care Janitorial Supervisor Name Role Phone Elsewhere, Pcp Primary Care Provider Unavailabl e Reason for Referral * Radiation Therapy (Routine) - Authorized Specialty Diagnoses / Procedures Referred By Leann joseph Referred To Contact Diagnoses Malignant Neoplasm Of Pancreas Head (HCC) Procedures Initial Rad Onc Treatment Planning CT Simulation Initial Rad Onc Treatment Planning CT Simulation MS IMRT RADIOTHERAPY PLAN Aidan Estrada M.D. [address] [place] [address] Phone: tel: fax: [facility] Region Referral ID Status Reason Start Date Expiration Date V isits Requested Visits Authorized [id number] Authorized 05/16/2024 08/16/2025 2 2 ENT MANAGER Reason for Visit * Radiation Therapy (Routine) - Authorized Specialty Diagnoses / Procedures Referred By Leann joseph Referred To Contact Diagnoses Malignant Neoplasm Of Pancreas Head (HCC) Procedures Initial Rad Onc Treatment Planning CT Simulation Initial Rad Onc Treatment Planning CT Simulation MS IMRT RADIOTHERAPY PLAN Aidan Estrada M.D. [address] [place] [address] Phone: tel: fax: [facility] Region Referral ID Status Reason Start Date Expiration Date V isits Requested Visits Authorized [id number] Authorized 05/16/2024 08/16/2025 2 2 Encounter Details Date Type Department Care Team (Latest Contact Info) Description 05/26/2024 2:00 PM CONTENT MANAGER - 05/26/2024 3:13 PM CONTENT MANAGER Hospital Encounter Department of Radiation Oncology in [place], [place] [address] [place] [phone] Aidan Estrada M.D. [address] [place] [phone] Antonette Schulte M.D. [address] [place] [phone] Malignant Neoplasm Of Pancreas Head (HCC) Social History Tobacco Use Types Packs/Day Years Used Date Smoking Tobacco: Never Smokeless Tobacco: Never Alcohol Use Standard Drinks/Week Comments Never 0 (1 standard drink = 0.6 oz pur e alcohol) [facility] Utilities Answer Date Recorded In the past 12 months has th e [employer], gas, oil, or water [employer] threatened to shut off services in your [...] your living situation today? I have a [facility] place to live 02/04/2024 Comments Unknown Sex and Gender Information Value Date Recorded Sex Assigned at Female 01/30/2024 2:33 PM CONTENT MANAGER Legal Sex Female 4:38 PM CDT Gender Identity Female 01/30/2024 2:33 PM CONTENT MANAGER Sexual Orientation Straight 01/30/2024 2: 33 PM CONTENT MANAGER documented as of this encounter Medications [...] a day. 374 tablet 02/01/2024 8:48 PM CONTENT MANAGER 02/01/2024 07/31/19 25 cholecalciferol, vitD3,/vit K2 [...] imaging was appropriate and completed without incident. Dairy Processing Supervisor use:No Cosigned by Antonette Schulte M.D. at 05/26/2024 3:13 PM CONTENT MANAGER ENT MANAGER ENT MANAGER Associated attestation - Antonette Schulte M.D. - 05/26/2024 3:13 PM CONTENT MANAGER I was present during all critical and meyer portions of the procedure(s) and immediately available surgical specialty center services the entire duration. See note for details. documented in this encounter Plan of Treatment Upcoming Encounters Date Type Department Care Team (Late st Contact Info) Description 06/09/2024 8:00 AM CDT Comprehensive Visit Department of Neurology in [place], [place] [address] [place] [address] Joanne Castro M.D., Ph.D. [address] [place] [address] 06/12/2024 1:00 PM CDT Appointment Department of Radiation Oncology in [place], [place] [address] [place] [phone] Antonette Schulte M.D. [address] [place] [phone] documented as of this encounter Procedures Procedure Name Priority Date/Time Associated Diagnosis Comments INITIAL RAD ONC TREATMENT PLANNING CT SIMULATION Routine 05/26/2024 2:00 PM CONTENT MANAGER Malignant Neoplasm Of Pancreas Head (HCC) documented in this encounter Results * Initial Rad Onc Treatment Planning CT Simulation (05/26/2024 2:00 PM CONTENT MANAGER) Narrative JUDAH NAVARRETE - 05/26/2024 2:00 PM CONTENT MANAGER Antonette Schulte M.D. 05/26/2024 3:13 PM [...] documented as of this encounter Care Teams Janitorial Supervisor Relationship Specialty Start Date End Date Elsewhere, Pcp PCP - General Internal Medicine 01/27/24 documented as of this encounter
--- OUTSIDE RECORDS SUMMARY | 2024-06-06 23:29 | XMS_ITS ---
Author Organization [facility] Address [address] [place] [address] Care Team Providers Care Analytical Data Miner Name Role Phone Elsewhere, Pcp Primary Care [...]
--- OUTSIDE RECORDS SUMMARY | 2024-06-06 23:29 | XMS_ITS | Encounter Summary ---
Author Organization [facility] Address [address] [place] [address] Care Team Providers Care Assistant Inventory Manager Name Role Phone Elsewhere, Pcp Primary Care Provider Unavailabl e Reason for Referral * Outpatient (Routine) - Closed Specialty Diagnoses / Procedures Referred By Leann joseph Referred To Contact General Surgery Diagnoses Malignant Neoplasm Of Pancreas (HCC) Ricky Schaefer M.D., Ph.D. [address] [place] [phone] Phone: tel: fax: [facility] Referral ID Status Reason Start Date Expiration Date Visits Re quested Visits Authorized [id number] Closed 01/11/2024 07/12/2025 1 1 * MRI/CAT/PET Scan (Routine) - Closed Specialty Diagnoses / Procedures Referred By Leann joseph Referred To Contact Radiology Diagnoses Malignant Neoplasm Of Pancreas (HCC) Procedures CT Pancreas Angiogram Triple Phase and Pelvis with IV Contrast Ricky Schaefer M.D., Ph.D. [address] [place] [phone] Phone: tel: fax: [facility] Referral ID Status Reason Start Date Expiration Date Visits Re quested Visits Authorized [id number] Closed 01/14/2024 01/13/2025 1 1 * MRI/CAT/PET Scan (Routine) - Closed Specialty Diagnoses / Procedures Referred By Contac t Referred To Contact Radiology Diagnoses Malignant Neoplasm Of Pancreas (HCC) Procedures CT Chest with IV Contrast Sanjeev Woods M.D., M.P.H. [facility] Referral ID Status Reason Start Date Expiration Date Visits Re quested Visits Authorized [id number] Closed 01/14/2024 01/13/2025 1 1 Encounter Details Date Type Department Care Team (Late st Contact Info) Description 12/29/2023 Orders Only Department of Oncology in [place], [place] [address] [place] [phone] [facility], ProviderMD Malignant Neoplasm Of Pancreas (HCC) Social History Tobacco Use Types Packs/Day Years Used Date Smoking Tobacco: Never Assessed Dental Answer Date Recorded Dental: Regular Dentist Unknown 12/28/19 24 Comments Unknown Sex and Gender Information Value Date Recorded Sex Assigned at Female 01/30/2024 2:33 PM UPSET WELDING MACHINE OPERATOR Legal Sex Female 4:38 PM CDT Gender Identity Female 01/30/2024 2:33 PM UPSET WELDING MACHINE OPERATOR Sexual Orientation Straight 01/30/2024 2: 33 PM UPSET WELDING MACHINE OPERATOR documented as of this encounter Plan of Treatment Upcoming Encounters Date Type Department Care Team (Late st Contact Info) Description 06/09/2024 8:00 AM CDT Comprehensive Visit Department of Neurology in [place], [place] [address] [place] [phone] Joanne Castro M.D., Ph.D. [address] [place] [phone] 06/12/2024 1:00 PM CDT Appointment Department of Radiation Oncology in [address] [phone] Antonette Schulte M.D. [address] [place] [address] Scheduled Referrals Name Type Priority Associated Diagnoses Order Schedule General Surgery - Pancreas consult (clinic) Outpatient Referral Routine Malignant Neoplasm Of Pancreas (HCC) 1 Occurrences starting 01/11/2024 until 04/12/2025 documented as of this encounter Results * CT Pancreas Angiogram Triple Phase and Pelvis with IV Contrast (02/01/2024 1:34 PM UPSET WELDING MACHINE OPERATOR) Anatomical Region Laterality Modality Abdomen, Pelvis, Abdominal R ST LOS, Abdominal ARZ LOS, Vascular Interventional ARZ LOS, Vascular Interventional FLA LOS, Abdominal FLA LOS N/A Computed Tomography, Compute d Tomography 02/01/2024 1:23 PM UPSET WELDING MACHINE OPERATOR Impressions 02/01/2024 4:15 PM UPSET WELDING MACHINE OPERATOR Tumor: Ill-defined hypoattenuated mass in the pancreatic head/neck. Vascular contact: Present, involving the SMA, TRE, GDA, main portal vein, SMV, splenic vein Metastasis: Mesenteric lymph node contacting the SMA and SMV Narrative 02/01/2024 4:15 PM UPSET WELDING MACHINE OPERATOR EXAM: CT PANCREAS ANGIOGRAM TRIPLE PHASE AND [...] Peritoneum/Omentum: Absent Ascites: Absent Suspicious lymph nodes: [place]-regional: Enlarged mesenteric lymph node with ill-defined margins, [...] Peritoneum/Omentum: Absent Ascites: Absent Suspicious lymph nodes: [place]-regional: Enlarged mesenteric lymph node with ill-defined margins,contacting [...] Chest with IV Contrast (02/01/2024 1:34 PM UPSET WELDING MACHINE OPERATOR) Anatomical Region Laterality Modality Chest, Thoracic RST LOS, Tho racic ARZ LOS, Thoracic ARZ LOS, Thoracic FLA LOS N/A Computed Tomography, Compute d Tomography 02/01/2024 1:25 PM UPSET WELDING MACHINE OPERATOR Impressions 02/01/2024 2:38 PM UPSET WELDING MACHINE OPERATOR 1. Acute pulmonary embolism in segmental and subsegmental pulmonary arteries in posterior lower lobes. No right heart strain. 2. Stable 5 mm nodule in right lower lobe. 3. Stable mild enlargement of mediastinal lymph nodes. Narrative 02/01/2024 2:38 PM UPSET WELDING MACHINE OPERATOR EXAM: CT CHEST WITH IV CONTRAST [...] PM on 02/01/2024. Procedure Note Gaudencio Ferreira M.B.B.SMelvin, M.D. - 11/05/2024 EXAM: CT CHEST WITH IV CONTRAST 3D [...] (ABNORMAL) CEA (Carcinoembryonic Antigen) (02/01/2024 11:26 AM UPSET WELDING MACHINE OPERATOR) Carcinoembryonic Ag (CEA), S 30.5(H) ng/mL 02/01/2024 5:52 PM UPSET WELDING MACHINE OPERATOR [facility] Comment: ----REFERENCE VALUE---- <=3.0 (Non-smokers) Some smokers may have elevated CEA, usually <5.0. ----ADDITIONAL INFORMATION---- The testing method is an immunoenzymatic assay manufactured by [employer] and performed on the TOTEMS (formerly Nitrogram) DxI 800. Values obtained with different assay methods or kits may be different and cannot be used interchangeably. Test results cannot be interpreted as absolute evidence for the presence or absence of malignant disease. Blood (Blood, Venous) 02/01/2024 11:26 AM UPSET WELDING MACHINE OPERATOR 02/01/2024 5:03 PM UPSET WELDING MACHINE OPERATOR Sanjeev Woods M.D., M.P.H. LAB BLOOD ADD-ON F inal Result Performing Organization Address [facility] de Phone Number [facility] [address] [place] [address] [place] [address] * (ABNORMAL) Carbohydrate Antigen 19-9 (CA 19-9) (02/01/2024 11:26 AM UPSET WELDING MACHINE OPERATOR) [facility] Carbohydrate Ag 19-9, S 5433(H) <35 U/mL 02/01/2024 6:24 PM UPSET WELDING MACHINE OPERATOR [facility] Comment: ----ADDITIONAL INFORMATION---- The testing method is an immunoenzymatic assay manufactured by [employer] and performed on the TOTEMS (formerly Nitrogram) DxI 800. Values obtained with different assay methods or kits may be different and cannot be used interchangeably. Test results cannot be interpreted as absolute evidence for the presence or absence of malignant disease. Blood (Blood, Venous) 02/01/2024 11:26 AM UPSET WELDING MACHINE OPERATOR 02/01/2024 5:03 PM UPSET WELDING MACHINE OPERATOR Sanjeev Woods M.D., M.P.H. LAB BLOOD ADD-ON F inal Result Performing Organization Address [facility] Co de Phone Number [facility] [address] [place] [address] [facility] [address] [place] [address] * (ABNORMAL) Comprehensive Metabolic Panel (02/01/2024 11:26 AM UPSET WELDING MACHINE OPERATOR) Potassium, S 5.0 3.6 - 5.2 mmol/L 02/01/2024 12:35 PM UPSET WELDING MACHINE OPERATOR DTL Sodium, S 135 135 - 145 mmol/L 02/01/2024 12:35 PM UPSET WELDING MACHINE OPERATOR DTL Chloride, S 100 98 - 107 mmol/L 02/01/2024 12:35 PM UPSET WELDING MACHINE OPERATOR DTL Bicarbonate, S 25 22 - 29 mmol/L 02/01/2024 12:35 PM UPSET WELDING MACHINE OPERATOR DTL Anion Gap 10 7 - 15 02/01/2024 12:35 PM UPSET WELDING MACHINE OPERATOR DTL BUN (Blood Urea Nitrogen), S 11 6 - 21 mg/dL 02/01/2024 12:35 PM UPSET WELDING MACHINE OPERATOR DTL Creatinine 0.51(L) 0.59 - 1.04 mg/dL 02/01/2024 12:35 PM UPSET WELDING MACHINE OPERATOR DTL Estimated GFR (eGFR) >90 >=60 mL/min/BS A 02/01/2024 12:35 PM UPSET WELDING MACHINE OPERATOR DTL Comment: Estimated GFR calculated using the 2020 CKD_EPI creatinine equation. Calcium, Total, S 8.8 8.8 - 10.2 mg/dL 02/01/2024 12:35 PM UPSET WELDING MACHINE OPERATOR DTL Glucose, S 227(H) 70 - 140 mg/dL 02/01/2024 12:35 PM UPSET WELDING MACHINE OPERATOR DTL Protein, Total, S 6.3 6.3 - 7.9 g/dL 02/01/2024 12:35 PM UPSET WELDING MACHINE OPERATOR DTL Albumin, S 3.5 3.5 - 5.0 g/dL 02/01/2024 12:35 PM UPSET WELDING MACHINE OPERATOR DTL Aspartate Aminotransferase (AST), S 23 8 - 43 U/L 02/01/2024 12:35 PM UPSET WELDING MACHINE OPERATOR DTL Alkaline Phosphatase, S 98 35 - 104 U/L 02/01/2024 12:35 PM UPSET WELDING MACHINE OPERATOR DTL Alanine Aminotransferase (ALT), S 25 7 - 45 U/L 02/01/2024 12:35 PM UPSET WELDING MACHINE OPERATOR DTL Bilirubin, Total, S 0.3 0.0 - 1.2 mg/dL 02/01/2024 12:35 PM UPSET WELDING MACHINE OPERATOR DTL Blood (Blood, Venous) 02/01/2024 11:26 AM UPSET WELDING MACHINE OPERATOR 02/01/2024 12:10 PM UPSET WELDING MACHINE OPERATOR Sanjeev Woods M.D., M.P.H. LAB BLOOD ADD-ON F inal Result [facility] [address] [place] [address], [facility] DTL [facility] [address] [place] [address] * (ABNORMAL) CBC with Differential, Blood (02/01/2024 11:26 AM UPSET WELDING MACHINE OPERATOR) Hemoglobin 8.9(L) 11.6 - 15.0 g/dL 02/01/2024 12:17 PM UPSET WELDING MACHINE OPERATOR DTL Hematocrit 27.4(L) 35.5 - 44.9 % 02/01/2024 12:17 PM UPSET WELDING MACHINE OPERATOR DTL Erythrocytes 3.05(L) 3.92 - 5.13 x10(12)/L 02/01/2024 12:17 PM UPSET WELDING MACHINE OPERATOR DTL MCV 89.8 78.2 - 97.9 fL 02/01/2024 12:17 PM UPSET WELDING MACHINE OPERATOR DTL RBC Distrib Width 14.1 12.2 - 16.1 % 02/01/2024 12:17 PM UPSET WELDING MACHINE OPERATOR DTL Platelet Count 233 157 - 371 x10(9)/L 02/01/2024 12:17 PM UPSET WELDING MACHINE OPERATOR DTL Leukocytes 3.6 3.4 - 9.6 x10(9)/L 02/01/2024 12:17 PM UPSET WELDING MACHINE OPERATOR DTL Neutrophils 1.91 1.56 - 6.45 x10(9)/L 02/01/2024 12:17 PM UPSET WELDING MACHINE OPERATOR [facility] Lymphocytes 1.34 0.95 - 3.07 x10(9)/L 02/01/2024 12:17 PM UPSET WELDING MACHINE OPERATOR DTL Monocytes 0.21(L) 0.26 - 0.81 x10(9)/L 02/01/2024 12:17 PM UPSET WELDING MACHINE OPERATOR DTL Eosinophils 0.08 0.03 - 0.48 x10(9)/L 02/01/2024 12:17 PM UPSET WELDING MACHINE OPERATOR DTL Basophils <0.03 0.01 - 0.08 x10(9)/L 02/01/2024 12:17 PM UPSET WELDING MACHINE OPERATOR DTL Blood (Blood, Venous) 02/01/2024 11:26 AM UPSET WELDING MACHINE OPERATOR 02/01/2024 11:55 AM UPSET WELDING MACHINE OPERATOR Sanjeev Woods M.D., M.P.H. LAB BLOOD ADD-ON F inal Result [facility] [address] [place] [address], [facility] DTL [facility] [address] [place] [address] DHPM [facility] [address] [place] [address] documented in this encounter Visit Diagnoses Diagnosis Malignant Neoplasm Of Pancreas (HCC) Malignant Neoplasm Of Pancreas (HCC) documented in this encounter Additional Health Concerns Infection Onset Date Last Indicated Resolved Time Protective Environment 02/08/2024 02/08/2024 documented as of this encounter Care Teams Assistant Inventory Manager Relationship Specialty Start Date End Date Elsewhere, Pcp PCP - General Internal Medicine 01/27/24 documented as of this encounter
--- OUTSIDE RECORDS SUMMARY | 2024-06-06 23:29 | XMS_ITS | Encounter Summary ---
Author Organization [facility] Address [address] [place] [address] Care Team Providers Care Flash Designer Name Role Phone Elsewhere, Pcp Primary Care Provider Unavailabl e Encounter Details Date Type Department Care Team (Latest Contact Info) Description 05/26/2024 1:30 PM LODE MINER - 05/26/2024 1:59 PM LODE MINER Hospital Encounter Department of Radiation Oncology in [place], [place] [address] [place] [address] Antonette Schulte M.D. [address] [place] [address] Carlos Gibson RMelvinNMelvin 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) Social History Tobacco Use Types Packs/Day Years Used Date Smoking Tobacco: Never Smokeless Tobacco: Never Alcohol Use Standard Drinks/Week Comments Never 0 (1 standard drink = 0.6 oz pur e alcohol) [facility] Utilities Answer Date Recorded In [...] your living situation today? I have a [facility] place to live 02/04/2024 Comments Unknown Sex and Gender Information Value Date Recorded Sex Assigned at Female 01/30/2024 2:33 PM LODE MINER Legal Sex Female 4:38 PM CDT Gender Identity Female 01/30/2024 2:33 PM LODE MINER Sexual Orientation Straight 01/30/2024 2: 33 PM LODE MINER documented as of this encounter Medications at [...] a day. 374 tablet 02/01/2024 8:48 PM LODE MINER 02/01/2024 07/31/19 25 cholecalciferol, vitD3,/vit K2 (VITAMIN [...] CDT Comprehensive Visit Department of Neurology in [place], [place] [address] [place] [phone] Joanne Castro M.D., Ph.D. [address] [place] [phone] 06/12/2024 1:00 PM CDT Appointment Department of Radiation Oncology in [place], [place] [address] [place] [phone] Antonette Schulte M.D. [address] [place] [address] documented as of this encounter Visit Diagnoses [...] prior to discharge. Given 05/26/2024 2:55 PM LODE MINER 500 Units iohexoL 300 mg iodine/mL solution 1-200 mL (Omnipaque) 1-200 mL, intravenous, Once in imaging, contrast, Starting on Wed05/26/24 at 1416, For 1 dose, Intraprocedure (RAD), Administer 1-200 mL, dosing per medication reference document and per protocol. Given 05/26/2024 2:50 PM LODE MINER 140 mL NaCl 0.9 % bolus 1-100 mL 1-100 mL, intravenous, at 1-100 mL/hr, Administer over 1 Hours, Once in imaging, other, Give per medication reference and protocol, Starting on Wed05/26/24 at 1416, For 1 dose, Intraprocedure (RAD) New Bag 05/26/2024 2:50 PM LODE MINER 50 mL 100 mL/hr sodium chloride 0.9 % injection 10-20 mL 10-20 mL, intravenous, As needed, line care, Implanted Vascular Access Device (IVAD) Venous Non-Valved, Starting on Wed05/26/24 at 1417, Prior to and following infusion and between multiple consecutive infusions, flush 10 mL to each port/lumen. Given 05/26/2024 2:50 PM LODE MINER 10 mL sodium chloride 0.9 % injection 10-20 mL 10-20 mL, intravenous, During hospitalization, line care, Prior to discharge, Starting on Wed05/26/24 at 1417, For 1 dose, Implanted Vascular Access Device (IVAD) Venous Non-Valved: Flush 10 mL per port/lumen followed by heparin flush prior to discharge. Given 05/26/2024 2:55 PM LODE MINER 10 mL documented in this encounter Additional Health Concerns Infection Onset Date Last Indicated Resolved Time Protective Environment 02/08/2024 02/08/2024 documented as of this encounter Care Teams Flash Designer Relationship Specialty Start Date End Date Elsewhere, Pcp PCP - General Internal Medicine 01/27/24 documented as of this encounter
--- OUTSIDE RECORDS SUMMARY | 2024-06-06 23:29 | XMS_ITS | Clinical Summary ---
Author Organization [facility] Address [address] [place] [address] Care Team Providers Care Raw Material Planner Name Role Phone Elsewhere, Pcp Primary Care Provider Unavailabl e Source Comments Patient records contain information from all sites at [facility]. For routine questions regarding patient records, call [phone] during business hours, M-F 8:00 AM - 5:00 PM Central Time. Record requests for emergency care only can be directed to [phone] at any time.[facility] Allergies No known active allergies Medications [...] a day. 374 tablet 02/01/2024 8:48 PM GUILLOTINE OPERATOR 02/01/20 24 025 Active dexAMETHasone (Decadron) [...] Department Care Team Description 05/26/2024 2:00 PM GUILLOTINE OPERATOR - 05/26/2024 3:13 PM GUILLOTINE OPERATOR Hospital Encounter Department of Radiation Oncology in [address] [address] Aidan Estrada M.D. Garces, Yolanda I., M.D. Malignant Neoplasm Of Pancreas Head (HCC) 05/26/2024 1:30 PM GUILLOTINE OPERATOR - 05/26/2024 1:59 PM GUILLOTINE OPERATOR Hospital Encounter Department of Radiation Oncology in [address] [address] Antonette Schulte M.D. Moorhouse, Alexis E, RMelvinNMelvin 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) 05/26/2024 11:33 AM GUILLOTINE OPERATOR - 05/26/2024 1:29 PM GUILLOTINE OPERATOR Hospital Encounter Department of Radiation Oncology in [place], [place] [address] [place] [phone] Antonette Schulte M.D. Malignant Neoplasm Of Pancreas Head (HCC) 05/16/2024 Orders Only Department of Radiation Oncology in [address] [address] Joyce Kenyon P.A.-C., M.S. 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) 05/15/2024 Orders Only Department of Radiation Oncology in [address] [address] Antonette Schulte M.D. 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) 05/10/2024 2:40 PM GUILLOTINE OPERATOR Office Visit Department of Oncology in [address] [phone] Dana Guillen, SERGIO C.N.P., M.S. 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) 05/09/2024 3:11 PM GUILLOTINE OPERATOR - 05/09/2024 11:59 PM GUILLOTINE OPERATOR Hospital Encounter Department of Radiology, [facility], in [address] [address] Sanjeev Woods M.D., M.P.H. Malignant Neoplasm Of Pancreas Head (HCC) Discharge Disposition: Home or Self Care 05/09/2024 2:40 PM GUILLOTINE OPERATOR Lab Department of Infusion Therapy in [address] [address] Sanjeev Woods M.D., M.P.H. 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) 05/04/2024 2:00 PM GUILLOTINE OPERATOR Clinical Communication Virtual Review in [address] [address] Pre-visit Intake 03/15/2024 Orders Only Department of Oncology in [address] [phone] Sanjeev Woods M.D., M.P.H. 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) 03/15/2024 Clinical Communication Department of Oncology in [place], [place] [address] [place] [address] Sanjeev Woods M.D., M.P.H. Appointment 03/08/2024 8:55 AM GUILLOTINE OPERATOR - 03/08/2024 11:59 PM GUILLOTINE OPERATOR Hospital Encounter Department of Neurology in [place], [place] [address] [place] [address] Compa Arnold M.D. Foot Drop Left; Foot Drop Right Discharge Disposition: Home or Self Care from Last 3 Months Family History Medical History Relation Name Comments Coronary artery disease Father [place] Martin Diabetes Mother Chase Salazar Relation Name Status Comments Father Celso Salazar Alive Mother Chase Salazar Alive Social History Tobacco Use Types Packs/Day Years Used Date Smoking Tobacco: Never Smokeless Tobacco: Never Tobacco Cessation:Counseling Given: Not Answered Alcohol Use Standard Drinks/Week Comments Never 0 (1 standard drink = 0.6 oz pur e alcohol) [facility] Utilities Answer Date Recorded In the past 12 months has e electric, gas, oil, or water [employer] threatened to shut off services in your [...] your living situation today? I have a [facility] place to live 02/04/2024 Comments Unknown Sex and Gender Information Value Date Recorded Sex Assigned at Female 01/30/2024 2:33 PM GUILLOTINE OPERATOR Legal Sex Female 4:38 PM CDT Gender Identity Female 01/30/2024 2:33 PM GUILLOTINE OPERATOR Sexual Orientation Straight 01/30/2024 2: 33 PM GUILLOTINE OPERATOR Last Filed Vital Signs Vital Sign Reading Time Taken Comments Blood Pressure 185/74 05/26/2024 12:49 PM GUILLOTINE OPERATOR Pulse 77 05/26/2024 12:49 PM GUILLOTINE OPERATOR Temperature 35.9 C (96.7 F) 05/26/2024 12:49 PM GUILLOTINE OPERATOR Respiratory Rate 16 05/10/2024 2:25 PM GUILLOTINE OPERATOR Oxygen Saturation 97% 05/10/2024 2:25 PM GUILLOTINE OPERATOR Inhaled Oxygen Concentration - - Weight 68.7 kg (151 lb 7.3 oz) 05/26/2024 12:49 PM GUILLOTINE OPERATOR Height 155.2 cm (5' 1.1) 05/10/2024 2:25 PM GUILLOTINE OPERATOR Body Mass Index 28.52 05/10/2024 2:25 PM GUILLOTINE OPERATOR Plan of Treatment Upcoming Encounters Date Type Department Care Team (Late st Contact Info) Description 06/09/2024 8:00 AM CDT Comprehensive Visit Department of Neurology in [place], [place] [address] [place] [address] Joanne Castro M.D., Ph.D. [address] [place] [address] 06/12/2024 1:00 PM CDT Appointment Department of Radiation Oncology in [place], [place] [address] [place] [phone] Antonette Schulte M.D. [address] [place] [address] Health Maintenance Due Date Last Done Comments [...] this topic Medical Devices Implanted Type Area Apparel Sales Associate Device Identifier Shelf Expiration Date Model / Serial / Lot Cardiac Stent Cardiac Stent Heart Implantable Port-01/04/2024 Implanted:01/03 (Quantity not on file) Implantable Port Right: Chest Pacemaker-2018 Implanted:08/10 (Quantity not on file) Pacemaker Heart Medtronic [id number] / [id number] / Description:Placed in 9 Procedures Procedure Name Priority Date/Time Associated Diagnosis Comments INITIAL RAD ONC TREATMENT PLANNING CT SIMULATION Routine 05/26/2024 2:00 PM GUILLOTINE OPERATOR Malignant Neoplasm Of Pancreas Head (HCC) CT ABDOMEN PELVIS WITH IV CONTRAST RAD - Routine (most inpatients and all outpatients) 05/09/2024 4:43 PM GUILLOTINE OPERATOR Malignant Neoplasm Of Pancreas Head (HCC) CT CHEST WITH IV CONTRAST RAD - Routine (most inpatients and all outpatients) 05/09/2024 4:43 PM GUILLOTINE OPERATOR Malignant Neoplasm Of Pancreas Head (HCC) CREATININE, POCT, B Routine 05/09/2024 3 :38 PM GUILLOTINE OPERATOR CREATININE, POCT, B Routine 05/09/2024 3 :38 PM GUILLOTINE OPERATOR CARBOHYDRATE AG 19-9 (CA 19-9), S Routine 05/09/2024 2:59 PM GUILLOTINE OPERATOR Malignant Neoplasm Of Pancreas Head (HCC) COMPREHENSIVE METABOLIC PANEL, S/P Routine 05/09/2024 2:59 PM GUILLOTINE OPERATOR Malignant Neoplasm Of Pancreas Head (HCC) CBC WITH DIFFERENTIAL, B Routine 05/09/2024 2:59 PM GUILLOTINE OPERATOR Malignant Neoplasm Of Pancreas Head (HCC) EMG Routine 03/08/2024 8:55 AM GUILLOTINE OPERATOR Foot Drop Left Foot Drop Right from Last 3 Months Results * Initial Rad Onc Treatment Planning CT Simulation (05/26/2024 2:00 PM GUILLOTINE OPERATOR) Narrative JUDAH NAVARRETE - 05/26/2024 2:00 PM GUILLOTINE OPERATOR Antonette Schulte M.D. 05/26/2024 3:13 PM Initial Rad Onc Treatment Planning CT Simulation Performed by: Antonette Schulte M.D. Authorized by: Aidan Estrada M.D. us Aidan Estrada M.D. RADIATION ONCOLOGY ORDERAB LES Final Result JUDAH NAVARRETE na * CT Abdomen Pelvis with IV Contrast (05/09/2024 4:43 PM GUILLOTINE OPERATOR) Anatomical Region Laterality Modality Abdomen, Pelvis, Abdominal R ST LOS, Abdominal ARZ LOS, Abdominal FLA LOS N/A Computed Tomography 05/09/2024 5:53 PM GUILLOTINE OPERATOR Impressions 05/10/2024 7:21 AM GUILLOTINE OPERATOR Slight decrease size of pancreas head mass. Extensive vascular involvement persists. No new CT evidence of metastatic disease in the abdomen or pelvis. Narrative 05/10/2024 7:21 AM GUILLOTINE OPERATOR EXAM: CT ABDOMEN PELVIS WITH IV [...] Chest with IV Contrast (05/09/2024 4:43 PM GUILLOTINE OPERATOR) Anatomical Region Laterality Modality Chest, Thoracic RST LOS, Tho racic ARZ LOS, Thoracic ARZ LOS, Thoracic FLA LOS N/A Computed Tomography 05/09/2024 5:08 PM GUILLOTINE OPERATOR Impressions 05/10/2024 8:22 AM GUILLOTINE OPERATOR 1. New small bilateral pleural effusions with suspected pleural nodularities, indeterminate. Short-term follow-up CT can be considered. 2. New patchy groundglass opacities throughout the lungs could be due to infection/inflammation. 3. Stable 5 mm nodule in right lower lobe. 4. Stable mild enlargement of mediastinal lymph nodes. 5. Interval resolution of previously seen right lower lobe pulmonary emboli. Narrative 05/10/2024 8:22 AM GUILLOTINE OPERATOR EXAM: CT CHEST WITH IV CONTRAST [...] Result * Creatinine, POCT (05/09/2024 3:38 PM GUILLOTINE OPERATOR) Only the most recent of2 resultswithin the time period is included. Creatinine, POCT, B 0.8 0.6 - 1.0 mg/dL 05/09/2024 3:46 PM GUILLOTINE OPERATOR PCDT Comment: ----ADDITIONAL INFORMATION---- Performed at the Point of Care Blood 05/09/2024 3:38 PM GUILLOTINE OPERATOR 05/09/2024 3:46 PM GUILLOTINE OPERATOR us Unknown Provider LAB POCT ORDERABLES - DEVICE Fi nal Result [facility] [address] [place] [address], [facility] PCDT [facility] POC [address] [place] [address] * (ABNORMAL) Carbohydrate Antigen 19-9 (CA 19-9) (05/09/2024 2:59 PM GUILLOTINE OPERATOR) [facility] Carbohydrate Ag 19-9, S 1313(H) <35 U/mL 05/09/2024 8:43 PM GUILLOTINE OPERATOR [facility] Comment: ----ADDITIONAL INFORMATION---- The testing method is an immunoenzymatic assay manufactured by [employer] and performed on the [employer]ud[employer] DxI 800. Values obtained with different assay methods or kits may be different and cannot be used interchangeably. Test results cannot be interpreted as absolute evidence for the presence or absence of malignant disease. Blood (Blood, Venous) 05/09/2024 2:59 PM GUILLOTINE OPERATOR 05/09/2024 7:51 PM GUILLOTINE OPERATOR Sanjeev Woods M.D., M.P.H. LAB BLOOD ADD-ON F inal Result [facility] [address] [place] [address] [facility] [address] [place] [address] * (ABNORMAL) CBC with Differential, Blood (05/09/2024 2:59 PM GUILLOTINE OPERATOR) [facility] Hemoglobin 8.4(L) 11.6 - 15.0 g/dL 05/09/2024 3:43 PM GUILLOTINE OPERATOR DTL Hematocrit 26.5(L) 35.5 - 44.9 % 05/09/2024 3:43 PM GUILLOTINE OPERATOR DTL Erythrocytes 2.96(L) 3.92 - 5.13 x10(12)/L 05/09/2024 3:43 PM GUILLOTINE OPERATOR DTL MCV 89.5 78.2 - 97.9 fL 05/09/2024 3:43 PM GUILLOTINE OPERATOR DTL RBC Distrib Width 15.9 12.2 - 16.1 % 05/09/2024 3:43 PM GUILLOTINE OPERATOR DTL Platelet Count 104(L) 157 - 371 x10(9)/L 05/09/2024 4:38 PM GUILLOTINE OPERATOR DTL Leukocytes 7.2 3.4 - 9.6 x10(9)/L 05/09/2024 4:38 PM GUILLOTINE OPERATOR DTL Neutrophils 4.65 1.56 - 6.45 x10(9)/L 05/09/2024 3:43 PM GUILLOTINE OPERATOR [facility] Lymphocytes 1.80 0.95 - 3.07 x10(9)/L 05/09/2024 3:43 PM GUILLOTINE OPERATOR DTL Monocytes 0.45 0.26 - 0.81 x10(9)/L 05/09/2024 3:43 PM GUILLOTINE OPERATOR DTL Eosinophils 0.25 0.03 - 0.48 x10(9)/L 05/09/2024 3:43 PM GUILLOTINE OPERATOR DTL Basophils <0.03 0.01 - 0.08 x10(9)/L 05/09/2024 3:43 PM GUILLOTINE OPERATOR DTL Blood (Blood, Venous) 05/09/2024 2:59 PM GUILLOTINE OPERATOR 05/09/2024 3:32 PM GUILLOTINE OPERATOR Sanjeev Woods M.D., M.P.H. LAB BLOOD ADD-ON F inal Result [facility] [address] [place] [address], [facility] DTL [facility] [address] [place] [address] [facility] [address] [place] [address] * (ABNORMAL) Comprehensive Metabolic Panel (05/09/2024 2:59 PM GUILLOTINE OPERATOR) [facility] Potassium, S 3.9 3.6 - 5.2 mmol/L 05/09/2024 4:05 PM GUILLOTINE OPERATOR DTL Sodium, S 137 135 - 145 mmol/L 05/09/2024 4:05 PM GUILLOTINE OPERATOR DTL Chloride, S 101 98 - 107 mmol/L 05/09/2024 4:05 PM GUILLOTINE OPERATOR DTL Bicarbonate, S 27 22 - 29 mmol/L 05/09/2024 4:05 PM GUILLOTINE OPERATOR DTL Anion Gap 9 7 - 15 05/09/2024 4:05 PM GUILLOTINE OPERATOR DTL BUN (Blood Urea Nitrogen), S 18 6 - 21 mg/dL 05/09/2024 4:05 PM GUILLOTINE OPERATOR DTL Creatinine 0.79 0.59 - 1.04 mg/dL 05/09/2024 4:05 PM GUILLOTINE OPERATOR DTL Estimated GFR (eGFR) 74 >=60 mL/min/BS A 05/09/2024 4:05 PM GUILLOTINE OPERATOR DTL Comment: Estimated GFR calculated using the 2020 CKD_EPI creatinine equation. Calcium, Total, S 8.4(L) 8.8 - 10.2 mg/dL 05/09/2024 4:05 PM GUILLOTINE OPERATOR DTL Glucose, S 200(H) 70 - 140 mg/dL 05/09/2024 4:05 PM GUILLOTINE OPERATOR DTL Protein, Total, S 6.2(L) 6.3 - 7.9 g/dL 05/09/2024 4:05 PM GUILLOTINE OPERATOR DTL Albumin, S 3.1(L) 3.5 - 5.0 g/dL 05/09/2024 4:05 PM GUILLOTINE OPERATOR DTL Aspartate Aminotransferase (AST), S 29 8 - 43 U/L 05/09/2024 4:05 PM GUILLOTINE OPERATOR DTL Alkaline Phosphatase, S 128(H) 35 - 104 U/L 05/09/2024 4:05 PM GUILLOTINE OPERATOR DTL Alanine Aminotransferase (ALT), S 25 7 - 45 U/L 05/09/2024 4:05 PM GUILLOTINE OPERATOR DTL Bilirubin, Total, S 0.4 0.0 - 1.2 mg/dL 05/09/2024 4:05 PM GUILLOTINE OPERATOR DTL Blood (Blood, Venous) 05/09/2024 2:59 PM GUILLOTINE OPERATOR 05/09/2024 3:42 PM GUILLOTINE OPERATOR Sanjeev Woods M.D., M.P.H. LAB BLOOD ADD-ON F inal Result [facility] [address] [place] [address], [facility] DTL [facility] [address] [place] [address] * EMG (03/08/2024 8:55 AM GUILLOTINE OPERATOR) 03/08/2024 9:15 AM GUILLOTINE OPERATOR Narrative [facility] EMG - 03/08/2024 12:01 PM GUILLOTINE OPERATOR Table formatting from the original result was not included. 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 Citlali Bhat (127 or [phone])/SMB NERVE CONDUCTIONS Record Rep Normal Normal Distal [...] Karan Bhat M.D. at 03/08/2024 12:00:45 PM GUILLOTINE OPERATOR Procedure Note Karan Bhat Jr., M.D. 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 Citlali Bhat (127 or [phone])/SMB NERVE CONDUCTIONS Record Rep Normal Normal Distal [...] Karan Bhat M.D. at 03/08/2024 12:00:45 PM GUILLOTINE OPERATOR Compa Arnold M.D. NEUROLOGY ORDERABLES Ed ited Result - Final [facility] EMG from Last 3 Months Additional Health Concerns Infection Onset Date Last Indicated Protective Environment 02/08/2024 [place] [address] Advance Directives For more information, please contact: [phone] Documents on File Type Date Recorded Patient Spiral Winding Machine Helper Expl anation Advance Directives 02/03/2024 9:38 AM Aidan Carrillo HCPOA/ADVOCATE/AGENT/R EPRESENTATIVE/SURROGAT E Healthcare Agents on File Name Relationship Healthcare Agent Relationship Communication Aidan Blanco Son In-Law Health Care Agent Martin Carrillo First Alternate Health Care Agent Care Teams Raw Material Planner Relationship Specialty Start Date End Date Elsewhere, Pcp PCP - General Internal Medicine 01/27/24
--- OUTSIDE RECORDS SUMMARY | 2024-06-06 23:29 | XMS_ITS | Encounter Summary ---
Author Organization [facility] Address [address] [place] [address] Care Team Providers Care Shank Boner Name Role Phone Elsewhere, Pcp Primary Care Provider Unavailabl e Encounter Details Date Type Department Care Team (Latest Contact Info) Description 02/01/2024 Intake [facility] Social History Tobacco Use Types Packs/Day Years Used Date Smoking Tobacco: Never Smokeless Tobacco: Never [facility] Utilities Answer Date Recorded In [...] your living situation today? I have a [facility] place to live 02/04/2024 Comments Unknown Sex and Gender Information Value Date Recorded Sex Assigned at Female 01/30/2024 2:33 PM MANAGER PUBLISHING Legal Sex Female 4:38 PM CDT Gender Identity Female 01/30/2024 2:33 PM MANAGER PUBLISHING Sexual Orientation Straight 01/30/2024 2: 33 PM MANAGER PUBLISHING documented as of this encounter Plan of Treatment Upcoming Encounters Date Type Department Care Team (Late st Contact Info) Description 06/09/2024 8:00 AM CDT Comprehensive Visit Department of Neurology in [place], [place] [address] [place] [address] Joanne Castro M.D., Ph.D. [address] [place] [address] 06/12/2024 1:00 PM CDT Appointment Department of Radiation Oncology in [place], [place] [address] [place] [phone] Antonette Schulte M.D. [address] [place] [address] documented as of this encounter Visit Diagnoses Not on filedocumented in this encounter Additional Health Concerns Infection Onset Date Last Indicated Resolved Time Protective Environment 02/08/2024 02/08/2024 documented as of this encounter Care Teams Shank Boner Relationship Specialty Start Date End Date Elsewhere, Pcp PCP - General Internal Medicine 01/27/24 documented as of this encounter
--- OUTSIDE RECORDS SUMMARY | 2024-06-06 23:29 | XMS_ITS | Encounter Summary ---
Author Organization [facility] Address [address] [place] [address] Care Team Providers Care Ice Cream Freezer Helper Name Role Phone Elsewhere, Pcp Primary Care Provider Unavailabl e Reason for Referral * Radiation Therapy (Routine) - Authorized Specialty Diagnoses / Procedures Referred By Leann joseph Referred To Contact Diagnoses Malignant Neoplasm Of Pancreas Head (HCC) Procedures Initial Rad Onc Treatment Planning CT Simulation Initial Rad Onc Treatment Planning CT Simulation [place] IMRT RADIOTHERAPY PLAN Aidan Estrada M.D. [address] [place] [address] Phone: tel: fax: [facility] Region Referral ID Status Reason Start Date Expiration Date V isits Requested Visits Authorized [id number] Authorized 05/16/2024 08/16/2025 2 2 COMPANY MANAGER * Outpatient (Routine) - Authorized Specialty Diagnoses / Procedures Referred By Leann joseph Referred To Contact Social Work Diagnoses Malignant Neoplasm Of Pancreas Head (HCC) Aidan Estrada M.D. [address] [place] [address] Phone: tel: fax: [facility] Region Referral ID Status Reason Start Date Expiration Date V isits Requested Visits Authorized [id number] Authorized 05/16/2024 11/15/2025 1 1 COMPANY MANAGER * Outpatient (Routine) - Authorized Specialty Diagnoses / Procedures Referred By Contac t Referred To Contact Radiation Oncology Diagnoses Malignant Neoplasm Of Pancreas Head (HCC) Aidan Estrada M.D. [address] [place] [phone] Phone: tel: fax: [facility] Region Referral ID Status Reason Start Date Expiration Date V isits Requested Visits Authorized [id number] Authorized 05/16/2024 11/15/2025 1 1 COMPANY MANAGER * Specialty Diagnoses / Procedures Referred By Contac t Referred To Contact Diagnoses Malignant Neoplasm Of Pancreas Head (HCC) Joyce Kenyon P.A.-C., M.S. [address] [place] [phone] Phone: tel: fax: [facility] Region Referral ID Status Reason Start Date Expiration Date Visits Re quested Visits Authorized Scheduling Instructions Please do not schedule if patient has 10 fractions or less, unless requested by care team. COMPANY MANAGER * Radiation Therapy (Routine) - Authorized Specialty Diagnoses / Procedures Referred By Contac t Referred To Contact Diagnoses Malignant Neoplasm Of Pancreas Head (HCC) Procedures Management Visit Aidan Estrada M.D. [address] [place] [phone] Phone: tel: fax: [facility] Region Referral ID Status Reason Start Date Expiration Date V isits Requested Visits Authorized [id number] Authorized 05/16/2024 08/16/2025 10 10 COMPANY MANAGER * Radiation Therapy (Routine) - Authorized Specialty Diagnoses / Procedures Referred By Leann t Referred To Contact Diagnoses Malignant Neoplasm Of Pancreas Head (HCC) Procedures Prior Auth Rad Tx WI IMRT COMPLEX WI GUIDANCE FOR LOC RAD TX WI IMRT RADIOTHERAPY PLAN IMRT Aidan Estrada M.D. [address] [place] [address] Phone: tel: fax: [place] Region Referral ID Status Reason Start Date Expiration Date V isits Requested Visits Authorized [id number] Authorized 05/29/2024 08/16/2025 25 25 COMPANY MANAGER Encounter Details Date Type Department Care Team (Late st Contact Info) Description 05/16/2024 Orders Only Department of Radiation Oncology in [place], [place] [address] [place] [address] Joyce Kenyon P.A.-C., M.S. [address] [place] [phone] 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) Social History Tobacco Use Types Packs/Day Years Used Date Smoking Tobacco: Never Smokeless Tobacco: Never Alcohol Use Standard Drinks/Week Comments Never 0 (1 standard drink = 0.6 oz pur e alcohol) [facility] Utilities Answer Date Recorded In the past 12 months has [email or web address], gas, oil, or water [employer] threatened to shut off services in your [...] your living situation today? I have a [facility] place to live 02/04/2024 Comments Unknown Sex and Gender Information Value Date Recorded Sex Assigned at Female 01/30/2024 2:33 PM BUS COMPANY MANAGER Legal Sex Female 4:38 PM CDT Gender Identity Female 01/30/2024 2:33 PM BUS COMPANY MANAGER Sexual Orientation Straight 01/30/2024 2: 33 PM BUS COMPANY MANAGER documented as of this encounter Miscellaneous Notes * Addendum Note - Carlos Ibanez, R.N. - 05/16/2024 8:48 AM CSTAddended by: CARLOS IBANEZ on: 05/29/2024 02:09 PM Modules accepted: Orders COMPANY MANAGER documented in this encounter Plan of Treatment Upcoming Encounters Date Type Department Care Team (Late st Contact Info) Description 06/09/2024 8:00 AM CDT Comprehensive Visit Department of Neurology in [place], [place] [address] [place] [address] Joanne Castro M.D., Ph.D. [address] [place] [address] 06/12/2024 1:00 PM CDT Appointment Department of Radiation Oncology in [place] [id number] [place] [address] Antonette Schulte M.D. [address] [place] [address] Scheduled Orders Name Type Priority Associated Diagnoses [...] Treatment Planning CT Simulation (05/26/2024 2:00 PM BUS COMPANY MANAGER) Narrative JUDAH NAVARRETE - 05/26/2024 2:00 PM BUS COMPANY MANAGER Antonette Schulte M.D. 05/26/2024 3:13 PM [...] documented as of this encounter Care Teams Ice Cream Freezer Helper Relationship Specialty Start Date End Date Elsewhere, Pcp PCP - General Internal Medicine 01/27/24 documented as of this encounter
--- OUTSIDE RECORDS SUMMARY | 2024-06-06 23:29 | XMS_ITS | Encounter Summary ---
Author Organization [facility] Address [address] [place] [address] Care Team Providers Care Child Care Cook Name Role Phone Elsewhere, Pcp Primary Care Provider Unavailabl e Reason for Referral * MRI/CAT/PET Scan (Routine) - Closed Specialty Diagnoses / Procedures Referred By Contac t Referred To Contact Radiology Diagnoses Malignant Neoplasm Of Pancreas Head (HCC) Procedures CT Abdomen Pelvis with IV Contrast Sanjeev Woods M.D., M.P.[facility] Referral ID Status Reason Start Date Expiration Date Visits Re quested Visits Authorized [id number] Closed 03/15/2024 03/15/2025 1 1 CAL FACILITIES SECTION DIRECTOR * MRI/CAT/PET Scan (Routine) - Closed Specialty Diagnoses / Procedures Referred By Contac t Referred To Contact Radiology Diagnoses Malignant Neoplasm Of Pancreas Head (HCC) Procedures CT Chest with IV Contrast Sanjeev Woods M.D., M.P.[facility] Referral ID Status Reason Start Date Expiration Date Visits Re quested Visits Authorized [id number] Closed 03/15/2024 03/15/2025 1 1 CAL FACILITIES SECTION DIRECTOR Reason for Visit * MRI/CAT/PET Scan (Routine) - Closed Specialty Diagnoses / Procedures Referred By Contac t Referred To Contact Radiology Diagnoses Malignant Neoplasm Of Pancreas Head (HCC) Procedures CT Abdomen Pelvis with IV Contrast Sanjeev Woods M.D., M.P.[facility] Referral ID Status Reason Start Date Expiration Date Visits Re quested Visits Authorized [id number] Closed 03/15/2024 03/15/2025 1 1 Encounter Details Date Type Department Care Team (Latest Contact Info) Description 05/09/2024 3:11 PM MEDICAL FACILITIES SECTION DIRECTOR - 05/09/2024 11:59 PM MEDICAL FACILITIES SECTION DIRECTOR Hospital Encounter Department of Radiology, [facility], in [place], [place] [address] [place] [address] Sanjeev Woods M.D., M.P.H. Malignant Neoplasm Of Pancreas Head (HCC) Discharge Disposition: Home or Self Care Social History Tobacco Use Types Packs/Day Years Used Date Smoking Tobacco: Never Smokeless Tobacco: Never Alcohol Use Standard Drinks/Week Comments Never 0 (1 standard drink = 0.6 oz pur e alcohol) [facility] Utilities Answer Date Recorded In the past 12 months has e electric, gas, oil, or water [employer] threatened to shut off services in your [...] your living situation today? I have a [facility] place to live 02/04/2024 Comments Unknown Sex and Gender Information Value Date Recorded Sex Assigned at Female 01/30/2024 2:33 PM MEDICAL FACILITIES SECTION DIRECTOR Legal Sex Female 4:38 PM CDT Gender Identity Female 01/30/2024 2:33 PM MEDICAL FACILITIES SECTION DIRECTOR Sexual Orientation Straight 01/30/2024 2: 33 PM MEDICAL FACILITIES SECTION DIRECTOR documented as of this encounter Medications at [...] a day. 374 tablet 02/01/2024 8:48 PM MEDICAL FACILITIES SECTION DIRECTOR 02/01/2024 07/31/19 25 cholecalciferol, vitD3,/vit K2 [...] CDT Comprehensive Visit Department of Neurology in [place], [place] [address] [place] [address] Joanne Castro M.D., Ph.D. [address] [place] [phone] 06/12/2024 1:00 PM CDT Appointment Department of Radiation Oncology in [place], [place] [address] [place] [phone] Antonette Schulte M.D. [address] [place] [phone] Scheduled Orders Name Type Priority Associated Diagnoses Orde r Schedule Creatinine, POCT Point of Care Testing-Docked Device Routine Routine lab collecti on (next collection) for 1 Occurrences starting 05/09/2024 until 05/09/2024 documented as of this encounter Procedures Procedure Name Priority Date/Time Associated Diagnosis Comments CT ABDOMEN PELVIS WITH IV CONTRAST RAD - Routine (most inpatients and all outpatients) 05/09/2024 4:43 PM MEDICAL FACILITIES SECTION DIRECTOR Malignant Neoplasm Of Pancreas Head (HCC) CT CHEST WITH IV CONTRAST RAD - Routine (most inpatients and all outpatients) 05/09/2024 4:43 PM MEDICAL FACILITIES SECTION DIRECTOR Malignant Neoplasm Of Pancreas Head (HCC) CREATININE, POCT, B Routine 05/09/2024 3:38 PM MEDICAL FACILITIES SECTION DIRECTOR CREATININE, POCT, B Routine 05/09/2024 3:38 PM MEDICAL FACILITIES SECTION DIRECTOR documented in this encounter Results * CT Abdomen Pelvis with IV Contrast (05/09/2024 4:43 PM MEDICAL FACILITIES SECTION DIRECTOR) Anatomical Region Laterality Modality Abdomen, Pelvis, Abdominal R ST LOS, Abdominal ARZ LOS, Abdominal FLA LOS N/A Computed Tomography 05/09/2024 5:53 PM MEDICAL FACILITIES SECTION DIRECTOR Impressions 05/10/2024 7:21 AM MEDICAL FACILITIES SECTION DIRECTOR Slight decrease size of pancreas head mass. Extensive vascular involvement persists. No new CT evidence of metastatic disease in the abdomen or pelvis. Narrative 05/10/2024 7:21 AM MEDICAL FACILITIES SECTION DIRECTOR EXAM: CT ABDOMEN PELVIS WITH IV CONTRAST [...] Chest with IV Contrast (05/09/2024 4:43 PM MEDICAL FACILITIES SECTION DIRECTOR) Anatomical Region Laterality Modality Chest, Thoracic RST LOS, Tho racic ARZ LOS, Thoracic ARZ LOS, Thoracic FLA LOS N/A Computed Tomography 05/09/2024 5:08 PM MEDICAL FACILITIES SECTION DIRECTOR Impressions 05/10/2024 8:22 AM MEDICAL FACILITIES SECTION DIRECTOR 1. New small bilateral pleural effusions with suspected pleural nodularities, indeterminate. Short-term follow-up CT can be considered. 2. New patchy groundglass opacities throughout the lungs could be due to infection/inflammation. 3. Stable 5 mm nodule in right lower lobe. 4. Stable mild enlargement of mediastinal lymph nodes. 5. Interval resolution of previously seen right lower lobe pulmonary emboli. Narrative 05/10/2024 8:22 AM MEDICAL FACILITIES SECTION DIRECTOR EXAM: CT CHEST WITH IV CONTRAST 3D [...] Result * Creatinine, POCT (05/09/2024 3:38 PM MEDICAL FACILITIES SECTION DIRECTOR) [facility] Creatinine, POCT, B 0.8 0.6 - 1.0 mg/dL 05/09/2024 3:46 PM MEDICAL FACILITIES SECTION DIRECTOR PCDT Comment: ----ADDITIONAL INFORMATION---- Performed at the Point of Care Blood 05/09/2024 3:38 PM MEDICAL FACILITIES SECTION DIRECTOR 05/09/2024 3:46 PM MEDICAL FACILITIES SECTION DIRECTOR Unknown Provider LAB POCT ORDERABLES - DEVICE Fi nal Result Performing Organization Address [facility] Co de Phone Number [facility] PERFORMING LABS [address] PCDT [facility] POC [address] [place] [address] * Creatinine, POCT (05/09/2024 3:38 PM MEDICAL FACILITIES SECTION DIRECTOR) [facility] Estimated GFR (eGFR), POCT 73 >=60 mL/min/BSA 05/09/2024 3:46 PM MEDICAL FACILITIES SECTION DIRECTOR PCDT Comment: Estimated GFR calculated using the 2020 CKD_EPI creatinine equation. Blood 05/09/2024 3:38 PM MEDICAL FACILITIES SECTION DIRECTOR 05/09/2024 3:46 PM MEDICAL FACILITIES SECTION DIRECTOR us Unknown Provider LAB POCT ORDERABLES - DEVICE Fi nal Result Performing Organization Address City/[facility] Co de Phone Number [facility] PERFORMING LABS [address] PCDT [facility] POC [address] [place] [address] documented in this encounter Visit Diagnoses Diagnosis [...] prior to discharge. Given 05/09/2024 3:40 PM MEDICAL FACILITIES SECTION DIRECTOR 500 Units iohexoL 300 mg iodine/mL solution 1-200 mL (Omnipaque) 1-200 mL, intravenous, Once in imaging, contrast, Starting on Wed05/09/24 at 1520, For 1 dose, Imaging Protocol Orders, Dose per Radiant Medication Guidelines Given 05/09/2024 4:04 PM MEDICAL FACILITIES SECTION DIRECTOR 100 mL sodium chloride (PF) 0.9 % injection 1-100 mL 1-100 mL, intravenous, Once, On Wed05/09/24 at 1545, For 1 dose, Imaging Protocol Orders, Dose per Radiant Medication Guidelines Given 05/09/2024 4:04 PM MEDICAL FACILITIES SECTION DIRECTOR 50 mL sodium chloride 0.9 % injection 10-20 mL 10-20 mL, intravenous, As needed, line care, Implanted Vascular Access Device (IVAD) Venous Non-Valved, Starting on Wed05/09/24 at 1538, Prior to and following infusion and between multiple consecutive infusions, flush 10 mL to each port/lumen. Given 05/09/2024 3:40 PM MEDICAL FACILITIES SECTION DIRECTOR 10 mL documented in this encounter Additional Health Concerns Infection Onset Date Last Indicated Resolved Time Protective Environment 02/08/2024 02/08/2024 documented as of this encounter Care Teams Child Care Cook Relationship Specialty Start Date End Date Elsewhere, Pcp PCP - General Internal Medicine 01/27/24 documented as of this encounter
--- OUTSIDE RECORDS SUMMARY | 2024-06-06 23:29 | XMS_ITS | Encounter Summary ---
Author Organization [facility] Address [address] [place] [address] Care Team Providers Care Co Founder And Ceo Name Role Phone Elsewhere, Pcp Primary Care Provider Unavailabl e Reason for Referral * Outpatient (Routine) - Closed Specialty Diagnoses / Procedures Referred By Contac t Referred To Contact Radiation Oncology Diagnoses Malignant Neoplasm Of Pancreas Head (HCC) Dana Guillen APRN, C.N.P., M.S. [address] [place] [address] Phone: tel: fax: [facility] Referral ID Status Reason Start Date Expiration Date Visits Re quested Visits Authorized [id number] Closed 05/10/2024 11/09/2025 1 1 RACK OPERATOR Reason for Visit * Outpatient (Routine) - Closed Specialty Diagnoses / Procedures Referred By Contac t Referred To Contact Oncology Sanjeev Woods M.D., M.P.H. [facility] Referral ID Status Reason Start Date Expiration Date Visits Re quested Visits Authorized [id number] Closed 03/15/2024 09/14/2025 1 1 Encounter Details Date Type Department Care Team (Late st Contact Info) Description 05/10/2024 2:40 PM WASH RACK OPERATOR Office Visit Department of Oncology in [place], [place] [address] [place] [address] Dana Guillen, SERGIO C.N.P., M.S. [address] [place] [address] 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) Social History Tobacco Use Types Packs/Day Years Used Date Smoking Tobacco: Never Smokeless Tobacco: Never Alcohol Use Standard Drinks/Week Comments Never 0 (1 standard drink = 0.6 oz pur e alcohol) [facility] Utilities Answer Date Recorded In the past 12 months has e [employer], gas, oil, or water [employer] threatened to shut off services in your [...] Sex Assigned at Female 01/30/2024 2:33 PM WASH RACK OPERATOR Legal Sex Female 4:38 PM CDT Gender Identity Female 01/30/2024 2:33 PM WASH RACK OPERATOR Sexual Orientation Straight 01/30/2024 2: 33 PM WASH RACK OPERATOR documented as of this encounter Last Filed Vital Signs Vital Sign Reading Time Taken Comments Blood Pressure 156/66 05/10/2024 2:28 PM WASH RACK OPERATOR Pulse 67 05/10/2024 2:28 PM WASH RACK OPERATOR Temperature 37.4 C (99.3 F) 05/10/2024 2:25 PM WASH RACK OPERATOR Respiratory Rate 16 05/10/2024 2:25 PM WASH RACK OPERATOR Oxygen Saturation 97% 05/10/2024 2:25 PM WASH RACK OPERATOR Inhaled Oxygen Concentration - - Weight 67.1 kg (147 lb 14.9 oz) 05/10/2024 2:25 PM WASH RACK OPERATOR Height 155.2 cm (5' 1.1) 05/10/2024 2:25 PM WASH RACK OPERATOR Body Mass Index 27.86 05/10/2024 2:25 PM WASH RACK OPERATOR documented in this encounter Progress Notes * Dana Guillen, SERGIO, C.N.P., M.S. - 05/10/2024 2:40 PM CST SUBJECTIVE PRIMARY CARE PHYSICIAN ELSEWHERE, PCP LOCAL ONCOLOGIST No care steam trap worker to display PRIMARY [place] ONCOLOGIST Sanjeev Woods M.D., M.P.H. CHIEF COMPLAINT [...] in December, both at a hospital in [place], [place]. She has had a persistent cough [...] treatments. She would like that administered in [place]. Would recommend using capecitabine to enhance efficacy. [...] to face andface to face patient care. RACK OPERATOR documented in this encounter Plan of Treatment Upcoming Encounters Date Type Department Care Team (Late st Contact Info) Description 06/09/2024 8:00 AM CDT Comprehensive Visit Department of Neurology in [place], [place] [address] [place] [phone] Joanne Castro M.D., Ph.D. [address] [place] [phone] 06/12/2024 1:00 PM CDT Appointment Department of Radiation Oncology in [place], [place] [address] [place] [phone] Antonette Schulte M.D. [address] [place] [phone] Scheduled Referrals Name Type Priority Associated Diagnoses [...] documented as of this encounter Care Teams Co Founder And Ceo Relationship Specialty Start Date End Date Elsewhere, Pcp PCP - General Internal Medicine 01/27/24 documented as of this encounter
--- OUTSIDE RECORDS SUMMARY | 2024-06-06 23:29 | XMS_ITS | Encounter Summary ---
Author Organization [facility] Address [address] [place] [address] Care Team Providers Care Staff Nuclear Medicine Technologist Name Role Phone Elsewhere, Pcp Primary Care Provider Unavailabl e Encounter Details Date Type Department Care Team (Late st Contact Info) Description 05/15/2024 Orders Only Department of Radiation Oncology in [place], [place] [address] [place] [phone] Antonette Schulte M.D. [address] [place] [address] 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) Social History Tobacco Use Types Packs/Day Years Used Date Smoking Tobacco: Never Smokeless Tobacco: Never Alcohol Use Standard Drinks/Week Comments Never 0 (1 standard drink = 0.6 oz pur e alcohol) [facility] Utilities Answer Date Recorded In the past 12 months has e [employer], gas, oil, or water company threatened to [...] your living situation today? I have a [facility] place to live 02/04/2024 Comments Unknown Sex and Gender Information Value Date Recorded Sex Assigned at Female 01/30/2024 2:33 PM OUTBOUND TELEMARKETER Legal Sex Female 4:38 PM CDT Gender Identity Female 01/30/2024 2:33 PM OUTBOUND TELEMARKETER Sexual Orientation Straight 01/30/2024 2: 33 PM OUTBOUND TELEMARKETER documented as of this encounter Plan of Treatment Upcoming Encounters Date Type Department Care Team (Late st Contact Info) Description 06/09/2024 8:00 AM CDT Comprehensive Visit Department of Neurology in [place], [place] [address] [place] [address] Joanne Castro M.D., Ph.D. 200 [place] [address] 06/12/2024 1:00 PM CDT Appointment Department of Radiation Oncology in [place], [place] [address] [place] [address] Antonette Schulte M.D. [address] [place] [address] Scheduled Orders Name Type Priority Associated Diagnoses [...] documented as of this encounter Care Teams Staff Nuclear Medicine Technologist Relationship Specialty Start Date End Date Elsewhere, Pcp PCP - General Internal Medicine 01/27/24 documented as of this encounter
--- OUTSIDE RECORDS SUMMARY | 2024-06-06 23:30 | XMS_ITS | Encounter Summary ---
Author Organization [facility] Address [address] [place] [address] Care Team Providers Care Manager Floral Name Role Phone Elsewhere, Pcp Primary Care Provider Unavailabl e Encounter Details Date Type Department Care Team (Late st Contact Info) Description 05/09/2024 2:40 PM REVERSE UNIT OPERATOR Lab Department of Infusion Therapy in [place], [place] [address] [place] [address] Sanjeev Woods M.D., M.P.H. 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) Social History Tobacco Use Types Packs/Day Years Used Date Smoking Tobacco: Never Smokeless Tobacco: Never Alcohol Use Standard Drinks/Week Comments Never 0 (1 standard drink = 0.6 oz pur e alcohol) [facility] Utilities Answer Date Recorded In the [...] your living situation today? I have a [employer] [facility] to live 02/04/2024 Comments Unknown Sex and Gender Information Value Date Recorded Sex Assigned at Female 01/30/2024 2:33 PM REVERSE UNIT OPERATOR Legal Sex Female 4:38 PM CDT Gender Identity Female 01/30/2024 2:33 PM REVERSE UNIT OPERATOR Sexual Orientation Straight 01/30/2024 2: 33 PM REVERSE UNIT OPERATOR documented as of this encounter Plan of Treatment Upcoming Encounters Date Type Department Care Team (Late st Contact Info) Description 06/09/2024 8:00 AM CDT Comprehensive Visit Department of Neurology in [place], [place] [address] [place] [address] Joanne Castro M.D., Ph.D. [address] [place] [address] 06/12/2024 1:00 PM CDT Appointment Department of Radiation Oncology in [place], [place] [address] [place] [phone] Antonette Schulte M.D. [address] [place] [address] documented as of this encounter Procedures Procedure Name Priority Date/Time Associated Diagnosis Comments CARBOHYDRATE AG 19-9 (CA 19-9), S Routine 05/09/2024 2:59 PM REVERSE UNIT OPERATOR Malignant Neoplasm Of Pancreas Head (HCC) CBC WITH DIFFERENTIAL, B Routine 05/09/2024 2:59 PM REVERSE UNIT OPERATOR Malignant Neoplasm Of Pancreas Head (HCC) COMPREHENSIVE METABOLIC PANEL, S/P Routine 05/09/2024 2:59 PM REVERSE UNIT OPERATOR Malignant Neoplasm Of Pancreas Head (HCC) documented in this encounter Results * (ABNORMAL) Carbohydrate Antigen 19-9 (CA 19-9) (05/09/2024 2:59 PM REVERSE UNIT OPERATOR) Pathologist [facility] Carbohydrate Ag 19-9, S 1313(H) <35 U/mL 05/09/2024 8:43 PM REVERSE UNIT OPERATOR [facility] Comment: ----ADDITIONAL INFORMATION---- The testing method is an immunoenzymatic assay manufactured by [employer]. and performed on the Moz DxI 800. Values obtained with different assay methods or kits may be different and cannot be used interchangeably. Test results cannot be interpreted as absolute evidence for the presence or absence of malignant disease. Blood (Blood, Venous) 05/09/2024 2:59 PM REVERSE UNIT OPERATOR 05/09/2024 7:51 PM REVERSE UNIT OPERATOR Sanjeev Woods M.D., M.P.H. LAB BLOOD ADD-ON F inal Result [facility] [address] [place] [address] [facility] [address] [place] [address] * (ABNORMAL) Comprehensive Metabolic Panel (05/09/2024 2:59 PM REVERSE UNIT OPERATOR) Pathologist [facility] Potassium, S 3.9 3.6 - 5.2 mmol/L 05/09/2024 4:05 PM REVERSE UNIT OPERATOR DTL Sodium, S 137 135 - 145 mmol/L 05/09/2024 4:05 PM REVERSE UNIT OPERATOR DTL Chloride, S 101 98 - 107 mmol/L 05/09/2024 4:05 PM REVERSE UNIT OPERATOR DTL Bicarbonate, S 27 22 - 29 mmol/L 05/09/2024 4:05 PM REVERSE UNIT OPERATOR DTL Anion Gap 9 7 - 15 05/09/2024 4:05 PM REVERSE UNIT OPERATOR DTL BUN (Blood Urea Nitrogen), S 18 6 - 21 mg/dL 05/09/2024 4:05 PM REVERSE UNIT OPERATOR DTL Creatinine 0.79 0.59 - 1.04 mg/dL 05/09/2024 4:05 PM REVERSE UNIT OPERATOR DTL Estimated GFR (eGFR) 74 >=60 mL/min/BS A 05/09/2024 4:05 PM REVERSE UNIT OPERATOR DTL Comment: Estimated GFR calculated using the 2020 CKD_EPI creatinine equation. Calcium, Total, S 8.4(L) 8.8 - 10.2 mg/dL 05/09/2024 4:05 PM REVERSE UNIT OPERATOR DTL Glucose, S 200(H) 70 - 140 mg/dL 05/09/2024 4:05 PM REVERSE UNIT OPERATOR DTL Protein, Total, S 6.2(L) 6.3 - 7.9 g/dL 05/09/2024 4:05 PM REVERSE UNIT OPERATOR DTL Albumin, S 3.1(L) 3.5 - 5.0 g/dL 05/09/2024 4:05 PM REVERSE UNIT OPERATOR DTL Aspartate Aminotransferase (AST), S 29 8 - 43 U/L 05/09/2024 4:05 PM REVERSE UNIT OPERATOR DTL Alkaline Phosphatase, S 128(H) 35 - 104 U/L 05/09/2024 4:05 PM REVERSE UNIT OPERATOR DTL Alanine Aminotransferase (ALT), S 25 7 - 45 U/L 05/09/2024 4:05 PM REVERSE UNIT OPERATOR DTL Bilirubin, Total, S 0.4 0.0 - 1.2 mg/dL 05/09/2024 4:05 PM REVERSE UNIT OPERATOR DTL Blood (Blood, Venous) 05/09/2024 2:59 PM REVERSE UNIT OPERATOR 05/09/2024 3:42 PM REVERSE UNIT OPERATOR us Sanjeev Woods M.D., M.P.H. LAB BLOOD ADD-ON F inal Result [facility] [address] [place] [id number], [facility] DTL [facility] [address] [place] [address] * (ABNORMAL) CBC with Differential, Blood (05/09/2024 2:59 PM REVERSE UNIT OPERATOR) Hemoglobin 8.4(L) 11.6 - 15.0 g/dL 05/09/2024 3:43 PM REVERSE UNIT OPERATOR DTL Hematocrit 26.5(L) 35.5 - 44.9 % 05/09/2024 3:43 PM REVERSE UNIT OPERATOR DTL Erythrocytes 2.96(L) 3.92 - 5.13 x10(12)/L 05/09/2024 3:43 PM REVERSE UNIT OPERATOR DTL MCV 89.5 78.2 - 97.9 fL 05/09/2024 3:43 PM REVERSE UNIT OPERATOR DTL RBC Distrib Width 15.9 12.2 - 16.1 % 05/09/2024 3:43 PM REVERSE UNIT OPERATOR DTL Platelet Count 104(L) 157 - 371 x10(9)/L 05/09/2024 4:38 PM REVERSE UNIT OPERATOR DTL Leukocytes 7.2 3.4 - 9.6 x10(9)/L 05/09/2024 4:38 PM REVERSE UNIT OPERATOR DTL Neutrophils 4.65 1.56 - 6.45 x10(9)/L 05/09/2024 3:43 PM REVERSE UNIT OPERATOR [facility] Lymphocytes 1.80 0.95 - 3.07 x10(9)/L 05/09/2024 3:43 PM REVERSE UNIT OPERATOR DTL Monocytes 0.45 0.26 - 0.81 x10(9)/L 05/09/2024 3:43 PM REVERSE UNIT OPERATOR DTL Eosinophils 0.25 0.03 - 0.48 x10(9)/L 05/09/2024 3:43 PM REVERSE UNIT OPERATOR DTL Basophils <0.03 0.01 - 0.08 x10(9)/L 05/09/2024 3:43 PM REVERSE UNIT OPERATOR DTL Blood (Blood, Venous) 05/09/2024 2:59 PM REVERSE UNIT OPERATOR 05/09/2024 3:32 PM REVERSE UNIT OPERATOR us Sanjeev Woods M.D., M.P.H. LAB BLOOD ADD-ON F inal Result [facility] [address] [place] [address], [place] DTL [facility] [address] [place] [address] [facility] [address] [place] [address] documented in this encounter Visit Diagnoses Diagnosis [...] Pancreas Head (HCC) Given 05/09/2024 3:05 PM REVERSE UNIT OPERATOR 500 Units sodium chloride 0.9 % injection 10-20 mL 10-20 mL, intra-catheter, As needed, line care, Starting on Wed05/09/24 at 1504, When IVAD accessed and infusing: Flush prior to and following infusion, between multiple consecutive infusions. 10 mL to each port/lumen.Indications:Malignan t Neoplasm Of Pancreas Head (HCC) Given 05/09/2024 3:05 PM REVERSE UNIT OPERATOR 20 mL documented in this encounter Additional Health Concerns Infection Onset Date Last Indicated Resolved Time Protective Environment 02/08/2024 02/08/2024 documented as of this encounter Care Teams Manager Floral Relationship Specialty Start Date End Date Elsewhere, Pcp PCP - General Internal Medicine 01/27/24 documented as of this encounter
[2024-06-06 23:45] VITALS: O2SAT 82
[2024-06-06 23:48] VITALS: RESP 10; O2SAT 96
--- NOTE | 2024-06-06 23:48 | ED.GENADULT ---
HPI - General Adult General Date Seen: 06/06/24 Chief complaint: Urogenital Problems, Female Stated complaint: Dehydarstion, possible UTI shortness of breath Time Seen by Provider: 06/06/24 21:55 History of Present Illness HPI narrative: Patient is an 83-year-old woman here for evaluation of weakness. She is here with her daughter and son-in-law. She has a history of pancreatic cancer, currently undergoing chemotherapy. Last treatment was at the end of April and she has got another 1 coming up in the near future. She says today she just felt generally weak and fatigued. She notes shortness of breath although she says that she is often short of breath with exertion so she is not sure how new that is. She has back pain which is chronic and unchanged. She is due for pain medication now. She went to urgent care 1[facility], she was noted to be hypertensive there and due to complexity of her situation it was recommended that she come to the ER. She was not placed into a room for over 2 hours due to volumes and acuity in the ER. She denies fevers, cough, vomiting, diarrhea, black or bloody stools. No fainting or chest pain. Related Data Home Medications ?Medication ?Instructions ?Recorded ?Confirmed lidocaine-prilocaine 2.5 %-2.5 % 1 applic topical DAILY PRN 03/06/24 06/07/24 topical cream metformin 500 mg tablet,extended 500 mg PO BID 03/06/24 06/07/24 release 24 hr raloxifene 60 mg tablet 60 mg PO HS 03/06/24 06/07/24 rosuvastatin 10 mg tablet 10 mg PO QPM 03/06/24 06/07/24 macularprotect complete PO BID 04/03/24 06/06/24 cholecalciferol (vitamin D3) 50 50 mcg PO DAILY 05/01/24 06/07/24 mcg (2,000 unit) capsule lisinopril 40 mg tablet 40 mg PO DAILY 05/22/24 06/07/24 potassium chloride 20 mEq 20 meq PO DAILY 05/22/24 06/07/24 tablet,extended release(part/cryst) Previous Rx's ?Medication ?Instructions ?Recorded apixaban 5 mg tablet (Eliquis) 5 mg PO Q12H #60 tabs 04/17/24 furosemide 20 mg tablet 20 mg PO QAM #30 tabs 05/02/24 bisacodyl 10 mg rectal suppository 10 mg NE ONCE constipation not 05/19/24 (Dulcolax (bisacodyl)) relieved with miralax #12 ea metoprolol succinate 50 mg 50 mg PO DAILY #90 tabs 05/19/24 tablet,extended release 24 hr prochlorperazine maleate 5 mg 5 mg PO Q4H PRN nausea #20 tabs 05/19/24 tablet polyethylene glycol 3350 17 17 g PO DAILY PRN constipation 05/23/24 gram/dose oral powder (Miralax) #238 grams sennosides 8.6 mg capsule (senna) 8.6 mg PO BID #60 caps 05/23/24 ondansetron 4 mg disintegrating 4 mg PO Q8-12H PRN nausea and 05/24/24 tablet vomiting #30 tabs tramadol 50 mg tablet 50 mg PO BID PRN pain #30 tabs 05/24/24 capecitabine 500 mg tablet (Xeloda) 1,000 mg (2 x 500 mg) PO BID #60 05/29/24 tabs sodium chloride 1,000 mg soluble 1,000 mg PO QDAY PRN electrolyte 05/29/24 tablet replenishment #7 tabs gentamicin 0.3 % eye drops 2 drp ophthalmic (eye) Q4H #5 mL 05/30/24 Allergies Allergy/AdvReac Type Severity Reaction Status Date / Time No Known Drug Allergies Allergy Verified 06/06/24 19:20 Review of Systems Status of ROS: Reports: 10 or more systems reviewed and unremarkable except as noted in History and below [facility] Medical History (Updated 06/09/24 @ 11:47 by Lorena Rivera MD) Conjunctivitis ?H10.9 - Unspecified conjunctivitis (ICD-10) Headache ?R51.9 - Headache, unspecified (ICD-10) Acute pancreatitis ?K85.90 - Acute pancreatitis without necrosis or infection, unspecified (ICD-10) Nausea ?R11.0 - Nausea (ICD-10) History of sick sinus syndrome ?Z86.79 - Personal history of other diseases of the circulatory system (ICD-10) Primary pancreatic adenocarcinoma ?C25.9 - Malignant neoplasm of pancreas, unspecified (ICD-10) Hx of deep venous thrombosis ?Z86.718 - Personal history of other venous thrombosis and embolism (ICD-10) History of pulmonary embolus (PE) ?Z86.711 - Personal history of pulmonary embolism (ICD-10) Diastolic dysfunction ?I51.89 - Other ill-defined heart diseases (ICD-10) Essential hypertension ?I10 - Essential (primary) hypertension (ICD-10) Bilateral foot-drop ?M21.371 - Foot drop, right foot (ICD-10) ?M21.372 - Foot drop, left foot (ICD-10) 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 - Lesion of lateral popliteal nerve, unspecified lower limb (ICD-10) Cataracts, bilateral ?H26.9 - Unspecified cataract (ICD-10) Hyperlipidemia ?E78.5 - Hyperlipidemia, unspecified (ICD-10) Pancreatic cancer (12/17/23) ?C25.9 - Malignant neoplasm of pancreas, unspecified (ICD-10) DM2 (diabetes mellitus, type 2) ?E11.9 - Type 2 diabetes mellitus without complications (ICD-10) Chronic anticoagulation ?Z79.01 - terminal clerk (current) use of anticoagulants (ICD-10) Pacemaker ?Z95.0 - Presence of cardiac pacemaker (ICD-10) Surgical History History of electromyography ?Z92.89 - Personal history of other medical treatment (ICD-10) History of tonsillectomy (1947) ?Z90.89 - Acquired absence of other organs (ICD-10) History of cardiac pacemaker (2018) ?Z95.0 - Presence of cardiac pacemaker (ICD-10) Family History Mother Diabetes High blood pressure High cholesterol Heart disease Osteoporosis Father Heart disease Kidney disease Osteoporosis Social History What is your current living situation?: I presently have a place to live Problems where you live: no known problems Problems where you live details: none In the past 12 months, utilities in danger of being shut off: no In past 12 months, lack of transportation kept you from medical appts, meetings, work, or getting things needed for daily living: no In the past 12 mos, have been you worried that your food would run out before you had money to buy more?: never true In the past 12 mos, the food you bought just didn't last and you didn't have money to buy more?: never true Highest level of school completed/degree received: Bachelor's degree Smoking Status: Never smoker Do you use any of these nicotine containing products: None Second hand tobacco smoke exposure: No How often do you have a drink containing alcohol: never AUDIT-C Alcohol total score: 0 Non-prescribed substance use: denies use Caffeine: Yes (Dr Redd) How often does anyone, including family, friends and others, physically hurt you: never How often does anyone, including family, friends and others, insult or talk down to you: never How often does anyone, including family, friends and others, threaten you with harm: never How often does anyone, including family, friends and others, scream or curse at you: never service: No Exam Narrative: Exam Narrative: Vital signs reviewed In general, an alert, nontoxic but chronically ill-appearing elderly woman. Head: Normocephalic, atraumatic. Eyes: Sclera clear. Pupils equal and reactive. ENT: Mucous membranes slightly dry. Neck: Supple without adenopathy. Heart: Regular rate and rhythm without murmur. Lungs: Clear. No increased work of breathing, crackles or wheezes. Abdomen: Soft, nontender to palpation. Extremities: Well perfused, pulses intact. Trace edema in bilateral ankles, compression stockings are in place. Neurologic: Alert, conversant. Speech fluent, face symmetric. Moves all extremities equally. Skin: Somewhat pale, warm and dry. Affect: Normal. Const: Vital Signs, click to edit/add: Vital Signs - 24 hr 06/06/24 19:14 06/06/24 21:42 06/06/24 22:50 Temperature 98.9 F Pulse Rate [Right Pulse Oximeter] 70 66 Respiratory Rate 18 18 Blood Pressure [Le ft Upper Arm] 175/69 H 195/89 H Pulse Oximetry 94 93 96 Oxygen Delivery Me thod Room Air Room Air Oxygen Flow Rate 06/06/24 23:45 06/06/24 23:48 06/07/24 00:00 Temperature Pulse Rate [Right Pulse Oximeter] 67 Respiratory Rate 10 L 12 Blood Pressure [Le ft Upper Arm] 202/85 H Pulse Oximetry 82 L 96 96 Oxygen Delivery Me thod Room Air Nasal Cannula Nasal Cannula Oxygen Flow Rate 2 06/07/24 00:30 06/07/24 00:35 06/07/24 01:00 Temperature Pulse Rate [Right Pulse Oximeter] 62 Respiratory Rate 14 Blood Pressure [Le ft Upper Arm] 166/73 H Pulse Oximetry 86 L 96 96 Oxygen Delivery Me thod Room Air Nasal Cannula Nasal Cannula Oxygen Flow Rate 2 2 Documenting provider has reviewed patient's vital signs: yes Course Course ED Course: Following initial evaluation, patient had an EKG which by my review showed a sinus rhythm, ventricular rate of 64. Small voltages, no ST segment changes. Her initial complaint was primarily of weakness, she downplayed her shortness of breath. Labs were drawn and she had a chest x-ray. X-ray of the chest by my review shows a fairly sizable effusion on the left. Looking at her prior CT scan of the abdomen at the end of April she does have a small effusion at that time. It looks as if this has gotten worse. Radiology reads that is probably effusion plus atelectasis, cannot rule out underlying mass or infiltrate. 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 Her white blood cell count was elevated, significance of this is unclear. She has had slowly rising white blood cell count since the end of April, was started on prednisone on May 30 which might potentially be contributing. She does not believe she has been given any medications such as Neupogen. Hemoglobin is 14.4 platelets are normal. Her metabolic panel is notable for a sodium of 128, potassium 3.5. BUN creatinine are normal, blood sugar elevated at 239 lactate is normal at 1.4, calcium 7.9. She had a recent admission for pancreatitis and LFTs were little elevated at that time they now appear largely normal, alk-phos is mildly elevated at 209 but transaminases are normal, total bilirubin is 0.8. Troponin is 0.0 for, CRP is elevated at 12.9. Procalcitonin was ordered, apparently was not done possibly because of a problem with the machine or 2 small blood sample, they report that she was very difficult to draw blood from. TSH was normal. Urinalysis showed protein, 3+ blood and 10-25 red cells but 2-5 white cells. Culture pending, doubt this is related to urinary tract infection in the absence of any urinary symptoms. Viral swab was negative. Her oxygen saturations ran about 87 88% on room air, 82% with ambulation. Given that she has this large effusion, I think that is probably the causative factor. My suspicion for PE as a cause is relatively low given that she has been consistently anticoagulated, but I am going to order a CT scan of the chest, PE protocol just to ensure there is nothing new there, also evaluate for possible mass or infiltrate. At this time, I have held off on antibiotics, she does not have any cough for fever, significance of the elevated white blood cell count is unclear. It CT of the chest shows more of a consolidation and would initiate antibiotics. She did have a blood culture drawn on arrival. Plan will be to admit to the hospitalist, as she is requiring oxygen supplementation to keep her O2 sats above 90. Vital Signs Vital signs: Initial Vital Signs Temperature 98.9 F 06/06/24 19:14 Temperature Source Temporal Artery Scan 06/06/24 19:14 Pulse Rate 70 06/06/24 19:14 Respiratory Rate 18 06/06/24 19:14 Blood Pressure 175/69 H 06/06/24 19:14 Blood Pressure Mean 104 06/06/24 19:14 Blood Pressure Position Sitting 06/06/24 19:14 Pulse Oximetry 94 06/06/24 19:14 Oxygen Delivery Method Room Air 06/06/24 19:14 Vital Signs Temperature 98.9 F 06/06/24 19:14 Pulse Rate 70 06/06/24 19:14 Respiratory Rate 18 06/06/24 19:14 Blood Pressure 175/69 H 06/06/24 19:14 Pulse Oximetry 94 06/06/24 19:14 Oxygen Delivery Method Room Air 06/06/24 19:14 Temperature 99 F 06/09/24 07:00 Pulse Rate 50 L 06/09/24 08:00 Respiratory Rate 20 06/09/24 08:00 Blood Pressure 191/69 H 06/09/24 07:00 Pulse Oximetry 94 06/09/24 07:00 Oxygen Delivery Method Room Air 06/09/24 07:00 Oxygen Flow Rate 1.5 06/08/24 11:37 Medications Administered Medications: Discontinued Medications Generic Name Dose Route Start Last Admin Trade Name Freq PRN Reason Stop Dose Admin Apixaban 5 mg 06/09/24 09:00 06/09/24 09:43 Apixaban 5 Mg Tablet PO 5 mg BID PEARL Administration Furosemide 20 mg 06/09/24 09:00 06/09/24 09:42 Furosemide 20 Mg Tablet PO 20 mg QAM PEARL Administration Gentamicin Sulfate 2 drop 06/07/24 05:00 06/09/24 09:40 Gentamicin 0.3% Ophth EYE-BOTH 2 drop Q4H PEARL Administration Heparin Sodium (Porcine) 500 unit 06/09/24 02:55 06/09/24 06:05 Heparin 500 Unit/5 Ml Syringe IVF 500 unit FLUSHPRN PRN Administration Sodium Chloride 1,000 mls @ 1,000 mls/hr 06/06/24 22:15 06/06/24 23:30 0.9 % Sodium Chloride 1000 Ml IV 06/06/24 23:14 Infused .Q1H PEARL Infusion Sodium Chloride 1,000 mls @ 75 mls/hr 06/07/24 05:37 06/08/24 12:34 0.9 % Sodium Chloride 1000 Ml IV 0 mls/hr .[id number] PEARL Infusion Calcium Gluconate/Sodium Chloride 1,000 mg in 50 mls @ 100 mls/hr 06/08/24 09:51 06/08/24 11:38 Calcium Gluc 1,000mg/50 Ml IVPB 06/08/24 10:20 Infused ONCE ONE Infusion Insulin Aspart 0 unit 06/07/24 07:30 06/09/24 09:44 Insulin Aspart 100 Unit/Ml SUBCUT 1 unit ACHS PEARL Administration Protocol Lidocaine/Prilocaine 1 applic 06/07/24 02:06 06/07/24 02:11 Lidocaine/Prilocaine 2.5-2.5% Cream TOPICAL 06/07/24 02:07 1 applic ONCE ONE Administration Lisinopril 40 mg 06/07/24 09:00 06/09/24 09:41 Lisinopril 20 Mg Tablet PO 40 mg DAILY PEARL Administration Metformin HCl 500 mg 06/07/24 08:00 06/07/24 08:28 Metformin Er 500 Mg PO 500 mg BIDWM PEARL Administration Metoprolol Succinate 50 mg 06/07/24 09:00 06/09/24 09:43 Metoprolol Succinate (Xl) 50 Mg Tab PO 50 mg DAILY PEARL Administration Morphine Sulfate 4 mg 06/06/24 22:05 06/06/24 22:52 Morphine 4 Mg/Ml Inj IVP 06/06/24 22:06 4 mg ONCE ONE Administration Ondansetron HCl 4 mg 06/07/24 12:17 06/08/24 10:17 Ondansetron 2 Mg/Ml Inj IVP 4 mg Q6H PRN Administration Nausea Oxycodone HCl 5 mg 06/07/24 04:58 06/08/24 22:57 Oxycodone 5 Mg Tablet PO 5 mg TID PRN Administration pain Potassium Bicarbonate 25 meq 06/07/24 10:53 06/07/24 11:21 Potassium Bicarb 25 Meq Effervescent Tab PO 06/07/24 10:54 25 meq ONCE ONE Administration Potassium Bicarbonate 25 meq 06/08/24 09:50 06/08/24 10:25 Potassium Bicarb 25 Meq Effervescent Tab PO 06/08/24 09:51 25 meq ONCE ONE Administration Potassium Chloride 20 meq 06/08/24 09:00 06/09/24 09:41 Potassium Chloride 10 Meq Capsule Er PO 20 meq DAILY PEARL Administration Rosuvastatin Calcium 10 mg 06/07/24 18:00 06/08/24 17:42 Rosuvastatin Calcium 10 Mg Tablet PO 10 mg QPM PEARL Administration Sennosides 8.6 tab 06/07/24 09:00 06/07/24 08:43 Sennosides 1 Tab Tablet PO 8.6 tab BID PEARL Administration Sennosides 1 tab 06/07/24 09:00 06/09/24 09:42 Sennosides 1 Tab Tablet PO 1 tab BID PEARL Administration Sodium Chloride 5 ml 06/07/24 05:38 06/08/24 03:03 Sodium Chloride 0.9 % (Flush) 10 Ml Syringe IVF 5 ml .FLUSH PRN Administration Sodium Chloride 5 ml 06/07/24 09:00 06/09/24 09:55 Sodium Chloride 0.9 % (Flush) 10 Ml Syringe IVF Not Given BID PEARL Tramadol HCl 50 mg 06/07/24 04:58 06/08/24 21:08 Tramadol Hcl 50 Mg Tablet PO 50 mg BID PRN Administration pain Medical Decision Making Lab Data Labs: Lab Results 06/06/24 06/06/24 06/06/24 Range/Units 19:20 22:14 23:15 WBC 18.94 H (4.50-11.00) K/uL RBC 4.79 (4.00-5.20) m/uL Hgb 14.4 (12.0-16.0) gm/dL Hct 44.0 (33.0-51.0) % MCV 92 (80-100) fL MCH 30 (26-34) pg MCHC 33 (32-36) gm/dL RDW Coeff of Elba 16.2 H (11.5-15.5) % Plt Count 240 (140-440) K/uL Neut % (Auto) 84.8 H (42.0-72.0) % Lymph % (Auto) 8.1 L (20-44) % Isabella % (Auto) 4.9 (0.0-11.0) % Eos % (Auto) 0.8 (0.0-7.0) % Baso % (Auto) 0.1 (0.0-3.0) % Neut # (Auto) 16.10 H (1.7-7.0) K/uL Lymph # (Auto) 1.50 (0.90-2.90) K/uL Isabella # (Auto) 0.90 (0.00-0.90) K/UL Eos # (Auto) 0.20 (0.00-0.50) K/uL Baso # (Auto) 0.00 (0.00-0.30) K/uL Abs Immat Gran (auto) 0.20 (0.00-0.30) K/uL Imm/Tot Granulo (auto) 1.3 % Sodium 128 L (135-149) mmol/L Potassium 3.5 L (3.6-5.1) mmol/L Chloride 92 L (96-114) mmol/L Carbon Dioxide 31 (20-32) mmol/L Anion Gap 5 L (7-15) mEq/L BUN 22 (7-30) mg/dL Creatinine 0.7 (0.5-1.5) mg/dL Estimated Creat Clear 32.17 Estimated GFR 86 ml/min Glucose 239 H (60-115) mg/dL Lactate 1.4 (0.5-1.9) mmol/L Calcium 7.9 L (8.4-10.6) mg/dL Magnesium 1.7 (1.5-2.6) mg/dL Total Bilirubin 0.8 (0.1-1.5) mg/dL Direct Bilirubin 0.6 H (0.0-0.5) mg/dL AST 22 (12-35) U/L ALT 23 (4-35) U/L Alkaline Phosphatase 209 H (40-150) U/L Troponin I 0.04 (0.01-0.04) ng/mL C-Reactive Protein 12.9 H (0.5-1.0) mg/dL Total Protein 6.0 (6.0-8.3) g/dL Albumin 2.7 L (3.3-5.0) g/dL Procalcitonin Cancelled TSH 3.090 (0.270-4.200) uIU/mL Urine Color Yellow (Yellow) Urine Appearance Slightly Cloudy A (Clear) Urine pH 7.0 (5.0-8.5) Ur Specific Shedd 1.020 (1.000-1.030) Urine Protein 3+ A (Negative) Urine Glucose (UA) Trace A (Negative) Urine Ketones Negative (Negative) Urine Blood 3+ A (Negative) Urine Nitrite Negative (Negative) Urine Bilirubin Negative (Negative) Urine Urobilinogen 2.0 A (0.2-1.0) Ur Leukocyte Esterase Trace A (Negative) Urine RBC 10-25 A (0-2) Urine WBC 2-5 (0-5) Ur Squamous Epith Cells Few (None-Few) Urine Bacteria Few A (None) SARS-CoV-2 (PCR) Negative SARS-CoV-2 (Negative) Influenza Type A (PCR) Negative PCR FLU A (Negative) Influenza Type B (PCR) Negative PCR FLU B (Negative) RSV (PCR) Negative PCR RSV (Negative) Lab Acknowledgement 06/07/24 Range/Units 07:23 WBC (4.50-11.00) K/uL RBC (4.00-5.20) m/uL Hgb (12.0-16.0) gm/dL Hct (33.0-51.0) % MCV (80-100) fL MCH (26-34) pg MCHC (32-36) gm/dL RDW Coeff of Elba (11.5-15.5) % Plt Count (140-440) K/uL Neut % (Auto) (42.0-72.0) % Lymph % (Auto) (20-44) % Isabella % (Auto) (0.0-11.0) % Eos % (Auto) (0.0-7.0) % Baso % (Auto) (0.0-3.0) % Neut # (Auto) (1.7-7.0) K/uL Lymph # (Auto) (0.90-2.90) K/uL Isabella # (Auto) (0.00-0.90) K/UL Eos # (Auto) (0.00-0.50) K/uL Baso # (Auto) (0.00-0.30) K/uL Abs Immat Gran (auto) (0.00-0.30) K/uL Imm/Tot Granulo (auto) % Sodium (135-149) mmol/L Potassium (3.6-5.1) mmol/L Chloride (96-114) mmol/L Carbon Dioxide (20-32) mmol/L Anion Gap (7-15) mEq/L BUN (7-30) mg/dL Creatinine (0.5-1.5) mg/dL Estimated Creat Clear Estimated GFR ml/min Glucose (60-115) mg/dL Lactate (0.5-1.9) mmol/L Calcium (8.4-10.6) mg/dL Magnesium (1.5-2.6) mg/dL Total Bilirubin (0.1-1.5) mg/dL Direct Bilirubin (0.0-0.5) mg/dL AST (12-35) U/L ALT (4-35) U/L Alkaline Phosphatase (40-150) U/L Troponin I (0.01-0.04) ng/mL C-Reactive Protein (0.5-1.0) mg/dL Total Protein (6.0-8.3) g/dL Albumin (3.3-5.0) g/dL Procalcitonin TSH (0.270-4.200) uIU/mL Urine Color (Yellow) Urine Appearance (Clear) Urine pH (5.0-8.5) Ur Specific Shedd (1.000-1.030) Urine Protein (Negative) Urine Glucose (UA) (Negative) Urine Ketones (Negative) Urine Blood (Negative) Urine Nitrite (Negative) Urine Bilirubin (Negative) Urine Urobilinogen (0.2-1.0) Ur Leukocyte Esterase (Negative) Urine RBC (0-2) Urine WBC (0-5) Ur Squamous Epith Cells (None-Few) Urine Bacteria (None) SARS-CoV-2 (PCR) (Negative) Influenza Type A (PCR) (Negative) Influenza Type B (PCR) (Negative) RSV (PCR) (Negative) Lab Acknowledgement Test Added Discharge Plan Discharge Condition: Improved Activity Level: Activity as Tolerated Discharge Diet: Regular Diet Detail: as tolerated
[2024-06-06 23:49] LABS: Chloride* 92 mmol/L (96-114); Potassium* 3.5 mmol/L (3.6-5.1); Sodium* 128 mmol/L (135-149)
[2024-06-06 23:51] LABS: Basophils Percent Auto 0.1 % (0.0-3.0); Eosinophils Percent Auto 0.8 % (0.0-7.0); Hemoglobin* 14.4 gm/dL (12.0-16.0); Immature Granulocytes Pct Auto 1.3 %; Lymphocytes Percent Auto 8.1 % (20-44); Mean Corpuscular HGB Conc 33 gm/dL (32-36); Mean Corpuscular Hemoglobin 30 pg (26-34); Mean Corpuscular Volume 92 fL (80-100); Monocytes Percent Auto 4.9 % (0.0-11.0); Neutrophils Percent Auto 84.8 % (42.0-72.0); Platelet Count* 240 K/uL (140-440); RDW Coefficient of Variation % 16.2 % (11.5-15.5); Red Blood Count 4.79 m/uL (4.00-5.20); White Blood Count* 18.94 K/uL (4.50-11.00)
[2024-06-06 23:52] LABS: Anion Gap 5 mEq/L (7-15); Blood Urea Nitrogen* 22 mg/dL (7-30); Carbon Dioxide* 31 mmol/L (20-32); Creatinine* 0.7 mg/dL (0.5-1.5); Est. Creatinine Clearance* 32.17; Estimated Glomerular Filt Rate 86 ml/min; Glucose* 239 mg/dL (60-115); Slide Review Reflex No
[2024-06-06 23:53] LABS: Calcium* 7.9 mg/dL (8.4-10.6)
[2024-06-07] VITALS (14 sets, daily range): BP systolic 166–202; BP diastolic 62–85; PULSE 60–77; RESP 12–22; TEMP 36.9–38.2; O2SAT 86–96; BMI 28.7
[2024-06-07] LABS: Albumin* 2.7 g/dL (3.3-5.0)
[2024-06-07 00:01] LABS: Alanine Aminotransferase* 23 U/L (4-35); Alkaline Phosphatase* 209 U/L (40-150); Aspartate Amino Transferase* 22 U/L (12-35); Bilirubin Direct* 0.6 mg/dL (0.0-0.5); Bilirubin Total* 0.8 mg/dL (0.1-1.5); Magnesium* 1.7 mg/dL (1.5-2.6)
[2024-06-07 00:04] LABS: Troponin I* 0.04 ng/mL (0.01-0.04)
[2024-06-07 00:08] LABS: C Reactive Protein* 12.9 mg/dL (0.5-1.0)
[2024-06-07] MEDS: LIDOCAINE/PRILOCAINE 2.5-2.5% CREAM 1 APPLIC TOPICAL (02:11)
--- NOTE | 2024-06-07 02:12 | PC.NURSE ---
Pt about to have a 6th iv stick as she has not wanted her port assessed because it hurts. Emla order obtained for port site with all cares explained to pt who is agreement with plan of care. Pt now needs CT with contrast
--- NOTE | 2024-06-07 03:56 | PC.NURSE ---
patient brought to room 255 on medsurg. [facility]
--- NOTE | 2024-06-07 06:06 | PC.NURSE ---
Pt came to the floor around 0430 accompanied by her daughter with whom she lives. VSS with BP being elevated whick pt stated she was aware of at home also. Lung sounds slightly diminished. with some fine crackles to bases. abdomin soft and nontender. up to commode and void moderate amount of dark non odorous urine. IVF started per MD order.
[2024-06-07] MEDS: 0.9 % SODIUM CHLORIDE 1000 ml 1,000 ML 75 ML IV ×2 (07:01→19:25)
--- NOTE | 2024-06-07 07:10 | W.PM.TELEH&P ---
Telehealth- H&P: HPI History of Present Illness Date Seen: 06/07/24 Chief complaint: Dehydarstion, possible UTI shortness of breath Narrative: Marta Carrillo is seen as an Interactive Telehealth visit. Marta Carrillo 83-year-old female with a history of stage III pancreatic cancer, history of pulmonary embolism with DVT on chronic anticoagulation who presented to the hospital due to a myriad of symptoms including weakness fatigue, shortness of breath and dark urine. She denies any fevers or chills. Patient is currently being treated for pancreatic cancer at the [facility] and is currently on chemotherapy. Last chemotherapy was last week. She is tolerated it well. However she is noted to be very weak and has poor appetite. In the emergency room she was noted to be weak and fatigued but was noted to be hypertensive. Patient denied vomiting diarrhea. Patient denied any chest pain. Patient temperature 98.9, pulse 70, blood pressure was elevated 179/69. EKG was read as sinus rhythm, no ST changes. Chest x-ray showed a fairly sizable left-sided pleural effusion. Patient CBC was noted to have be all elevated. Patient was asked about recent Neupogen/CSF which she does not recall. Prior CBC showed the patient was anemic and at 1 point she needed a transfusion recently. During evaluation in the emergency room she was noted to have some episodes of hypoxia. Patient underwent CT scan of the chest to rule out pulmonary embolism. Patient was found to have a large left-sided pleural effusion. Review of Systems Status of ROS: Reports: 10 or more systems reviewed and unremarkable except as noted in History and below Const: Denies: fever Cardio: Reports: shortness of breath with exertion Resp: Reports: shortness of breath GI: Denies: abdominal pain, nausea or vomiting : Denies: painful urination, urinary frequency or urinary incontinence Neuro: Denies: headache Psych: Denies: anxiety [facility] Medical History (Updated 06/03/24 @ 00:01 by Background Daemon) Conjunctivitis ?H10.9 - Unspecified conjunctivitis (ICD-10) Headache ?R51.9 - Headache, unspecified (ICD-10) Acute pancreatitis ?K85.90 - Acute pancreatitis without necrosis or infection, unspecified (ICD-10) Nausea ?R11.0 - Nausea (ICD-10) History of sick sinus syndrome ?Z86.79 - Personal history of other diseases of the circulatory system (ICD-10) Primary pancreatic adenocarcinoma ?C25.9 - Malignant neoplasm of pancreas, unspecified (ICD-10) Hx of deep venous thrombosis ?Z86.718 - Personal history of other venous thrombosis and embolism (ICD-10) History of pulmonary embolus (PE) ?Z86.711 - Personal history of pulmonary embolism (ICD-10) Diastolic dysfunction ?I51.89 - Other ill-defined heart diseases (ICD-10) Essential hypertension ?I10 - Essential (primary) hypertension (ICD-10) Bilateral foot-drop ?M21.371 - Foot drop, right foot (ICD-10) ?M21.372 - Foot drop, left foot (ICD-10) 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 - Lesion of lateral popliteal nerve, unspecified lower limb (ICD-10) Cataracts, bilateral ?H26.9 - Unspecified cataract (ICD-10) Hyperlipidemia ?E78.5 - Hyperlipidemia, unspecified (ICD-10) Pancreatic cancer (12/17/23) ?C25.9 - Malignant neoplasm of pancreas, unspecified (ICD-10) DM2 (diabetes mellitus, type 2) ?E11.9 - Type 2 diabetes mellitus without complications (ICD-10) Chronic anticoagulation ?Z79.01 - FDC (current) use of anticoagulants (ICD-10) Pacemaker ?Z95.0 - Presence of cardiac pacemaker (ICD-10) Surgical History History of electromyography ?Z92.89 - Personal history of other medical treatment (ICD-10) History of tonsillectomy (1947) ?Z90.89 - Acquired absence of other organs (ICD-10) History of cardiac pacemaker (2018) ?Z95.0 - Presence of cardiac pacemaker (ICD-10) Family History Mother Diabetes High blood pressure High cholesterol Heart disease Osteoporosis Father Heart disease Kidney disease Osteoporosis Social History What is your current living situation?: I presently have a place to live Problems where you live: no known problems Problems where you live details: none In the past 12 months, utilities in danger of being shut off: no In past 12 months, lack of transportation kept you from medical appts, meetings, work, or getting things needed for daily living: no In the past 12 mos, have been you worried that your food would run out before you had money to buy more?: never true In the past 12 mos, the food you bought just didn't last and you didn't have money to buy more?: never true Highest level of school completed/degree received: Bachelor's degree Smoking Status: Never smoker Do you use any of these nicotine containing products: None Second hand tobacco smoke exposure: No How often do you have a drink containing alcohol: never AUDIT-C Alcohol total score: 0 Non-prescribed substance use: denies use Caffeine: Yes (Dr Redd) How often does anyone, including family, friends and others, physically hurt you: never How often does anyone, including family, friends and others, insult or talk down to you: never How often does anyone, including family, friends and others, threaten you with harm: never How often does anyone, including family, friends and others, scream or curse at you: never service: No Meds Home Medications and Allergies Home Medications ?Medication ?Instructions ?Recorded ?Confirmed ?Type lidocaine-prilocaine 2.5 %-2.5 % 1 applic topical DAILY PRN 03/06/24 06/06/24 History topical cream metformin 500 mg tablet,extended 500 mg PO BID 03/06/24 06/06/24 History release 24 hr raloxifene 60 mg tablet 60 mg PO HS 03/06/24 06/06/24 History rosuvastatin 10 mg tablet 10 mg PO QPM 03/06/24 06/06/24 History macularprotect complete PO BID 04/03/24 06/06/24 History cholecalciferol (vitamin D3) 50 50 mcg PO DAILY 05/01/24 06/06/24 History mcg (2,000 unit) capsule lisinopril 40 mg tablet 40 mg PO DAILY 05/22/24 06/06/24 History potassium chloride 20 mEq 20 meq PO DAILY 05/22/24 06/06/24 History tablet,extended release(part/cryst) Allergies Allergy/AdvReac Type Severity Reaction Status Date / Time No Known Drug Allergies Allergy Verified 06/06/24 19:20 Exam Narrative Exam Narrative: Physical Exam GENERAL: ?vital signs reviewed, well developed dry mouth HEENT: mucosa dry NECK: Supple without lymphadenopathy or thyromegaly according to nursing staff examination observation HEART: Regular rate and rhythm without any rubs, murmurs, or gallops. LUNGS: left side lung crackles, rales ABDOMEN: Observation from nurse assisted exam, abdomen appears soft, nontender, and nondistended with Positive bowel sounds noted. EXTREMITIES: Strength and sensation is observed to be grossly within normal limits in the upper and lower extremities.? No focal strength deficit is observed. SKIN:? Observed warm and dry with color normal Const Vital Signs, click to edit/add: Vital Signs - 24 hr 06/06/24 19:14 06/06/24 21:42 06/06/24 22:50 Temperature 98.9 F Pulse Rate [Pulse Oximeter] Pulse Rate [Right Pulse Oximeter] 70 66 Respiratory Rate 18 18 Blood Pressure [Left Upper Arm] 175/69 H 195/89 H Blood Pressure [Right Arm] Pulse Oximetry 94 93 96 Oxygen Delivery Method Room Air Room Air Oxygen Flow Rate 06/06/24 23:45 06/06/24 23:48 06/07/24 00:00 Temperature Pulse Rate [Pulse Oximeter] Pulse Rate [Right Pulse Oximeter] 67 Respiratory Rate 10 L 12 Blood Pressure [Left Upper Arm] 202/85 H Blood Pressure [Right Arm] Pulse Oximetry 82 L 96 96 Oxygen Delivery Method Room Air Nasal Cannula Nasal Cannula Oxygen Flow Rate 2 06/07/24 00:30 06/07/24 00:35 06/07/24 01:00 Temperature Pulse Rate [Pulse Oximeter] Pulse Rate [Right Pulse Oximeter] 62 Respiratory Rate 14 Blood Pressure [Left Upper Arm] 166/73 H Blood Pressure [Right Arm] Pulse Oximetry 86 L 96 96 Oxygen Delivery Method Room Air Nasal Cannula Nasal Cannula Oxygen Flow Rate 2 2 06/07/24 04:13 Temperature Pulse Rate [Pulse Oximeter] 77 Pulse Rate [Right Pulse Oximeter] Respiratory Rate 20 Blood Pressure [Left Upper Arm] Blood Pressure [Right Arm] 200/77 H Pulse Oximetry 88 Oxygen Delivery Method Nasal Cannula Oxygen Flow Rate 2 Hospitalist - H&P: Result Labs Labs: Short CBC 06/06/24 Range/Units 23:15 WBC 18.94 H (4.50-11.00) K/uL Hgb 14.4 (12.0-16.0) gm/dL Hct 44.0 (33.0-51.0) % Plt Count 240 (140-440) K/uL BMP 06/06/24 23:15 Sodium 128 L Potassium 3.5 L Chloride 92 L Carbon Dioxide 31 BUN 22 Creatinine 0.7 Glucose 239 H Calcium 7.9 L Cardiac Enzymes 06/06/24 Range/Units 23:15 Troponin I 0.04 (0.01-0.04) ng/mL Liver Function 06/06/24 Range/Units 23:15 Total Bilirubin 0.8 (0.1-1.5) mg/dL Direct Bilirubin 0.6 H (0.0-0.5) mg/dL AST 22 (12-35) U/L ALT 23 (4-35) U/L Alkaline Phosphatase 209 H (40-150) U/L Albumin 2.7 L (3.3-5.0) g/dL Urine 06/06/24 Range/Units 19:20 Urine Color Yellow (Yellow) Urine Appearance Slightly Cloudy A (Clear) Urine pH 7.0 (5.0-8.5) Ur Specific [place] 1.020 (1.000-1.030) Urine Protein 3+ A (Negative) Urine Glucose (UA) Trace A (Negative) Assessment and Plan Assessment and plan (1) Headache: Status: Acute (2) Hyponatremia: Status: Acute (3) Hx of deep venous thrombosis: Problem comment: R calf. Status: Acute (4) History of pulmonary embolus (PE): Status: Acute (5) DM2 (diabetes mellitus, type 2): Problem comment: -A1C pending -SSI -metformin monotherapy (on hold) Status: Chronic (6) Essential hypertension: Problem comment: -lisinopril, metoprolol ER -hypertensive upon admission, additional Metoprolol IV PRN Status: Chronic (7) Primary pancreatic adenocarcinoma: Problem comment: -stage III, T4 N1 M0 -dx in 12/20 - invasive moderately differentiated adenoca of pancreas -Gemcitabine and Abraxane every other week; started in 01/19 -lives in [place] - up to [place] for chemo/[facility] consultations - staying with daughter Status: Acute (8) History of sick sinus syndrome: Problem comment: has dual-chamber pacemaker Status: Acute Plan Assessment plan Dehydration: This patient clinically looks dehydrated. She appears to be dry oral mucosa. She has not been eating or drinking very well. Although she has minimal lower extremity edema, I do not think she is fluid overloaded. Her BNP is only moderately elevated. She takes Lasix daily. Given her dark urine appearance, I would venture to believe she is more on the dehydrated state. Her CBC is very telling as it does appear to be hemoconcentration. Therefore I will continue with normal saline at 75 mL/h. Hypoxia likely secondary to left-sided pleural effusion: Patient has a very large sized left-sided effusion. From what it appears, this appears to be the first time this has been diagnosed. Given her diagnosis of pancreatic cancer, I think it is clinically warranted to investigate this. I have ordered a ultrasound-guided thoracentesis. I have ordered labs of this including cytology. This patient however is on Eliquis and the safest thing would be to hold off on her Eliquis for 24 hours and then undergo a thoracentesis. Her this patient's last Eliquis dose was on June 06 at 6 PM. I have requested the thoracentesis to be ordered on June 08. Hypertension: Patient's blood pressures are elevated. Will restart her lisinopril and metoprolol. Provide as needed labetalol History of pancreatic cancer on chemotherapy care as per [facility] oncology. She does get her infusions at [facility]. History of pulmonary embolism: At this time holding Eliquis for plan for thoracentesis. Hyponatremia: This is acute on chronic: Sodium is 128. Patient does take salt tabs. Will continue this. Will continue IV fluids. History of diastolic dysfunction currently appears to be dehydrated. Holding diuretic History of diabetes: Holding metformin, continue sliding scale Code full DVT prophylaxis SCDs Telehealth Visit: Todays History and Physical is via interactive telehealth by Dr Lam Faith MD The Patient is located [facility], physician is located at [facility]. Nursing staff assisted in the patient's exam. The visit being done today meets criteria for a telehealth visit and the patient or patient's parent/guardian is aware the visit is a telehealth visit. Camera Start time 4:30 AM Camera End time 5 AM Telehealth: Statement Statement Telehealth Visit: Today's History and Physical is provided via interactive telehealth by aLm Faith MD.? Patient is located at [facility].? Provider is located at [facility].? Nursing staff assisted with the patient's exam. The visit being done today meets criteria for a telehealth visit and the patient or patient?s parent/guardian is aware the visit is a telehealth visit.
[2024-06-07 08:26] LABS: Albumin* 2.4 g/dL (3.3-5.0)
[2024-06-07] MEDS: GENTAMICIN 0.3% OPHTH 2 DROP EYE-BOTH ×5 (08:28→23:58)
[2024-06-07] MEDS: INSULIN ASPART 100 UNIT/ML SUBCUT ×4 (08:28→20:28)
[2024-06-07] MEDS: METFORMIN ER 500 MG PO (08:28)
[2024-06-07 08:29] LABS: Bilirubin Total* 0.8 mg/dL (0.1-1.5); INR 2.49 (0.91-1.10); Lactate Dehydrogenase* 236 U/L (120-246); Prothrombin Time 28.1 Seconds; Total Protein* 5.6 g/dL (6.0-8.3)
[2024-06-07 08:30] LABS: Cholesterol* 104 mg/dL (90-199); Lipase* 423 U/L (23-300)
[2024-06-07] MEDS: SENNOSIDES 1 TAB TABLET 8.6 TAB PO (08:43)
[2024-06-07] MEDS: METOPROLOL SUCCINATE (XL) 50 MG TAB PO (08:43)
[2024-06-07] MEDS: lisinopriL 20 MG TABLET 40 MG PO (08:44)
[2024-06-07] MEDS: SODIUM CHLORIDE 0.9 % (FLUSH) 10 ML SYRINGE 5 ML IVF ×2 (08:44→20:30)
--- NOTE | 2024-06-07 09:42 | PM.IMPN1 ---
Progress Note: A&P Assessment and plan (1) Acute hypoxic respiratory failure: Problem details: - presumably 2/2 pleural effusion, presented with O2 saturation of 82% on RA - continue supplemental oxygen Status: Acute (2) Pleural effusion: Problem details: - noted 06/07 imaging, presumably malignant, infectious less likely - General Surgery consulted; planning thoracentesis 06/08 at this time Status: Acute (3) Primary pancreatic adenocarcinoma: Problem details: - stage III, T4 N1 M0 - diagnosed 11/2023 - invasive moderately differentiated adenocarcinoma of pancreas - Gemcitabine and Abraxane every other week; started 12/2023 - lives in [place] but in [place] and staying with daughter for chemo/[facility] consultation Status: Acute (4) Leukocytosis: Problem details: - noted on admission; no fever, rash or evidence of infection - continue to follow, blood and urine cultures NGTD, no empiric abx needed at this time, low threshold to initiate with any clinical changes Status: Acute (5) Hyponatremia: Problem details: - currently 128, outpatient baseline 130-134 - 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, SIADH from malignancy - on outpatient sodium supplementation, IVFs, continue to follow Status: Acute (6) History of pulmonary embolus (PE): Problem details: - and DVT, on Apixaban as outpatient (HOLDING 06/07 for planned thoracentesis 06/08) Status: Acute (7) DM2 (diabetes mellitus, type 2): Problem details: - A1C was 7.3 05/23 - SSI - metformin monotherapy as an outpatient - holding 06/07 given illness Status: Chronic (8) Essential hypertension: Problem details: - lisinopril, metoprolol ER - hypertensive upon admission, additional Metoprolol IV PRN Status: Chronic (9) History of sick sinus syndrome: Problem details: - has dual-chamber pacemaker Status: Acute Plan - per above (supplemental oxygen, thoracentesis 06/07) - HOLDING [facility] for ppx - plans to go home with daughter when medically stable Subjective Date Seen: 06/07/24 Interval history: Marta was admitted early this morning for dyspnea in the setting of L sided pleural effusion, known pancreatic cancer. On Apixaban for h/o DVT and PE, last dose was 06/06/24 at 1800. Current plan is for thoracentesis 06/08 with General Surgery. This morning, Marta is tired but has no pain or other complaints for the hospitalist team. Tolerating supplemental oxygen. Data: WBC 18 with PMN predominance, no fevers, rashes, GI symptoms. Trace leukocyte esterase on UA, negative nitrite, urine and blood cultures NGTD. Noted to have elevated blood pressure, asymptomatic. Exam Narrative: Exam Narrative: GEN: Alert and oriented, nontoxic HEENT: Alopecia, EOMIs, no scleral icterus CV: RRR, No concerning murmurs R: LCTA bilaterally without concerning wheezing, air movement adequate Ext: wwp, no concerning edema Skin: No concerning skin lesions or rashes on exposed skin Neuro: No focal deficits on limited exam Psych: Appropriate Const: Vital Signs, click to edit/add: Vital Signs - 24 hr 06/06/24 19:14 06/06/24 21:42 06/06/24 22:50 Temperature 98.9 F Pulse Rate [Pulse Oximeter] Pulse Rate [Right Pulse Oximeter] 70 66 Respiratory Rate 18 18 Blood Pressure [Le ft Upper Arm] 175/69 H 195/89 H Blood Pressure [Ri ght Arm] Pulse Oximetry 94 93 96 Oxygen Delivery Me thod Room Air Room Air Oxygen Flow Rate 06/06/24 23:45 06/06/24 23:48 06/07/24 00:00 Temperature Pulse Rate [Pulse Oximeter] Pulse Rate [Right Pulse Oximeter] 67 Respiratory Rate 10 L 12 Blood Pressure [Le ft Upper Arm] 202/85 H Blood Pressure [Ri ght Arm] Pulse Oximetry 82 L 96 96 Oxygen Delivery Me thod Room Air Nasal Cannula Nasal Cannula Oxygen Flow Rate 2 06/07/24 00:30 06/07/24 00:35 06/07/24 01:00 Temperature Pulse Rate [Pulse Oximeter] Pulse Rate [Right Pulse Oximeter] 62 Respiratory Rate 14 Blood Pressure [Le ft Upper Arm] 166/73 H Blood Pressure [Ri ght Arm] Pulse Oximetry 86 L 96 96 Oxygen Delivery Me thod Room Air Nasal Cannula Nasal Cannula Oxygen Flow Rate 2 2 06/07/24 04:13 06/07/24 05:58 06/07/24 08:34 Temperature 98.6 F Pulse Rate [Pulse Oximeter] 77 63 Pulse Rate [Right Pulse Oximeter] Respiratory Rate 20 18 Blood Pressure [Le ft Upper Arm] Blood Pressure [Ri ght Arm] 200/77 H 191/70 H Pulse Oximetry 88 92 91 Oxygen Delivery Me thod Nasal Cannula Nasal Cannula Nasal Cannula Oxygen Flow Rate 2 2 1.5 Labs Labs: Laboratory Results - last 24 hr 06/06/24 06/06/24 06/06/24 19:20 22:14 23:15 WBC 18.94 H RBC 4.79 Hgb 14.4 Hct 44.0 MCV 92 MCH 30 MCHC 33 RDW Coeff of [place] 16.2 H Plt Count 240 Neut % (Auto) 84.8 H Lymph % (Auto) 8.1 L [place] % (Auto) 4.9 Eos % (Auto) 0.8 Baso % (Auto) 0.1 Neut # (Auto) 16.10 H Lymph # (Auto) 1.50 [place] # (Auto) 0.90 Eos # (Auto) 0.20 Baso # (Auto) 0.00 Abs Immat Gran (auto) 0.20 Imm/Tot Granulo (auto) 1.3 INR Sodium 128 L Potassium 3.5 L Chloride 92 L Carbon Dioxide 31 Anion Gap 5 L BUN 22 Creatinine 0.7 Estimated Creat Clear 32.17 Estimated GFR 86 Glucose 239 H Lactate 1.4 Calcium 7.9 L Magnesium 1.7 Total Bilirubin 0.8 Direct Bilirubin 0.6 H AST 22 ALT 23 Alkaline Phosphatase 209 H Lactate Dehydrogenase Troponin I 0.04 C-Reactive Protein 12.9 H Total Protein 6.0 Albumin 2.7 L Cholesterol Lipase Procalcitonin Cancelled TSH 3.090 Urine Color Yellow Urine Appearance Slightly Cloudy A Urine pH 7.0 Ur Specific [place] 1.020 Urine Protein 3+ A Urine Glucose (UA) Trace A Urine Ketones Negative Urine Blood 3+ A Urine Nitrite Negative Urine Bilirubin Negative Urine Urobilinogen 2.0 A Ur Leukocyte Esterase Trace A Urine RBC 10-25 A Urine WBC 2-5 Ur Squamous Epith Cells Few Urine Bacteria Few A SARS-CoV-2 (PCR) Negative SARS-CoV-2 Influenza Type A (PCR) Negative PCR FLU A Influenza Type B (PCR) Negative PCR FLU B RSV (PCR) Negative PCR RSV Lab Acknowledgement 06/07/24 06/07/24 07:23 07:55 WBC RBC Hgb Hct MCV MCH MCHC RDW Coeff of [place] Plt Count Neut % (Auto) Lymph % (Auto) [place] % (Auto) Eos % (Auto) Baso % (Auto) Neut # (Auto) Lymph # (Auto) [place] # (Auto) Eos # (Auto) Baso # (Auto) Abs Immat Gran (auto) Imm/Tot Granulo (auto) INR 2.49 H Sodium Potassium Chloride Carbon Dioxide Anion Gap BUN Creatinine Estimated Creat Clear Estimated GFR Glucose Lactate Calcium Magnesium Total Bilirubin 0.8 Direct Bilirubin AST ALT Alkaline Phosphatase Lactate Dehydrogenase 236 Troponin I C-Reactive Protein Total Protein 5.6 L Albumin 2.4 L Cholesterol 104 Lipase 423 H Procalcitonin TSH Urine Color Urine Appearance Urine pH Ur Specific [place] Urine Protein Urine Glucose (UA) Urine Ketones Urine Blood Urine Nitrite Urine Bilirubin Urine Urobilinogen Ur Leukocyte Esterase Urine RBC Urine WBC Ur Squamous Epith Cells Urine Bacteria SARS-CoV-2 (PCR) Influenza Type A (PCR) Influenza Type B (PCR) RSV (PCR) Lab Acknowledgement Test Added
[2024-06-07] MEDS: POTASSIUM BICARB 25 MEQ EFFERVESCENT TAB PO (11:21)
[2024-06-07] MEDS: ONDANSETRON 2 MG/ML inj 4 MG IVP (12:21)
[2024-06-07] MEDS: ROSUVASTATIN CALCIUM 10 MG TABLET PO (17:51)
--- NOTE | 2024-06-07 18:00 | PM.GSCN ---
History of Present Illness Consult details Date Seen: 06/07/24 Consult date: 06/07/24 Narrative: The patient is an 83-year-old female who presented to the emergency department last evening with shortness of breath. She is currently undergoing treatment at [facility] for pancreatic cancer. She received her last dose of chemotherapy on May 15. Over the past week she has had significant weakness and poor appetite. She states that she would get very short of breath with walking even around her house. In the emergency room, she was found to have a large left-sided pleural effusion. She does take Eliquis for history of PE. This was diagnosed after her pancreatic cancer diagnosis. She had been getting her care in [place], however moved here to be closer to her daughter and is as mentioned getting care at [place]. Her son-in-law says that at the beginning of April she was noted to have a small effusion. They had discussed holding further chemotherapy however she did get her dose is scheduled on the . After that the patient and her family states that she had fairly significant decline. [facility] Medical History (Updated 06/07/24 @ 11:09 by Lorena Rivera MD) Conjunctivitis ?H10.9 - Unspecified conjunctivitis (ICD-10) Headache ?R51.9 - Headache, unspecified (ICD-10) Acute pancreatitis ?K85.90 - Acute pancreatitis without necrosis or infection, unspecified (ICD-10) Nausea ?R11.0 - Nausea (ICD-10) History of sick sinus syndrome ?Z86.79 - Personal history of other diseases of the circulatory system (ICD-10) Primary pancreatic adenocarcinoma ?C25.9 - Malignant neoplasm of pancreas, unspecified (ICD-10) Hx of deep venous thrombosis ?Z86.718 - Personal history of other venous thrombosis and embolism (ICD-10) History of pulmonary embolus (PE) ?Z86.711 - Personal history of pulmonary embolism (ICD-10) Diastolic dysfunction ?I51.89 - Other ill-defined heart diseases (ICD-10) Essential hypertension ?I10 - Essential (primary) hypertension (ICD-10) Bilateral foot-drop ?M21.371 - Foot drop, right foot (ICD-10) ?M21.372 - Foot drop, left foot (ICD-10) 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 - Lesion of lateral popliteal nerve, unspecified lower limb (ICD-10) Cataracts, bilateral ?H26.9 - Unspecified cataract (ICD-10) Hyperlipidemia ?E78.5 - Hyperlipidemia, unspecified (ICD-10) Pancreatic cancer (12/17/23) ?C25.9 - Malignant neoplasm of pancreas, unspecified (ICD-10) DM2 (diabetes mellitus, type 2) ?E11.9 - Type 2 diabetes mellitus without complications (ICD-10) Chronic anticoagulation ?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 (ICD-10) Pacemaker ?Z95.0 - Presence of cardiac pacemaker (ICD-10) Surgical History History of electromyography ?Z92.89 - Personal history of other medical treatment (ICD-10) History of tonsillectomy (1947) ?Z90.89 - Acquired absence of other organs (ICD-10) History of cardiac pacemaker (2018) ?Z95.0 - Presence of cardiac pacemaker (ICD-10) Family History Mother Diabetes High blood pressure High cholesterol Heart disease Osteoporosis Father Heart disease Kidney disease Osteoporosis Social History What is your current living situation?: I presently have a place to live Problems where you live: no known problems Problems where you live details: none In the past 12 months, utilities in danger of being shut off: no In past 12 months, lack of transportation kept you from medical appts, meetings, work, or getting things needed for daily living: no In the past 12 mos, have been you worried that your food would run out before you had money to buy more?: never true In the past 12 mos, the food you bought just didn't last and you didn't have money to buy more?: never true Highest level of school completed/degree received: Bachelor's degree Smoking Status: Never smoker Do you use any of these nicotine containing products: None Second hand tobacco smoke exposure: No How often do you have a drink containing alcohol: never AUDIT-C Alcohol total score: 0 Non-prescribed substance use: denies use Caffeine: Yes (Dr Redd) How often does anyone, including family, friends and others, physically hurt you: never How often does anyone, including family, friends and others, insult or talk down to you: never How often does anyone, including family, friends and others, threaten you with harm: never How often does anyone, including family, friends and others, scream or curse at you: never service: No Meds Home Medications and Allergies Home Medications ?Medication ?Instructions ?Recorded ?Confirmed ?Type lidocaine-prilocaine 2.5 %-2.5 % 1 applic topical DAILY PRN 03/06/24 06/07/24 History topical cream metformin 500 mg tablet,extended 500 mg PO BID 03/06/24 06/07/24 History release 24 hr raloxifene 60 mg tablet 60 mg PO HS 03/06/24 06/07/24 History rosuvastatin 10 mg tablet 10 mg PO QPM 03/06/24 06/07/24 History macularprotect complete PO BID 04/03/24 06/06/24 History cholecalciferol (vitamin D3) 50 50 mcg PO DAILY 05/01/24 06/07/24 History mcg (2,000 unit) capsule lisinopril 40 mg tablet 40 mg PO DAILY 05/22/24 06/07/24 History potassium chloride 20 mEq 20 meq PO DAILY 05/22/24 06/07/24 History tablet,extended release(part/cryst) Allergies Allergy/AdvReac Type Severity Reaction Status Date / Time No Known Drug Allergies Allergy Verified 06/06/24 19:20 Exam Narrative: Exam Narrative: General: No acute distress. Patient resting comfortably in bed Respiratory: Patient breathing comfortably on 1.5 L nasal cannula CV: Regular rate Psych: Normal affect Neuro: No focal deficits Const: Vital Signs, click to edit/add: Vital Signs - 24 hr 06/06/24 19:14 06/06/24 21:42 06/06/24 22:50 Temperature 98.9 F Pulse Rate Pulse Rate [Pulse Oximeter] Pulse Rate [Right Pulse Oximeter] 70 66 Respiratory Rate 18 18 Blood Pressure [Le ft Arm] Blood Pressure [Le ft Upper Arm] 175/69 H 195/89 H Blood Pressure [Ri ght Arm] Pulse Oximetry 94 93 96 Oxygen Delivery Me thod Room Air Room Air Oxygen Flow Rate 06/06/24 23:45 06/06/24 23:48 06/07/24 00:00 Temperature Pulse Rate Pulse Rate [Pulse Oximeter] Pulse Rate [Right Pulse Oximeter] 67 Respiratory Rate 10 L 12 Blood Pressure [Le ft Arm] Blood Pressure [Le ft Upper Arm] 202/85 H Blood Pressure [Ri ght Arm] Pulse Oximetry 82 L 96 96 Oxygen Delivery Me thod Room Air Nasal Cannula Nasal Cannula Oxygen Flow Rate 2 06/07/24 00:30 06/07/24 00:35 06/07/24 01:00 Temperature Pulse Rate Pulse Rate [Pulse Oximeter] Pulse Rate [Right Pulse Oximeter] 62 Respiratory Rate 14 Blood Pressure [Le ft Arm] Blood Pressure [Le ft Upper Arm] 166/73 H Blood Pressure [Ri ght Arm] Pulse Oximetry 86 L 96 96 Oxygen Delivery Me thod Room Air Nasal Cannula Nasal Cannula Oxygen Flow Rate 2 2 06/07/24 04:13 06/07/24 05:58 06/07/24 08:34 Temperature 98.6 F Pulse Rate Pulse Rate [Pulse Oximeter] 77 63 Pulse Rate [Right Pulse Oximeter] Respiratory Rate 20 18 Blood Pressure [Le ft Arm] Blood Pressure [Le ft Upper Arm] Blood Pressure [Ri ght Arm] 200/77 H 191/70 H Pulse Oximetry 88 92 91 Oxygen Delivery Me thod Nasal Cannula Nasal Cannula Nasal Cannula Oxygen Flow Rate 2 2 1.5 06/07/24 08:34 06/07/24 09:02 06/07/24 11:23 Temperature 98.5 F Pulse Rate 60 Pulse Rate [Pulse Oximeter] 60 Pulse Rate [Right Pulse Oximeter] Respiratory Rate 18 18 Blood Pressure [Le ft Arm] Blood Pressure [Le ft Upper Arm] Blood Pressure [Ri ght Arm] 173/62 H Pulse Oximetry 92 Oxygen Delivery Me thod Nasal Cannula Oxygen Flow Rate 1.5 06/07/24 15:08 06/07/24 15:12 06/07/24 15:12 Temperature 99.0 F Pulse Rate Pulse Rate [Pulse Oximeter] 63 63 63 Pulse Rate [Right Pulse Oximeter] Respiratory Rate 22 22 Blood Pressure [Le ft Arm] 191/66 H Blood Pressure [Le ft Upper Arm] Blood Pressure [Ri ght Arm] 197/70 H Pulse Oximetry 92 Oxygen Delivery Me thod Nasal Cannula Oxygen Flow Rate 1.5 Results Labs Labs: Abnormal lab results 06/06/24 06/06/24 06/07/24 Range/Units 19:20 23:15 07:55 WBC 18.94 H (4.50-11.00) K/uL RDW Coeff of Elba 16.2 H (11.5-15.5) % Neut % (Auto) 84.8 H (42.0-72.0) % Lymph % (Auto) 8.1 L (20-44) % Neut # (Auto) 16.10 H (1.7-7.0) K/uL INR 2.49 H (0.91-1.10) Sodium 128 L (135-149) mmol/L Potassium 3.5 L (3.6-5.1) mmol/L Chloride 92 L (96-114) mmol/L Anion Gap 5 L (7-15) mEq/L Glucose 239 H (60-115) mg/dL Calcium 7.9 L (8.4-10.6) mg/dL Direct Bilirubin 0.6 H (0.0-0.5) mg/dL Alkaline Phosphatase 209 H (40-150) U/L C-Reactive Protein 12.9 H (0.5-1.0) mg/dL Total Protein 5.6 L (6.0-8.3) g/dL Albumin 2.7 L 2.4 L (3.3-5.0) g/dL Lipase 423 H (23-300) U/L Urine Appearance Slightly Cloudy A (Clear) Urine Protein 3+ A (Negative) Urine Glucose (UA) Trace A (Negative) Urine Blood 3+ A (Negative) Urine Urobilinogen 2.0 A (0.2-1.0) Ur Leukocyte Esterase Trace A (Negative) Urine RBC 10-25 A (0-2) Urine Bacteria Few A (None) Diabetes panel 06/06/24 06/07/24 Range/Units 23:15 07:55 Sodium 128 L (135-149) mmol/L Potassium 3.5 L (3.6-5.1) mmol/L Chloride 92 L (96-114) mmol/L Carbon Dioxide 31 (20-32) mmol/L BUN 22 (7-30) mg/dL Creatinine 0.7 (0.5-1.5) mg/dL Glucose 239 H (60-115) mg/dL Calcium 7.9 L (8.4-10.6) mg/dL AST 22 (12-35) U/L ALT 23 (4-35) U/L Alkaline Phosphatase 209 H (40-150) U/L Total Protein 6.0 5.6 L (6.0-8.3) g/dL Albumin 2.7 L 2.4 L (3.3-5.0) g/dL Thyroid panel 06/06/24 Range/Units 23:15 TSH 3.090 (0.270-4.200) uIU/mL Calcium panel 06/06/24 06/07/24 Range/Units 23:15 07:55 Calcium 7.9 L (8.4-10.6) mg/dL Albumin 2.7 L 2.4 L (3.3-5.0) g/dL Pituitary panel 06/06/24 Range/Units 23:15 Sodium 128 L (135-149) mmol/L Potassium 3.5 L (3.6-5.1) mmol/L Chloride 92 L (96-114) mmol/L Carbon Dioxide 31 (20-32) mmol/L BUN 22 (7-30) mg/dL Creatinine 0.7 (0.5-1.5) mg/dL Glucose 239 H (60-115) mg/dL Calcium 7.9 L (8.4-10.6) mg/dL TSH 3.090 (0.270-4.200) uIU/mL Adrenal panel 06/06/24 06/07/24 Range/Units 23:15 07:55 Sodium 128 L (135-149) mmol/L Potassium 3.5 L (3.6-5.1) mmol/L Chloride 92 L (96-114) mmol/L Carbon Dioxide 31 (20-32) mmol/L BUN 22 (7-30) mg/dL Creatinine 0.7 (0.5-1.5) mg/dL Glucose 239 H (60-115) mg/dL Calcium 7.9 L (8.4-10.6) mg/dL Total Bilirubin 0.8 0.8 (0.1-1.5) mg/dL AST 22 (12-35) U/L ALT 23 (4-35) U/L Alkaline Phosphatase 209 H (40-150) U/L Total Protein 6.0 5.6 L (6.0-8.3) g/dL Albumin 2.7 L 2.4 L (3.3-5.0) g/dL All other labs normal. Imaging Abdomen CT scan report/results: report reviewed and image reviewed CT scan - chest: report reviewed and image reviewed Additional studies: CT scan abdomen pelvis done on 05/22/2024: This shows increased soft tissue stranding abutting the uncinate region of the pancreas. No peripancreatic fluid collections. Left pleural effusion noted. CT chest 06/07/2024: IMPRESSION: 1. No acute pulmonary embolism. 2. Redemonstrated large left pleural effusion with underlying severe left lung atelectasis. 3. Small pericardial effusion. Dictated by Ck Deutsch MD @ 06/07/2024 3:50:57 AM Progress Note:A&P Assessment and plan (1) Leukocytosis: Status: Acute (2) Acute hypoxic respiratory failure: Status: Acute (3) Pleural effusion: Status: Acute Plan The patient is an 83-year-old female with pancreatic cancer, currently undergoing treatment with chemotherapy at [facility], now with a large left pleural effusion. Diagnostic and therapeutic thoracentesis has been requested. I reviewed the procedure as well as risks and benefits with the patient. She agreed to proceed. We are planning on doing this in the morning as she last took her Eliquis last night and she is stable from a respiratory standpoint. This will minimize bleeding risk. She understands that we may not be able to drain all of the fluid and she may need repeat thoracentesis. This is because of risk of re-expansion pulmonary edema. -She asked excellent questions and is agreeable to proceed.
--- NOTE | 2024-06-07 18:16 | PC.NURSE ---
End of Shift: Patient pleasant and cooperative. Patient hypertensive, MD aware but stable, left side of posterior lungs diminished compared to right, otherwise with fine crackles, BS WNL, IV SL and right chest port running NS at 75. Patient denies pain. Zophran given once, patient became nauseous and was dry heaving. Patient with small appetite, but tolerating regular diet. Patient SBA/walker. Aqua K pad used for comfort, and patient was up in chair for some time in chair. Tele=Paced. Blood sugars 233, 206, 220.
[2024-06-07] MEDS: TRAMADOL HCL 50 MG TABLET PO (20:35)
[2024-06-08] VITALS (14 sets, daily range): BP systolic 176–209; BP diastolic 75–92; PULSE 60–73; RESP 16–22; TEMP 36.9–37.4; O2SAT 90–96
[2024-06-08] MEDS: TRAMADOL HCL 50 MG TABLET PO ×2 (02:59→21:08)
[2024-06-08] MEDS: ONDANSETRON 2 MG/ML inj 4 MG IVP ×2 (03:03→10:17)
[2024-06-08] MEDS: SODIUM CHLORIDE 0.9 % (FLUSH) 10 ML SYRINGE 5 ML IVF ×3 (03:03→21:03)
--- NOTE | 2024-06-08 05:05 | PC.NURSE ---
[id number] Pt slept well between cares, denies sob or difficulty breathing at rest, some sob with ambulation to br and back. c/o back of heels hurting assessed heals, pink color, blanchable with blood refill <3 seconds, applied mepilex to bilateral heels, educated patient and pt daughter to elevate heels and keep them off of the mattress when pt laying supine in bed, both verbalized understanding and demonstrated remainder of shift. Pt c/o back pain x2 during shift, relief with prn tramadol. nausea with dry heaves x1, relief with prn zofran. LLL lung sounds diminished, pt denies pain with breathing, requires 2 lpm O2 to maintain sats >90%.
[2024-06-08 06:58] LABS: Basophils Percent Auto 0.1 % (0.0-3.0); Hematocrit 29.7 % (33.0-51.0); Hemoglobin* 9.8 gm/dL (12.0-16.0); Immature Granulocytes Pct Auto 0.3 %; Lymphocytes Percent Auto 9.4 % (20-44); Mean Corpuscular HGB Conc 33 gm/dL (32-36); Mean Corpuscular Hemoglobin 31 pg (26-34); Mean Corpuscular Volume 94 fL (80-100); Monocytes Percent Auto 5.2 % (0.0-11.0); Platelet Count* 324 K/uL (140-440); RDW Coefficient of Variation % 16.4 % (11.5-15.5); Red Blood Count 3.16 m/uL (4.00-5.20); White Blood Count* 18.79 K/uL (4.50-11.00)
[2024-06-08 06:59] LABS: Slide Review Reflex No
[2024-06-08 07:01] LABS: Albumin* 2.4 g/dL (3.3-5.0); Chloride* 96 mmol/L (96-114); Potassium* 3.4 mmol/L (3.6-5.1); Sodium* 132 mmol/L (135-149)
[2024-06-08 07:02] LABS: INR 2.08 (0.91-1.10); Prothrombin Time 24.5 Seconds
[2024-06-08 07:03] LABS: Blood Urea Nitrogen* 15 mg/dL (7-30); Creatinine* 0.7 mg/dL (0.5-1.5); Est. Creatinine Clearance* 32.17; Estimated Glomerular Filt Rate 86 ml/min
[2024-06-08 07:04] LABS: Alanine Aminotransferase* 17 U/L (4-35); Alkaline Phosphatase* 185 U/L (40-150); Anion Gap 3 mEq/L (7-15); Aspartate Amino Transferase* 24 U/L (12-35); Calcium* 7.6 mg/dL (8.4-10.6); Carbon Dioxide* 33 mmol/L (20-32); Glucose* 169 mg/dL (60-115); Lipase* 333 U/L (23-300); Magnesium* 1.6 mg/dL (1.5-2.6); Total Protein* 5.5 g/dL (6.0-8.3)
[2024-06-08] MEDS: GENTAMICIN 0.3% OPHTH 2 DROP EYE-BOTH ×4 (07:35→19:44)
[2024-06-08] MEDS: INSULIN ASPART 100 UNIT/ML SUBCUT ×4 (07:35→21:03)
[2024-06-08] MEDS: POTASSIUM CHLORIDE 10 MEQ CAPSULE ER 20 MEQ PO (09:13)
[2024-06-08] MEDS: METOPROLOL SUCCINATE (XL) 50 MG TAB PO (09:13)
[2024-06-08] MEDS: lisinopriL 20 MG TABLET 40 MG PO (09:13)
[2024-06-08] MEDS: 0.9 % SODIUM CHLORIDE 1000 ml 1,000 ML 75 ML IV (09:22)
--- NOTE | 2024-06-08 09:40 | PM.IMPN1 ---
Progress Note: A&P Assessment and plan (1) Acute hypoxic respiratory failure: Problem details: - presumably 2/2 pleural effusion, presented with O2 saturation of 82% on RA - continue supplemental oxygen Status: Acute (2) Pleural effusion: Problem details: - noted 06/07 imaging, presumably malignant, infectious less likely - General Surgery following, plans for 06/08 thoracentesis Status: Acute (3) Leukocytosis: Problem details: - noted on admission (18 on 06/07, stable on 06/08) no fever, rash or evidence of infection - continue to follow, blood and urine cultures NGTD, no empiric abx needed at this time, low threshold to initiate with any clinical changes Status: Acute (4) Primary pancreatic adenocarcinoma: Problem details: - stage III, T4 N1 M0 - diagnosed 11/2023 - invasive moderately differentiated adenocarcinoma of pancreas - Gemcitabine and Abraxane every other week; started 12/2023 - lives in [place] but in [place] and staying with daughter for [facility] consultation Status: Acute (5) Essential hypertension: Problem details: - lisinopril, metoprolol ER; continuing these during stay - hypertensive, asymptomatic - continue to follow, anticipate improvement after thoracentesis Status: Chronic (6) DM2 (diabetes mellitus, type 2): Problem details: - A1C was 7.3 05/23 - SSI - metformin monotherapy as an outpatient - holding 06/07 given illness Status: Chronic (7) History of pulmonary embolus (PE): Problem details: - and DVT, on Apixaban as outpatient (HOLDING 06/07 for planned thoracentesis 06/08) Status: Acute Plan - per above - pending thoracentesis, ability to tolerate RA -> possible d/c tomorrow - daughter updated at bedside, questions answered Subjective Date Seen: 06/08/24 Interval history: Marta was admitted to the hospital on 06/07 for dyspnea in the setting of L sided pleural effusion, known pancreatic cancer. On Apixaban for h/o DVT and PE, last dose was 06/06/24 at 1800. She is having a thoracentesis with Dr. Orozco of General Surgery today. Continues to require 1-2L of supplemental oxygen to keep saturations 90% and above. WBC remains elevated (18) without fevers or other symptoms of bacterial illness. Blood and urine cultures collected on admission remain negative. Systolic blood pressure has been elevated (190-200), asymptomatic. Continuing home doses of Lisinopril and Metoprolol, anticipate improvement in BP after thoracentesis. This morning, Marta has no concerns for hospitalist team. Exam Narrative: Exam Narrative: GEN: Alert and oriented, sitting comfortably in bed HEENT: Alopecia, normal external ears, EOMIs bilaterally, no scleral icterus CV: RRR, No concerning murmurs, rubs, or gallops R: Decreased left sided breath sounds, no wheezing Ext: wwp, trace bilateral lower extremity edema Skin: No concerning skin lesions or rashes on exposed skin Neuro: Nonfocal Psych: Appropriate Const: Vital Signs, click to edit/add: Vital Signs - 24 hr 06/07/24 11:23 06/07/24 15:08 06/07/24 15:12 Temperature 98.5 F 99.0 F Pulse Rate Pulse Rate [Pulse Oximeter] 60 63 63 Respiratory Rate 18 22 Blood Pressure [Le ft Arm] 191/66 H Blood Pressure [Ri ght Arm] 173/62 H 197/70 H Pulse Oximetry 92 92 Oxygen Delivery Me thod Nasal Cannula Nasal Cannula Oxygen Flow Rate 1.5 1.5 06/07/24 15:12 06/07/24 18:37 06/07/24 19:00 Temperature 100.8 F H Pulse Rate 69 Pulse Rate [Pulse Oximeter] 63 69 Respiratory Rate 22 20 Blood Pressure [Le ft Arm] Blood Pressure [Ri ght Arm] 176/67 H Pulse Oximetry 92 Oxygen Delivery Me thod Nasal Cannula Oxygen Flow Rate 1.5 06/07/24 23:00 06/07/24 23:00 06/07/24 23:00 Temperature 99.0 F Pulse Rate 63 Pulse Rate [Pulse Oximeter] 65 Respiratory Rate 20 18 Blood Pressure [Le ft Arm] Blood Pressure [Ri ght Arm] 190/78 H Pulse Oximetry 91 Oxygen Delivery Me thod Nasal Cannula Oxygen Flow Rate 1.5 06/08/24 03:00 06/08/24 07:44 06/08/24 07:48 Temperature 98.5 F Pulse Rate Pulse Rate [Pulse Oximeter] 67 63 65 Respiratory Rate 16 22 Blood Pressure [Le ft Arm] Blood Pressure [Ri ght Arm] 209/92 H 200/78 H Pulse Oximetry 90 Oxygen Delivery Me thod Nasal Cannula Oxygen Flow Rate 2 Labs Labs: Laboratory Results - last 24 hr 06/08/24 06:10 WBC 18.79 H RBC 3.16 L Hgb 9.8 L Hct 29.7 L MCV 94 MCH 31 MCHC 33 RDW Coeff of Elba 16.4 H Plt Count 324 Neut % (Auto) 84.0 H Lymph % (Auto) 9.4 L [place] % (Auto) 5.2 Eos % (Auto) 1.0 Baso % (Auto) 0.1 Neut # (Auto) 15.80 H Lymph # (Auto) 1.80 [place] # (Auto) 1.00 H Eos # (Auto) 0.20 Baso # (Auto) 0.00 Abs Immat Gran (auto) 0.10 Imm/Tot Granulo (auto) 0.3 INR 2.08 H Sodium 132 L Potassium 3.4 L Chloride 96 Carbon Dioxide 33 H Anion Gap 3 L BUN 15 Creatinine 0.7 Estimated Creat Clear 32.17 Estimated GFR 86 Glucose 169 H Calcium 7.6 L Magnesium 1.6 Total Bilirubin 1.0 AST 24 ALT 17 Alkaline Phosphatase 185 H Total Protein 5.5 L Albumin 2.4 L Lipase 333 H
--- NOTE | 2024-06-08 09:50 | PM.GSPN ---
Subjective Subjective Date Seen: 06/08/24 Interval history: Marta is more short of breath today. We are planning on thoracentesis today. Exam Narrative: Exam Narrative: General: No acute distress CV: Regular rate Respiratory: Breathing is nonlabored on nasal cannula Const: Vital Signs, click to edit/add: Vital Signs - 24 hr 06/07/24 11:23 06/07/24 15:08 06/07/24 15:12 Temperature 98.5 F 99.0 F Pulse Rate Pulse Rate [Pulse Oximeter] 60 63 63 Respiratory Rate 18 22 Blood Pressure [Le ft Arm] 191/66 H Blood Pressure [Ri ght Arm] 173/62 H 197/70 H Pulse Oximetry 92 92 Oxygen Delivery Me thod Nasal Cannula Nasal Cannula Oxygen Flow Rate 1.5 1.5 06/07/24 15:12 06/07/24 18:37 06/07/24 19:00 Temperature 100.8 F H Pulse Rate 69 Pulse Rate [Pulse Oximeter] 63 69 Respiratory Rate 22 20 Blood Pressure [Le ft Arm] Blood Pressure [Ri ght Arm] 176/67 H Pulse Oximetry 92 Oxygen Delivery Me thod Nasal Cannula Oxygen Flow Rate 1.5 06/07/24 23:00 06/07/24 23:00 06/07/24 23:00 Temperature 99.0 F Pulse Rate 63 Pulse Rate [Pulse Oximeter] 65 Respiratory Rate 20 18 Blood Pressure [Le ft Arm] Blood Pressure [Ri ght Arm] 190/78 H Pulse Oximetry 91 Oxygen Delivery Me thod Nasal Cannula Oxygen Flow Rate 1.5 06/08/24 03:00 06/08/24 07:44 06/08/24 07:48 Temperature 98.5 F Pulse Rate Pulse Rate [Pulse Oximeter] 67 63 65 Respiratory Rate 16 22 Blood Pressure [Le ft Arm] Blood Pressure [Ri ght Arm] 209/92 H 200/78 H Pulse Oximetry 90 Oxygen Delivery Me thod Nasal Cannula Oxygen Flow Rate 2 06/08/24 09:34 Temperature Pulse Rate 60 Pulse Rate [Pulse Oximeter] Respiratory Rate Blood Pressure [Le ft Arm] Blood Pressure [Ri ght Arm] Pulse Oximetry Oxygen Delivery Me thod Oxygen Flow Rate Labs/Imaging Labs Labs: INR still elevated today at 2.0 this questionably accurate in the setting of apixaban Imaging Imaging: CT images again reviewed which shows a large left pleural effusion Progress Note:A&P Assessment and plan (1) Leukocytosis: Status: Acute (2) Acute hypoxic respiratory failure: Status: Acute (3) Pleural effusion: Status: Acute (4) Primary pancreatic adenocarcinoma: Status: Acute Plan The patient is an 83-year-old female with a large left-sided pleural effusion in the setting of pancreatic cancer. Thoracentesis is planned for today. Patient has had apixaban held for 36 hours. This should be sufficient to perform the procedure. This is set for 11 30 today based on ultrasound availability.
--- NOTE | 2024-06-08 09:52 | P.PCN_ITS ---
Procedure Note Date Seen: 06/08/24 Will [facility] bill your pro fee for this procedure?: Yes Pre-op diagnosis: Left-sided pleural effusion Post-op diagnosis: same Procedure: Left-sided thoracentesis with ultrasound guidance Procedure Description: After discussion of the risks and benefits the patient was placed in a seated position leaning over a table. Ultrasound guidance was used to identify the effusion. Once this was done the site was marked. The area was prepped and draped in the usual sterile fashion. Local anesthetic was used to anesthetize the skin and subcutaneous tissue down to the rib. Once the rib was encountered, the needle was advanced over the top of the rib into the pleural space. This was confirmed by the aspiration of pleural fluid - this was bloody, but consistent w ith bloody effusion rather than traumatic tap. A skin jacquie was made with an 11 blade. The thoracentesis catheter was advanced into the pleural cavity while aspirating. Once the pleural fluid was aspirated confirming entrance into the chest cavity, the needle was removed and the sheath advanced. 900 of fluid were then aspirated. At the end of the procedure, the patient had some mild coughing. Specimens were sent. The ultrasound was used to confirm successful aspiration evidence by no further remaining fluid. The catheter was then removed, and an occlusive dressing was placed over the skin site. Patient tolerated the procedure well. Estimated blood loss 1 mL Postprocedure chest x-ray is pending. Anesthesia: local Condition: stable Disposition: floor
[2024-06-08] MEDS: CALCIUM GLUC 1,000MG/50 ML 1,000 MG/50 ML BAG 100 MG IVPB (10:17)
[2024-06-08] MEDS: POTASSIUM BICARB 25 MEQ EFFERVESCENT TAB PO (10:25)
--- NOTE | 2024-06-08 11:29 | CRLHL7_ITS ---
For Patients: As a result of the Century Cures Act, medical imaging exams and procedure reports are released immediately into your electronic medical record. You may view this report before your referring provider. If you have questions, please contact your health care provider. INDICATION: POST THORA. (Sic) COMPARISON: 06/06/2024 TECHNIQUE: 1 view. FINDINGS: Medical Devices: Dual lead cardiac conduction device with a left-sided pulse generator. Right Port-A-Cath. Oxygen tubing overlies the neck and left upper chest. Lung Volumes: Shallow inspiration. No significant atelectasis. Lungs: Left basilar opacity consistent with atelectasis. Consolidation may coexist. Recommend clinical correlation as to any corroborative evidence of pneumonia. The right lung is clear. Pleura and Pleural spaces: Persistent small left pleural effusion, decreased in size compared to the prior examination of 06/06/2024. No postprocedural left pneumothorax. Mediastinum: Normal cardiomediastinal silhouette. Bony Thorax and Soft Tissues: No significant incidental findings. IMPRESSION: 1. Persistent small left pleural effusion, decreased in size compared to the prior examination of 06/06/2024. 2. No postprocedural left pneumothorax. 3. Left basilar opacity consistent with atelectasis. Consolidation may coexist. Recommend clinical correlation as to any corroborative evidence of pneumonia. The right lung is clear. Dictated by Evin Christianson MD @ 06/08/2024 12:37:35 PM (Electronically Signed)
[2024-06-08 11:38] LABS: BF Clarity* Cloudy; BF Color Grossly Bloody; BF Total Volume* 15
[2024-06-08 11:54] LABS: Amylase Body Fluid* < 30 U/L; Body Fluid Total Protein* 3.2 gm/dL; Cholesterol Body Fluid* 66 mg/dL; Glucose Body Fluid* 199 mg/dL; LDH Body Fluid* 182 U/L; Mononuclear WBC Body Fluid* 89 %; Polynuclear WBC Body Fluid* 11 %; RBC, Body Fluid* 58000 Cells/uL; WBC, Body Fluid* 406 Cells/uL
[2024-06-08] MEDS: ROSUVASTATIN CALCIUM 10 MG TABLET PO (17:42)
--- NOTE | 2024-06-08 18:04 | PC.NURSE ---
End of Shift: Patient pleasant and cooperative. Patient hypertensive but stable, lungs with crackles, left side much improved with fluid removal, patient now on RA, BS WNL, IV and port SL and intact. Patient denies pain. Patient SBA/walker. Patient with small appetite but tolerating regular diet, urinating well. Zophran given prior to drinking potassium. Blood sugars 266, 203, and 264.
[2024-06-08] MEDS: SENNOSIDES 1 TAB TABLET PO (21:02)
[2024-06-08] MEDS: OXYCODONE 5 MG TABLET PO (22:57)
[2024-06-09 04:30] VITALS: RESP 20; O2SAT 90
[2024-06-09] MEDS: HEPARIN 500 UNIT/5 ML SYRINGE IVF (06:05)
--- NOTE | 2024-06-09 06:48 | PC.NURSE ---
[id number]: Patient A&Ox3. Denies SOB. O2 sats >90 RA. A1/walker/GB. PRN medication administered for 6-8 chronic back pain. Denies N/V/CP. Family at bedside and supportive. Afebrile.
[2024-06-09 06:54] LABS: Albumin* 2.4 g/dL (3.3-5.0); Chloride* 92 mmol/L (96-114); Potassium* 3.8 mmol/L (3.6-5.1); Sodium* 130 mmol/L (135-149)
[2024-06-09 06:56] LABS: Blood Urea Nitrogen* 15 mg/dL (7-30); Creatinine* 0.8 mg/dL (0.5-1.5); Est. Creatinine Clearance* 32.17; Estimated Glomerular Filt Rate 73 ml/min
[2024-06-09 06:57] LABS: Alanine Aminotransferase* 29 U/L (4-35); Alkaline Phosphatase* 431 U/L (40-150); Aspartate Amino Transferase* 39 U/L (12-35); Bilirubin Total* 1.2 mg/dL (0.1-1.5); Calcium* 7.9 mg/dL (8.4-10.6); Carbon Dioxide* 34 mmol/L (20-32); Glucose* 177 mg/dL (60-115); Total Protein* 5.6 g/dL (6.0-8.3)
[2024-06-09 06:58] LABS: Basophils Percent Auto 0.1 % (0.0-3.0); Eosinophils Percent Auto 1.4 % (0.0-7.0); Hematocrit 35.9 % (33.0-51.0); Hemoglobin* 11.6 gm/dL (12.0-16.0); Immature Granulocytes Pct Auto 0.3 %; Mean Corpuscular HGB Conc 32 gm/dL (32-36); Mean Corpuscular Hemoglobin 30 pg (26-34); Mean Corpuscular Volume 93 fL (80-100); Monocytes Percent Auto 5.7 % (0.0-11.0); Neutrophils Percent Auto 80.5 % (42.0-72.0); Platelet Count* 277 K/uL (140-440); RDW Coefficient of Variation % 16.4 % (11.5-15.5); Red Blood Count 3.85 m/uL (4.00-5.20); White Blood Count* 14.64 K/uL (4.50-11.00)
[2024-06-09 07:00] VITALS: BP 191/69; PULSE 50; RESP 20; TEMP 37.2; O2SAT 94
[2024-06-09 07:00] LABS: Anion Gap 4 mEq/L (7-15)
[2024-06-09 07:01] LABS: Slide Review Reflex No
[2024-06-09 08:00] VITALS: PULSE 50; RESP 20
[2024-06-09] MEDS: GENTAMICIN 0.3% OPHTH 2 DROP EYE-BOTH (09:40)
[2024-06-09] MEDS: lisinopriL 20 MG TABLET 40 MG PO (09:41)
[2024-06-09] MEDS: POTASSIUM CHLORIDE 10 MEQ CAPSULE ER 20 MEQ PO (09:41)
[2024-06-09] MEDS: SENNOSIDES 1 TAB TABLET PO (09:42)
[2024-06-09] MEDS: FUROSEMIDE 20 MG TABLET PO (09:42)
[2024-06-09] MEDS: METOPROLOL SUCCINATE (XL) 50 MG TAB PO (09:43)
[2024-06-09] MEDS: APIXABAN 5 MG TABLET PO (09:43)
[2024-06-09] MEDS: INSULIN ASPART 100 UNIT/ML SUBCUT (09:44)
--- NOTE | 2024-06-09 11:44 | PM.DS1 ---
DS: Providers Provider Date Seen: 06/09/24 Date of admission: 06/07/24 07:34 Primary care physician: Not a Local Provider Admitting Clinician: Lam Faith MD Consults: PT, OT, General Surgery Attending Physician on discharge: Lorena Rivera MD Date of Discharge: 06/09/24 DS: Diagnosis Discharge Diagnosis (1) Acute hypoxic respiratory failure: Status: Acute Problem details: - presumably 2/2 pleural effusion, presented with O2 saturation of 82% on RA - transitioned from supplemental Oxygen to RA after thoracentesis 06/08 (2) Pleural effusion: Status: Acute Problem details: - noted 06/07 imaging, presumably malignant, infectious less likely - 900mL of fluid removed via thoracentesis with Dr. Orozco 06/08 (3) Primary pancreatic adenocarcinoma: Status: Acute Problem details: - stage III, T4 N1 M0 - diagnosed 11/2023 - invasive moderately differentiated adenocarcinoma of pancreas - Gemcitabine and Abraxane every other week; started 12/2023 - lives in [place] but in [place] and staying with daughter for chemo/[facility] consultation (4) Leukocytosis: Status: Acute Problem details: - noted on admission (18 on 06/07, stable on 06/08) no fever, rash or evidence of infection - continue to follow, blood and urine cultures NGTD, did not require antibiotics during stay DS: Summary Hospital Course Hospital Course: Marta was admitted to the hospital on 06/07 for dyspnea in the setting of L sided pleural effusion. Known history of pancreatic cancer. On Apixaban for h/o DVT and PE, this was held during stay for thoracentesis (performed by Dr. Orozco of General Surgery on 06/08, 900mL of fluid removed). Pathology pending, presumably malignant effusion. Required 1-2L of supplemental oxygen to keep saturations >90% on admission, titrated to RA post-procedure. Noted to have leukocytosis without evidence of infectious process (NGTD on blood and urine cultures), afebrile. Not treated with abx. BP elevated, asymptomatic, will f/u with PCP for this. Marta was medically appropriate for discharge home with daughter on 06/09/2024. Status at Discharge Overall status at discharge: patient is progressing back to baseline Time Spent with Patient Time attestation: Total time spent providing and/or coordinating discharge services: Time spent: Greater than 30 minutes Specific discharge activities: Meditation reconciliation, collaboration with multidisciplinary care team Exam Narrative: Exam Narrative: GEN: Alert and oriented, nontoxic. Breathing comfortably on room air and speaking in full sentences HEENT: Alopecia, EOMIs bilaterally, no scleral icterus CV: RRR, No concerning murmurs R: LCTA bilaterally without concerning wheezing Skin: No concerning skin lesions or rashes on exposed skin Neuro: Nonfocal Psych: Appropriate Const: Vital Signs, click to edit/add: Vital Signs - 24 hr 06/08/24 14:15 06/08/24 15:00 06/08/24 15:00 Temperature 98.9 F Pulse Rate [Pulse Oximeter] 63 62 Respiratory Rate 18 18 Blood Pressure [Le ft Arm] Blood Pressure [Ri ght Arm] 201/82 H Pulse Oximetry 93 93 Oxygen Delivery Me thod Room Air Room Air 06/08/24 15:38 06/08/24 19:39 06/08/24 22:47 Temperature 98.8 F 99.3 F Pulse Rate [Pulse Oximeter] 62 60 73 Respiratory Rate 20 22 Blood Pressure [Le ft Arm] 186/77 H Blood Pressure [Ri ght Arm] 200/78 H 176/75 H Pulse Oximetry 91 93 Oxygen Delivery Me thod Room Air Room Air 06/09/24 04:30 06/09/24 07:00 06/09/24 08:00 Temperature 99 F Pulse Rate [Pulse Oximeter] 50 L 50 L Respiratory Rate 20 20 20 Blood Pressure [Le ft Arm] 191/69 H Blood Pressure [Ri ght Arm] Pulse Oximetry 90 94 Oxygen Delivery Me thod Room Air Room Air DS: Data Data Completed and Pending Labs on day of discharge: Labs from last 24 hours 06/09/24 06/08/24 06:13 11:18 WBC 14.64 H RBC 3.85 L Hgb 11.6 L Hct 35.9 MCV 93 MCH 30 MCHC 32 RDW Coeff of Elba 16.4 H Plt Count 277 Neut % (Auto) 80.5 H Lymph % (Auto) 12.0 L Bulloch % (Auto) 5.7 Eos % (Auto) 1.4 Baso % (Auto) 0.1 Neut # (Auto) 11.80 H Lymph # (Auto) 1.80 Bulloch # (Auto) 0.80 Eos # (Auto) 0.20 Baso # (Auto) 0.00 Abs Immat Gran (auto) 0.00 Imm/Tot Granulo (auto) 0.3 Sodium 130 L Potassium 3.8 Chloride 92 L Carbon Dioxide 34 H Anion Gap 4 L BUN 15 Creatinine 0.8 Estimated Creat Clear 32.17 Estimated GFR 73 Glucose 177 H Calcium 7.9 L Total Bilirubin 1.2 AST 39 H ALT 29 Alkaline Phosphatase 431 H Total Protein 5.6 L Albumin 2.4 L Fluid Volume 15 Fluid Color Grossly Bloody A Fluid Appearance Cloudy A Fluid pH 6.0 Fluid WBC 406 Fluid RBC 76916 Fluid Polynuclear WBCs 11 Fluid Mononuclear WBCs 89 Fluid Glucose 199 Fluid Total Protein 3.2 Fluid LDH 182 Fluid Amylase < 30 Fluid Cholesterol 66 Preliminary micro results at discharge 06/08/24 11:18 Body Fluid Culture - Preliminary Pleural Fluid 06/06/24 23:15 Blood Culture - Preliminary Blood NO GROWTH AFTER 48 HOURS Discharge Plan Discharge Disposition: Home, Self-Care Date of Admission: 06/07/24 07:34 Attending Provider on Discharge: Lorena Rivera Consulting Providers: Jailyn Orozco Primary Care Provider: Provider,Not a Local Condition: Improved Anticipated Discharge Date/Time: 06/09/24 07:51 Discharge Medications: Continued metformin 500 mg tablet extended release 24 hr 500 mg PO BID rosuvastatin 10 mg tablet 10 mg PO QPM lidocaine-prilocaine 2.5-2.5 % cream 1 applic topical DAILY PRN raloxifene 60 mg tablet 60 mg PO HS macularprotect complete PO BID furosemide 20 mg tablet 20 mg PO QAM Qty: 30 3RF gentamicin 0.3 % drops 2 drp ophthalmic (eye) Q4H Qty: 5 1RF sodium chloride 1,000 mg tablet,soluble 1,000 mg PO QDAY PRN (Reason: electrolyte replenishment) Qty: 7 0RF capecitabine [Xeloda] 500 mg tablet 1,000 mg PO BID Qty: 60 0RF Rx Instructions: Take 2 tabs in morning and 2 tabs in evening, Wednesday through Wednesday for the duration radiation. Must administer with water 30 minutes after a meal cholecalciferol (vitamin D3) 50 mcg (2,000 unit) capsule 50 mcg PO DAILY tramadol 50 mg tablet 50 mg PO BID PRN (Reason: pain) Qty: 30 0RF ondansetron 4 mg tablet,disintegrating 4 mg PO Q8-12H PRN (Reason: nausea and vomiting) Qty: 30 0RF potassium chloride 20 mEq tablet,ER particles/crystals 20 meq PO DAILY lisinopril 40 mg tablet 40 mg PO DAILY senna 8.6 mg capsule 8.6 mg PO BID Qty: 60 1RF polyethylene glycol 3350 [Miralax] 17 gram/dose powder 17 g PO DAILY PRN (Reason: constipation) Qty: 238 1RF Eliquis 5 mg tablet 5 mg PO Q12H Qty: 60 2RF metoprolol succinate 50 mg tablet extended release 24 hr 50 mg PO DAILY Qty: 90 0RF prochlorperazine maleate 5 mg tablet 5 mg PO Q4H MDD 3 PRN (Reason: nausea) Qty: 20 0RF bisacodyl [Dulcolax (bisacodyl)] 10 mg suppository 10 mg UT ONCE Qty: 12 0RF Discharge Orders: Discharge Order (Routine); Ordered 06/09/24 Ordered By: Lorena Rivera Patient Education: Pleural Effusion (DC), Thoracentesis (DC) Additional Instructions: No changes to home medications, see Oncology as scheduled on Wednesday. If you get short of breath at rest again before appointment, you should be seen urgently for followup. Activity Level: Activity as Tolerated Discharge Diet: Regular Diet Detail: as tolerated Follow Up Appointments: Provider,Not a Local [Primary Care Provider] - Forms: [facility] Info Instructions
--- NOTE | 2024-06-09 11:47 | PC.NURSE ---
Discharge note: Patient denies pain/SOB. Edema noted nonpitting on her BUE and BLE 2+ pittting. VS WNL. Ambulates SBA with gait belt.Thoracentesis assess is C/D/I with steri strips. Port and IV de-accessed and intact. Meplix C/D/I on bilat heels. Continent of bowel and urine. Discharged at 1132, patient ride home with daughter. belongings list and discharge instructions gone through and signed. Follow up appts were made. No changes to home meds.
== END 2024-06-09 11:32 | disposition home or self-care (01) | DRG 435 ==
LOC: ED 23:26 → MEDSURG 06-07 03:59
PROVIDERS: Family Medicine; Admitting Provider Student in an Organized Health Care Education/Training Program; Emergency Provider Emergency Medicine; Visit Provider Student in an Organized Health Care Education/Training Program
DX: C25.9 Malignant neoplasm of pancreas, unspecified (principal); J96.01 Acute respiratory failure with hypoxia; J91.0 Malignant pleural effusion; E87.1 Hypo-osmolality and hyponatremia; I50.30 Unspecified diastolic (congestive) heart failure; E86.0 Dehydration; D72.829 Elevated white blood cell count, unspecified; R51.9 Headache, unspecified; E11.9 Type 2 diabetes mellitus without complications; Z79.84 Long term (current) use of oral hypoglycemic drugs; Z79.01 Long term (current) use of anticoagulants; Z95.0 Presence of cardiac pacemaker; Z86.711 Personal history of pulmonary embolism; Z86.718 Personal history of other venous thrombosis and embolism; E78.5 Hyperlipidemia, unspecified; Z86.79 Personal history of other diseases of the circulatory system; I11.0 Hypertensive heart disease with heart failure
CPT/HCPCS: 32555; 36415; 71045; 71275; 80048; 80053; 80076; 81001; 82040; 82150; 82247; 82465; 82945; 82962; 83605; 83615; 83690; 83735; 83986; 84145; 84155; 84157; 84311; 84443; 84484; 85025; 85610; 86140; 87040; 87070; 87077; 87086; 87102; 87186; 87205; 87631; 88112; 88305; 88341; 88342; 89051; 93005; 94761; 97110; 97116; 97161; 97165; 97530; 97535; 99284; 99285; A9270; J0613; J1642; J2270; J2405; J7030; Q9967

== ENCOUNTER 2024-06-12 10:45 | Outpatient (RCR) | payer MEDICARE, SELFPAY ==
--- NOTE | 2024-02-25 13:49 | URNOTE ---
Request received for authorization for Gemcitabine (J9201) & Paclitaxel/albumin (Abraxane) ([id number]). Prior authorization is approved per [facility] date range:03-06-2024 to 03-06-2025, Ref#[id number].
[2024-03-06 10:07] LABS: Basophils Absolute Auto 0.03 K/uL (0.00-0.30); Basophils Percent Auto 0.4 % (0.0-3.0); Eosinophils Absolute Auto 0.31 K/uL (0.00-0.50); Eosinophils Percent Auto 4.4 % (0.0-7.0); Hematocrit 27.8 % (33.0-51.0); Hemoglobin* 8.9 gm/dL (12.0-16.0); Immature Granulocytes Abs Auto 0.01 K/uL (0.00-0.30); Immature Granulocytes Pct Auto 0.1 %; Lymphocytes Absolute Auto 1.91 K/uL (0.90-2.90); Lymphocytes Percent Auto 27.4 % (20-44); Mean Corpuscular HGB Conc 32 gm/dL (32-36); Mean Corpuscular Hemoglobin 30 pg (26-34); Mean Corpuscular Volume 93 fL (80-100); Monocytes Percent Auto 7.4 % (0.0-11.0); Neutrophils Percent Auto 60.3 % (42.0-72.0); Platelet Count* 383 K/uL (140-440); RDW Coefficient of Variation % 16.9 % (11.5-15.5); White Blood Count* 6.98 K/uL (4.50-11.00)
[2024-03-06 10:27] LABS: Albumin* 3.4 g/dL (3.3-5.0); Slide Review Reflex No
[2024-03-06 10:28] LABS: Chloride* 103 mmol/L (96-114); Potassium* 4.2 mmol/L (3.6-5.1); Sodium* 134 mmol/L (135-149)
[2024-03-06 10:30] LABS: Anion Gap 5 mEq/L (7-15); Aspartate Amino Transferase* 21 U/L (12-35); Carbon Dioxide* 26 mmol/L (20-32); Creatinine* 0.4 mg/dL (0.5-1.5); Est. Creatinine Clearance* 33.71; Estimated Glomerular Filt Rate 98 ml/min; Total Protein* 6.5 g/dL (6.0-8.3)
[2024-03-06 10:31] LABS: Alanine Aminotransferase* 17 U/L (4-35); Alkaline Phosphatase* 69 U/L (40-150); Blood Urea Nitrogen* 14 mg/dL (7-30); Calcium* 9.1 mg/dL (8.4-10.6); Glucose* 183 mg/dL (60-115)
[2024-03-06 10:35] LABS: Bilirubin Total* < 0.1 mg/dL (0.1-1.5)
[2024-03-06] MEDS: ONDANSETRON 2 MG/ML inj 8 MG IVP (12:31)
[2024-03-06] MEDS: dexAMETHasone 10 MG/ML inj IVP (12:31)
--- NOTE | 2024-03-06 12:46 | ONC.NURNOTE ---
PSDS =1 no reported concerns SS offered, but denied need by patient
--- NOTE | 2024-03-06 12:47 | ONC.NURNOTE ---
Teaching with patient and daughter this is cycle #3 and Marta had no reported nausea or vomiting with first cycles has antiemetics at home reviewed contents of [facility]- including self care at home, after hours management, possible chemotherapy side effects, discussed support resources, SS, Dietitian, Rehab Marta has an appt tomorrow at [facility] for LE weakness questions addressed LEATHA and consents reviewed and signed
[2024-03-06 13:38] LABS: Magnesium* 1.8 mg/dL (1.5-2.6)
--- NOTE | 2024-03-07 15:35 | ONC.NURNOTE ---
chemotherapy check in saw OT/PT at [facility] today no return appt needed exercises given EMG tomorrow at [facility] no nausea- not needing any antiemetics went out to eat today slept well last night drinking fluids well
[2024-03-08 02:44] LABS: Cancer Antigen-GI (CA 19-9) 1729 U/mL (<=35)
[2024-03-14 08:05] VITALS: BP 128/67; PULSE 66; RESP 16; TEMP 36.6; O2SAT 98
[2024-03-14] MEDS: SODIUM CHLORIDE 0.9 % (FLUSH) 10 ML SYRINGE IVF ×2 (08:15→11:48)
[2024-03-14 08:26] LABS: Basophils Absolute Auto 0.02 K/uL (0.00-0.30); Basophils Percent Auto 0.4 % (0.0-3.0); Eosinophils Absolute Auto 0.14 K/uL (0.00-0.50); Hematocrit 24.8 % (33.0-51.0); Immature Granulocytes Abs Auto 0.01 K/uL (0.00-0.30); Immature Granulocytes Pct Auto 0.2 %; Lymphocytes Absolute Auto 1.32 K/uL (0.90-2.90); Lymphocytes Percent Auto 28.3 % (20-44); Mean Corpuscular HGB Conc 32 gm/dL (32-36); Mean Corpuscular Hemoglobin 30 pg (26-34); Mean Corpuscular Volume 93 fL (80-100); Monocytes Percent Auto 6.4 % (0.0-11.0); Neutrophils Absolute Auto 2.88 K/uL (1.7-7.0); Neutrophils Percent Auto 61.7 % (42.0-72.0); Platelet Count* 194 K/uL (140-440); RDW Coefficient of Variation % 16.2 % (11.5-15.5); Red Blood Count 2.66 m/uL (4.00-5.20); White Blood Count* 4.67 K/uL (4.50-11.00)
[2024-03-14 08:32] LABS: Hemoglobin* 7.9 gm/dL (12.0-16.0)
[2024-03-14 08:33] LABS: Slide Review Reflex No
[2024-03-14 08:39] LABS: Albumin* 3.1 g/dL (3.3-5.0); Chloride* 103 mmol/L (96-114); Sodium* 134 mmol/L (135-149)
[2024-03-14 08:40] LABS: Potassium* 4.1 mmol/L (3.6-5.1)
[2024-03-14 08:42] LABS: Alkaline Phosphatase* 67 U/L (40-150); Anion Gap 7 mEq/L (7-15); Aspartate Amino Transferase* 34 U/L (12-35); Bilirubin Total* 0.2 mg/dL (0.1-1.5); Blood Urea Nitrogen* 12 mg/dL (7-30); Carbon Dioxide* 24 mmol/L (20-32); Creatinine* 0.4 mg/dL (0.5-1.5); Est. Creatinine Clearance* 33.71; Estimated Glomerular Filt Rate 98 ml/min; Glucose* 219 mg/dL (60-115)
[2024-03-14 08:43] LABS: Alanine Aminotransferase* 34 U/L (4-35); Calcium* 8.5 mg/dL (8.4-10.6)
[2024-03-14 09:03] LABS: Magnesium* 1.7 mg/dL (1.5-2.6)
[2024-03-14] MEDS: dexAMETHasone 10 MG/ML inj IVP (09:45)
[2024-03-14] MEDS: ONDANSETRON 2 MG/ML inj 8 MG IVP (09:47)
[2024-03-14] MEDS: HEPARIN 500 UNIT/5 ML SYRINGE IVF (11:48)
[2024-03-17 10:29] VITALS: BP 144/65; PULSE 86; RESP 17; TEMP 36.7; O2SAT 98
[2024-03-17 10:47] LABS: Basophils Absolute Auto 0.01 K/uL (0.00-0.30); Basophils Percent Auto 0.2 % (0.0-3.0); Eosinophils Absolute Auto 0.17 K/uL (0.00-0.50); Eosinophils Percent Auto 3.1 % (0.0-7.0); Hematocrit 24.5 % (33.0-51.0); Lymphocytes Percent Auto 16.8 % (20-44); Mean Corpuscular HGB Conc 32 gm/dL (32-36); Mean Corpuscular Hemoglobin 30 pg (26-34); Mean Corpuscular Volume 92 fL (80-100); Monocytes Percent Auto 0.6 % (0.0-11.0); Neutrophils Percent Auto 79.3 % (42.0-72.0); Platelet Count* 171 K/uL (140-440); Red Blood Count 2.66 m/uL (4.00-5.20); White Blood Count* 5.42 K/uL (4.50-11.00)
[2024-03-17 10:53] LABS: Hemoglobin* 7.9 gm/dL (12.0-16.0); Slide Review Reflex Yes
[2024-03-17 11:21] LABS: Slide Review Acceptable Review (Acceptable)
[2024-03-21 08:02] VITALS: BP 126/72; PULSE 70; RESP 16; TEMP 35.3; O2SAT 99
[2024-03-21 08:13] LABS: Basophils Percent Auto 0.3 % (0.0-3.0); Eosinophils Percent Auto 3.4 % (0.0-7.0); Immature Granulocytes Pct Auto 0.3 %; Mean Corpuscular HGB Conc 32 gm/dL (32-36); Mean Corpuscular Hemoglobin 30 pg (26-34); Mean Corpuscular Volume 93 fL (80-100); Monocytes Percent Auto 9.6 % (0.0-11.0); Neutrophils Percent Auto 50.4 % (42.0-72.0); Platelet Count* 147 K/uL (140-440); RDW Coefficient of Variation % 16.1 % (11.5-15.5); Red Blood Count 2.57 m/uL (4.00-5.20); White Blood Count* 3.53 K/uL (4.50-11.00)
[2024-03-21 08:21] LABS: Hemoglobin* 7.6 gm/dL (12.0-16.0); Slide Review Reflex No
[2024-03-21 08:36] LABS: Albumin* 3.3 g/dL (3.3-5.0); Chloride* 102 mmol/L (96-114)
[2024-03-21 08:37] LABS: Potassium* 4.7 mmol/L (3.6-5.1); Sodium* 132 mmol/L (135-149)
[2024-03-21 08:39] LABS: Anion Gap 5 mEq/L (7-15); Bilirubin Total* 0.2 mg/dL (0.1-1.5); Carbon Dioxide* 25 mmol/L (20-32); Creatinine* 0.4 mg/dL (0.5-1.5); Est. Creatinine Clearance* 33.71; Estimated Glomerular Filt Rate 98 ml/min; Total Protein* 6.3 g/dL (6.0-8.3)
[2024-03-21 08:40] LABS: Alanine Aminotransferase* 40 U/L (4-35); Alkaline Phosphatase* 64 U/L (40-150); Aspartate Amino Transferase* 37 U/L (12-35); Blood Urea Nitrogen* 11 mg/dL (7-30); Calcium* 8.8 mg/dL (8.4-10.6); Glucose* 219 mg/dL (60-115); Magnesium* 1.8 mg/dL (1.5-2.6)
[2024-03-21] MEDS: dexAMETHasone 10 MG/ML inj IVP (09:41)
[2024-03-21] MEDS: ONDANSETRON 2 MG/ML inj 8 MG IVP (09:41)
--- NOTE | 2024-03-24 12:09 | ONC.NURNOTE ---
Patient calling to give update as requested from [facility]. Patient had 3rd infusion on Wednesday 03/21. Patient stated on 03/23 was not feeling well. Had no appetite, was weak and had a fever of 100.4. Was instructed to take tylenol and did. Patient stated she is feeling better today. Appetite back, no fever today and no weakness. Patient instructed to call back if any other changes. Caller understands and agrees with plan.
[2024-04-03] MEDS: SODIUM CHLORIDE 0.9 % (FLUSH) 10 ML SYRINGE IVF ×2 (08:00→11:57)
[2024-04-03 08:09] LABS: Basophils Absolute Auto 0.05 K/uL (0.00-0.30); Basophils Percent Auto 0.9 % (0.0-3.0); Eosinophils Absolute Auto 0.29 K/uL (0.00-0.50); Hematocrit 24.6 % (33.0-51.0); Immature Granulocytes Abs Auto 0.01 K/uL (0.00-0.30); Immature Granulocytes Pct Auto 0.2 %; Lymphocytes Absolute Auto 1.24 K/uL (0.90-2.90); Lymphocytes Percent Auto 21.4 % (20-44); Mean Corpuscular HGB Conc 32 gm/dL (32-36); Mean Corpuscular Hemoglobin 29 pg (26-34); Mean Corpuscular Volume 93 fL (80-100); Monocytes Percent Auto 11.2 % (0.0-11.0); Neutrophils Absolute Auto 3.56 K/uL (1.7-7.0); Neutrophils Percent Auto 61.3 % (42.0-72.0); Platelet Count* 461 K/uL (140-440); RDW Coefficient of Variation % 16.7 % (11.5-15.5); Red Blood Count 2.66 m/uL (4.00-5.20)
[2024-04-03 08:13] LABS: Hemoglobin* 7.8 gm/dL (12.0-16.0); Slide Review Reflex No
[2024-04-03 08:24] LABS: Albumin* 3.1 g/dL (3.3-5.0); Chloride* 102 mmol/L (96-114); Potassium* 4.2 mmol/L (3.6-5.1); Sodium* 133 mmol/L (135-149)
[2024-04-03 08:27] LABS: Alanine Aminotransferase* 22 U/L (4-35); Alkaline Phosphatase* 80 U/L (40-150); Anion Gap 6 mEq/L (7-15); Aspartate Amino Transferase* 24 U/L (12-35); Bilirubin Total* 0.3 mg/dL (0.1-1.5); Blood Urea Nitrogen* 11 mg/dL (7-30); Carbon Dioxide* 25 mmol/L (20-32); Creatinine* 0.5 mg/dL (0.5-1.5); Est. Creatinine Clearance* 33.71; Estimated Glomerular Filt Rate 93 ml/min; Glucose* 191 mg/dL (60-115); Total Protein* 6.3 g/dL (6.0-8.3)
[2024-04-03 08:28] LABS: Calcium* 8.5 mg/dL (8.4-10.6)
[2024-04-03] MEDS: ONDANSETRON 2 MG/ML inj 8 MG IVP (09:23)
[2024-04-03] MEDS: dexAMETHasone 10 MG/ML inj IVP (09:23)
[2024-04-03] MEDS: 0.9 % SODIUM CHLORIDE 500 ML IV (09:28)
[2024-04-03] MEDS: HEPARIN 500 UNIT/5 ML SYRINGE IVF (11:57)
[2024-04-10] VITALS (12 sets, daily range): BP systolic 120–160; BP diastolic 63–75; PULSE 62–72; RESP 14–20; TEMP 36.3–37.3; O2SAT 94–98
[2024-04-10 08:58] LABS: Basophils Percent Auto 0.5 % (0.0-3.0); Hematocrit 23.3 % (33.0-51.0); Immature Granulocytes Pct Auto 0.5 %; Lymphocytes Percent Auto 29.4 % (20-44); Mean Corpuscular HGB Conc 31 gm/dL (32-36); Mean Corpuscular Hemoglobin 29 pg (26-34); Mean Corpuscular Volume 93 fL (80-100); Neutrophils Percent Auto 57.6 % (42.0-72.0); Platelet Count* 277 K/uL (140-440); RDW Coefficient of Variation % 16.1 % (11.5-15.5); Red Blood Count 2.52 m/uL (4.00-5.20); White Blood Count* 4.42 K/uL (4.50-11.00)
[2024-04-10 09:13] LABS: Albumin* 3.2 g/dL (3.3-5.0); Chloride* 104 mmol/L (96-114); Sodium* 134 mmol/L (135-149)
[2024-04-10 09:14] LABS: Hemoglobin* 7.3 gm/dL (12.0-16.0); Slide Review Reflex No
[2024-04-10 09:15] LABS: Creatinine* 0.5 mg/dL (0.5-1.5); Est. Creatinine Clearance* 33.71; Estimated Glomerular Filt Rate 93 ml/min
[2024-04-10 09:16] LABS: Alanine Aminotransferase* 42 U/L (4-35); Alkaline Phosphatase* 91 U/L (40-150); Anion Gap 4 mEq/L (7-15); Aspartate Amino Transferase* 54 U/L (12-35); Bilirubin Total* 0.3 mg/dL (0.1-1.5); Blood Urea Nitrogen* 14 mg/dL (7-30); Calcium* 8.7 mg/dL (8.4-10.6); Carbon Dioxide* 26 mmol/L (20-32); Glucose* 218 mg/dL (60-115); Total Protein* 6.4 g/dL (6.0-8.3)
[2024-04-10 09:17] LABS: Magnesium* 1.8 mg/dL (1.5-2.6)
[2024-04-11 13:08] VITALS: BP 166/75; PULSE 73; RESP 16; TEMP 36.1; O2SAT 98
[2024-04-11] MEDS: dexAMETHasone 10 MG/ML inj IVP (13:21)
[2024-04-11] MEDS: ONDANSETRON 2 MG/ML inj 8 MG IVP (13:22)
[2024-04-11] MEDS: SODIUM CHLORIDE 0.9 % (FLUSH) 10 ML SYRINGE IVF ×2 (13:22→15:30)
[2024-04-11] MEDS: 0.9 % SODIUM CHLORIDE 500 ML IV (13:22)
[2024-04-11] MEDS: HEPARIN 500 UNIT/5 ML SYRINGE IVF (15:30)
[2024-04-17 08:28] VITALS: BP 162/72; PULSE 79; RESP 16; TEMP 35.7; O2SAT 97
[2024-04-17] MEDS: SODIUM CHLORIDE 0.9 % (FLUSH) 10 ML SYRINGE IVF ×2 (08:35→10:30)
[2024-04-17 09:01] LABS: Eosinophils Percent Auto 6.3 % (0.0-7.0); Hematocrit 29.8 % (33.0-51.0); Hemoglobin* 9.4 gm/dL (12.0-16.0); Lymphocytes Percent Auto 53.4 % (20-44); Mean Corpuscular HGB Conc 32 gm/dL (32-36); Mean Corpuscular Hemoglobin 29 pg (26-34); Mean Corpuscular Volume 91 fL (80-100); Monocytes Percent Auto 14.7 % (0.0-11.0); Neutrophils Percent Auto 24.6 % (42.0-72.0); Platelet Count* 168 K/uL (140-440); RDW Coefficient of Variation % 15.8 % (11.5-15.5); Red Blood Count 3.27 m/uL (4.00-5.20)
[2024-04-17 09:10] LABS: Chloride* 104 mmol/L (96-114); Sodium* 136 mmol/L (135-149)
[2024-04-17 09:11] LABS: Potassium* 3.9 mmol/L (3.6-5.1)
[2024-04-17 09:12] LABS: Slide Review Reflex No; White Blood Count* 1.91 K/uL (4.50-11.00)
[2024-04-17 09:13] LABS: Alanine Aminotransferase* 68 U/L (4-35); Alkaline Phosphatase* 102 U/L (40-150); Anion Gap 6 mEq/L (7-15); Aspartate Amino Transferase* 83 U/L (12-35); Bilirubin Total* 0.4 mg/dL (0.1-1.5); Blood Urea Nitrogen* 17 mg/dL (7-30); Carbon Dioxide* 26 mmol/L (20-32); Creatinine* 0.5 mg/dL (0.5-1.5); Est. Creatinine Clearance* 33.71; Estimated Glomerular Filt Rate 93 ml/min; Glucose* 180 mg/dL (60-115); Magnesium* 1.9 mg/dL (1.5-2.6)
[2024-04-17 09:14] LABS: Calcium* 8.3 mg/dL (8.4-10.6)
[2024-04-17] MEDS: HEPARIN 500 UNIT/5 ML SYRINGE IVF (10:30)
--- NOTE | 2024-04-17 12:11 | ONC.NURNOTE ---
Patient in clinic today for C4D15 Gemzar/Abraxane. Patient's labs resulted with WBC 1.91 and ANC 0.47. On assessment patient denies any S/S of infection. She does have a dry cough but she has had that since she was doing chemo in [place], her PCP is aware of it and she has had CXR that are clear. Patient reports it is the same that it usually is. She does report feeling more fatigued after last week's treatment and is having some SOB on exertion. RN reviewed labs with Felisa Nunez PA-C. Treatment was held today with plans to recheck next week with possible treatment. Patient is going back to [place] next week so it was decided to hold treatment today and discuss with MD. RN discussed with patient and daughter. Gave them a handout on Neutropenic precautions and advised them on good hand hygiene, avoiding large crowds and anyone who is sick and masking. Advised patient to call prior to leaving for her trip if she started to feel any worse or developed a fever. Patient and daughter verbalized understanding and agreeable to the plan.
--- NOTE | 2024-04-17 14:46 | ONC.NURNOTE ---
Called patient to update her that her appt times changed on Monday 05/01 so that she could see Dr. Sr. Appts adjusted to [facility] at 12:15, Dr. Sr at 1:00 and treatment at 1:30. Patient states she updated her calendar.
[2024-05-01 12:49] LABS: Basophils Absolute Auto 0.05 K/uL (0.00-0.30); Basophils Percent Auto 0.5 % (0.0-3.0); Eosinophils Absolute Auto 0.26 K/uL (0.00-0.50); Eosinophils Percent Auto 2.8 % (0.0-7.0); Hematocrit 28.4 % (33.0-51.0); Hemoglobin* 8.9 gm/dL (12.0-16.0); Immature Granulocytes Abs Auto 0.02 K/uL (0.00-0.30); Immature Granulocytes Pct Auto 0.2 %; Lymphocytes Percent Auto 19.4 % (20-44); Mean Corpuscular HGB Conc 31 gm/dL (32-36); Mean Corpuscular Hemoglobin 29 pg (26-34); Mean Corpuscular Volume 92 fL (80-100); Monocytes Percent Auto 9.8 % (0.0-11.0); Neutrophils Absolute Auto 6.17 K/uL (1.7-7.0); Neutrophils Percent Auto 67.3 % (42.0-72.0); Platelet Count* 324 K/uL (140-440); RDW Coefficient of Variation % 16.6 % (11.5-15.5); Red Blood Count 3.09 m/uL (4.00-5.20); White Blood Count* 9.18 K/uL (4.50-11.00)
[2024-05-01 12:51] LABS: Slide Review Reflex No
[2024-05-01 13:54] LABS: Chloride* 103 mmol/L (96-114); Sodium* 135 mmol/L (135-149)
[2024-05-01 13:56] LABS: Anion Gap 6 mEq/L (7-15); Bilirubin Total* 0.3 mg/dL (0.1-1.5); Carbon Dioxide* 26 mmol/L (20-32); Creatinine* 0.7 mg/dL (0.5-1.5); Est. Creatinine Clearance* 33.71; Estimated Glomerular Filt Rate 86 ml/min
[2024-05-01 13:57] LABS: Alanine Aminotransferase* 17 U/L (4-35); Alkaline Phosphatase* 119 U/L (40-150); Aspartate Amino Transferase* 26 U/L (12-35); Blood Urea Nitrogen* 18 mg/dL (7-30); Calcium* 8.4 mg/dL (8.4-10.6); Glucose* 204 mg/dL (60-115); Magnesium* 1.9 mg/dL (1.5-2.6); Total Protein* 6.3 g/dL (6.0-8.3)
[2024-05-01] MEDS: ONDANSETRON 2 MG/ML inj 8 MG IVP (14:31)
[2024-05-01] MEDS: 0.9 % SODIUM CHLORIDE 500 ML IV (14:32)
[2024-05-01] MEDS: SODIUM CHLORIDE 0.9 % (FLUSH) 10 ML SYRINGE IVF ×2 (14:32→16:29)
[2024-05-01] MEDS: dexAMETHasone 10 MG/ML inj IVP (14:32)
[2024-05-01] MEDS: HEPARIN 500 UNIT/5 ML SYRINGE IVF (16:29)
[2024-05-15 08:00] VITALS: BP 147/70; PULSE 64; RESP 16; TEMP 36.5; O2SAT 97
[2024-05-15 08:16] LABS: Basophils Absolute Auto 0.04 K/uL (0.00-0.30); Basophils Percent Auto 0.5 % (0.0-3.0); Eosinophils Absolute Auto 0.27 K/uL (0.00-0.50); Eosinophils Percent Auto 3.5 % (0.0-7.0); Hematocrit 26.7 % (33.0-51.0); Hemoglobin* 8.5 gm/dL (12.0-16.0); Immature Granulocytes Abs Auto 0.02 K/uL (0.00-0.30); Immature Granulocytes Pct Auto 0.3 %; Lymphocytes Percent Auto 15.8 % (20-44); Mean Corpuscular HGB Conc 32 gm/dL (32-36); Mean Corpuscular Hemoglobin 29 pg (26-34); Mean Corpuscular Volume 91 fL (80-100); Monocytes Percent Auto 5.1 % (0.0-11.0); Neutrophils Percent Auto 74.8 % (42.0-72.0); Platelet Count* 324 K/uL (140-440); RDW Coefficient of Variation % 16.5 % (11.5-15.5); Red Blood Count 2.93 m/uL (4.00-5.20); White Blood Count* 7.79 K/uL (4.50-11.00)
[2024-05-15 08:25] LABS: Slide Review Reflex No
[2024-05-15 08:32] LABS: Albumin* 3.3 g/dL (3.3-5.0); Chloride* 99 mmol/L (96-114); Sodium* 132 mmol/L (135-149)
[2024-05-15 08:33] LABS: Potassium* 4.3 mmol/L (3.6-5.1)
[2024-05-15 08:35] LABS: Alkaline Phosphatase* 124 U/L (40-150); Anion Gap 7 mEq/L (7-15); Aspartate Amino Transferase* 30 U/L (12-35); Bilirubin Total* 0.4 mg/dL (0.1-1.5); Blood Urea Nitrogen* 16 mg/dL (7-30); Carbon Dioxide* 26 mmol/L (20-32); Creatinine* 0.7 mg/dL (0.5-1.5); Est. Creatinine Clearance* 33.71; Estimated Glomerular Filt Rate 86 ml/min; Glucose* 234 mg/dL (60-115); Total Protein* 6.6 g/dL (6.0-8.3)
[2024-05-15 08:36] LABS: Alanine Aminotransferase* 21 U/L (4-35); Calcium* 8.5 mg/dL (8.4-10.6); Magnesium* 1.8 mg/dL (1.5-2.6)
[2024-05-15] MEDS: dexAMETHasone 10 MG/ML inj IVP (08:59)
[2024-05-15] MEDS: ONDANSETRON 2 MG/ML inj 8 MG IVP (09:04)
[2024-05-15] MEDS: SODIUM CHLORIDE 0.9 % (FLUSH) 10 ML SYRINGE IVF (11:15)
[2024-05-15] MEDS: HEPARIN 500 UNIT/5 ML SYRINGE IVF (11:15)
[2024-05-18 11:48] LABS: Hemoglobin* 7.9 gm/dL (12.0-16.0)
[2024-05-18 11:54] LABS: Albumin* 3.3 g/dL (3.3-5.0); Chloride* 95 mmol/L (96-114); Sodium* 129 mmol/L (135-149)
[2024-05-18 11:55] LABS: Potassium* 4.1 mmol/L (3.6-5.1)
[2024-05-18 11:56] LABS: Amylase* 78 U/L (18-89)
[2024-05-18 11:57] LABS: Alanine Aminotransferase* 26 U/L (4-35); Alkaline Phosphatase* 131 U/L (40-150); Anion Gap 5 mEq/L (7-15); Aspartate Amino Transferase* 36 U/L (12-35); Bilirubin Total* 0.7 mg/dL (0.1-1.5); Blood Urea Nitrogen* 25 mg/dL (7-30); Calcium* 8.4 mg/dL (8.4-10.6); Carbon Dioxide* 29 mmol/L (20-32); Creatinine* 0.8 mg/dL (0.5-1.5); Est. Creatinine Clearance* 33.71; Estimated Glomerular Filt Rate 73 ml/min; Glucose* 196 mg/dL (60-115); Lipase* 438 U/L (23-300); Total Protein* 6.7 g/dL (6.0-8.3)
[2024-05-18 11:58] LABS: Magnesium* 1.9 mg/dL (1.5-2.6)
[2024-05-18 12:15] LABS: Appearance Urine Clear (Clear); Bilirubin Urine Negative (Negative); Blood Urine 3+ (Negative); Color Urine Yellow (Yellow); Glucose Urine Negative (Negative); Ketones Urine Negative (Negative); Leukocyte Esterase Urine Trace (Negative); Nitrite Urine Negative (Negative); Protein Urine 2+ (Negative); Specific Gravity Urine 1.025 (1.000-1.030); Urobilinogen Urine 0.2 (0.2-1.0); pH Urine 5.5 (5.0-8.5)
[2024-05-18 12:24] LABS: Bacteria Urine Few; WBC Urine 0-2 (0-5)
[2024-05-18] MEDS: 0.9 % SODIUM CHLORIDE 500 ML IV (12:24)
[2024-05-18] MEDS: dexAMETHasone 10 MG in 0.9 % SODIUM CHLORIDE 100 ml 100 ML 303 MG IVPB (12:42)
--- NOTE | 2024-05-19 09:25 | ONC.NURNOTE ---
Urine Culture reviewed by Corina, noted as negative for growth, called to Marta Marta reports that she is feeling much better today, slept very well last night
[2024-05-22] MEDS: SODIUM CHLORIDE 0.9 % (FLUSH) 10 ML SYRINGE IVF ×2 (08:30→11:10)
[2024-05-22 08:44] LABS: Lactate* 1.2 mmol/L (0.5-1.9)
[2024-05-22 08:52] LABS: Basophils Absolute Auto 0.01 K/uL (0.00-0.30); Basophils Percent Auto 0.1 % (0.0-3.0); Eosinophils Absolute Auto 0.03 K/uL (0.00-0.50); Eosinophils Percent Auto 0.4 % (0.0-7.0); Immature Granulocytes Abs Auto 0.06 K/uL (0.00-0.30); Immature Granulocytes Pct Auto 0.7 %; Lymphocytes Percent Auto 11.6 % (20-44); Mean Corpuscular HGB Conc 33 gm/dL (32-36); Mean Corpuscular Hemoglobin 29 pg (26-34); Mean Corpuscular Volume 89 fL (80-100); Monocytes Percent Auto 8.3 % (0.0-11.0); Neutrophils Percent Auto 78.9 % (42.0-72.0); Platelet Count* 205 K/uL (140-440); Red Blood Count 2.69 m/uL (4.00-5.20)
[2024-05-22 08:58] LABS: Hemoglobin* 7.9 gm/dL (12.0-16.0); Slide Review Reflex No
[2024-05-22] MEDS: 0.9 % SODIUM CHLORIDE 1000 ml 1,000 ML 500 ML IV (08:58)
[2024-05-22 09:00] LABS: Chloride* 96 mmol/L (96-114)
[2024-05-22 09:01] LABS: Potassium* 4.1 mmol/L (3.6-5.1); Sodium* 130 mmol/L (135-149)
[2024-05-22 09:03] LABS: Anion Gap 7 mEq/L (7-15); Bilirubin Total* 0.6 mg/dL (0.1-1.5); Carbon Dioxide* 27 mmol/L (20-32); Creatinine* 0.7 mg/dL (0.5-1.5); Est. Creatinine Clearance* 33.71; Estimated Glomerular Filt Rate 86 ml/min
[2024-05-22 09:04] LABS: Alanine Aminotransferase* 22 U/L (4-35); Alkaline Phosphatase* 132 U/L (40-150); Aspartate Amino Transferase* 28 U/L (12-35); Blood Urea Nitrogen* 22 mg/dL (7-30); Glucose* 245 mg/dL (60-115); Lipase* 847 U/L (23-300); Total Protein* 6.2 g/dL (6.0-8.3)
[2024-05-22 09:05] LABS: Calcium* 8.6 mg/dL (8.4-10.6); Magnesium* 1.9 mg/dL (1.5-2.6)
[2024-05-22 09:20] LABS: C Reactive Protein* 13.9 mg/dL (0.5-1.0)
[2024-05-22 10:01] VITALS: BP 172/72; PULSE 65; RESP 18; TEMP 35.8; O2SAT 96
--- NOTE | 2024-05-22 11:26 | ONC.NURNOTE ---
Patient in clinic today for blood draw. Patient reports that she is still not feeling great. She did have a BM over the weekend but is still having abdominal pain across the mid area of her belly. She has a poor appetite and feels like everything she eats or drinks just gurgles in her belly. Feeling weak and fatigued. Patient was in ER on Wednesday. RN spoke with Gricelda Curtis APRN, Lipase, CRP and lactate labs added and patient to get 1 L NS. Labs resulted and Lipase continues to elevate. Gricelda White APRN spoke with Hospitalist and patient will be a direct admit to Med/Surg. RN called report to Pat. Port left accessed. Patient transferred to CCU 4 via w/c with daughter Georgette.
[2024-05-22 15:05] LABS: Hemoglobin A1C* 7.3 % (0-5.6)
[2024-05-26 11:35] LABS: Basophils Percent Auto 0.2 % (0.0-3.0); Hematocrit 33.6 % (33.0-51.0); Hemoglobin* 10.9 gm/dL (12.0-16.0); Immature Granulocytes Pct Auto 0.4 %; Lymphocytes Percent Auto 7.9 % (20-44); Mean Corpuscular HGB Conc 32 gm/dL (32-36); Mean Corpuscular Hemoglobin 30 pg (26-34); Mean Corpuscular Volume 91 fL (80-100); Monocytes Percent Auto 8.6 % (0.0-11.0); Neutrophils Percent Auto 81.9 % (42.0-72.0); Platelet Count* 215 K/uL (140-440); RDW Coefficient of Variation % 16.3 % (11.5-15.5); Red Blood Count 3.68 m/uL (4.00-5.20); White Blood Count* 11.14 K/uL (4.50-11.00)
[2024-05-26 11:54] LABS: Albumin* 2.7 g/dL (3.3-5.0); Chloride* 95 mmol/L (96-114); Potassium* 3.4 mmol/L (3.6-5.1); Sodium* 130 mmol/L (135-149)
[2024-05-26 11:56] LABS: Blood Urea Nitrogen* 18 mg/dL (7-30); Creatinine* 0.9 mg/dL (0.5-1.5); Est. Creatinine Clearance* 33.71; Estimated Glomerular Filt Rate 63 ml/min
[2024-05-26 11:57] LABS: Alanine Aminotransferase* 58 U/L (4-35); Alkaline Phosphatase* 485 U/L (40-150); Anion Gap 8 mEq/L (7-15); Aspartate Amino Transferase* 65 U/L (12-35); Bilirubin Total* 1.7 mg/dL (0.1-1.5); Calcium* 8.1 mg/dL (8.4-10.6); Carbon Dioxide* 27 mmol/L (20-32); Glucose* 251 mg/dL (60-115); Magnesium* 1.8 mg/dL (1.5-2.6); Total Protein* 6.2 g/dL (6.0-8.3)
[2024-05-26 12:00] LABS: Slide Review Reflex No
--- NOTE | 2024-05-26 15:28 | ONC.NURNOTE ---
Patient in clinic today for labs and PORT access for radiation. Treatment labs for Monday 05/29 done today too. Labs resulted with elevated liver levels. Liver labs normal earlier in the week. While patient was in clinic for labs she reported she is feeling much better than she did earlier in the week. Gricelda David APRN spoke with Dr. Medina regarding labs and it is felt that patient's labs may be elevated d/t recent pancreatitis. Patient is scheduled to see Dr. Sr with treatment to follow. Labs to be redrawn Wednesday prior to MD appt. RN called and spoke with Marta and her daughter Leti. Updated her that her labs are elevated, reviewed again that she is still feeling better than she did earlier in the week. She denies any back or abdominal pain, appetite has improved and her fatigue and weakness has decreased. Discussed with patient that if any of her symptoms or a fever return over the weekend she needs to be seen in ER. Also told patient we would need to redraw her labs on Wednesday. Patient will be at clinic at 8:15 for labs [address] seeing Dr. Sr at 9. Patient states that radiation said today she won't be doing treatment on Wednesday. Plan is to start radiation on 06/05 with a chemo pill. Patient verbalized understanding of labs and return of symptoms and is agreeable to the plan.
[2024-05-29 08:28] LABS: Basophils Percent Auto 0.1 % (0.0-3.0); Eosinophils Percent Auto 0.8 % (0.0-7.0); Hematocrit 34.4 % (33.0-51.0); Hemoglobin* 11.4 gm/dL (12.0-16.0); Immature Granulocytes Pct Auto 0.6 %; Lymphocytes Percent Auto 7.1 % (20-44); Mean Corpuscular HGB Conc 33 gm/dL (32-36); Mean Corpuscular Hemoglobin 30 pg (26-34); Mean Corpuscular Volume 91 fL (80-100); Monocytes Percent Auto 5.9 % (0.0-11.0); Neutrophils Percent Auto 85.5 % (42.0-72.0); Platelet Count* 341 K/uL (140-440); RDW Coefficient of Variation % 16.4 % (11.5-15.5); Red Blood Count 3.77 m/uL (4.00-5.20); White Blood Count* 14.81 K/uL (4.50-11.00)
[2024-05-29 08:29] LABS: Slide Review Reflex No
[2024-05-29 08:49] LABS: Albumin* 2.7 g/dL (3.3-5.0); Chloride* 94 mmol/L (96-114); Potassium* 3.6 mmol/L (3.6-5.1); Sodium* 128 mmol/L (135-149)
[2024-05-29 08:51] LABS: Blood Urea Nitrogen* 19 mg/dL (7-30); Est. Creatinine Clearance* 33.71; Estimated Glomerular Filt Rate 56 ml/min
[2024-05-29 08:52] LABS: Alanine Aminotransferase* 27 U/L (4-35); Alkaline Phosphatase* 341 U/L (40-150); Anion Gap 5 mEq/L (7-15); Aspartate Amino Transferase* 27 U/L (12-35); Bilirubin Total* 1.1 mg/dL (0.1-1.5); Carbon Dioxide* 29 mmol/L (20-32); Glucose* 214 mg/dL (60-115); Total Protein* 6.2 g/dL (6.0-8.3)
[2024-05-29 08:53] LABS: Calcium* 8.1 mg/dL (8.4-10.6)
[2024-05-29] MEDS: HEPARIN 500 UNIT/5 ML SYRINGE IVF (10:22)
[2024-05-29] MEDS: SODIUM CHLORIDE 0.9 % (FLUSH) 10 ML SYRINGE IVF (10:22)
[2024-05-29 10:48] LABS: PCR FLU A Negative PCR FLU A (Negative); PCR FLU B Negative PCR FLU B (Negative); PCR RSV Negative PCR RSV (Negative); SARS PCR* Negative SARS-CoV-2 (Negative)
--- NOTE | 2024-06-02 10:31 | ONC.NURNOTE ---
New RX for capecitabine- faxed to [facility] at [phone] $0 copay ready for delivery update called to Marta
--- NOTE | 2024-06-06 15:29 | ONC.NURNOTE ---
Capecitabine has shipped to patients home Marta reports feeling not well- weak, poor appetite discussed eating and drinking strategies- reviewed oral hydration intake with recommendation to add 2nd ensure daily and add 2 additional glasses of juice/day- up to 3 glasses a day also taking several glasses of water and ice chips/soup reports sipping liquids over the course of the day
[2024-06-12 11:16] LABS: Basophils Percent Auto 0.2 % (0.0-3.0); Eosinophils Percent Auto 1.1 % (0.0-7.0); Hematocrit 30.8 % (33.0-51.0); Hemoglobin* 10.1 gm/dL (12.0-16.0); Immature Granulocytes Pct Auto 0.3 %; Lymphocytes Percent Auto 13.9 % (20-44); Mean Corpuscular HGB Conc 33 gm/dL (32-36); Mean Corpuscular Hemoglobin 31 pg (26-34); Mean Corpuscular Volume 93 fL (80-100); Monocytes Percent Auto 4.6 % (0.0-11.0); Neutrophils Percent Auto 79.9 % (42.0-72.0); Platelet Count* 249 K/uL (140-440); RDW Coefficient of Variation % 16.6 % (11.5-15.5); Red Blood Count 3.31 m/uL (4.00-5.20); White Blood Count* 12.34 K/uL (4.50-11.00)
[2024-06-12 11:36] LABS: Slide Review Reflex No
[2024-06-12 11:48] LABS: Albumin* 2.6 g/dL (3.3-5.0); Chloride* 94 mmol/L (96-114); Sodium* 130 mmol/L (135-149)
[2024-06-12 11:51] LABS: Alanine Aminotransferase* 31 U/L (4-35); Alkaline Phosphatase* 439 U/L (40-150); Anion Gap 5 mEq/L (7-15); Aspartate Amino Transferase* 31 U/L (12-35); Bilirubin Total* 1.4 mg/dL (0.1-1.5); Blood Urea Nitrogen* 15 mg/dL (7-30); Carbon Dioxide* 31 mmol/L (20-32); Creatinine* 0.9 mg/dL (0.5-1.5); Est. Creatinine Clearance* 33.71; Estimated Glomerular Filt Rate 63 ml/min; Glucose* 211 mg/dL (60-115)
--- NOTE | 2024-06-12 14:41 | ONC.NURNOTE ---
letter to airline- accommodations needed for seat assignment and boarding the aircraft signed by Felias Nunez and daughter will fiber picker the letter
[2024-06-14 12:32] LABS: Cancer Antigen-GI (CA 19-9) 3507 U/mL (<=35)
--- NOTE | 2024-06-16 13:15 | ONC.NURNOTE ---
Spoke to interventional radiology in [facility]. They will consult with their provider and then reach out to pt's daughter to schedule pleural drain. They are aware of the urgency of this since pt is traveling to [place] next Wednesday. Pt's daughter updated.
== END 2024-09-02 23:59 | disposition home or self-care (01) ==
LOC: CCIC 10:45
PROVIDERS: Clinical Nurse Specialist; Internal Medicine Hematology & Oncology; Visit Provider Physician Assistant
DX: C25.0 Malignant neoplasm of head of pancreas (principal); E87.1 Hypo-osmolality and hyponatremia; R63.4 Abnormal weight loss; R53.1 Weakness; R11.2 Nausea with vomiting, unspecified; T45.1X5A Adverse effect of antineoplastic and immunosuppressive drugs, initial encounter; R63.0 Anorexia
CPT/HCPCS: 36415; 36430; 36591; 80048; 80053; 81001; 81003; 82150; 83036; 83605; 83690; 83735; 85018; 85025; 86140; 86301; 86850; 86900; 86901; 86922; 87086; 87631; 96365; 96375; 96413; 96417; 99205; 99211; 99214; 99215; G0463; J1100; J1642; J2405; J7030; J7050; J9201; J9264; P9016

== ENCOUNTER 2024-06-21 05:33 | Outpatient (CLI) | payer MEDICARE, SELFPAY | END 2024-06-21 05:34 | disposition home or self-care (01) | LOC: AMB 06-26 09:46 | PROVIDERS: PCP Internal Medicine; Visit Provider Family Medicine | DX: R10.11 Right upper quadrant pain (principal) | CPT/HCPCS: A0425; A0427 ==

== ENCOUNTER 2024-06-21 06:02 | Emergency (ER) | payer MEDICARE, SELFPAY ==
[2024-06-21 06:05] VITALS: BP 188/101; PULSE 95; RESP 16; TEMP 36.2; O2SAT 95; BMI 27.4
--- OUTSIDE RECORDS SUMMARY | 2024-06-21 06:05 | XMS_ITS ---
Author Organization [facility] Address [address] [place] [address] Care Team Providers Care Cnc Cutting Operator Name Role Phone Elsewhere, Pcp Primary [...]
--- OUTSIDE RECORDS SUMMARY | 2024-06-21 06:05 | XMS_ITS | Encounter Summary ---
Author Organization [facility] Address [address] [place] [address] Care Team Providers Care Jewel Hole Driller Name Role Phone Elsewhere, Pcp Primary Care Provider Unavailabl e Reason for Referral * Radiation Therapy (Routine) - Authorized Specialty Diagnoses / Procedures Referred By Leann joseph Referred To Contact Diagnoses Malignant Neoplasm Of Pancreas Head (HCC) Procedures Initial Rad Onc Treatment Planning CT Simulation Initial Rad Onc Treatment Planning CT Simulation NM IMRT RADIOTHERAPY PLAN Aidan Estrada M.D. [address] [place] [address] Phone: tel: fax: [facility] Region Referral ID Status Reason Start Date Expiration Date V isits Requested Visits Authorized [id number] Authorized 05/16/2024 08/16/2025 2 2 OTYPE SEWER Reason for Visit * Radiation Therapy (Routine) - Authorized Specialty Diagnoses / Procedures Referred By Leann joseph Referred To Contact Diagnoses Malignant Neoplasm Of Pancreas Head (HCC) Procedures Initial Rad Onc Treatment Planning CT Simulation Initial Rad Onc Treatment Planning CT Simulation NM IMRT RADIOTHERAPY PLAN Aidan Estrada M.D. [address] [place] [address] Phone: tel: fax: [facility] Region Referral ID Status Reason Start Date Expiration Date V isits Requested Visits Authorized [id number] Authorized 05/16/2024 08/16/2025 2 2 Encounter Details Date Type Department Care Team (Latest Contact Info) Description 05/26/2024 2:00 PM PROTOTYPE SEWER - 05/26/2024 3:13 PM PROTOTYPE SEWER Hospital Encounter Department of Radiation Oncology in [place], [place] [address] [place] [phone] Aidan Estrada M.D. [address] [place] [address] Antonette Schulte M.D. [address] [place] [phone] Malignant Neoplasm Of Pancreas Head (HCC) Social History Tobacco Use Types Packs/Day Years Used Date Smoking Tobacco: Never Smokeless Tobacco: Never Alcohol Use Standard Drinks/Week Comments Never 0 (1 standard drink = 0.6 oz pur e alcohol) [facility] Utilities Answer Date Recorded In the past 12 months has e electric, gas, oil, or water [employer] threatened to shut off services in your [...] your living situation today? I have a [facility] place to live 02/04/2024 Comments Unknown Sex and Gender Information Value Date Recorded Sex Assigned at Female 01/30/2024 2:33 PM PROTOTYPE SEWER Legal Sex Female 4:38 PM CDT Gender Identity Female 01/30/2024 2:33 PM PROTOTYPE SEWER Sexual Orientation Straight 01/30/2024 2: 33 PM PROTOTYPE SEWER documented as of this encounter Medications at [...] a day. 374 tablet 02/01/2024 8:48 PM PROTOTYPE SEWER 02/01/2024 07/31/19 25 cholecalciferol, vitD3,/vit K2 (VITAMIN [...] mouth as needed for nausea or vomiting. oxyCODONE (Roxicodone) 5 mg immediate release tablet Take 1 tablet by mouth every 8 (eight) hours as needed for pain. 05/24/2024 potassium chloride (Klor-Con M) 20 mEq ER tablet Take 1 tablet by mouth daily. 04/27/2024 prochlorperazine (Compazine) 5 mg tablet 05/19/2024 PROTEIN-BOUND PACLItaxel (Abraxane) 5 mg/mL IVPB Infuse [...] of this encounter Procedure Notes * Marcia Pulido RTT - 05/26/2024 2:00 PM CSTAssociated Order(s): [...] planning. CT images were transferred to the [employer] treatment planning system, after a reference isocenter was determined and marked. Segmentation and treatment planning will take place prior to treatment delivery. Patient set up and imaging was appropriate and completed without incident. Lawn Specialist use:No Cosigned by Antonette Schulte M.D. at 05/26/2024 3:13 PM PROTOTYPE SEWER OTYPE SEWER OTYPE SEWER Associated attestation - Antonette Schulte M.D. - 05/26/2024 3:13 PM PROTOTYPE SEWER I was present during all critical and meyer portions of the procedure(s) and immediately [facility] [place] [facility] the entire duration. See note for details. documented in this encounter Plan of Treatment Not on file documented as of this encounter Procedures Procedure Name Priority Date/Time Associated Diagnosis Comments INITIAL RAD ONC TREATMENT PLANNING CT SIMULATION Routine 05/26/2024 2:00 PM PROTOTYPE SEWER Malignant Neoplasm Of Pancreas Head (HCC) documented in this encounter Results * Initial Rad Onc Treatment Planning CT Simulation (05/26/2024 2:00 PM PROTOTYPE SEWER) Narrative JUDAH NAVARRETE - 05/26/2024 2:00 PM PROTOTYPE SEWER Antonette Schulte M.D. 05/26/2024 3:13 PM Initial [...] documented as of this encounter Care Teams Jewel Hole Driller Relationship Specialty Start Date End Date Elsewhere, Pcp PCP - General Internal Medicine 01/27/24 documented as of this encounter
--- OUTSIDE RECORDS SUMMARY | 2024-06-21 06:05 | XMS_ITS | Clinical Summary ---
Author Organization [facility] Address [address] [place] [address] Care Team Providers Care Sailing Officer Name Role Phone Yamil Negrete MD Primary Care Provider [phone] Encounters Date Type Department Care Team Description 06/08/2024 Lab Requisition [facility] [phone] Lam Faith MD 06/06/2024 Travel 05/04/2024 9:30 AM CURATOR OF MANUSCRIPTS Office Visit [facility] & [address] [address] Duc Whalen MD from Last 3 Months Social History Tobacco Use Types Packs/Day Years Used Date Smoking Tobacco: Never Assessed Comments Unknown Sex and Gender Information Value Date Recorded Sex Assigned at Not on file Legal Sex Female 11:25 AM CURATOR OF MANUSCRIPTS Gender Identity Not on file Sexual Orientation Not on file Plan of Treatment Upcoming Encounters Date Type Department Care Team (Late st Contact Info) Description 10/11/2024 Cardiac Device Check [facility] [phone] Health Maintenance Due Date Last Done Comments Tdap 10/29/1951 Depression screening for age 12+ 1952 BMI (ht and wt on same day) for age 18+ 1958 Pneumococcal series for age 50+ (1 of 2 - PCV) 960 Tetanus booster 1960 Zoster (shingles) series for age 50+ (1 of 2) 10/28/18 91 DEXA/DXA scan for age 65+ 2005 Medicare Wellness for age 65+ 2005 RSV vaccine for adults or pr egnancy (1 - 1-dose 75+ series) 10/29/2015 COVID-19 vaccine series ( season) Influenza Vaccine (#1) 2023 Procedures Procedure Name Priority Date/Time Associated Diagnosis Comments LAB TRACKING EVENT Routine 06/07/2024 5: 59 AM CDT PATH NON MAMMOGRAPHY TECH CYTOLOGY Routine 06/07/2024 5:59 AM CDT from Last 3 Months Results * LAB TRACKING EVENT (06/07/2024 5:59 AM CDT) Other (Other) Client Collect / Unknown 06/07/2024 5:59 AM CDT 06/08/2024 11:00 PM CDT Lam Faith MD LAB BILL ONLY Final Result [facility]EN[facility]AL LABORATORY [address] [address], * PATH NON MAMMOGRAPHY TECH CYTOLOGY (06/07/2024 5:59 AM CDT) Case Report Medical Cytology Report Case: [id number] Authorizing Provider: Lam Faith MD Collected: 06/07/2024 0559 Ordering Location: [facility] Received: 06/09/2024 0942 Pathologist: Kylie Iniguez MD Specimen: Pleural Fluid 06/12/2024 1:[address] [facility] LABORATORY-C ENTRAL LABORATORY Final Diagnosis A) PLEURAL FLUID, SIDE NOT SPECIFIED, FOR CYTOLOGY: Negative for malignant cells 06/12/2024 1:57 PM CDT [facility] LABORATORY-C ENTRAL LABORATORY at 1357 CDT Clinical Information Marta Carrillo is a 83 y.o. female with history of sick sinus syndrome status post dual-chamber pacemaker in [place], pancreatic cancer currently on chemotherapy with gemcitabine and Abraxane, pulmonary embolism/DVT on anticoagulation with Eliquis, type 2 diabetes, dyslipidemia, hypertension among other chronic medical issues. Patient was recently seen by her primary care provider. She had some lower extremity edema and was started on Lasix and, due to history of reported diastolic dysfunction echocardiogram, cardiology consultation was requested. Patient does see cardiology down in [place] where she lives. She is currently living with her family here in [place] close to [facility] where she is getting treatment for her pancreatic cancer. Currently, chemotherapy is planned with the possibility of radiation following chemotherapy. From a cardiac perspective, patient is doing relatively well. Her weight has been stable. She denies any significant lower extremity edema at this point in time. She does have shortness of breath which is somewhat chronic following chemotherapy. She recently had another cycle several days ago. She has noticed a dry cough with her chemotherapy. Usually, this is better 1 to 2 days after her initial treatment and then returns until she gets another treatment. She denies any exertional chest pain. She is compliant with her medications without any specific side effects. 06/12/2024 1:57 PM CDT [facility]-C [facility] Gross Description A) SOURCE: Pleural fluid The specimen consists of 4 cc of red cloudy fluid from which the following is prepared: -1 DiffQuik stained slide -1 Papanicolaou stained ThinPrep slide -1 H&E stained cell block slide A2: Cell block material was placed in formalin at 1054 on 06/09/24 and fixed in formalin at least 6 hours and no more than 72 hours. 06/12/2024 1:[address] [facility] LABORATORY-C [facility] LAB[facility]AT[facility] Microscopic Description Specimen adequacy: Adequate for interpretation. All slides were reviewed. The microscopic appearance substantiates the diagnosis. To aid in differentiating reactive mesothelial cells from epithelial neoplasm the following panel immunoperoxidase stains is performed: WT1: Positive Calretinin: Positive Claudin4: Negative MOC31: Negative 06/12/2024 1:[address] [facility] LABORATORY-C [facility] Additional Information Cytology is screened at [facility] Laboratory, Central Laboratory - [address], [place] [address] [facility] Laboratory - [address], [place] [address] and [facility] Laboratory - [address] [place] [address] Interpreted at [facility] [employer] Laboratory, Central Laboratory - [address], [place] [address] Immunohistochemist ry controls were reviewed and approved as appropriate by the pathologist during this examination. 06/12/2024 1:57 PM CDT [facility]-C ENTRAL LABORATORY Other PLEURAL FLUID SPECIMEN / Unknown 06/07/2024 5:59 AM CDT 06/09/2024 9:42 AM CDT us Lam Faith MD PATHOLOGY/CYTOLOGY Final Result [facility] LABORATORY-CENTRAL LABORATORY [address] [place] [address], [place] from Last 3 Months Insurance [facility] MR Care Teams Sailing Officer Relationship Specialty Start Date End Date Yamil Negrete MD [address] [place] [id number] PCP - General Internal Medicine 05/03/24
--- OUTSIDE RECORDS SUMMARY | 2024-06-21 06:05 | XMS_ITS | Encounter Summary ---
Author Organization [facility] Address [address] [place] [address] Care Team Providers Care Finance Vice President Name Role Phone Elsewhere, Pcp Primary Care Provider Unavailabl e Encounter Details Date Type Department Care Team (Latest Contact Info) Description 05/26/2024 1:30 PM WEB PRESS JOGGER - 05/26/2024 1:59 PM WEB PRESS JOGGER Hospital Encounter Department of Radiation Oncology in [place], [place] [address] [place] [address] Antonette Schulte M.D. [address] [place] [address] Carlos Gibson RMelvinNMelvin Malignant Neoplasm Of Pancreas [...] your living situation today? I have a [facility] place to live 02/04/2024 Comments Unknown Sex and Gender Information Value Date Recorded Sex Assigned at Female 01/30/2024 2:33 PM WEB PRESS JOGGER Legal Sex Female 4:38 PM CDT Gender Identity Female 01/30/2024 2:33 PM WEB PRESS JOGGER Sexual Orientation Straight 01/30/2024 2: 33 PM WEB PRESS JOGGER documented as of this encounter Medications at [...] a day. 374 tablet 02/01/2024 8:48 PM WEB PRESS JOGGER 02/01/2024 07/31/19 25 cholecalciferol, vitD3,/vit K2 (VITAMIN [...] as of this encounter Plan of Treatment Not on file documented as of this encounter Visit Diagnoses [...] prior to discharge. Given 05/26/2024 2:55 PM WEB PRESS JOGGER 500 Units iohexoL 300 mg iodine/mL solution 1-200 mL (Omnipaque) 1-200 mL, intravenous, Once in imaging, contrast, Starting on Wed05/26/24 at 1416, For 1 dose, Intraprocedure (RAD), Administer 1-200 mL, dosing per medication reference document and per protocol. Given 05/26/2024 2:50 PM WEB PRESS JOGGER 140 mL NaCl 0.9 % bolus 1-100 mL 1-100 mL, intravenous, at 1-100 mL/hr, Administer over 1 Hours, Once in imaging, other, Give per medication reference and protocol, Starting on Wed05/26/24 at 1416, For 1 dose, Intraprocedure (RAD) New Bag 05/26/2024 2:50 PM WEB PRESS JOGGER 50 mL 100 mL/hr sodium chloride 0.9 % injection 10-20 mL 10-20 mL, intravenous, As needed, line care, Implanted Vascular Access Device (IVAD) Venous Non-Valved, Starting on Wed05/26/24 at 1417, Prior to and following infusion and between multiple consecutive infusions, flush 10 mL to each port/lumen. Given 05/26/2024 2:50 PM WEB PRESS JOGGER 10 mL sodium chloride 0.9 % injection 10-20 mL 10-20 mL, intravenous, During hospitalization, line care, Prior to discharge, Starting on Wed05/26/24 at 1417, For 1 dose, Implanted Vascular Access Device (IVAD) Venous Non-Valved: Flush 10 mL per port/lumen followed by heparin flush prior to discharge. Given 05/26/2024 2:55 PM WEB PRESS JOGGER 10 mL documented in this encounter Additional Health Concerns Infection Onset Date Last Indicated Resolved Time Protective Environment 02/08/2024 02/08/2024 documented as of this encounter Care Teams Finance Vice President Relationship Specialty Start Date End Date Elsewhere, Pcp PCP - General Internal Medicine 01/27/24 documented as of this encounter
--- OUTSIDE RECORDS SUMMARY | 2024-06-21 06:05 | XMS_ITS | Encounter Summary ---
Author Organization [facility] Address [address] [place] [address] Care Team Providers Care Associate Director Of Sales Name Role Phone Elsewhere, Pcp Primary Care Provider Unavailabl e Reason for Visit * Reason Onset Date Comments Difficulty Breathing 06/21/2024 Encounter Details Date Type Department Care Team (Late st Contact Info) Description 06/21/2024 Nurse Triage Department of Family Medicine, [facility], in [place], [place] [address] [place] [phone] Denise Lemus M.S.N., R.N. [address] [place] [phone] Difficulty Breathing Social History Tobacco Use Types Packs/Day Years Used Date Smoking Tobacco: Never Smokeless Tobacco: Never Alcohol Use Standard Drinks/Week Comments Never 0 (1 standard drink = 0.6 oz pur e alcohol) [facility] Utilities Answer Date Recorded In the past 12 months has e [employer], gas, oil, or water company threatened to [...] your living situation today? I have a [facility] place to live 02/04/2024 Comments Unknown Sex and Gender Information Value Date Recorded Sex Assigned at Female 01/30/2024 2:33 PM MATHEMATICS EDUCATION PROFESSOR Legal Sex Female 4:38 PM CDT Gender Identity Female 01/30/2024 2:33 PM MATHEMATICS EDUCATION PROFESSOR Sexual Orientation Straight 01/30/2024 2: 33 PM MATHEMATICS EDUCATION PROFESSOR documented as of this encounter Miscellaneous Notes * Telephone Encounter - Denise Lemus M.SMelvinNMelvin, R.N. - 06/21/2024 5:24 AM CDT Chief Complaint / Reason for Call Patient is a 83 y.o. female calling regarding Difficulty Breathing. Assessment Concern: The patient's daughter is calling as she woke up short of breath at rest. Home cares tried: None mentioned Calling to request: Advice The recommended disposition is Go to ED Now. Reason for Disposition [1] MODERATE difficulty breathing (e.g., speaks in phrases, SOB even at rest, pulse 100-120) AND [2] NEW-onset or WORSE than normal Protocols used: Cancer - Breathing Zfsrsbuijr-Jrkrb-PS Care Advice Patient/Caregiver understands and will follow care advice?: Yes, able to teach back Cancer - Breathing Izjgyngkhz-Glnzv-HO Nurse Denise Muhammad Jun 21, 2024 05:25 AM Care Advice CARE ADVICE given per Cancer - Breathing Difficulty (Adult) guideline. documented in this encounter Plan of Treatment Not on file documented as of this encounter Visit Diagnoses Not on filedocumented in this encounter Additional Health Concerns Infection Onset Date Last Indicated Resolved Time Protective Environment 02/08/2024 02/08/2024 documented as of this encounter Care Teams Associate Director Of Sales Relationship Specialty Start Date End Date Elsewhere, Pcp PCP - General Internal Medicine 01/27/24 documented as of this encounter
--- OUTSIDE RECORDS SUMMARY | 2024-06-21 06:05 | XMS_ITS | Encounter Summary ---
Author Organization [facility] Address [address] [place] [address] Care Team Providers Care Senior Game Designer Name Role Phone Elsewhere, Pcp Primary Care Provider Unavailabl e Reason for Referral * Radiation Therapy (Routine) - Authorized Specialty Diagnoses / Procedures Referred By Leann joseph Referred To Contact Diagnoses Malignant Neoplasm Of Pancreas Head (HCC) Procedures Initial Rad Onc Treatment Planning CT Simulation Initial Rad Onc Treatment Planning CT Simulation TN IMRT RADIOTHERAPY PLAN Aidan Estrada M.D. [address] [place] [address] Phone: tel: fax: [facility] Referral ID Status Reason Start Date Expiration Date V isits Requested Visits Authorized [id number] Authorized 05/16/2024 08/16/2025 2 2 CTOR PACKER * Radiation Therapy (Routine) - Authorized Specialty Diagnoses / Procedures Referred By Leann joseph Referred To Contact Diagnoses Malignant Neoplasm Of Pancreas Head (HCC) Procedures Management Visit Aidan Estrada M.D. [address] [place] [address] Phone: tel: fax: [facility] [place] [facility] Referral ID Status Reason Start Date Expiration Date V isits Requested Visits Authorized [id number] Authorized 05/16/2024 08/16/2025 10 10 CTOR PACKER * Radiation Therapy (Routine) - Authorized Specialty Diagnoses / Procedures Referred By Contac t Referred To Contact Diagnoses Malignant Neoplasm Of Pancreas Head (HCC) Procedures Prior Auth Rad Tx TN IMRT COMPLEX TN GUIDANCE FOR LOC RAD TX TN IMRT RADIOTHERAPY PLAN IMRT Aidan Estrada M.D. [address] [place] [address] Phone: tel: fax: [facility] [place] [address] [place] [phone] Referral ID Status Reason Start Date Expiration Date V isits Requested Visits Authorized [id number] Authorized 05/29/2024 08/16/2025 25 25 CTOR PACKER Encounter Details Date Type Department Care Team (Late st Contact Info) Description 05/16/2024 Orders Only Department of Radiation Oncology in [place], [place] [address] [place] [phone] Joyce Kenyon P.A.-C., M.S. [address] [place] [phone] 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) Social History Tobacco Use Types Packs/Day Years Used Date Smoking Tobacco: Never Smokeless Tobacco: Never Alcohol Use Standard Drinks/Week Comments Never 0 (1 standard drink = 0.6 oz pur e alcohol) [facility] Utilities Answer Date Recorded In the past 12 months has e [employer], gas, oil, or water [employer] threatened to shut off services in your [...] your living situation today? I have a [facility] place to live 02/04/2024 Comments Unknown Sex and Gender Information Value Date Recorded Sex Assigned at Female 01/30/2024 2:33 PM SELECTOR PACKER Legal Sex Female 4:38 PM CDT Gender Identity Female 01/30/2024 2:33 PM SELECTOR PACKER Sexual Orientation Straight 01/30/2024 2: 33 PM SELECTOR PACKER documented as of this encounter Miscellaneous Notes * Addendum Note - Carlos Ibanez, R.N. - 05/16/2024 8:48 AM CSTAddended by: CARLOS IBANEZ on: 05/29/2024 02:09 PM Modules accepted: Orders CTOR PACKER documented in this encounter Plan of Treatment Scheduled Orders Name Type Priority Associated Diagnoses Order Schedule Prior Auth Rad Tx Radiation Oncology Routine Malignant Neoplasm Of Pancreas Head (HCC) Ordered: 05/16/2024 Management Visit Radiation Oncology Routine Malignant Neoplasm Of Pancreas Head (HCC) 10 Occurrences starting 05/16/2024 until 08/13/2025 documented as of this encounter Results * Initial Rad Onc Treatment Planning CT Simulation (05/26/2024 2:00 PM SELECTOR PACKER) Narrative JUDAH NAVARRETE - 05/26/2024 2:00 PM SELECTOR PACKER Antonette Schulte M.D. 05/26/2024 3:13 PM Initial [...] as of this encounter Care Teams Senior Game Designer Relationship Specialty Start Date End Date Elsewhere, Pcp PCP - General Internal Medicine 01/27/24 documented as of this encounter
--- OUTSIDE RECORDS SUMMARY | 2024-06-21 06:05 | XMS_ITS | Encounter Summary ---
Author Organization [facility] Address [address] [place] [address] Care Team Providers Care Bulker Name Role Phone Elsewhere, Pcp Primary Care Provider Unavailabl e Reason for Referral * Outpatient (Routine) - Closed Specialty Diagnoses / Procedures Referred By Leann joseph Referred To Contact General Surgery Diagnoses Malignant Neoplasm Of Pancreas (HCC) Ricky Schaefer M.D., Ph.D. [address] [place] [address] Phone: tel: fax: [facility] Referral ID Status Reason Start Date Expiration Date Visits Re quested Visits Authorized [id number] Closed 01/11/2024 07/12/2025 1 1 * MRI/CAT/PET Scan (Routine) - Closed Specialty Diagnoses / Procedures Referred By Contsarthak t Referred To Contact Radiology Diagnoses Malignant Neoplasm Of Pancreas (HCC) Procedures CT Pancreas Angiogram Triple Phase and Pelvis with IV Contrast Ricky Schaefer M.D., Ph.D. [address] [place] [address] Phone: tel: fax: [facility] Referral ID Status Reason Start Date Expiration Date Visits Re quested Visits Authorized [id number] Closed 01/14/2024 01/13/2025 1 1 * MRI/CAT/PET Scan (Routine) - Closed Specialty Diagnoses / Procedures Referred By Contac t Referred To Contact Radiology Diagnoses Malignant Neoplasm Of Pancreas (HCC) Procedures CT Chest with IV Contrast Sanjeev Woods M.D., M.P.H. Phone: tel: fax: [facility] Referral ID Status Reason Start Date Expiration Date Visits Re quested Visits Authorized [id number] Closed 01/14/2024 01/13/2025 1 1 Encounter Details Date Type Department Care Team (Late st Contact Info) Description 12/29/2023 Orders Only Department of Oncology in [place], [place] [address] [place] [address] [facility], ProviderMD Malignant Neoplasm Of Pancreas (HCC) Social History Tobacco Use Types Packs/Day Years Used Date Smoking Tobacco: Never Assessed Dental Answer Date Recorded Dental: Regular Dentist Unknown 12/28/19 24 Comments Unknown Sex and Gender Information Value Date Recorded Sex Assigned at Female 01/30/2024 2:33 PM SUPPLIER QUALITY Legal Sex Female 4:38 PM CDT Gender Identity Female 01/30/2024 2:33 PM SUPPLIER QUALITY Sexual Orientation Straight 01/30/2024 2: 33 PM SUPPLIER QUALITY documented as of this encounter Plan of Treatment Scheduled Referrals Name Type Priority Associated Diagnoses Order Schedule General Surgery - Pancreas consult (clinic) Outpatient Referral Routine Malignant Neoplasm Of Pancreas (HCC) 1 Occurrences starting 01/11/2024 until 04/12/2025 documented as of this encounter Results * CT Pancreas Angiogram Triple Phase and Pelvis with IV Contrast (02/01/2024 1:34 PM SUPPLIER QUALITY) Anatomical Region Laterality Modality Abdomen, Pelvis, Abdominal R ST LOS, Abdominal ARZ LOS, Vascular Interventional ARZ LOS, Vascular Interventional FLA LOS, Abdominal FLA LOS N/A Computed Tomography, Compute d Tomography 02/01/2024 1:23 PM SUPPLIER QUALITY Impressions 02/01/2024 4:15 PM SUPPLIER QUALITY Tumor: Ill-defined hypoattenuated mass in the pancreatic head/neck. Vascular contact: Present, involving the SMA, TRE, GDA, main portal vein, SMV, splenic vein Metastasis: Mesenteric lymph node contacting the SMA and SMV Narrative 02/01/2024 4:15 PM SUPPLIER QUALITY EXAM: CT PANCREAS ANGIOGRAM TRIPLE PHASE AND [...] Peritoneum/Omentum: Absent Ascites: Absent Suspicious lymph nodes: [place]-regional: Enlarged mesenteric lymph node with ill-defined margins, [...] Peritoneum/Omentum: Absent Ascites: Absent Suspicious lymph nodes: [place]-regional: Enlarged mesenteric lymph node with ill-defined margins,contacting [...] Chest with IV Contrast (02/01/2024 1:34 PM SUPPLIER QUALITY) Anatomical Region Laterality Modality Chest, Thoracic RST LOS, Tho racic ARZ LOS, Thoracic ARZ LOS, Thoracic FLA LOS N/A Computed Tomography, Compute d Tomography 02/01/2024 1:25 PM SUPPLIER QUALITY Impressions 02/01/2024 2:38 PM SUPPLIER QUALITY 1. Acute pulmonary embolism in segmental and subsegmental pulmonary arteries in posterior lower lobes. No right heart strain. 2. Stable 5 mm nodule in right lower lobe. 3. Stable mild enlargement of mediastinal lymph nodes. Narrative 02/01/2024 2:38 PM SUPPLIER QUALITY EXAM: CT CHEST WITH IV CONTRAST 3D [...] on 02/01/2024. Procedure Note Gaudencio Ferreira M.B.B.S., MNir. - 02/01/2024 EXAM: CT CHEST WITH IV [...] mediastinal lymph nodes. Sanjeev Woods M.D., M.P.H. IM CT PROCEDURES Final Result * (ABNORMAL) CEA (Carcinoembryonic Antigen) (02/01/2024 11:26 AM SUPPLIER QUALITY) Pathologist [facility] Carcinoembryonic Ag (CEA), S 30.5(H) ng/mL 02/01/2024 5:52 PM SUPPLIER QUALITY [facility] Comment: ----REFERENCE VALUE---- <=3.0 (Non-smokers) Some smokers may have elevated CEA, usually <5.0. ----ADDITIONAL INFORMATION---- The testing method is an immunoenzymatic assay manufactured by [employer] and performed on the SIGFOX DxI 800. Values obtained with different assay methods or kits may be different and cannot be used interchangeably. Test results cannot be interpreted as absolute evidence for the presence or absence of malignant disease. Blood (Blood, Venous) 02/01/2024 11:26 AM SUPPLIER QUALITY 02/01/2024 5:03 PM SUPPLIER QUALITY Sanjeev Woods M.D., M.P.H. LAB BLOOD ADD-ON F inal Result Performing Organization Address City/[facility]/ZIP Co de Phone Number [facility] [address] [place] [address] [facility] [address] [place] [address] * (ABNORMAL) Carbohydrate Antigen 19-9 (CA 19-9) (02/01/2024 11:26 AM SUPPLIER QUALITY) Pathologist [facility] Carbohydrate Ag 19-9, S 5433(H) <35 U/mL 02/01/2024 6:24 PM SUPPLIER QUALITY [facility] Comment: ----ADDITIONAL INFORMATION---- The testing method is an immunoenzymatic assay manufactured by [employer]. and performed on the SIGFOX DxI 800. Values obtained with different assay methods or kits may be different and cannot be used interchangeably. Test results cannot be interpreted as absolute evidence for the presence or absence of malignant disease. Blood (Blood, Venous) 02/01/2024 11:26 AM SUPPLIER QUALITY 02/01/2024 5:03 PM SUPPLIER QUALITY Sanjeev Woods M.D., M.P.H. LAB BLOOD ADD-ON F inal Result Performing Organization Address [facility] Co de Phone Number [facility] [address] [place] [address] [facility] [address] [place] [address] * (ABNORMAL) Comprehensive Metabolic Panel (02/01/2024 11:26 AM SUPPLIER QUALITY) Pathologist [facility] Potassium, S 5.0 3.6 - 5.2 mmol/L 02/01/2024 12:35 PM SUPPLIER QUALITY DTL Sodium, S 135 135 - 145 mmol/L 02/01/2024 12:35 PM SUPPLIER QUALITY DTL Chloride, S 100 98 - 107 mmol/L 02/01/2024 12:35 PM SUPPLIER QUALITY DTL Bicarbonate, S 25 22 - 29 mmol/L 02/01/2024 12:35 PM SUPPLIER QUALITY DTL Anion Gap 10 7 - 15 02/01/2024 12:35 PM SUPPLIER QUALITY DTL BUN (Blood Urea Nitrogen), S 11 6 - 21 mg/dL 02/01/2024 12:35 PM SUPPLIER QUALITY DTL Creatinine 0.51(L) 0.59 - 1.04 mg/dL 02/01/2024 12:35 PM SUPPLIER QUALITY DTL Estimated GFR (eGFR) >90 >=60 mL/min/BS A 02/01/2024 12:35 PM SUPPLIER QUALITY DTL Comment: Estimated GFR calculated using the 2020 CKD_EPI creatinine equation. Calcium, Total, S 8.8 8.8 - 10.2 mg/dL 02/01/2024 12:35 PM SUPPLIER QUALITY DTL Glucose, S 227(H) 70 - 140 mg/dL 02/01/2024 12:35 PM SUPPLIER QUALITY DTL Protein, Total, S 6.3 6.3 - 7.9 g/dL 02/01/2024 12:35 PM SUPPLIER QUALITY DTL Albumin, S 3.5 3.5 - 5.0 g/dL 02/01/2024 12:35 PM SUPPLIER QUALITY DTL Aspartate Aminotransferase (AST), S 23 8 - 43 U/L 02/01/2024 12:35 PM SUPPLIER QUALITY DTL Alkaline Phosphatase, S 98 35 - 104 U/L 02/01/2024 12:35 PM SUPPLIER QUALITY DTL Alanine Aminotransferase (ALT), S 25 7 - 45 U/L 02/01/2024 12:35 PM SUPPLIER QUALITY DTL Bilirubin, Total, S 0.3 0.0 - 1.2 mg/dL 02/01/2024 12:35 PM SUPPLIER QUALITY DTL Blood (Blood, Venous) 02/01/2024 11:26 AM SUPPLIER QUALITY 02/01/2024 12:10 PM SUPPLIER QUALITY us Sanjeev Woods M.D., M.P.H. LAB BLOOD ADD-ON F inal Result [facility] [address] [place] [address], [facility] DTL [facility] [address] [place] [address] * (ABNORMAL) CBC with Differential, Blood (02/01/2024 11:26 AM SUPPLIER QUALITY) [facility] Hemoglobin 8.9(L) 11.6 - 15.0 g/dL 02/01/2024 12:17 PM SUPPLIER QUALITY DTL Hematocrit 27.4(L) 35.5 - 44.9 % 02/01/2024 12:17 PM SUPPLIER QUALITY DTL Erythrocytes 3.05(L) 3.92 - 5.13 x10(12)/L 02/01/2024 12:17 PM SUPPLIER QUALITY DTL MCV 89.8 78.2 - 97.9 fL 02/01/2024 12:17 PM SUPPLIER QUALITY DTL RBC Distrib Width 14.1 12.2 - 16.1 % 02/01/2024 12:17 PM SUPPLIER QUALITY DTL Platelet Count 233 157 - 371 x10(9)/L 02/01/2024 12:17 PM SUPPLIER QUALITY DTL Leukocytes 3.6 3.4 - 9.6 x10(9)/L 02/01/2024 12:17 PM SUPPLIER QUALITY DTL Neutrophils 1.91 1.56 - 6.45 x10(9)/L 02/01/2024 12:17 PM SUPPLIER QUALITY [facility] Lymphocytes 1.34 0.95 - 3.07 x10(9)/L 02/01/2024 12:17 PM SUPPLIER QUALITY DTL Monocytes 0.21(L) 0.26 - 0.81 x10(9)/L 02/01/2024 12:17 PM SUPPLIER QUALITY DTL Eosinophils 0.08 0.03 - 0.48 x10(9)/L 02/01/2024 12:17 PM SUPPLIER QUALITY DTL Basophils <0.03 0.01 - 0.08 x10(9)/L 02/01/2024 12:17 PM SUPPLIER QUALITY DTL Blood (Blood, Venous) 02/01/2024 11:26 AM SUPPLIER QUALITY 02/01/2024 11:55 AM SUPPLIER QUALITY Sanjeev Woods M.D., M.P.H. LAB BLOOD ADD-ON F inal Result [facility] [address] [place] [address], [facility] DTL [facility] [address] [place] [address] [facility] er [address] [place] [address] [place] [address] documented in this encounter Visit Diagnoses Diagnosis Malignant Neoplasm Of Pancreas (HCC) Malignant Neoplasm Of Pancreas (HCC) documented in this encounter Additional Health Concerns Infection Onset Date Last Indicated Resolved Time Protective Environment 02/08/2024 02/08/2024 documented as of this encounter Care Teams Bulker Relationship Specialty Start Date End Date Elsewhere, Pcp PCP - General Internal Medicine 01/27/24 documented as of this encounter
--- OUTSIDE RECORDS SUMMARY | 2024-06-21 06:05 | XMS_ITS | Encounter Summary ---
Author Organization [facility] Address [address] [place] [address] Care Team Providers Care Clerical Administrator Name Role Phone Elsewhere, Pcp Primary Care Provider Unavailabl e Reason for Referral * Outpatient (Routine) - Closed Specialty Diagnoses / Procedures Referred By Leann t Referred To Contact Radiation Oncology Diagnoses Malignant Neoplasm Of Pancreas Head (HCC) Dana Guillen APRN, C.N.P., M.S. [address] [place] [address] Phone: tel: fax: [facility] Referral ID Status Reason Start Date Expiration Date Visits Re quested Visits Authorized [id number] Closed 05/10/2024 11/09/2025 1 1 OMER ENGAGEMENT REPRESENTATIVE Reason for Visit * Outpatient (Routine) - Closed Specialty Diagnoses / Procedures Referred By Contac t Referred To Contact Radiation Oncology Diagnoses Malignant Neoplasm Of Pancreas Head (HCC) Dana Guillen APRN, C.N.P., M.S. [address] [place] [address] Phone: tel: fax: [facility] Referral ID Status Reason Start Date Expiration Date Visits Re quested Visits Authorized [id number] Closed 05/10/2024 11/09/2025 1 1 Encounter Details Date Type Department Care Team (Latest Contact Info) Description 05/26/2024 11:33 AM CUSTOMER ENGAGEMENT REPRESENTATIVE - 05/26/2024 1:29 PM CUSTOMER ENGAGEMENT REPRESENTATIVE Hospital Encounter Department of Radiation Oncology in [place], [place] [address] [place] [phone] Antonette Schulte M.D. [address] [place] [address] Malignant Neoplasm Of Pancreas Head (HCC) Social History Tobacco Use Types Packs/Day Years Used Date Smoking Tobacco: Never Smokeless Tobacco: Never Alcohol Use Standard Drinks/Week Comments Never 0 (1 standard drink = 0.6 oz pur e alcohol) [facility] Utilities Answer Date Recorded In the past 12 months has [employer], [employer], oil, or water [email or web address] threatened to shut off services in your [...] your living situation today? I have a [facility] place to live 02/04/2024 Comments Unknown Sex and Gender Information Value Date Recorded Sex Assigned at Female 01/30/2024 2:33 PM CUSTOMER ENGAGEMENT REPRESENTATIVE Legal Sex Female 4:38 PM CDT Gender Identity Female 01/30/2024 2:33 PM CUSTOMER ENGAGEMENT REPRESENTATIVE Sexual Orientation Straight 01/30/2024 2: 33 PM CUSTOMER ENGAGEMENT REPRESENTATIVE documented as of this encounter Last Filed Vital Signs Vital Sign Reading Time Taken Comments Blood Pressure 185/74 05/26/2024 12:49 PM CUSTOMER ENGAGEMENT REPRESENTATIVE Pulse 77 05/26/2024 12:49 PM CUSTOMER ENGAGEMENT REPRESENTATIVE Temperature 35.9 C (96.7 F) 05/26/2024 12:49 PM CUSTOMER ENGAGEMENT REPRESENTATIVE Respiratory Rate - - Oxygen Saturation - - Inhaled Oxygen Concentration - - Weight 68.7 kg (151 lb 7.3 oz) 05/26/2024 12:49 PM CUSTOMER ENGAGEMENT REPRESENTATIVE Height - - Body Mass Index 28.52 05/10/2024 2:25 PM CUSTOMER ENGAGEMENT REPRESENTATIVE documented in this encounter Medications at Time [...] a day. 374 tablet 02/01/2024 8:48 PM CUSTOMER ENGAGEMENT REPRESENTATIVE 02/01/2024 07/31/19 25 cholecalciferol, vitD3,/vit K2 (VITAMIN [...] this encounter Consult Notes * Leana Escalera APRN C.N.P., M.S.N. - 05/26/2024 1:00 PM CST REQUESTING PROVIDER Dana Guillen APRN, C.N.P., M.S. REASON FOR CONSULT Adenocarcinoma of the pancreas Collaborating physician: Dr. Schulte HISTORY OF PRESENT ILLNESS Marta Carrillo is a 83 y.o.-year-old female from [place], [place], who presents to the Department ofRadiation [...] FINAL DIAGNOSIS Pancreas, Head, Mass, fine-needle biopsy ([id number]; 12/17/2023): Invasive moderately differentiated adenocarcinoma. 01/02/2024 Critical [...] the common bile duct. 01/07/2024 Critical Imaging [place] Interpretation of PET-CT Impression: 1. Large moderately [...] set up. Referral to Radiation Oncology in [place]. Follow-up one month after radiation. 05/15/2024 - [...] chemotherapy on 01/13/2024 while still residing in [place]. She has transferred care to [facility] and is receiving chemotherapy with Gemcitabine and Abraxane at the [facility] with Dr. Sr. She reports a [...] of our Medical Oncology colleagues, both at [facility] and at the [facility]. Surgical intervention has not been recommended, [...] Mellitus NOS 2020 Hyperlipidemia 2014 Hypertension NOS 2012 Malignant Primary Neoplasm (Unknown Site) Unspecified (HCC) 2023 Pancreatic Osteopenia 2022 [2] Past Surgical History: Procedure Laterality Date TONSILLECTOMY 1946 [3] Family History Problem Relation Name Age of Onset Diabetes Mother Chase Salazar Coronary artery disease Father Celso Salazar Cosigned by Antonette Schulte M.D. at 05/26/2024 3:12 PM CUSTOMER ENGAGEMENT REPRESENTATIVE OMER ENGAGEMENT REPRESENTATIVE OMER ENGAGEMENT REPRESENTATIVE Associated attestation - Antonette Schulte M.D. - 05/26/2024 3:12 PM CUSTOMER ENGAGEMENT REPRESENTATIVE RADIATION ONCOLOGY CONSULT I saw and evaluated the patient and participated in the meyer portions of the service. I reviewed thedocumentation of Ms. Leana Escalera APRN and agree with the findings and plan. Please see Ms. Salmeronguillaume's detailed note for the patient's initial presentation [...] We discussed the acute as well as intermediate frame tender risks from EBRT, including, but not limited to fatigue,nausea/vomiting, diarrhea, bowel/bladder changes (including small bowel obstruction and bowel changes), skin changes, chronic changes in bowel function and small risks for kidney or bone damage or secondary malignacies. They understood and their questions were answered. She wished to proceed with treatment. We tentatively plan on delivering [id number]/3750 cGy in 15 fractions starting June 05, 2024. I spoke with Dr. Sr and she will see her back on Wednesday. She will try to get her oral xeloda for Wednesday, June 05, but this is a quick [...] treatment. My thanks to Dana Guillen APRN, Nyla, Orin, Heidi, and Pushpa for the opportunity to [...] in this encounter Plan of Treatment Scheduled Referrals [...] documented as of this encounter Care Teams Clerical Administrator Relationship Specialty Start Date End Date Elsewhere, Pcp PCP - General Internal Medicine 01/27/24 documented as of this encounter
--- OUTSIDE RECORDS SUMMARY | 2024-06-21 06:05 | XMS_ITS | Clinical Summary ---
Author Organization [facility] Address [address] [place] [address] Care Team Providers Care Theatrical Variety Agent Name Role Phone Elsewhere, Pcp Primary Care Provider Unavailabl e Source Comments Patient records contain information from all sites at [facility]. For routine questions regarding patient records, call [phone] during business hours, M-F 8:00 AM - 5:00 PM Central Time. Record requests for emergency care only can be directed to [phone] at any time.[facility] Allergies No known active allergies Medications * [...] a day. 374 tablet 02/01/2024 8:48 PM SHOP ASSISTANT 02/01/20 025 Active dexAMETHasone (Decadron) 4 mg/mL injection Infuse 10 mg into a venous catheter. 02/10/20 Active diphenhydrAMINE in NaCl 0.9 % (BenadryL) 25 mg/50 mL IVPB Infuse 50 mg into a venous catheter. 01/13/20 Active famotidine (Pepcid) 10 mg/mL injection Infuse 20 mg into a venous catheter. 01/13/20 Active PROTEIN-BOUND PACLItaxel (Abraxane) 5 mg/mL IVPB [...] tablet by mouth daily. 04/27/19 25 Active gentamicin (Garamycin) 0.3 % (3 mg/mL) ophthalmic solution INSTILL 2 DROPS INTO AFFECTED EYE(S) EVERY 4 HOURS 06/02/19 25 Active OLANZapine (ZyPREXA) 5 mg tablet 06/13/19 25 Active oxyCODONE (Roxicodone) 5 mg immediate release tablet Take 1 tablet by mouth every 8 (eight) hours as needed for pain. 05/24/19 25 Active prochlorperazine (Compazine) 5 mg tablet 05/19/19 25 Active predniSONE (Deltasone) 20 mg tablet Take 1 tablet by mouth 2 (two) times a day. 05/31/19 25 Active Active Problems Problem Noted Date Diagnosed [...] organization. Date Type Department Care Team Description 06/21/2024 Nurse Triage Department of Family Medicine, [facility], in [place], [place] [address] [place] [id number] Lemus, Denise S, M.S.N., R.N. Difficulty Breathing 06/20/2024 9:00 AM CDT Comprehensive Visit Department of Radiology, [facility], in [place], [place] [address] [place] [address] Maribeth Pinzon APRN, C.N.P., M.S.N. Effusion Pleural; Malignant Neoplasm Of Pancreas Head (HCC) 06/20/2024 7:30 AM CDT - 06/20/2024 11:59 PM CDT Hospital Encounter Department of Radiology, [facility], in [place], [place] [address] [place] [address] Felisa Nunez MPAS, P.A.-C., P.A. Effusion Pleural; Malignant Neoplasm Of Pancreas Head (HCC) Discharge Disposition: Home or Self Care 06/14/2024 Orders Only Department of Oncology in [address] [phone] Felisa Nunez MPAS, P.A.-C., P.A. Effusion Pleural (Primary Dx); Malignant Neoplasm Of Pancreas Head (HCC) 05/26/2024 2:00 PM SHOP ASSISTANT - 05/26/2024 3:13 PM SHOP ASSISTANT Hospital Encounter Department of Radiation Oncology in [address] [address] Aidan Estrada M.D. Garces, Yolanda I., M.D. Malignant Neoplasm Of Pancreas Head (HCC) 05/26/2024 1:30 PM SHOP ASSISTANT - 05/26/2024 1:59 PM SHOP ASSISTANT Hospital Encounter Department of Radiation Oncology in [address] [address] Antonette Schulte M.D. Moorhouse, Alexis E, R.N. 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) 05/26/2024 11:33 AM SHOP ASSISTANT - 05/26/2024 1:29 PM SHOP ASSISTANT Hospital Encounter Department of Radiation Oncology in [address] [address] Antonette Schulte M.D. Malignant Neoplasm Of Pancreas Head (HCC) 05/16/2024 Orders Only Department of Radiation Oncology in [place], [place] [address] [place] [address] Joyce Kenyon P.A.-C., M.SMelvin 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) 05/15/2024 Orders Only Department of Radiation Oncology in [place], [place] [address] [place] [address] Antonette Schulte M.D. 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) 05/10/2024 2:40 PM SHOP ASSISTANT Office Visit Department of Oncology in [address] [address] Dana Guillen APRN, C.N.P., M.S. 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) 05/09/2024 3:11 PM SHOP ASSISTANT - 05/09/2024 11:59 PM SHOP ASSISTANT Hospital Encounter Department of Radiology, [facility], in [address] [address] Sanjeev Woods M.D., M.P.H. Malignant Neoplasm Of Pancreas Head (HCC) Discharge Disposition: Home or Self Care 05/09/2024 2:40 PM SHOP ASSISTANT Lab Department of Infusion Therapy in [address] [phone] Sanjeev Woods M.D., M.P.H. 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) 05/04/2024 2:00 PM SHOP ASSISTANT Clinical Communication Virtual Review in [address] [address] Pre-visit Intake from Last 3 Months Family History Medical History Relation Name Comments Coronary artery disease Father [place] Diabetes Mother Chase Salazar Relation Name Status Comments Father Celso Salazar Alive Mother Chase Salazar Alive Social History Tobacco Use Types Packs/Day Years Used Date Smoking Tobacco: Never Smokeless Tobacco: Never Tobacco Cessation:Counseling Given: Not Answered Alcohol Use Standard Drinks/Week Comments Never 0 (1 standard drink = 0.6 oz pur e alcohol) [facility] Utilities Answer Date Recorded In the [...] money to buy more. Never true 02/04/20 Within the past 12 months, t he [...] your living situation today? I have a [facility] place to live 02/04/2024 Comments Unknown Sex and Gender Information Value Date Recorded Sex Assigned at Female 01/30/2024 2:33 PM SHOP ASSISTANT Legal Sex Female 4:38 PM CDT Gender Identity Female 01/30/2024 2:33 PM SHOP ASSISTANT Sexual Orientation Straight 01/30/2024 2: 33 PM SHOP ASSISTANT Last Filed Vital Signs Vital Sign Reading Time Taken Comments Blood Pressure 185/74 05/26/2024 12:49 PM SHOP ASSISTANT Pulse 77 05/26/2024 12:49 PM SHOP ASSISTANT Temperature 35.9 C (96.7 F) 05/26/2024 12:49 PM SHOP ASSISTANT Respiratory Rate 16 05/10/2024 2:25 PM SHOP ASSISTANT Oxygen Saturation 97% 05/10/2024 2:25 PM SHOP ASSISTANT Inhaled Oxygen Concentration - - Weight 68.7 kg (151 lb 7.3 oz) 05/26/2024 12:49 PM SHOP ASSISTANT Height 155.2 cm (5' 1.1) 05/10/2024 2:25 PM SHOP ASSISTANT Body Mass Index 28.52 05/10/2024 2:25 PM SHOP ASSISTANT Plan of Treatment Health Maintenance Due Date Last Done Comments [...] 0 07/2023, 02/01/2024 Sodium Level 05/09/2025 05/09/2024, 110 07/2023, 02/01/2024 HPV Vaccines Aged Out No longer eligi ble based on patient's age to complete this topic IPV Vaccines Aged Out No longer eligi ble based on patient's age to complete this topic Medical Devices Implanted Type Area Credit Risk Analyst Device Identifier Shelf Expiration Date Model / Serial / Lot Cardiac Stent Cardiac Stent Heart Implantable Port-01/04/2024 Implanted:01/03 (Quantity not on file) Implantable Port Right: Chest Pacemaker-2018 Implanted:08/10 (Quantity not on file) Pacemaker Heart Medtronic [id number] / [id number] / Description:Placed in 9 Procedures Procedure Name Priority Date/Time Associated Diagnosis Comments DX CHEST AP OR PA AND LATERAL 2 VIEWS RAD - Routine (most inpatients and all outpatients) 06/20/2024 7:45 AM CDT Effusion Pleural Malignant Neoplasm Of Pancreas Head (HCC) OUTSIDE DX CHEST Routine 06/08/2024 12:[address] BODY Routine 06/07/2024 1:50 AM CDT OUTSIDE DX CHEST Routine 06/06/2024 10:1 5 PM CDT INITIAL RAD ONC TREATMENT PLANNING CT SIMULATION Routine 05/26/2024 2:00 PM SHOP ASSISTANT Malignant Neoplasm Of Pancreas Head (HCC) OUTSIDE CT BODY Routine 05/22/2024 12:35 PM SHOP ASSISTANT OUTSIDE CT BODY Routine 05/19/2024 8:00 PM SHOP ASSISTANT OUTSIDE DX GENERAL Routine 05/19/2024 7: [address] ABDOMEN PELVIS WITH IV CONTRAST RAD - Routine (most inpatients and all outpatients) 05/09/2024 4:43 PM SHOP ASSISTANT Malignant Neoplasm Of Pancreas Head (HCC) CT CHEST WITH IV CONTRAST RAD - Routine (most inpatients and all outpatients) 05/09/2024 4:43 PM SHOP ASSISTANT Malignant Neoplasm Of Pancreas Head (HCC) CREATININE, POCT, B Routine 05/09/2024 3 :38 PM SHOP ASSISTANT CREATININE, POCT, B Routine 05/09/2024 3 :38 PM SHOP ASSISTANT CARBOHYDRATE AG 19-9 (CA 19-9), S Routine 05/09/2024 2:59 PM SHOP ASSISTANT Malignant Neoplasm Of Pancreas Head (HCC) COMPREHENSIVE METABOLIC PANEL, S/P Routine 05/09/2024 2:59 PM SHOP ASSISTANT Malignant Neoplasm Of Pancreas Head (HCC) CBC WITH DIFFERENTIAL, B Routine 05/09/2024 2:59 PM SHOP ASSISTANT Malignant Neoplasm Of Pancreas Head (HCC) from Last 3 Months Results * DX Chest AP or PA and Lateral 2 Views (06/20/2024 7:45 AM CDT) Anatomical Region Laterality Modality Chest, Thoracic RST LOS, Tho racic ARZ LOS, Thoracic FLA LOS N/A Digital Radiography Impressions 06/20/2024 8:22 AM CDT Since 06/08/2024, the small left pleural effusion has mildly increased. Increased associated atelectasis left lower lung. No other change. AV pacemaker. Right Port-A-Cath with tip in the upper SVC. Aortic calcification. Calcified granuloma right midlung. Mild hypertrophic changes in the spine. Biliary stent right upper quadrant. Narrative 06/20/2024 8:22 AM CDT EXAM: DX CHEST AP OR PA AND LATERAL 2 VIEWS Procedure Note Hi Suggs M.D. - 06/20/2024 EXAM: DX CHEST AP OR PA AND LATERAL 2 VIEWS IMPRESSION: Since 06/08/2024, the small left pleural effusion has mildly increased.Increased associated atelectasis left lower lung. No other change. AVpacemaker. Right Port-A-Cath with tip in the upper SVC. Aorticcalcification. Calcified granuloma right midlung. Mild hypertrophic changes in the spine. Biliary stent rightupper quadrant. Felisa SORENSON P.A.Minerva., P.A. IMG DIAGNOSTIC IMAGING PROCEDURES Final Result * XR CHEST 1V PORTABLE-Outside Chest Xray (06/08/2024 12:25 PM CDT) Only the most recent of2 resultswithin the time period is included. Narrative [facility] - 06/19/2024 4:24 PM CDT This order has been created and auto-finalized to support the import of outside images. If available, original interpretation can be found on the Media Tab in Chart Review, in Document Viewer, as an image in InfinityView or as an Addendum. If a re-interpretation or overread is required please follow defined workflow. Provider Not In System IMG DIAGNOSTIC IMAGING NC OCEDURES Final Result Performing Organization Address [facility] de Phone Number II NA * CT Angio Chest PE Protocol-Outside CT Body (06/07/2024 1:50 AM CDT) Only the most recent of3 resultswithin the time period is included. Narrative [facility] - 06/19/2024 4:33 PM CDT This order has been created and auto-finalized to support the import of outside images. If available, original interpretation can be found on the Media Tab in Chart Review, in Document Viewer, as an image in InfinityView or as an Addendum. If a re-interpretation or overread is required please follow defined workflow. Provider Not In System IM CT PROCEDURES Final R esult Performing Organization Address [facility] Phone Number II NA * Initial Rad Onc Treatment Planning CT Simulation (05/26/2024 2:00 PM SHOP ASSISTANT) Narrative [facility] - 05/26/2024 2:00 PM SHOP ASSISTANT Antonette Schulte M.D. 05/26/2024 3:13 PM Initial Rad Onc Treatment Planning CT Simulation Performed by: Antonette Schulte M.D. Authorized by: Aidan Estrada M.D. Aidan Estrada M.D. RADIATION ONCOLOGY ORDERAB LES Final Result Performing Organization Address [facility] de Phone Number JUDAH NAVARRETE na * XR abdomen min 2V-Outside Gen Dx Stdy (05/19/2024 7:25 PM SHOP ASSISTANT) Narrative [facility] - 06/19/2024 4:26 PM CDT This order has been created and auto-finalized to support the import of outside images. If available, original interpretation can be found on the Media Tab in Chart Review, in Document Viewer, as an image in InfinityView or as an Addendum. If a re-interpretation or overread is required please follow defined workflow. us Provider Not In System IMG DIAGNOSTIC IMAGING NC OCEDURES Final Result BRITTNY NA * CT Abdomen Pelvis with IV Contrast (05/09/2024 4:43 PM SHOP ASSISTANT) Anatomical Region Laterality Modality Abdomen, Pelvis, Abdominal R ST LOS, Abdominal ARZ LOS, Abdominal FLA LOS N/A Computed Tomography 05/09/2024 5:53 PM SHOP ASSISTANT Impressions 05/10/2024 7:21 AM SHOP ASSISTANT Slight decrease size of pancreas head mass. Extensive vascular involvement persists. No new CT evidence of metastatic disease in the abdomen or pelvis. Narrative 05/10/2024 7:21 AM SHOP ASSISTANT EXAM: CT ABDOMEN PELVIS WITH IV CONTRAST [...] Chest with IV Contrast (05/09/2024 4:43 PM SHOP ASSISTANT) Anatomical Region Laterality Modality Chest, Thoracic RST LOS, Tho racic ARZ LOS, Thoracic ARZ LOS, Thoracic FLA LOS N/A Computed Tomography 05/09/2024 5:08 PM SHOP ASSISTANT Impressions 05/10/2024 8:22 AM SHOP ASSISTANT 1. New small bilateral pleural effusions with suspected pleural nodularities, indeterminate. Short-term follow-up CT can be considered. 2. New patchy groundglass opacities throughout the lungs could be due to infection/inflammation. 3. Stable 5 mm nodule in right lower lobe. 4. Stable mild enlargement of mediastinal lymph nodes. 5. Interval resolution of previously seen right lower lobe pulmonary emboli. Narrative 05/10/2024 8:22 AM SHOP ASSISTANT EXAM: CT CHEST WITH IV CONTRAST 3D [...] lower lobe pulmonaryemboli. Sanjeev Woods M.D., M.P.H. [facility] CT PROCEDURES Final Result * Creatinine, POCT (05/09/2024 3:38 PM SHOP ASSISTANT) Only the most recent of2 resultswithin the time period is included. Creatinine, POCT, B 0.8 0.6 - 1.0 mg/dL 05/09/2024 3:46 PM SHOP ASSISTANT PCDT Comment: ----ADDITIONAL INFORMATION---- Performed at the Point of Care Blood 05/09/2024 3:38 PM SHOP ASSISTANT 05/09/2024 3:46 PM SHOP ASSISTANT Unknown Provider LAB POCT ORDERABLES - DEVICE Fi nal Result Performing Organization Address [facility] de Phone Number [facility] [address] PCDT [facility] POC [address] [place] [address] * (ABNORMAL) Carbohydrate Antigen 19-9 (CA 19-9) (05/09/2024 2:59 PM SHOP ASSISTANT) Pathologist [facility] Carbohydrate Ag 19-9, S 1313(H) <35 U/mL 05/09/2024 8:43 PM SHOP ASSISTANT [facility] Comment: ----ADDITIONAL INFORMATION---- The testing method is an immunoenzymatic assay manufactured by [employer]. and performed on the ProntoForms DxI 800. Values obtained with different assay methods or kits may be different and cannot be used interchangeably. Test results cannot be interpreted as absolute evidence for the presence or absence of malignant disease. Blood (Blood, Venous) 05/09/2024 2:59 PM SHOP ASSISTANT 05/09/2024 7:51 PM SHOP ASSISTANT Sanjeev Woods M.D., M.P.H. LAB BLOOD ADD-ON F inal Result Performing Organization Address [facility] Co de Phone Number [facility] [address] [place] [address] [facility] [address] [place] [address] * (ABNORMAL) CBC with Differential, Blood (05/09/2024 2:59 PM SHOP ASSISTANT) Pathologist [facility] Hemoglobin 8.4(L) 11.6 - 15.0 g/dL 05/09/2024 3:43 PM SHOP ASSISTANT DTL Hematocrit 26.5(L) 35.5 - 44.9 % 05/09/2024 3:43 PM SHOP ASSISTANT DTL Erythrocytes 2.96(L) 3.92 - 5.13 x10(12)/L 05/09/2024 3:43 PM SHOP ASSISTANT DTL MCV 89.5 78.2 - 97.9 fL 05/09/2024 3:43 PM SHOP ASSISTANT DTL RBC Distrib Width 15.9 12.2 - 16.1 % 05/09/2024 3:43 PM SHOP ASSISTANT DTL Platelet Count 104(L) 157 - 371 x10(9)/L 05/09/2024 4:38 PM SHOP ASSISTANT DTL Leukocytes 7.2 3.4 - 9.6 x10(9)/L 05/09/2024 4:38 PM SHOP ASSISTANT DTL Neutrophils 4.65 1.56 - 6.45 x10(9)/L 05/09/2024 3:43 PM SHOP ASSISTANT [facility] Lymphocytes 1.80 0.95 - 3.07 x10(9)/L 05/09/2024 3:43 PM SHOP ASSISTANT DTL Monocytes 0.45 0.26 - 0.81 x10(9)/L 05/09/2024 3:43 PM SHOP ASSISTANT DTL Eosinophils 0.25 0.03 - 0.48 x10(9)/L 05/09/2024 3:43 PM SHOP ASSISTANT DTL Basophils <0.03 0.01 - 0.08 x10(9)/L 05/09/2024 3:43 PM SHOP ASSISTANT DTL Blood (Blood, Venous) 05/09/2024 2:59 PM SHOP ASSISTANT 05/09/2024 3:32 PM SHOP ASSISTANT Sanjeev Woods M.D., M.P.H. LAB BLOOD ADD-ON F inal Result [facility] [address] [place] [address], [facility] DTL [facility] [address] [place] [address] [facility] [address] [place] [address] * (ABNORMAL) Comprehensive Metabolic Panel (05/09/2024 2:59 PM SHOP ASSISTANT) [facility] Potassium, S 3.9 3.6 - 5.2 mmol/L 05/09/2024 4:05 PM SHOP ASSISTANT DTL Sodium, S 137 135 - 145 mmol/L 05/09/2024 4:05 PM SHOP ASSISTANT DTL Chloride, S 101 98 - 107 mmol/L 05/09/2024 4:05 PM SHOP ASSISTANT DTL Bicarbonate, S 27 22 - 29 mmol/L 05/09/2024 4:05 PM SHOP ASSISTANT DTL Anion Gap 9 7 - 15 05/09/2024 4:05 PM SHOP ASSISTANT DTL BUN (Blood Urea Nitrogen), S 18 6 - 21 mg/dL 05/09/2024 4:05 PM SHOP ASSISTANT DTL Creatinine 0.79 0.59 - 1.04 mg/dL 05/09/2024 4:05 PM SHOP ASSISTANT DTL Estimated GFR (eGFR) 74 >=60 mL/min/BS A 05/09/2024 4:05 PM SHOP ASSISTANT DTL Comment: Estimated GFR calculated using the 2020 CKD_EPI creatinine equation. Calcium, Total, S 8.4(L) 8.8 - 10.2 mg/dL 05/09/2024 4:05 PM SHOP ASSISTANT DTL Glucose, S 200(H) 70 - 140 mg/dL 05/09/2024 4:05 PM SHOP ASSISTANT DTL Protein, Total, S 6.2(L) 6.3 - 7.9 g/dL 05/09/2024 4:05 PM SHOP ASSISTANT DTL Albumin, S 3.1(L) 3.5 - 5.0 g/dL 05/09/2024 4:05 PM SHOP ASSISTANT DTL Aspartate Aminotransferase (AST), S 29 8 - 43 U/L 05/09/2024 4:05 PM SHOP ASSISTANT DTL Alkaline Phosphatase, S 128(H) 35 - 104 U/L 05/09/2024 4:05 PM SHOP ASSISTANT DTL Alanine Aminotransferase (ALT), S 25 7 - 45 U/L 05/09/2024 4:05 PM SHOP ASSISTANT DTL Bilirubin, Total, S 0.4 0.0 - 1.2 mg/dL 05/09/2024 4:05 PM SHOP ASSISTANT DTL Blood (Blood, Venous) 05/09/2024 2:59 PM SHOP ASSISTANT 05/09/2024 3:42 PM SHOP ASSISTANT Sanjeev Woods M.D., M.P.H. LAB BLOOD ADD-ON F inal Result [facility] [address] [place] [address], [place] DTL [facility] [address] [place] [address] from Last 3 Months Additional Health Concerns Infection Onset Date Last Indicated Protective Environment 02/08/2024 Insurance [facility] Advance Directives For more information, please contact: [phone] Documents on File Type Date Recorded Patient Automatic Coil Machine Operator Expl anation Advance Directives 02/03/2024 9:38 AM Aidan Carrillo HCPOA/ADVOCATE/AGENT/R EPRESENTATIVE/SURROGAT E Healthcare Agents on File Name Relationship Healthcare Agent Relationship Communication Aidan Blanco Son In-Law Health Care Agent Martin Dinero Alternate Health Care Agent Care Teams Theatrical Variety Agent Relationship Specialty Start Date End Date Elsewhere, Pcp PCP - General Internal Medicine 01/27/24
--- OUTSIDE RECORDS SUMMARY | 2024-06-21 06:05 | XMS_ITS | Encounter Summary ---
Author Organization [facility] Address [address] [place] [address] Care Team Providers Care Life Skills Educator Name Role Phone Elsewhere, Pcp Primary Care Provider Unavailabl e Encounter Details Date Type Department Care Team (Latest Contact Info) Description 02/01/2024 Intake [facility] Social History Tobacco Use Types Packs/Day Years Used Date Smoking Tobacco: Never Smokeless Tobacco: Never [facility] Utilities Answer Date Recorded In the [...] your living situation today? [facility] 02/04/2024 Comments Unknown Sex and Gender Information Value Date Recorded Sex Assigned at Female 01/30/2024 2:33 PM GLUE MILL OPERATOR Legal Sex Female 4:38 PM CDT Gender Identity Female 01/30/2024 2:33 PM GLUE MILL OPERATOR Sexual Orientation Straight 01/30/2024 2: 33 PM GLUE MILL OPERATOR documented as of this encounter Plan of Treatment Not on file documented as of this encounter Visit Diagnoses Not on filedocumented in this encounter Additional Health Concerns Infection Onset Date Last Indicated Resolved Time Protective Environment 02/08/2024 02/08/2024 documented as of this encounter Care Teams Life Skills Educator Relationship Specialty Start Date End Date Elsewhere, Pcp PCP - General Internal Medicine 01/27/24 documented as of this encounter
--- OUTSIDE RECORDS SUMMARY | 2024-06-21 06:05 | XMS_ITS | Encounter Summary ---
Author Organization [facility] Address [address] [place] [address] Care Team Providers Care Mower Mechanic Name Role Phone Elsewhere, Pcp Primary Care Provider Unavailabl e Reason for Referral * Outpatient (Routine) - Closed Specialty Diagnoses / Procedures Referred By Contac t Referred To Contact Radiation Oncology Diagnoses Malignant Neoplasm Of Pancreas Head (HCC) Dana Guillen APRN, C.N.P., M.S. [address] [place] [address] Phone: tel: fax: [facility] Referral ID Status Reason Start Date Expiration Date Visits Re quested Visits Authorized [id number] Closed 05/10/2024 11/09/2025 1 1 RNET DATABASE SPECIALIST Reason for Visit * Outpatient (Routine) - Closed Specialty Diagnoses / Procedures Referred By Contac t Referred To Contact Oncology Sanjeev Woods M.D., M.P.H. Phone: tel: fax: [facility] Referral ID Status Reason Start Date Expiration Date Visits Re quested Visits Authorized [id number] Closed 03/15/2024 09/14/2025 1 1 Encounter Details Date Type Department Care Team (Late st Contact Info) Description 05/10/2024 2:40 PM INTERNET DATABASE SPECIALIST Office Visit Department of Oncology in [place], [place] [address] [place] [address] Dana Guillen, SERGIO, C.N.P., M.S. [address] [place] [address] 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) Social History Tobacco Use Types Packs/Day Years Used Date Smoking Tobacco: Never Smokeless Tobacco: Never Alcohol Use Standard Drinks/Week Comments Never 0 (1 standard drink = 0.6 oz pur e alcohol) [facility] Utilities Answer Date Recorded In the past 12 months has e electric, gas, oil, or water [employer] threatened to shut off services in your [...] living situation today? I have a [facility] place to live 02/04/2024 Comments Unknown Sex and Gender Information Value Date Recorded Sex Assigned at Female 01/30/2024 2:33 PM INTERNET DATABASE SPECIALIST Legal Sex Female 4:38 PM CDT Gender Identity Female 01/30/2024 2:33 PM INTERNET DATABASE SPECIALIST Sexual Orientation Straight 01/30/2024 2: 33 PM INTERNET DATABASE SPECIALIST documented as of this encounter Last Filed Vital Signs Vital Sign Reading Time Taken Comments Blood Pressure 156/66 05/10/2024 2:28 PM INTERNET DATABASE SPECIALIST Pulse 67 05/10/2024 2:28 PM INTERNET DATABASE SPECIALIST Temperature 37.4 C (99.3 F) 05/10/2024 2:25 PM INTERNET DATABASE SPECIALIST Respiratory Rate 16 05/10/2024 2:25 PM INTERNET DATABASE SPECIALIST Oxygen Saturation 97% 05/10/2024 2:25 PM INTERNET DATABASE SPECIALIST Inhaled Oxygen Concentration - - Weight 67.1 kg (147 lb 14.9 oz) 05/10/2024 2:25 PM INTERNET DATABASE SPECIALIST Height 155.2 cm (5' 1.1) 05/10/2024 2:25 PM INTERNET DATABASE SPECIALIST Body Mass Index 27.86 05/10/2024 2:25 PM INTERNET DATABASE SPECIALIST documented in this encounter Progress Notes * Dana Guillen, SERGIO, C.N.P., M.S. - 05/10/2024 2:40 PM CST SUBJECTIVE PRIMARY CARE PHYSICIAN ELSEWHERE, PCP LOCAL ONCOLOGIST No care steam trap worker to display PRIMARY MILAN ONCOLOGIST Sanjeev Woods M.D., M.P.H. CHIEF COMPLAINT [...] in December, both at a hospital in [place], [place]. She has had a persistent cough [...] treatments. She would like that administered in [place]. Would recommend using capecitabine to enhance efficacy. [...] to face andface to face patient care. RNET DATABASE SPECIALIST documented in this encounter Plan of Treatment [...] documented as of this encounter Care Teams Mower Mechanic Relationship Specialty Start Date End Date Elsewhere, Pcp PCP - General Internal Medicine 01/27/24 documented as of this encounter
--- OUTSIDE RECORDS SUMMARY | 2024-06-21 06:06 | XMS_ITS | Encounter Summary ---
Author Organization [facility] Address [address] [place] [address] Care Team Providers Care Chore Tender Name Role Phone Elsewhere, Pcp Primary Care Provider Unavailabl e Reason for Referral * MRI/CAT/PET Scan (Routine) - Closed Specialty Diagnoses / Procedures Referred By Contac t Referred To Contact Radiology Diagnoses Malignant Neoplasm Of Pancreas Head (HCC) Procedures CT Abdomen Pelvis with IV Contrast Sanjeev Woods M.D., M.P.H. Phone: tel: fax: [facility] Referral ID Status Reason Start Date Expiration Date Visits Re quested Visits Authorized [id number] Closed 03/15/2024 03/15/2025 1 1 DESK TECHNICIAN * MRI/CAT/PET Scan (Routine) - Closed Specialty Diagnoses / Procedures Referred By Contac t Referred To Contact Radiology Diagnoses Malignant Neoplasm Of Pancreas Head (HCC) Procedures CT Chest with IV Contrast Sanjeev Woods M.D., M.P.H. Phone: tel: fax: [facility] Referral ID Status Reason Start Date Expiration Date Visits Re quested Visits Authorized [id number] Closed 03/15/2024 03/15/2025 1 1 DESK TECHNICIAN Reason for Visit * MRI/CAT/PET Scan (Routine) - Closed Specialty Diagnoses / Procedures Referred By Contac t Referred To Contact Radiology Diagnoses Malignant Neoplasm Of Pancreas Head (HCC) Procedures CT Abdomen Pelvis with IV Contrast Sanjeev Woods M.D., M.P.H. Phone: tel: fax: [facility] Referral ID Status Reason Start Date Expiration Date Visits Re quested Visits Authorized [id number] Closed 03/15/2024 03/15/2025 1 1 Encounter Details Date Type Department Care Team (Latest Contact Info) Description 05/09/2024 3:11 PM HELPDESK TECHNICIAN - 05/09/2024 11:59 PM HELPDESK TECHNICIAN Hospital Encounter Department of Radiology, [facility], in [place], [place] [address] [place] [address] Sanjeev Woods M.D., M.P.H. [address] [place] [address] Malignant Neoplasm Of Pancreas Head (HCC) Discharge Disposition: Home or Self Care Social History Tobacco Use Types Packs/Day Years Used Date Smoking Tobacco: Never Smokeless Tobacco: Never Alcohol Use Standard Drinks/Week Comments Never 0 (1 standard drink = 0.6 oz pur e alcohol) [facility] Utilities Answer Date Recorded In the past 12 months has [employer], gas, oil, or water [employer] threatened to shut off services in your [...] living situation today? I have a [facility] place to live 02/04/2024 Comments Unknown Sex and Gender Information Value Date Recorded Sex Assigned at Female 01/30/2024 2:33 PM HELPDESK TECHNICIAN Legal Sex Female 4:38 PM CDT Gender Identity Female 01/30/2024 2:33 PM HELPDESK TECHNICIAN Sexual Orientation Straight 01/30/2024 2: 33 PM HELPDESK TECHNICIAN documented as of this encounter Medications at [...] a day. 374 tablet 02/01/2024 8:48 PM HELPDESK TECHNICIAN 02/01/2024 07/31/19 25 cholecalciferol, vitD3,/vit K2 (VITAMIN [...] of this encounter Plan of Treatment Scheduled Orders [...] inpatients and all outpatients) 05/09/2024 4:43 PM HELPDESK TECHNICIAN Malignant Neoplasm Of Pancreas Head (HCC) CT CHEST WITH IV CONTRAST RAD - Routine (most inpatients and all outpatients) 05/09/2024 4:43 PM HELPDESK TECHNICIAN Malignant Neoplasm Of Pancreas Head (HCC) CREATININE, POCT, B Routine 05/09/2024 3:38 PM HELPDESK TECHNICIAN CREATININE, POCT, B Routine 05/09/2024 3:38 PM HELPDESK TECHNICIAN documented in this encounter Results * CT Abdomen Pelvis with IV Contrast (05/09/2024 4:43 PM HELPDESK TECHNICIAN) Anatomical Region Laterality Modality Abdomen, Pelvis, Abdominal R ST LOS, Abdominal ARZ LOS, Abdominal FLA LOS N/A Computed Tomography 05/09/2024 5:53 PM HELPDESK TECHNICIAN Impressions 05/10/2024 7:21 AM HELPDESK TECHNICIAN Slight decrease size of pancreas head mass. Extensive vascular involvement persists. No new CT evidence of metastatic disease in the abdomen or pelvis. Narrative 05/10/2024 7:21 AM HELPDESK TECHNICIAN EXAM: CT ABDOMEN PELVIS WITH IV CONTRAST [...] the abdomen orpelvis. Sanjeev Woods M.D., M.P.H. [facility] PROCEDURES Final Result * CT Chest with IV Contrast (05/09/2024 4:43 PM HELPDESK TECHNICIAN) Anatomical Region Laterality Modality Chest, Thoracic RST LOS, Tho racic ARZ LOS, Thoracic ARZ LOS, Thoracic FLA LOS N/A Computed Tomography 05/09/2024 5:08 PM HELPDESK TECHNICIAN Impressions 05/10/2024 8:22 AM HELPDESK TECHNICIAN 1. New small bilateral pleural effusions with suspected pleural nodularities, indeterminate. Short-term follow-up CT can be considered. 2. New patchy groundglass opacities throughout the lungs could be due to infection/inflammation. 3. Stable 5 mm nodule in right lower lobe. 4. Stable mild enlargement of mediastinal lymph nodes. 5. Interval resolution of previously seen right lower lobe pulmonary emboli. Narrative 05/10/2024 8:22 AM HELPDESK TECHNICIAN EXAM: CT CHEST WITH IV CONTRAST 3D [...] reported separately. Procedure Note Gaudencio Ferreira M.B.B.S., Reina - 05/10/2024 EXAM: CT CHEST WITH IV [...] Result * Creatinine, POCT (05/09/2024 3:38 PM HELPDESK TECHNICIAN) Pathologist [facility] Creatinine, POCT, B 0.8 0.6 - 1.0 mg/dL 05/09/2024 3:46 PM HELPDESK TECHNICIAN PCDT Comment: ----ADDITIONAL INFORMATION---- Performed at the Point of Care Blood 05/09/2024 3:38 PM HELPDESK TECHNICIAN 05/09/2024 3:46 PM HELPDESK TECHNICIAN Unknown Provider LAB POCT ORDERABLES - DEVICE Fi nal Result Performing Organization Address [facility] Co de Phone Number [facility] PERFORM[facility] LABS [address] [facility] [employer] [facility] [address] [place] [address] * Creatinine, POCT (05/09/2024 3:38 PM HELPDESK TECHNICIAN) Pathologist [facility] Estimated GFR (eGFR), POCT 73 >=60 mL/min/BSA 05/09/2024 3:46 PM HELPDESK TECHNICIAN PCDT Comment: Estimated GFR calculated using the 2020 CKD_EPI creatinine equation. Blood 05/09/2024 3:38 PM HELPDESK TECHNICIAN 05/09/2024 3:46 PM HELPDESK TECHNICIAN Unknown Provider LAB POCT ORDERABLES - DEVICE Fi nal Result Performing Organization Address [facility] de Phone Number [facility] PERFORM[facility] [address] [facility] [employer] [facility] [address] [place] [address] documented in this encounter Visit Diagnoses Diagnosis [...] prior to discharge. Given 05/09/2024 3:40 PM HELPDESK TECHNICIAN 500 Units iohexoL 300 mg iodine/mL solution 1-200 mL (Omnipaque) 1-200 mL, intravenous, Once in imaging, contrast, Starting on Wed05/09/24 at 1520, For 1 dose, Imaging Protocol Orders, Dose per Radiant Medication Guidelines Given 05/09/2024 4:04 PM HELPDESK TECHNICIAN 100 mL sodium chloride (PF) 0.9 % injection 1-100 mL 1-100 mL, intravenous, Once, On Wed05/09/24 at 1545, For 1 dose, Imaging Protocol Orders, Dose per Radiant Medication Guidelines Given 05/09/2024 4:04 PM HELPDESK TECHNICIAN 50 mL sodium chloride 0.9 % injection 10-20 mL 10-20 mL, intravenous, As needed, line care, Implanted Vascular Access Device (IVAD) Venous Non-Valved, Starting on Wed05/09/24 at 1538, Prior to and following infusion and between multiple consecutive infusions, flush 10 mL to each port/lumen. Given 05/09/2024 3:40 PM HELPDESK TECHNICIAN 10 mL documented in this encounter Additional Health Concerns Infection Onset Date Last Indicated Resolved Time Protective Environment 02/08/2024 02/08/2024 documented as of this encounter Care Teams Chore Tender Relationship Specialty Start Date End Date Elsewhere, Pcp PCP - General Internal Medicine 01/27/24 documented as of this encounter
--- OUTSIDE RECORDS SUMMARY | 2024-06-21 06:06 | XMS_ITS | Encounter Summary ---
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 [address] [place] [address] Phone: tel: fax: [facility] Referral ID Status Reason Start Date Expiration Date Visits Re quested Visits Authorized [id number] Closed 06/14/2024 09/14/2025 1 1 Encounter Details Date Type Department Care Team (Latest Contact Info) Description 06/20/2024 7:30 AM CDT - 06/20/2024 11:59 PM CDT Hospital Encounter Department of Radiology, [facility], in [place], [place] [address] [place] [phone] Felisa Nunez MPAS, P.A.-C., P.A. [address] [place] [address] Effusion Pleural; Malignant Neoplasm Of Pancreas Head (HCC) Discharge Disposition: Home or Self Care Social History Tobacco Use Types Packs/Day Years Used Date Smoking Tobacco: Never Smokeless Tobacco: Never Alcohol Use Standard Drinks/Week Comments Never 0 (1 standard drink = 0.6 oz pur e alcohol) [facility] Utilities Answer Date Recorded In the past 12 months has th e electric, gas, oil, or water [employer] threatened to shut off services in [...] Sex Assigned at Female 01/30/2024 2:33 PM EDUCATION GENERAL MANAGER Legal Sex Female 4:38 PM CDT Gender Identity Female 01/30/2024 2:33 PM EDUCATION GENERAL MANAGER Sexual Orientation Straight 01/30/2024 2: 33 PM EDUCATION GENERAL MANAGER documented as of this encounter Medications [...] a day. 374 tablet 02/01/2024 8:48 PM EDUCATION GENERAL MANAGER 02/01/2024 07/31/19 25 cholecalciferol, vitD3,/vit K2 [...] 1,000 mg into a venous catheter. 02/10/2024 gentamicin (Garamycin) 0.3 % (3 mg/mL) ophthalmic solution INSTILL 2 DROPS INTO AFFECTED EYE(S) EVERY 4 HOURS 06/01/2024 granisetron (KytriL) 1 mg/mL injection Infuse 1,000 [...] 2 (two) times a day. Macular Protect OLANZapine (ZyPREXA) 5 mg tablet 06/12/2024 ondansetron ODT (Zofran-ODT) 4 mg disintegrating tablet Dissolve 4 mg in the mouth as needed for nausea or vomiting. oxyCODONE (Roxicodone) 5 mg immediate release tablet Take 1 tablet by mouth every 8 (eight) hours as needed for pain. 05/24/2024 potassium chloride (Klor-Con M) 20 mEq ER tablet Take 1 tablet by mouth daily. 04/27/2024 predniSONE (Deltasone) 20 mg tablet Take 1 tablet by mouth 2 (two) times a day. 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 Biliary stent rightupper quadrant. Felisa SORENSON P.A.-C., P.A. 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
--- OUTSIDE RECORDS SUMMARY | 2024-06-21 06:06 | XMS_ITS | Encounter Summary ---
Author Organization [facility] Address [address] [place] [address] Care Team Providers Care Business Risk Analyst Name Role Phone Elsewhere, Pcp Primary Care Provider Unavailabl e Encounter Details Date Type Department Care Team (Late st Contact Info) Description 05/15/2024 Orders Only Department of Radiation Oncology in [place], [place] [address] [place] [phone] Antonette Schulte M.D. [address] [place] [address] 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) Social History Tobacco Use Types Packs/Day Years Used Date Smoking Tobacco: Never Smokeless Tobacco: Never Alcohol Use Standard Drinks/Week Comments Never 0 (1 standard drink = 0.6 oz pur e alcohol) [facility] Utilities Answer Date Recorded In the past 12 months has e [employer], gas, oil, or water company threatened to [...] your living situation today? I have a [facility] place to live 02/04/2024 Comments Unknown Sex and Gender Information Value Date Recorded Sex Assigned at Female 01/30/2024 2:33 PM SENIOR TECHNICAL BUSINESS ANALYST Legal Sex Female 4:38 PM CDT Gender Identity Female 01/30/2024 2:33 PM SENIOR TECHNICAL BUSINESS ANALYST Sexual Orientation Straight 01/30/2024 2: 33 PM SENIOR TECHNICAL BUSINESS ANALYST documented as of this encounter Plan of Treatment Not on file documented as of this encounter Visit Diagnoses Diagnosis Malignant Neoplasm Of Pancreas Head (HCC)- Primary documented in this encounter Additional Health Concerns Infection Onset Date Last Indicated Resolved Time Protective Environment 02/08/2024 02/08/2024 documented as of this encounter Care Teams Business Risk Analyst Relationship Specialty Start Date End Date Elsewhere, Pcp PCP - General Internal Medicine 01/27/24 documented as of this encounter
--- OUTSIDE RECORDS SUMMARY | 2024-06-21 06:06 | XMS_ITS | Encounter Summary ---
Author Organization [facility] Address [address] [place] [id number] Care Team Providers Care Carbon Rod Inserter Name Role Phone Elsewhere, Pcp Primary Care Provider Unavailabl e Encounter Details Date Type Department Care Team (Late st Contact Info) Description 05/09/2024 2:40 PM YACHT MASTER Lab Department of Infusion Therapy in [place], [place] [address] [place] [phone] Sanjeev Woods M.D., M.P.H. [address] [place] [phone] 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) Social History Tobacco Use Types Packs/Day Years Used Date Smoking Tobacco: Never Smokeless Tobacco: Never Alcohol Use Standard Drinks/Week Comments Never 0 (1 standard drink = 0.6 oz pur e alcohol) [facility] Utilities Answer Date Recorded In the past 12 months has [employer], gas, oil, or water [employer] threatened to shut off services in [...] your living situation today? I have a [facility] place to live 02/04/2024 Comments Unknown Sex and Gender Information Value Date Recorded Sex Assigned at Female 01/30/2024 2:33 PM YACHT MASTER Legal Sex Female 4:38 PM CDT Gender Identity Female 01/30/2024 2:33 PM YACHT MASTER Sexual Orientation Straight 01/30/2024 2: 33 PM YACHT MASTER documented as of this encounter Plan of Treatment Not on file documented as of this encounter Procedures Procedure Name Priority Date/Time Associated Diagnosis Comments CARBOHYDRATE AG 19-9 (CA 19-9), S Routine 05/09/2024 2:59 PM YACHT MASTER Malignant Neoplasm Of Pancreas Head (HCC) CBC WITH DIFFERENTIAL, B Routine 05/09/2024 2:59 PM YACHT MASTER Malignant Neoplasm Of Pancreas Head (HCC) COMPREHENSIVE METABOLIC PANEL, S/P Routine 05/09/2024 2:59 PM YACHT MASTER Malignant Neoplasm Of Pancreas Head (HCC) documented in this encounter Results * (ABNORMAL) Carbohydrate Antigen 19-9 (CA 19-9) (05/09/2024 2:59 PM YACHT MASTER) Pathologist [facility] Carbohydrate Ag 19-9, S 1313(H) <35 U/mL 05/09/2024 8:43 PM YACHT MASTER [facility] Comment: ----ADDITIONAL INFORMATION---- The testing method is an immunoenzymatic assay manufactured by [employer] and performed on the Zuli DxI 800. Values obtained with different assay methods or kits may be different and cannot be used interchangeably. Test results cannot be interpreted as absolute evidence for the presence or absence of malignant disease. Blood (Blood, Venous) 05/09/2024 2:59 PM YACHT MASTER 05/09/2024 7:51 PM YACHT MASTER Sanjeev Woods M.D., M.P.H. LAB BLOOD ADD-ON F inal Result [facility] [address] [place] [address] [facility] [address] [place] [address] * (ABNORMAL) Comprehensive Metabolic Panel (05/09/2024 2:59 PM YACHT MASTER) Pathologist [facility] Potassium, S 3.9 3.6 - 5.2 mmol/L 05/09/2024 4:05 PM YACHT MASTER DTL Sodium, S 137 135 - 145 mmol/L 05/09/2024 4:05 PM YACHT MASTER DTL Chloride, S 101 98 - 107 mmol/L 05/09/2024 4:05 PM YACHT MASTER DTL Bicarbonate, S 27 22 - 29 mmol/L 05/09/2024 4:05 PM YACHT MASTER DTL Anion Gap 9 7 - 15 05/09/2024 4:05 PM YACHT MASTER DTL BUN (Blood Urea Nitrogen), S 18 6 - 21 mg/dL 05/09/2024 4:05 PM YACHT MASTER DTL Creatinine 0.79 0.59 - 1.04 mg/dL 05/09/2024 4:05 PM YACHT MASTER DTL Estimated GFR (eGFR) 74 >=60 mL/min/BS A 05/09/2024 4:05 PM YACHT MASTER DTL Comment: Estimated GFR calculated using the 2020 CKD_EPI creatinine equation. Calcium, Total, S 8.4(L) 8.8 - 10.2 mg/dL 05/09/2024 4:05 PM YACHT MASTER DTL Glucose, S 200(H) 70 - 140 mg/dL 05/09/2024 4:05 PM YACHT MASTER DTL Protein, Total, S 6.2(L) 6.3 - 7.9 g/dL 05/09/2024 4:05 PM YACHT MASTER DTL Albumin, S 3.1(L) 3.5 - 5.0 g/dL 05/09/2024 4:05 PM YACHT MASTER DTL Aspartate Aminotransferase (AST), S 29 8 - 43 U/L 05/09/2024 4:05 PM YACHT MASTER DTL Alkaline Phosphatase, S 128(H) 35 - 104 U/L 05/09/2024 4:05 PM YACHT MASTER DTL Alanine Aminotransferase (ALT), S 25 7 - 45 U/L 05/09/2024 4:05 PM YACHT MASTER DTL Bilirubin, Total, S 0.4 0.0 - 1.2 mg/dL 05/09/2024 4:05 PM YACHT MASTER DTL Blood (Blood, Venous) 05/09/2024 2:59 PM YACHT MASTER 05/09/2024 3:42 PM YACHT MASTER Sanjeev Woods M.D., M.P.H. LAB BLOOD ADD-ON F inal Result [facility] [address] [place] [address], [facility] [place] [address] [place] [address] * (ABNORMAL) CBC with Differential, Blood (05/09/2024 2:59 PM YACHT MASTER) Hemoglobin 8.4(L) 11.6 - 15.0 g/dL 05/09/2024 3:43 PM YACHT MASTER DTL Hematocrit 26.5(L) 35.5 - 44.9 % 05/09/2024 3:43 PM YACHT MASTER DTL Erythrocytes 2.96(L) 3.92 - 5.13 x10(12)/L 05/09/2024 3:43 PM YACHT MASTER DTL MCV 89.5 78.2 - 97.9 fL 05/09/2024 3:43 PM YACHT MASTER DTL RBC Distrib Width 15.9 12.2 - 16.1 % 05/09/2024 3:43 PM YACHT MASTER DTL Platelet Count 104(L) 157 - 371 x10(9)/L 05/09/2024 4:38 PM YACHT MASTER DTL Leukocytes 7.2 3.4 - 9.6 x10(9)/L 05/09/2024 4:38 PM YACHT MASTER DTL Neutrophils 4.65 1.56 - 6.45 x10(9)/L 05/09/2024 3:43 PM YACHT MASTER [facility] Lymphocytes 1.80 0.95 - 3.07 x10(9)/L 05/09/2024 3:43 PM YACHT MASTER DTL Monocytes 0.45 0.26 - 0.81 x10(9)/L 05/09/2024 3:43 PM YACHT MASTER DTL Eosinophils 0.25 0.03 - 0.48 x10(9)/L 05/09/2024 3:43 PM YACHT MASTER DTL Basophils <0.03 0.01 - 0.08 x10(9)/L 05/09/2024 3:43 PM YACHT MASTER DTL Blood (Blood, Venous) 05/09/2024 2:59 PM YACHT MASTER 05/09/2024 3:32 PM YACHT MASTER Sanjeev Woods M.D., M.P.H. LAB BLOOD ADD-ON F inal Result [facility] [address] [place] [address], [facility] DTL [facility] [address] [place] [address] DHPM [facility] [address] [place] [address] documented in this encounter Visit Diagnoses Diagnosis [...] Pancreas Head (HCC) Given 05/09/2024 3:05 PM YACHT MASTER 500 Units sodium chloride 0.9 % injection 10-20 mL 10-20 mL, intra-catheter, As needed, line care, Starting on Wed05/09/24 at 1504, When IVAD accessed and infusing: Flush prior to and following infusion, between multiple consecutive infusions. 10 mL to each port/lumen.Indications:Malignan t Neoplasm Of Pancreas Head (HCC) Given 05/09/2024 3:05 PM YACHT MASTER 20 mL documented in this encounter Additional Health Concerns Infection Onset Date Last Indicated Resolved Time Protective Environment 02/08/2024 02/08/2024 documented as of this encounter Care Teams Carbon Rod Inserter Relationship Specialty Start Date End Date Elsewhere, Pcp PCP - General Internal Medicine 01/27/24 documented as of this encounter
--- OUTSIDE RECORDS SUMMARY | 2024-06-21 06:06 | XMS_ITS | Encounter Summary ---
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 [address] [place] [address] Phone: tel: fax: [facility] Referral ID Status Reason Start Date Expiration Date Visits Re quested Visits Authorized [id number] Closed 06/14/2024 12/14/2025 1 1 Encounter Details Date Type Department Care Team (Latest Contact Info) Description 06/20/2024 9:00 AM CDT Comprehensive Visit Department of Radiology, [facility], in [place], [place] [address] [place] [id number] Maribeth Pinzon APRN, C.N.P., M.S.N. [address] [place] [phone] Effusion Pleural; Malignant Neoplasm Of Pancreas Head (HCC) Social History Tobacco Use Types Packs/Day Years Used Date Smoking Tobacco: Never Smokeless Tobacco: Never Alcohol Use Standard Drinks/Week Comments Never 0 (1 standard drink = 0.6 oz pur e alcohol) [facility] Utilities Answer Date Recorded In [...] your living situation today? 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
--- OUTSIDE RECORDS SUMMARY | 2024-06-21 06:06 | XMS_ITS | Encounter Summary ---
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 [address] [place] [address] Phone: tel: fax: [facility] Referral ID Status Reason Start Date Expiration Date Visits Re quested Visits Authorized [id number] Closed 06/14/2024 12/14/2025 1 1 Encounter Details Date Type Department Care Team (Late st Contact Info) Description 06/14/2024 Orders Only Department of Oncology in [place], [place] [address] [place] [phone] Felisa Nunez MPAS, P.A.-C., P.A. [address] [place] [address] Effusion Pleural (Primary Dx); Malignant Neoplasm Of Pancreas Head (HCC) Social History Tobacco Use Types Packs/Day Years Used Date Smoking Tobacco: Never Smokeless Tobacco: Never Alcohol Use Standard Drinks/Week Comments Never 0 (1 standard drink = 0.6 oz pur e alcohol) [facility] Utilities Answer Date Recorded In the past 12 months has th e [employer], gas, oil, or water [employer] threatened to shut off services in [...] your living situation today? 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 Biliary stent rightupper quadrant. Felisa SORENSON, P.A.-C., P.A. 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
[2024-06-21 06:19] VITALS: PULSE 87; O2SAT 95
--- NOTE | 2024-06-21 06:32 | ED_ITS ---
HPI - General Adult General Chief complaint: Abdominal Pain Stated complaint: Abdominal pain Time Seen by Provider: 06/21/24 06:24 History of Present Illness HPI narrative: e Pt states she is from [place] but staying here with family in [place] to receive treatment from [facility] for pancreatic cancer. She states she has decided to stop treatment and fly back home to [place]. Supposed to fly home today at 11 AM. Plans to start hospice once back in [place]. 83-year-old woman presenting to the emergency department with concern of abdominal pain and shortness of breath. Unfortunately with metastatic pancreatic adenocarcinoma. In mid May decided to discontinue chemotherapy. 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 Anticipating hospice either here or most recently planning to fly back to [place] later this morning for same. Had flare of abdominal pain this medical lab specialist and subsequent shortness of breath. Did take anti nausea medication as well as oxycodone. EMS was called. I believe they did give pain medication as well and she is now improved and no longer short of breath. She has not had any fever. Is not having abdominal pain or chest pain. Had been considered for what I believe they are describing as a chest tube for pleural effusion which was diagnosed at this facility prior. Recommendations are that this will not be effective and likely contribute to infection and so should not be done. Related Data Home Medications ?Medication ?Instructions ?Recorded ?Confirmed lidocaine-prilocaine 2.5 %-2.5 % 1 applic topical DAILY PRN 03/06/24 06/12/24 topical cream metformin 500 mg tablet,extended 500 mg PO BID 03/06/24 06/12/24 release 24 hr raloxifene 60 mg tablet 60 mg PO HS 03/06/24 06/12/24 rosuvastatin 10 mg tablet 10 mg PO QPM 03/06/24 06/12/24 macularprotect complete PO BID 04/03/24 06/12/24 cholecalciferol (vitamin D3) 50 50 mcg PO DAILY 05/01/24 06/12/24 mcg (2,000 unit) capsule lisinopril 40 mg tablet 40 mg PO DAILY 05/22/24 06/12/24 potassium chloride 20 mEq 20 meq PO DAILY 05/22/24 06/12/24 tablet,extended release(part/cryst) Previous Rx's ?Medication ?Instructions ?Recorded apixaban 5 mg tablet (Eliquis) 5 mg PO Q12H #60 tabs 04/17/24 furosemide 20 mg tablet 20 mg PO QAM #30 tabs 05/02/24 metoprolol succinate 50 mg 50 mg PO DAILY #90 tabs 05/19/24 tablet,extended release 24 hr prochlorperazine maleate 5 mg 5 mg PO Q4H PRN nausea #20 tabs 05/19/24 tablet polyethylene glycol 3350 17 17 g PO DAILY PRN constipation 05/23/24 gram/dose oral powder (Miralax) #238 grams sennosides 8.6 mg capsule (senna) 8.6 mg PO BID #60 caps 05/23/24 ondansetron 4 mg disintegrating 4 mg PO Q8-12H PRN nausea and 05/24/24 tablet vomiting #30 tabs tramadol 50 mg tablet 50 mg PO BID PRN pain #30 tabs 05/24/24 capecitabine 500 mg tablet (Xeloda) 1,000 mg (2 x 500 mg) PO BID #60 05/29/24 tabs sodium chloride 1,000 mg soluble 1,000 mg PO QDAY PRN electrolyte 05/29/24 tablet replenishment #7 tabs gentamicin 0.3 % eye drops 2 drp ophthalmic (eye) Q4H #5 mL 05/30/24 olanzapine 5 mg tablet 5 mg PO QHS #30 tabs 06/12/24 oxycodone 5 mg capsule 5 mg PO Q4H PRN pain #60 caps 06/12/24 Allergies Allergy/AdvReac Type Severity Reaction Status Date / Time No Known Drug Allergies Allergy Verified 06/12/24 11:22 Review of Systems Status of ROS: Reports: 6 or more systems reviewed and unremarkable except as noted in History and below [facility] Medical History Hyponatremia ?E87.1 - Hypo-osmolality and hyponatremia (ICD-10) Conjunctivitis ?H10.9 - Unspecified conjunctivitis (ICD-10) Headache ?R51.9 - Headache, unspecified (ICD-10) Acute pancreatitis ?K85.90 - Acute pancreatitis without necrosis or infection, unspecified (ICD- 10) Nausea ?R11.0 - Nausea (ICD-10) History of sick sinus syndrome ?Z86.79 - Personal history of other diseases of the circulatory system (ICD- 10) Primary pancreatic adenocarcinoma ?C25.9 - Malignant neoplasm of pancreas, unspecified (ICD-10) Hx of deep venous thrombosis ?Z86.718 - Personal history of other venous thrombosis and embolism (ICD-10) History of pulmonary embolus (PE) ?Z86.711 - Personal history of pulmonary embolism (ICD-10) Diastolic dysfunction ?I51.89 - Other ill-defined heart diseases (ICD-10) Essential hypertension ?I10 - Essential (primary) hypertension (ICD-10) Bilateral foot-drop ?M21.371 - Foot drop, right foot (ICD-10) ?M21.372 - Foot drop, left foot (ICD-10) 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 - Lesion of lateral popliteal nerve, unspecified lower limb (ICD-10) Cataracts, bilateral ?H26.9 - Unspecified cataract (ICD-10) Hyperlipidemia ?E78.5 - Hyperlipidemia, unspecified (ICD-10) Pancreatic cancer (12/17/23) ?C25.9 - Malignant neoplasm of pancreas, unspecified (ICD-10) DM2 (diabetes mellitus, type 2) ?E11.9 - Type 2 diabetes mellitus without complications (ICD-10) Chronic anticoagulation ?Z79.01 - senior living (current) use of anticoagulants (ICD-10) Pacemaker ?Z95.0 - Presence of cardiac pacemaker (ICD-10) Surgical History History of electromyography ?Z92.89 - Personal history of other medical treatment (ICD-10) History of tonsillectomy (1947) ?Z90.89 - Acquired absence of other organs (ICD-10) History of cardiac pacemaker (2018) ?Z95.0 - Presence of cardiac pacemaker (ICD-10) Family History Mother Diabetes High blood pressure High cholesterol Heart disease Osteoporosis Father Heart disease Kidney disease Osteoporosis Social History What is your current living situation?: I presently have a place to live Problems where you live: no known problems Problems where you live details: none In the past 12 months, utilities in danger of being shut off: no In past 12 months, lack of transportation kept you from medical appts, meetings, work, or getting things needed for daily living: no In the past 12 mos, have been you worried that your food would run out before you had money to buy more?: never true In the past 12 mos, the food you bought just didn't last and you didn't have money to buy more?: never true Highest level of school completed/degree received: Bachelor's degree Smoking Status: Never smoker Do you use any of these nicotine containing products: None Second hand tobacco smoke exposure: No How often do you have a drink containing alcohol: never AUDIT-C Alcohol total score: 0 Non-prescribed substance use: denies use Caffeine: Yes (Dr Redd) How often does anyone, including family, friends and others, physically hurt you : never How often does anyone, including family, friends and others, insult or talk down to you: never How often does anyone, including family, friends and others, threaten you with harm: never How often does anyone, including family, friends and others, scream or curse at you: never service: No Exam Narrative: Exam Narrative: Very pleasant. Does appear tired. Calm. Breathing easily. Diminished breath sounds on the left. Heart in mildly elevated rate but regular rhythm. Abdomen is soft nontender. Well-perfused peripherally. Skin is warm and dry. Const: Vital Signs, click to edit/add: Vital Signs - 24 hr 06/21/24 06:05 06/21/24 06:19 Temperature 97.2 F L Pulse Rate 87 Pulse Rate [Left P ulse Oximeter] 95 Respiratory Rate 16 Blood Pressure [Ri ght Upper Arm] 188/101 H Pulse Oximetry 95 95 Oxygen Delivery Me thod Room Air Room Air Documenting provider has reviewed patient's vital signs: yes Course Vital Signs Vital signs: Initial Vital Signs Temperature 97.2 F L 06/21/24 06:05 Temperature Source Temporal Artery Scan 06/21/24 06:05 Pulse Rate 95 06/21/24 06:05 Pulse Rhythm Regular 06/21/24 06:05 Respiratory Rate 16 06/21/24 06:05 Blood Pressure 188/101 H 06/21/24 06:05 Blood Pressure Mean 130 H 06/21/24 06:05 Pulse Oximetry 95 06/21/24 06:05 Oxygen Delivery Method Room Air 06/21/24 06:05 Vital Signs Temperature 97.2 F L 06/21/24 06:05 Pulse Rate 95 06/21/24 06:05 Respiratory Rate 16 06/21/24 06:05 Blood Pressure 188/101 H 06/21/24 06:05 Pulse Oximetry 95 06/21/24 06:05 Oxygen Delivery Method Room Air 06/21/24 06:05 Temperature 97.2 F L 06/21/24 06:05 Pulse Rate 87 06/21/24 06:19 Respiratory Rate 16 06/21/24 06:05 Blood Pressure 188/101 H 06/21/24 06:05 Pulse Oximetry 95 06/21/24 06:19 Oxygen Delivery Method Room Air 06/21/24 06:19 Medical Decision Making MDM Narrative Medical decision making narrative: Is oxygenating well at this time. Does not have apparent pleuritic pain nor any abdominal pain. I am wondering if a flare of abdominal pain led to this shortness of breath? May have had some degree of associated anxiety/panic. There question is whether not she can fly. Appears otherwise well at this time. Would consider evaluation for pneumothorax in light of anticipated flying. Been cleared for flying otherwise it appears. Labs last drawn here 9 days ago with mild hyponatremia. Chest x-ray independently reviewed by me shows large left lower lung opacity/effusion. I do not see a pneumothorax. INDICATION: Shortness of breath, known trapped lung, pneumothorax? (Sic) COMPARISON: 06/08/2024 TECHNIQUE: 2 views. FINDINGS: Medical Devices: In-situ right Port-A-Cath and left-sided dual lead cardiac conduction device. Lung Volumes: Adequate inspiration. Unchanged leftward displacement of the mediastinum consistent with indirect evidence of volume loss involving the left lung. Lungs: Unchanged left basilar opacity. The right lung remains clear. Pleura and Pleural spaces: Persistent blunting of the left lateral costophrenic angle consistent with a pleural effusion. No meniscus sign to indicate a hydropneumothorax/pneumothorax ex vacuo. The right pleural space is clear. Mediastinum: Stable cardiomediastinal silhouette. Bony Thorax and Soft Tissues: No significant incidental findings. IMPRESSION: No significant interval change. Unchanged leftward displacement of the mediastinum consistent with indirect evidence of volume loss involving the left lung. Persistent left basilar opacity and small pleural effusion. No evidence of left hydropneumothorax or pneumothorax ex vacuo. Dictated by Evin Christianson MD @ 06/21/2024 8:07:02 AM Generally well during time in the emergency department. Does report having some upper abdominal area discomfort to though not atypical to her usual. Sounds like it is little bit pleuritic in nature. Maintaining good oxygen saturations. Actually has been sleeping. Do not think further evaluation is warranted at this time. See patient discharge plan for further discussion Yes. If this pain comes back, I would take a nausea pill and your pain pills. And if not improving, unbearable in an hour or so, then be seen. Safe travels. Was a pleasure caring for you. Medical Records Medical records reviewed: Yes I reviewed the patient's medical records Discharge Plan Discharge Clinical Impression: Shortness of breath, Abdominal pain Patient Disposition: Home w/ Parent or Adult Condition: Improved Additional Instructions: Yes. If this pain comes back, I would take a nausea pill and your pain pills. And if not improving, unbearable in an hour or so, then be seen. Safe travels. Was a pleasure caring for you. Prescriptions: No Action metformin 500 mg tablet extended release 24 hr 500 mg PO BID rosuvastatin 10 mg tablet 10 mg PO QPM lidocaine-prilocaine 2.5-2.5 % cream 1 applic topical DAILY PRN raloxifene 60 mg tablet 60 mg PO HS macularprotect complete PO BID furosemide 20 mg tablet 20 mg PO QAM Qty: 30 3RF gentamicin 0.3 % drops 2 drp ophthalmic (eye) Q4H Qty: 5 1RF sodium chloride 1,000 mg tablet,soluble 1,000 mg PO QDAY PRN (Reason: electrolyte replenishment) Qty: 7 0RF capecitabine [Xeloda] 500 mg tablet 1,000 mg PO BID Qty: 60 0RF Rx Instructions: Take 2 tabs in morning and 2 tabs in evening, Wednesday through Wednesday for the duration radiation. Must administer with water 30 minutes after a meal cholecalciferol (vitamin D3) 50 mcg (2,000 unit) capsule 50 mcg PO DAILY tramadol 50 mg tablet 50 mg PO BID PRN (Reason: pain) Qty: 30 0RF ondansetron 4 mg tablet,disintegrating 4 mg PO Q8-12H PRN (Reason: nausea and vomiting) Qty: 30 0RF olanzapine 5 mg tablet 5 mg PO QHS Qty: 30 0RF Rx Instructions: Take in the evening for nausea oxycodone 5 mg capsule 5 mg PO Q4H PRN (Reason: pain) Qty: 60 0RF Rx Instructions: Take one pill every four hours as need for cancer related pain potassium chloride 20 mEq tablet,ER particles/crystals 20 meq PO DAILY lisinopril 40 mg tablet 40 mg PO DAILY senna 8.6 mg capsule 8.6 mg PO BID Qty: 60 1RF polyethylene glycol 3350 [Miralax] 17 gram/dose powder 17 g PO DAILY PRN (Reason: constipation) Qty: 238 1RF Eliquis 5 mg tablet 5 mg PO Q12H Qty: 60 2RF metoprolol succinate 50 mg tablet extended release 24 hr 50 mg PO DAILY Qty: 90 0RF prochlorperazine maleate 5 mg tablet 5 mg PO Q4H MDD 3 PRN (Reason: nausea) Qty: 20 0RF Follow Up/Referrals: Provider,Not a Local [Non-Staff] - Stand Alone Forms: MyHealth Info Instructions
--- NOTE | 2024-06-21 06:49 | CRLHL7_ITS ---
For Patients: As a result of the Cures Act, medical imaging exams and procedure reports are released immediately into your electronic medical record. You may view this report before your referring provider. If you have questions, please contact your health care provider. INDICATION: Shortness of breath, known trapped lung, pneumothorax? (Sic) COMPARISON: 06/08/2024 TECHNIQUE: 2 views. FINDINGS: Medical Devices: In-situ right Port-A-Cath and left-sided dual lead cardiac conduction device. Lung Volumes: Adequate inspiration. Unchanged leftward displacement of the mediastinum consistent with indirect evidence of volume loss involving the left lung. Lungs: Unchanged left basilar opacity. The right lung remains clear. Pleura and Pleural spaces: Persistent blunting of the left lateral costophrenic angle consistent with a pleural effusion. No meniscus sign to indicate a hydropneumothorax/pneumothorax ex vacuo. The right pleural space is clear. Mediastinum: Stable cardiomediastinal silhouette. Bony Thorax and Soft Tissues: No significant incidental findings. IMPRESSION: No significant interval change. Unchanged leftward displacement of the mediastinum consistent with indirect evidence of volume loss involving the left lung. Persistent left basilar opacity and small pleural effusion. No evidence of left hydropneumothorax or pneumothorax ex vacuo. Dictated by Evin Christianson MD @ 06/21/2024 8:07:02 AM (Electronically Signed)
--- OUTSIDE RECORDS SUMMARY | 2024-06-21 06:50 | XMS_ITS | Encounter Summary ---
Author Organization [facility] Address [address] [place] [address] Care Team Providers Care Recovery Unit Operator Name Role Phone Elsewhere, Pcp Primary Care Provider Unavailabl e Encounter Details Date Type Department Care Team (Latest Contact Info) Description 02/01/2024 Intake [facility] Social History Tobacco Use Types Packs/Day Years Used Date Smoking Tobacco: Never Smokeless Tobacco: Never [facility] Utilities Answer Date Recorded In the [...] living situation today? I have a [facility] place to live 02/04/2024 Comments Unknown Sex and Gender Information Value Date Recorded Sex Assigned at Female 01/30/2024 2:33 PM EMPLOYMENT CONSULTANT Legal Sex Female 4:38 PM CDT Gender Identity Female 01/30/2024 2:33 PM EMPLOYMENT CONSULTANT Sexual Orientation Straight 01/30/2024 2: 33 PM EMPLOYMENT CONSULTANT documented as of this encounter Plan of Treatment Not on file documented as of this encounter Visit Diagnoses Not on filedocumented in this encounter Additional Health Concerns Infection Onset Date Last Indicated Resolved Time Protective Environment 02/08/2024 02/08/2024 documented as of this encounter Care Teams Recovery Unit Operator Relationship Specialty Start Date End Date Elsewhere, Pcp PCP - General Internal Medicine 01/27/24 documented as of this encounter
--- OUTSIDE RECORDS SUMMARY | 2024-06-21 06:50 | XMS_ITS | Encounter Summary ---
Author Organization [facility] Address [address] [place] [address] Care Team Providers Care Physician Industrial Name Role Phone Elsewhere, Pcp Primary Care Provider Unavailabl e Reason for Referral * Outpatient (Routine) - Closed Specialty Diagnoses / Procedures Referred By Leann joseph Referred To Contact General Surgery Diagnoses Malignant Neoplasm Of Pancreas (HCC) Ricky Schaefer M.D., Ph.D. [address] [place] [address] Phone: tel: fax: [facility] Referral ID Status Reason Start Date Expiration Date Visits Re quested Visits Authorized [id number] Closed 01/11/2024 07/12/2025 1 1 * MRI/CAT/PET Scan (Routine) - Closed Specialty Diagnoses / Procedures Referred By Contsarthak t Referred To Contact Radiology Diagnoses Malignant Neoplasm Of Pancreas (HCC) Procedures CT Pancreas Angiogram Triple Phase and Pelvis with IV Contrast Ricky Schaefer M.D., Ph.D. [address] [place] [address] Phone: tel: fax: [facility] Referral ID Status Reason Start Date Expiration Date Visits Re quested Visits Authorized [id number] Closed 01/14/2024 01/13/2025 1 1 * MRI/CAT/PET Scan (Routine) - Closed Specialty Diagnoses / Procedures Referred By Contac t Referred To Contact Radiology Diagnoses Malignant Neoplasm Of Pancreas (HCC) Procedures CT Chest with IV Contrast Sanjeev Woods M.D., M.P.H. Phone: tel: fax: [facility] Referral ID Status Reason Start Date Expiration Date Visits Re quested Visits Authorized [id number] Closed 01/14/2024 01/13/2025 1 1 Encounter Details Date Type Department Care Team (Late st Contact Info) Description 12/29/2023 Orders Only Department of Oncology in [place], [place] [address] [place] [address] [facility], ProviderMD Malignant Neoplasm Of Pancreas (HCC) Social History Tobacco Use Types Packs/Day Years Used Date Smoking Tobacco: Never Assessed Dental Answer Date Recorded Dental: Regular Dentist Unknown 12/28/19 24 Comments Unknown Sex and Gender Information Value Date Recorded Sex Assigned at Female 01/30/2024 2:33 PM COLOR MATCHER Legal Sex Female 4:38 PM CDT Gender Identity Female 01/30/2024 2:33 PM COLOR MATCHER Sexual Orientation Straight 01/30/2024 2: 33 PM COLOR MATCHER documented as of this encounter Plan of Treatment Scheduled Referrals Name Type Priority Associated Diagnoses Order Schedule General Surgery - Pancreas consult (clinic) Outpatient Referral Routine Malignant Neoplasm Of Pancreas (HCC) 1 Occurrences starting 01/11/2024 until 04/12/2025 documented as of this encounter Results * CT Pancreas Angiogram Triple Phase and Pelvis with IV Contrast (02/01/2024 1:34 PM COLOR MATCHER) Anatomical Region Laterality Modality Abdomen, Pelvis, Abdominal R ST LOS, Abdominal ARZ LOS, Vascular Interventional ARZ LOS, Vascular Interventional FLA LOS, Abdominal FLA LOS N/A Computed Tomography, Compute d Tomography 02/01/2024 1:23 PM COLOR MATCHER Impressions 02/01/2024 4:15 PM COLOR MATCHER Tumor: Ill-defined hypoattenuated mass in the pancreatic head/neck. Vascular contact: Present, involving the SMA, TRE, GDA, main portal vein, SMV, splenic vein Metastasis: Mesenteric lymph node contacting the SMA and SMV Narrative 02/01/2024 4:15 PM COLOR MATCHER EXAM: CT PANCREAS ANGIOGRAM TRIPLE PHASE AND [...] Peritoneum/Omentum: Absent Ascites: Absent Suspicious lymph nodes: Mcfall-regional: Enlarged mesenteric lymph node with ill-defined margins, [...] Peritoneum/Omentum: Absent Ascites: Absent Suspicious lymph nodes: Mcfall-regional: Enlarged mesenteric lymph node with ill-defined margins,contacting [...] Chest with IV Contrast (02/01/2024 1:34 PM COLOR MATCHER) Anatomical Region Laterality Modality Chest, Thoracic RST LOS, Tho racic ARZ LOS, Thoracic ARZ LOS, Thoracic FLA LOS N/A Computed Tomography, Compute d Tomography 02/01/2024 1:25 PM COLOR MATCHER Impressions 02/01/2024 2:38 PM COLOR MATCHER 1. Acute pulmonary embolism in segmental and subsegmental pulmonary arteries in posterior lower lobes. No right heart strain. 2. Stable 5 mm nodule in right lower lobe. 3. Stable mild enlargement of mediastinal lymph nodes. Narrative 02/01/2024 2:38 PM COLOR MATCHER EXAM: CT CHEST WITH IV CONTRAST 3D [...] (ABNORMAL) CEA (Carcinoembryonic Antigen) (02/01/2024 11:26 AM COLOR MATCHER) Pathologist [facility] Carcinoembryonic Ag (CEA), S 30.5(H) ng/mL 02/01/2024 5:52 PM COLOR MATCHER [facility] Comment: ----REFERENCE VALUE---- <=3.0 (Non-smokers) Some smokers may have elevated CEA, usually <5.0. ----ADDITIONAL INFORMATION---- The testing method is an immunoenzymatic assay manufactured by [employer] and performed on the [employer] DxI 800. Values obtained with different assay methods or kits may be different and cannot be used interchangeably. Test results cannot be interpreted as absolute evidence for the presence or absence of malignant disease. Blood (Blood, Venous) 02/01/2024 11:26 AM COLOR MATCHER 02/01/2024 5:03 PM COLOR MATCHER Sanjeev Woods M.D., M.P.H. LAB BLOOD ADD-ON F inal Result Performing Organization Address City/[facility]/ZIP Co de Phone Number [facility] [address] [place] [address] [facility] [address] [place] [address] * (ABNORMAL) Carbohydrate Antigen 19-9 (CA 19-9) (02/01/2024 11:26 AM COLOR MATCHER) Pathologist [facility] Carbohydrate Ag 19-9, S 5433(H) <35 U/mL 02/01/2024 6:24 PM COLOR MATCHER [facility] Comment: ----ADDITIONAL INFORMATION---- The testing method is an immunoenzymatic assay manufactured by [employer]. and performed on the [employer] DxI 800. Values obtained with different assay methods or kits may be different and cannot be used interchangeably. Test results cannot be interpreted as absolute evidence for the presence or absence of malignant disease. Blood (Blood, Venous) 02/01/2024 11:26 AM COLOR MATCHER 02/01/2024 5:03 PM COLOR MATCHER Sanjeev Woods M.D., M.P.H. LAB BLOOD ADD-ON F inal Result Performing Organization Address [facility] Co de Phone Number [facility] [address] [place] [address] [facility] [address] [place] [address] * (ABNORMAL) Comprehensive Metabolic Panel (02/01/2024 11:26 AM COLOR MATCHER) Pathologist [facility] Potassium, S 5.0 3.6 - 5.2 mmol/L 02/01/2024 12:35 PM COLOR MATCHER DTL Sodium, S 135 135 - 145 mmol/L 02/01/2024 12:35 PM COLOR MATCHER DTL Chloride, S 100 98 - 107 mmol/L 02/01/2024 12:35 PM COLOR MATCHER DTL Bicarbonate, S 25 22 - 29 mmol/L 02/01/2024 12:35 PM COLOR MATCHER DTL Anion Gap 10 7 - 15 02/01/2024 12:35 PM COLOR MATCHER DTL BUN (Blood Urea Nitrogen), S 11 6 - 21 mg/dL 02/01/2024 12:35 PM COLOR MATCHER DTL Creatinine 0.51(L) 0.59 - 1.04 mg/dL 02/01/2024 12:35 PM COLOR MATCHER DTL Estimated GFR (eGFR) >90 >=60 mL/min/BS A 02/01/2024 12:35 PM COLOR MATCHER DTL Comment: Estimated GFR calculated using the 2020 CKD_EPI creatinine equation. Calcium, Total, S 8.8 8.8 - 10.2 mg/dL 02/01/2024 12:35 PM COLOR MATCHER DTL Glucose, S 227(H) 70 - 140 mg/dL 02/01/2024 12:35 PM COLOR MATCHER DTL Protein, Total, S 6.3 6.3 - 7.9 g/dL 02/01/2024 12:35 PM COLOR MATCHER DTL Albumin, S 3.5 3.5 - 5.0 g/dL 02/01/2024 12:35 PM COLOR MATCHER DTL Aspartate Aminotransferase (AST), S 23 8 - 43 U/L 02/01/2024 12:35 PM COLOR MATCHER DTL Alkaline Phosphatase, S 98 35 - 104 U/L 02/01/2024 12:35 PM COLOR MATCHER DTL Alanine Aminotransferase (ALT), S 25 7 - 45 U/L 02/01/2024 12:35 PM COLOR MATCHER DTL Bilirubin, Total, S 0.3 0.0 - 1.2 mg/dL 02/01/2024 12:35 PM COLOR MATCHER DTL Blood (Blood, Venous) 02/01/2024 11:26 AM COLOR MATCHER 02/01/2024 12:10 PM COLOR MATCHER us Sanjeev Woods M.D., M.P.H. LAB BLOOD ADD-ON F inal Result [facility] [address] [place] [address], [facility] DTL [facility] [address] [place] [address] * (ABNORMAL) CBC with Differential, Blood (02/01/2024 11:26 AM COLOR MATCHER) [facility] Hemoglobin 8.9(L) 11.6 - 15.0 g/dL 02/01/2024 12:17 PM COLOR MATCHER DTL Hematocrit 27.4(L) 35.5 - 44.9 % 02/01/2024 12:17 PM COLOR MATCHER DTL Erythrocytes 3.05(L) 3.92 - 5.13 x10(12)/L 02/01/2024 12:17 PM COLOR MATCHER DTL MCV 89.8 78.2 - 97.9 fL 02/01/2024 12:17 PM COLOR MATCHER DTL RBC Distrib Width 14.1 12.2 - 16.1 % 02/01/2024 12:17 PM COLOR MATCHER DTL Platelet Count 233 157 - 371 x10(9)/L 02/01/2024 12:17 PM COLOR MATCHER DTL Leukocytes 3.6 3.4 - 9.6 x10(9)/L 02/01/2024 12:17 PM COLOR MATCHER DTL Neutrophils 1.91 1.56 - 6.45 x10(9)/L 02/01/2024 12:17 PM COLOR MATCHER [facility] Lymphocytes 1.34 0.95 - 3.07 x10(9)/L 02/01/2024 12:17 PM COLOR MATCHER DTL Monocytes 0.21(L) 0.26 - 0.81 x10(9)/L 02/01/2024 12:17 PM COLOR MATCHER DTL Eosinophils 0.08 0.03 - 0.48 x10(9)/L 02/01/2024 12:17 PM COLOR MATCHER DTL Basophils <0.03 0.01 - 0.08 x10(9)/L 02/01/2024 12:17 PM COLOR MATCHER DTL Blood (Blood, Venous) 02/01/2024 11:26 AM COLOR MATCHER 02/01/2024 11:55 AM COLOR MATCHER Sanjeev Woods M.D., M.P.H. LAB BLOOD ADD-ON F inal Result [facility] [address] [place] [address], [facility] DTL [facility] [address] [place] [address] [facility] [place] [address] [place] [address] documented in this encounter Visit Diagnoses Diagnosis Malignant Neoplasm Of Pancreas (HCC) Malignant Neoplasm Of Pancreas (HCC) documented in this encounter Additional Health Concerns Infection Onset Date Last Indicated Resolved Time Protective Environment 02/08/2024 02/08/2024 documented as of this encounter Care Teams Physician Industrial Relationship Specialty Start Date End Date Elsewhere, Pcp PCP - General Internal Medicine 01/27/24 documented as of this encounter
--- OUTSIDE RECORDS SUMMARY | 2024-06-21 06:50 | XMS_ITS | Clinical Summary ---
Author Organization [facility] Address [address] [place] [address] Care Team Providers Care Sample Dye Mixer Name Role Phone Yamil Negrete MD Primary Care Provider Encounters Date Type Department Care Team Description 06/08/2024 Lab Requisition [facility] [phone] Lam Faith MD 06/06/2024 Travel 05/04/2024 9:30 AM FREIGHT BROKER Office Visit [facility] & [address] [address] Duc Whalen MD from Last 3 Months Social History Tobacco Use Types Packs/Day Years Used Date Smoking Tobacco: Never Assessed Comments Unknown Sex and Gender Information Value Date Recorded Sex Assigned at Not on file Legal Sex Female 11:25 AM FREIGHT BROKER Gender Identity Not on file Sexual Orientation Not on file Plan of Treatment Upcoming Encounters Date Type Department Care Team (Late st Contact Info) Description 10/11/2024 Cardiac Device Check Wedge Buster [facility] [phone] Health Maintenance Due Date Last Done Comments [...] 06/07/2024 5: 59 AM CDT PATH NON MEDICAL RECORD CODER CYTOLOGY Routine 06/07/2024 5:59 AM CDT from Last 3 Months Results * LAB TRACKING EVENT (06/07/2024 5:59 AM CDT) Other (Other) Client Collect / Unknown 06/07/2024 5:59 AM CDT 06/08/2024 11:00 PM CDT Lam Faith MD LAB BILL ONLY Final Result [facility] LABORATORY-CENTRAL LABORATORY [address] [address], * PATH NON MEDICAL RECORD CODER CYTOLOGY (06/07/2024 5:59 AM CDT) Case Report Medical Cytology Report Case: [id number] Authorizing Provider: Lam Faith MD Collected: 06/07/2024 0559 Ordering Location: [facility] Received: 06/09/2024 0942 Pathologist: Kylie Iniguez MD Specimen: Pleural Fluid 06/12/2024 1:57 PM CDT [facility] LABORATORY-C ENTRAL LABORATORY Final Diagnosis A) PLEURAL FLUID, SIDE NOT SPECIFIED, FOR CYTOLOGY: Negative for malignant cells 06/12/2024 1:57 PM CDT [facility] LABORATORY-C ENTRAL LABORATORY at 1357 CDT Clinical Information Marta Carrillo is a 83 y.o. female with history of sick sinus syndrome status post dual-chamber pacemaker in [place], pancreatic cancer currently on chemotherapy with gemcitabine [...] requested. Patient does see cardiology down in [place] where she lives. She is currently living with her family here in [place] close to [facility] where she is getting treatment for her [...] specific side effects. 06/12/2024 1:57 PM CDT [facility]-C [facility] LABORATORY Gross Description A) SOURCE: Pleural fluid [...] than 72 hours. 06/12/2024 1:57 PM CDT [facility] LABORATORY-C [facility] LABORATORY Microscopic Description Specimen adequacy: Adequate for interpretation. All slides were reviewed. The microscopic appearance substantiates the diagnosis. To aid in differentiating reactive mesothelial cells from epithelial neoplasm the following panel immunoperoxidase stains is performed: WT1: Positive Calretinin: Positive Claudin4: Negative MOC31: Negative 06/12/2024 1:57 PM CDT [facility] LABORATORY-C [facility] LABORATORY Additional Information Cytology is screened at [facility] Laboratory, Central Laboratory - [address], [place] [address] and [facility] Laboratory - [address], [place] [address] and [facility] Laboratory - [address] [place] [address] Interpreted at [facility], Central Laboratory - [address], [place] [address] Immunohistochemist ry controls were reviewed and approved as appropriate by the pathologist during this examination. 06/12/2024 1:57 PM CDT [facility] LAB[facility]-C ENTRAL LABORATORY Other PLEURAL FLUID SPECIMEN / Unknown 06/07/2024 5:59 AM CDT 06/09/2024 9:42 AM CDT us Lam Faith MD PATHOLOGY/CYTOLOGY Final Result [facility] LABORATORY-CENTRAL LABORATORY [address] [place] [address], [place] from Last 3 Months Insurance [facility] MR Care Teams Sample Dye Mixer Relationship Specialty Start Date End Date Yamil Negrete MD [address] [place] [address] PCP - General Internal Medicine 05/03/24
--- OUTSIDE RECORDS SUMMARY | 2024-06-21 06:51 | XMS_ITS | Encounter Summary ---
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 [address] [place] [address] Phone: tel: fax: [facility] Referral ID Status Reason Start Date Expiration Date Visits Re quested Visits Authorized [id number] Closed 06/14/2024 12/14/2025 1 1 Encounter Details Date Type Department Care Team (Latest Contact Info) Description 06/20/2024 9:00 AM CDT Comprehensive Visit Department of Radiology, [facility], in [place], [place] [address] [place] [phone] Maribeth Pinzon APRN, C.N.P., M.S.N. [address] [place] [phone] Effusion Pleural; Malignant Neoplasm Of Pancreas Head (HCC) Social History Tobacco Use Types Packs/Day Years Used Date Smoking Tobacco: Never Smokeless Tobacco: Never Alcohol Use Standard Drinks/Week Comments Never 0 (1 standard drink = 0.6 oz pur e alcohol) [facility] Utilities Answer Date Recorded In [...] living situation today? 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
--- OUTSIDE RECORDS SUMMARY | 2024-06-21 06:51 | XMS_ITS | Encounter Summary ---
Author Organization [facility] Address [address] [place] [address] Care Team Providers Care [employer] Principal Name Role Phone Elsewhere, Pcp Primary Care Provider Unavailabl e Reason for Referral * Radiation Therapy (Routine) - Authorized Specialty Diagnoses / Procedures Referred By Leann joseph Referred To Contact Diagnoses Malignant Neoplasm Of Pancreas Head (HCC) Procedures Initial Rad Onc Treatment Planning CT Simulation Initial Rad Onc Treatment Planning CT Simulation [place] IMRT RADIOTHERAPY PLAN Aidan Estrada M.D. [address] [place] [address] Phone: tel: fax: [facility] Referral ID Status Reason Start Date Expiration Date V isits Requested Visits Authorized [id number] Authorized 05/16/2024 08/16/2025 2 2 ER WATERPROOFING MACHINE OPERATOR * Radiation Therapy (Routine) - Authorized Specialty Diagnoses / Procedures Referred By Leann joseph Referred To Contact Diagnoses Malignant Neoplasm Of Pancreas Head (HCC) Procedures Management Visit Aidan Estrada M.D. [address] [place] [address] Phone: tel: fax: [facility] [place] [facility] Referral ID Status Reason Start Date Expiration Date V isits Requested Visits Authorized [id number] Authorized 05/16/2024 08/16/2025 10 10 ER WATERPROOFING MACHINE OPERATOR * Radiation Therapy (Routine) - Authorized Specialty Diagnoses / Procedures Referred By Contac t Referred To Contact Diagnoses Malignant Neoplasm Of Pancreas Head (HCC) Procedures Prior Auth Rad Tx VT IMRT COMPLEX VT GUIDANCE FOR LOC RAD TX VT IMRT RADIOTHERAPY PLAN IMRT Aidan Estrada M.D. [address] [place] [address] Phone: tel: fax: [facility] [address] [place] [phone] Referral ID Status Reason Start Date Expiration Date V isits Requested Visits Authorized [id number] Authorized 05/29/2024 08/16/2025 25 25 ER WATERPROOFING MACHINE OPERATOR Encounter Details Date Type Department Care Team (Late st Contact Info) Description 05/16/2024 Orders Only Department of Radiation Oncology in [place], [place] [address] [place] [phone] Joyce Kenyon P.A.-C., M.S. [address] [place] [phone] 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) Social History Tobacco Use Types Packs/Day Years Used Date Smoking Tobacco: Never Smokeless Tobacco: Never Alcohol Use Standard Drinks/Week Comments Never 0 (1 standard drink = 0.6 oz pur e alcohol) [facility] Utilities Answer Date Recorded In the past 12 months has e [employer], gas, oil, or water [employer] threatened to shut off services in your [...] your living situation today? I have a [facility] place to live 02/04/2024 Comments Unknown Sex and Gender Information Value Date Recorded Sex Assigned at Female 01/30/2024 2:33 PM PRIMER WATERPROOFING MACHINE OPERATOR Legal Sex Female 4:38 PM CDT Gender Identity Female 01/30/2024 2:33 PM PRIMER WATERPROOFING MACHINE OPERATOR Sexual Orientation Straight 01/30/2024 2: 33 PM PRIMER WATERPROOFING MACHINE OPERATOR documented as of this encounter Miscellaneous Notes * Addendum Note - Carlos Ibanez, R.N. - 05/16/2024 8:48 AM CSTAddended by: CARLOS IBANEZ on: 05/29/2024 02:09 PM Modules accepted: Orders ER WATERPROOFING MACHINE OPERATOR documented in this encounter Plan of [...] Treatment Planning CT Simulation (05/26/2024 2:00 PM PRIMER WATERPROOFING MACHINE OPERATOR) Narrative JUDAH NAVARRETE - 05/26/2024 2:00 PM PRIMER WATERPROOFING MACHINE OPERATOR Antonette Schulte M.D. 05/26/2024 3:13 PM [...] documented as of this encounter Care Teams [employer] Principal Relationship Specialty Start Date End Date Elsewhere, Pcp PCP - General Internal Medicine 01/27/24 documented as of this encounter
--- OUTSIDE RECORDS SUMMARY | 2024-06-21 06:51 | XMS_ITS | Encounter Summary ---
Author Organization [facility] Address [address] [place] [address] Care Team Providers Care Manager City Name Role Phone Elsewhere, Pcp Primary Care Provider Unavailabl e Reason for Referral * MRI/CAT/PET Scan (Routine) - Closed Specialty Diagnoses / Procedures Referred By Contac t Referred To Contact Radiology Diagnoses Malignant Neoplasm Of Pancreas Head (HCC) Procedures CT Abdomen Pelvis with IV Contrast Sanjeev Woods M.D., M.P.H. Phone: tel: fax: [facility] Referral ID Status Reason Start Date Expiration Date Visits Re quested Visits Authorized [id number] Closed 03/15/2024 03/15/2025 1 1 HOTHERAPIST COUNSELOR * MRI/CAT/PET Scan (Routine) - Closed Specialty Diagnoses / Procedures Referred By Contac t Referred To Contact Radiology Diagnoses Malignant Neoplasm Of Pancreas Head (HCC) Procedures CT Chest with IV Contrast Sanjeev Woods M.D., M.P.H. Phone: tel: fax: [facility] Referral ID Status Reason Start Date Expiration Date Visits Re quested Visits Authorized [id number] Closed 03/15/2024 03/15/2025 1 1 HOTHERAPIST COUNSELOR Reason for Visit * MRI/CAT/PET Scan (Routine) - Closed Specialty Diagnoses / Procedures Referred By Contac t Referred To Contact Radiology Diagnoses Malignant Neoplasm Of Pancreas Head (HCC) Procedures CT Abdomen Pelvis with IV Contrast Sanjeev Woods M.D., M.P.H. Phone: tel: fax: [facility] Referral ID Status Reason Start Date Expiration Date Visits Re quested Visits Authorized [id number] Closed 03/15/2024 03/15/2025 1 1 Encounter Details Date Type Department Care Team (Latest Contact Info) Description 05/09/2024 3:11 PM PSYCHOTHERAPIST COUNSELOR - 05/09/2024 11:59 PM PSYCHOTHERAPIST COUNSELOR Hospital Encounter Department of Radiology, [facility], in [place], [place] [address] [place] [address] Sanjeev Woods M.D., M.P.H. [address] [place] [address] Malignant Neoplasm Of Pancreas Head (HCC) Discharge Disposition: Home or Self Care Social History Tobacco Use Types Packs/Day Years Used Date Smoking Tobacco: Never Smokeless Tobacco: Never Alcohol Use Standard Drinks/Week Comments Never 0 (1 standard drink = 0.6 oz pur e alcohol) [facility] Utilities Answer Date Recorded In the past 12 months has [employer], gas, oil, or water [employer] threatened to shut off services in your [...] your living situation today? I have a [facility] place to live 02/04/2024 Comments Unknown Sex and Gender Information Value Date Recorded Sex Assigned at Female 01/30/2024 2:33 PM PSYCHOTHERAPIST COUNSELOR Legal Sex Female 4:38 PM CDT Gender Identity Female 01/30/2024 2:33 PM PSYCHOTHERAPIST COUNSELOR Sexual Orientation Straight 01/30/2024 2: 33 PM PSYCHOTHERAPIST COUNSELOR documented as of this encounter Medications at [...] a day. 374 tablet 02/01/2024 8:48 PM PSYCHOTHERAPIST COUNSELOR 02/01/2024 07/31/19 25 cholecalciferol, vitD3,/vit K2 (VITAMIN [...] inpatients and all outpatients) 05/09/2024 4:43 PM PSYCHOTHERAPIST COUNSELOR Malignant Neoplasm Of Pancreas Head (HCC) CT CHEST WITH IV CONTRAST RAD - Routine (most inpatients and all outpatients) 05/09/2024 4:43 PM PSYCHOTHERAPIST COUNSELOR Malignant Neoplasm Of Pancreas Head (HCC) CREATININE, POCT, B Routine 05/09/2024 3:38 PM PSYCHOTHERAPIST COUNSELOR CREATININE, POCT, B Routine 05/09/2024 3:38 PM PSYCHOTHERAPIST COUNSELOR documented in this encounter Results * CT Abdomen Pelvis with IV Contrast (05/09/2024 4:43 PM PSYCHOTHERAPIST COUNSELOR) Anatomical Region Laterality Modality Abdomen, Pelvis, Abdominal R ST LOS, Abdominal ARZ LOS, Abdominal FLA LOS N/A Computed Tomography 05/09/2024 5:53 PM PSYCHOTHERAPIST COUNSELOR Impressions 05/10/2024 7:21 AM PSYCHOTHERAPIST COUNSELOR Slight decrease size of pancreas head mass. Extensive vascular involvement persists. No new CT evidence of metastatic disease in the abdomen or pelvis. Narrative 05/10/2024 7:21 AM PSYCHOTHERAPIST COUNSELOR EXAM: CT ABDOMEN PELVIS WITH IV CONTRAST [...] abdomen orpelvis. Sanjeev Woods M.D., M.P.H. [facility] CT PROCEDURES Final Result * CT Chest with IV Contrast (05/09/2024 4:43 PM PSYCHOTHERAPIST COUNSELOR) Anatomical Region Laterality Modality Chest, Thoracic RST LOS, Tho racic ARZ LOS, Thoracic ARZ LOS, Thoracic FLA LOS N/A Computed Tomography 05/09/2024 5:08 PM PSYCHOTHERAPIST COUNSELOR Impressions 05/10/2024 8:22 AM PSYCHOTHERAPIST COUNSELOR 1. New small bilateral pleural effusions with suspected pleural nodularities, indeterminate. Short-term follow-up CT can be considered. 2. New patchy groundglass opacities throughout the lungs could be due to infection/inflammation. 3. Stable 5 mm nodule in right lower lobe. 4. Stable mild enlargement of mediastinal lymph nodes. 5. Interval resolution of previously seen right lower lobe pulmonary emboli. Narrative 05/10/2024 8:22 AM PSYCHOTHERAPIST COUNSELOR EXAM: CT CHEST WITH IV CONTRAST 3D [...] Result * Creatinine, POCT (05/09/2024 3:38 PM PSYCHOTHERAPIST COUNSELOR) Pathologist [facility] Creatinine, POCT, B 0.8 0.6 - 1.0 mg/dL 05/09/2024 3:46 PM PSYCHOTHERAPIST COUNSELOR PCDT Comment: ----ADDITIONAL INFORMATION---- Performed at the Point of Care Blood 05/09/2024 3:38 PM PSYCHOTHERAPIST COUNSELOR 05/09/2024 3:46 PM PSYCHOTHERAPIST COUNSELOR Unknown Provider LAB POCT ORDERABLES - DEVICE Fi nal Result Performing Organization Address [facility] Co de Phone Number [facility] [address] PCDT [facility] POC [address] [place] [address] * Creatinine, POCT (05/09/2024 3:38 PM PSYCHOTHERAPIST COUNSELOR) Pathologist [facility] Estimated GFR (eGFR), POCT 73 >=60 mL/min/BSA 05/09/2024 3:46 PM PSYCHOTHERAPIST COUNSELOR PCDT Comment: Estimated GFR calculated using the 2020 CKD_EPI creatinine equation. Blood 05/09/2024 3:38 PM PSYCHOTHERAPIST COUNSELOR 05/09/2024 3:46 PM PSYCHOTHERAPIST COUNSELOR Unknown Provider LAB POCT ORDERABLES - DEVICE Fi nal Result Performing Organization Address [facility] de Phone Number [facility] [address] P[address] [facility] POC [address] [place] [address] documented in this encounter Visit Diagnoses Diagnosis [...] prior to discharge. Given 05/09/2024 3:40 PM PSYCHOTHERAPIST COUNSELOR 500 Units iohexoL 300 mg iodine/mL solution 1-200 mL (Omnipaque) 1-200 mL, intravenous, Once in imaging, contrast, Starting on Wed05/09/24 at 1520, For 1 dose, Imaging Protocol Orders, Dose per Radiant Medication Guidelines Given 05/09/2024 4:04 PM PSYCHOTHERAPIST COUNSELOR 100 mL sodium chloride (PF) 0.9 % injection 1-100 mL 1-100 mL, intravenous, Once, On Wed05/09/24 at 1545, For 1 dose, Imaging Protocol Orders, Dose per Radiant Medication Guidelines Given 05/09/2024 4:04 PM PSYCHOTHERAPIST COUNSELOR 50 mL sodium chloride 0.9 % injection 10-20 mL 10-20 mL, intravenous, As needed, line care, Implanted Vascular Access Device (IVAD) Venous Non-Valved, Starting on Wed05/09/24 at 1538, Prior to and following infusion and between multiple consecutive infusions, flush 10 mL to each port/lumen. Given 05/09/2024 3:40 PM PSYCHOTHERAPIST COUNSELOR 10 mL documented in this encounter Additional Health Concerns Infection Onset Date Last Indicated Resolved Time Protective Environment 02/08/2024 02/08/2024 documented as of this encounter Care Teams Manager City Relationship Specialty Start Date End Date Elsewhere, Pcp PCP - General Internal Medicine 01/27/24 documented as of this encounter
--- OUTSIDE RECORDS SUMMARY | 2024-06-21 06:51 | XMS_ITS | Encounter Summary ---
Author Organization [facility] [place] [facility] Address [address] [place] [address] Care Team Providers Care Deputy Court Name Role Phone Elsewhere, Pcp Primary Care Provider Unavailabl e Reason for Referral * Outpatient (Routine) - Closed Specialty Diagnoses / Procedures Referred By Leann t Referred To Contact Radiation Oncology Diagnoses Malignant Neoplasm Of Pancreas Head (HCC) Dana Guillen APRN, C.N.P., M.S. [address] [place] [address] Phone: tel: fax: [facility] Referral ID Status Reason Start Date Expiration Date Visits Re quested Visits Authorized [id number] Closed 05/10/2024 11/09/2025 1 1 VISION SERVICER Reason for Visit * Outpatient (Routine) - Closed Specialty Diagnoses / Procedures Referred By Contac t Referred To Contact Radiation Oncology Diagnoses Malignant Neoplasm Of Pancreas Head (HCC) Dana Guillen APRN, C.N.P., M.S. [address] [place] [address] Phone: tel: fax: [facility] Referral ID Status Reason Start Date Expiration Date Visits Re quested Visits Authorized [id number] Closed 05/10/2024 11/09/2025 1 1 Encounter Details Date Type Department Care Team (Latest Contact Info) Description 05/26/2024 11:33 AM TELEVISION SERVICER - 05/26/2024 1:29 PM TELEVISION SERVICER Hospital Encounter Department of Radiation Oncology in [place], [place] [address] [place] [phone] Antonette Schulte M.D. [address] [place] [address] Malignant Neoplasm Of Pancreas Head (HCC) Social History Tobacco Use Types Packs/Day Years Used Date Smoking Tobacco: Never Smokeless Tobacco: Never Alcohol Use Standard Drinks/Week Comments Never 0 (1 standard drink = 0.6 oz pur e alcohol) [facility] Utilities Answer Date Recorded In the past 12 months has [employer], [employer], oil, or water [employer] threatened to shut off services in your [...] your living situation today? I have a [facility] place to live 02/04/2024 Comments Unknown Sex and Gender Information Value Date Recorded Sex Assigned at Female 01/30/2024 2:33 PM TELEVISION SERVICER Legal Sex Female 4:38 PM CDT Gender Identity Female 01/30/2024 2:33 PM TELEVISION SERVICER Sexual Orientation Straight 01/30/2024 2: 33 PM TELEVISION SERVICER documented as of this encounter Last Filed Vital Signs Vital Sign Reading Time Taken Comments Blood Pressure 185/74 05/26/2024 12:49 PM TELEVISION SERVICER Pulse 77 05/26/2024 12:49 PM TELEVISION SERVICER Temperature 35.9 C (96.7 F) 05/26/2024 12:49 PM TELEVISION SERVICER Respiratory Rate - - Oxygen Saturation - - Inhaled Oxygen Concentration - - Weight 68.7 kg (151 lb 7.3 oz) 05/26/2024 12:49 PM TELEVISION SERVICER Height - - Body Mass Index 28.52 05/10/2024 2:25 PM TELEVISION SERVICER documented in this encounter Medications at Time [...] a day. 374 tablet 02/01/2024 8:48 PM TELEVISION SERVICER 02/01/2024 07/31/19 25 cholecalciferol, vitD3,/vit K2 (VITAMIN [...] Carrillo is a 83 y.o.-year-old female from [place], [place], who presents to the Department ofRadiation [...] FINAL DIAGNOSIS Pancreas, Head, Mass, fine-needle biopsy ([id number]; 12/17/2023): Invasive moderately differentiated adenocarcinoma. 01/02/2024 Critical [...] the common bile duct. 01/07/2024 Critical Imaging [place] Interpretation of PET-CT Impression: 1. Large moderately [...] set up. Referral to Radiation Oncology in [place]. Follow-up one month after radiation. 05/15/2024 - [...] chemotherapy on 01/13/2024 while still residing in [place]. She has transferred care to [facility] and is receiving chemotherapy with Gemcitabine and Abraxane at the [facility] with Dr. Sr. She reports a total [...] Medical Oncology colleagues, both at [facility] and at the [facility]. Surgical intervention has not been recommended, thus, [...] Antonette Schulte M.D. at 05/26/2024 3:12 PM TELEVISION SERVICER VISION SERVICER VISION SERVICER Associated attestation - Antonette Schulte M.D. - 05/26/2024 3:12 PM TELEVISION SERVICER RADIATION ONCOLOGY CONSULT I saw and evaluated [...] We discussed the acute as well as watermaster risks from EBRT, including, but not limited to fatigue,nausea/vomiting, diarrhea, bowel/bladder changes (including small bowel obstruction and bowel changes), skin changes, chronic changes in bowel function and small risks for kidney or bone damage or secondary malignacies. They understood and their questions were answered. She wished to proceed with treatment. We tentatively plan on delivering 1120-3881/3750 cGy in 15 fractions starting June 05, [...] treatment. My thanks to Dana Guillen APRN, yNla, Orin, Heidi, and Pushpa for the opportunity [...] documented as of this encounter Care Teams Deputy Court Relationship Specialty Start Date End Date Elsewhere, Pcp PCP - General Internal Medicine 01/27/24 documented as of this encounter
--- OUTSIDE RECORDS SUMMARY | 2024-06-21 06:51 | XMS_ITS ---
Author Organization [facility] Address [address] [place] [address] Care Team Providers Care Adult Care Provider Name Role Phone Elsewhere, Pcp Primary Care [...]
--- OUTSIDE RECORDS SUMMARY | 2024-06-21 06:51 | XMS_ITS | Encounter Summary ---
Author Organization [facility] Address [address] [place] [address] Care Team Providers Care Medic Technician Name Role Phone Elsewhere, Pcp Primary Care Provider Unavailabl e Reason for Referral * Radiation Therapy (Routine) - Authorized Specialty Diagnoses / Procedures Referred By Leann joseph Referred To Contact Diagnoses Malignant Neoplasm Of Pancreas Head (HCC) Procedures Initial Rad Onc Treatment Planning CT Simulation Initial Rad Onc Treatment Planning CT Simulation [place] IMRT RADIOTHERAPY PLAN Aidan Estrada M.D. [address] [place] [address] Phone: tel: fax: [facility] Region Referral ID Status Reason Start Date Expiration Date V isits Requested Visits Authorized [id number] Authorized 05/16/2024 08/16/2025 2 2 OMETEOROLOGIST Reason for Visit * Radiation Therapy (Routine) - Authorized Specialty Diagnoses / Procedures Referred By Leann joseph Referred To Contact Diagnoses Malignant Neoplasm Of Pancreas Head (HCC) Procedures Initial Rad Onc Treatment Planning CT Simulation Initial Rad Onc Treatment Planning CT Simulation [place] IMRT RADIOTHERAPY PLAN Aidan Estrada M.D. [address] [place] [address] Phone: tel: fax: [facility] Region Referral ID Status Reason Start Date Expiration Date V isits Requested Visits Authorized [id number] Authorized 05/16/2024 08/16/2025 2 2 Encounter Details Date Type Department Care Team (Latest Contact Info) Description 05/26/2024 2:00 PM HYDROMETEOROLOGIST - 05/26/2024 3:13 PM HYDROMETEOROLOGIST Hospital Encounter Department of Radiation Oncology in [place], [place] [address] [place] [phone] Aidan Estrada M.D. [address] [place] [address] Antonette Schulte M.D. [address] [place] [phone] Malignant Neoplasm Of Pancreas Head (HCC) Social History Tobacco Use Types Packs/Day Years Used Date Smoking Tobacco: Never Smokeless Tobacco: Never Alcohol Use Standard Drinks/Week Comments Never 0 (1 standard drink = 0.6 oz pur e alcohol) [facility] Utilities Answer Date Recorded In the past 12 months has e electric, gas, oil, or water [employer] threatened to shut off services in your [...] living situation today? I have a [facility] place to live 02/04/2024 Comments Unknown Sex and Gender Information Value Date Recorded Sex Assigned at Female 01/30/2024 2:33 PM HYDROMETEOROLOGIST Legal Sex Female 4:38 PM CDT Gender Identity Female 01/30/2024 2:33 PM HYDROMETEOROLOGIST Sexual Orientation Straight 01/30/2024 2: 33 PM HYDROMETEOROLOGIST documented as of this encounter Medications at [...] a day. 374 tablet 02/01/2024 8:48 PM HYDROMETEOROLOGIST 02/01/2024 07/31/19 25 cholecalciferol, vitD3,/vit K2 (VITAMIN [...] planning. CT images were transferred to the [employer] treatment planning system, after a reference isocenter was determined and marked. Segmentation and treatment planning will take place prior to treatment delivery. Patient set up and imaging was appropriate and completed without incident. Shaper Setter use:No Cosigned by Antonette Schulte M.D. at 05/26/2024 3:13 PM HYDROMETEOROLOGIST OMETEOROLOGIST OMETEOROLOGIST Associated attestation - Antonette Schulte M.D. - 05/26/2024 3:13 PM HYDROMETEOROLOGIST I was present during all critical and meyer portions of the procedure(s) and [facility] entire duration. See note for details. documented in this encounter Plan of Treatment Not on file documented as of this encounter Procedures Procedure Name Priority Date/Time Associated Diagnosis Comments INITIAL RAD ONC TREATMENT PLANNING CT SIMULATION Routine 05/26/2024 2:00 PM HYDROMETEOROLOGIST Malignant Neoplasm Of Pancreas Head (HCC) documented in this encounter Results * Initial Rad Onc Treatment Planning CT Simulation (05/26/2024 2:00 PM HYDROMETEOROLOGIST) Narrative JUDAH NAVARRETE - 05/26/2024 2:00 PM HYDROMETEOROLOGIST Antonette Schulte M.D. 05/26/2024 3:13 PM Initial [...] documented as of this encounter Care Teams Medic Technician Relationship Specialty Start Date End Date Elsewhere, Pcp PCP - General Internal Medicine 01/27/24 documented as of this encounter
--- OUTSIDE RECORDS SUMMARY | 2024-06-21 06:51 | XMS_ITS | Encounter Summary ---
Author Organization [facility] Address [address] [place] [address] Care Team Providers Care Casing Wringer Operator Name Role Phone Elsewhere, Pcp Primary Care Provider Unavailabl e Reason for Referral * Outpatient (Routine) - Closed Specialty Diagnoses / Procedures Referred By Contac t Referred To Contact Diagnoses Effusion Pleural Malignant Neoplasm Of Pancreas Head (HCC) Procedures DX Chest AP or PA and Lateral 2 Views DX Chest AP or PA and Lateral 2 Views Felisa Nunez MPAS, P.A.-C., P.A. 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 [address] [place] [address] Phone: tel: fax: [facility] Referral ID Status Reason Start Date Expiration Date Visits Re quested Visits Authorized [id number] Closed 06/14/2024 09/14/2025 1 1 Encounter Details Date Type Department Care Team (Latest Contact Info) Description 06/20/2024 7:30 AM CDT - 06/20/2024 11:59 PM CDT Hospital Encounter Department of Radiology, [facility], in [place], [place] [address] [place] [phone] Felisa Nunez MPAS, P.A.-C., P.A. [address] [place] [address] Effusion Pleural; Malignant Neoplasm Of Pancreas Head (HCC) Discharge Disposition: Home or Self Care Social History Tobacco Use Types Packs/Day Years Used Date Smoking Tobacco: Never Smokeless Tobacco: Never Alcohol Use Standard Drinks/Week Comments Never 0 (1 standard drink = 0.6 oz pur e alcohol) [facility] Utilities Answer Date Recorded In the past 12 months has th e electric, gas, oil, or water [employer] threatened to shut off services in your [...] living situation today? I have a [facility] place to live 02/04/2024 Comments Unknown Sex and Gender Information Value Date Recorded Sex Assigned at Female 01/30/2024 2:33 PM BOOMSWING OPERATOR Legal Sex Female 4:38 PM CDT Gender Identity Female 01/30/2024 2:33 PM BOOMSWING OPERATOR Sexual Orientation Straight 01/30/2024 2: 33 PM BOOMSWING OPERATOR documented as of this encounter Medications at [...] a day. 374 tablet 02/01/2024 8:48 PM BOOMSWING OPERATOR 02/01/2024 07/31/19 25 cholecalciferol, vitD3,/vit K2 (VITAMIN [...] documented as of this encounter Care Teams Casing Wringer Operator Relationship Specialty Start Date End Date Elsewhere, Pcp PCP - General Internal Medicine 01/27/24 documented as of this encounter
--- OUTSIDE RECORDS SUMMARY | 2024-06-21 06:51 | XMS_ITS | Encounter Summary ---
Author Organization [facility] Address [address] [place] [address] Care Team Providers Care Fish Agent Name Role Phone Elsewhere, Pcp Primary Care Provider Unavailabl e Reason for Visit * Reason Onset Date Comments Difficulty Breathing 06/21/2024 Encounter Details Date Type Department Care Team (Late st Contact Info) Description 06/21/2024 Nurse Triage Department of Family Medicine, [facility], in [place], [place] [address] [place] [address] Denise Lemus M.S.N., R.N. [address] [place] [phone] Difficulty Breathing Social History Tobacco Use Types Packs/Day Years Used Date Smoking Tobacco: Never Smokeless Tobacco: Never Alcohol Use Standard Drinks/Week Comments Never 0 (1 standard drink = 0.6 oz pur e alcohol) [facility] Utilities Answer Date Recorded In the past 12 months has e [employer], gas, oil, or water company threatened to [...] your living situation today? I have a [facility] place to live 02/04/2024 Comments Unknown Sex and Gender Information Value Date Recorded Sex Assigned at Female 01/30/2024 2:33 PM ALCOHOL RUBBER Legal Sex Female 4:38 PM CDT Gender Identity Female 01/30/2024 2:33 PM ALCOHOL RUBBER Sexual Orientation Straight 01/30/2024 2: 33 PM ALCOHOL RUBBER documented as of this encounter Miscellaneous Notes [...] than normal Protocols used: Cancer - Breathing [id number] Care Advice Patient/Caregiver understands and will follow care advice?: Yes, able to teach back Cancer - Breathing [id number] Nurse Denise Muhammad Jun 21, 2024 05:25 [...] documented as of this encounter Care Teams Fish Agent Relationship Specialty Start Date End Date Elsewhere, Pcp PCP - General Internal Medicine 01/27/24 documented as of this encounter
--- OUTSIDE RECORDS SUMMARY | 2024-06-21 06:51 | XMS_ITS | Encounter Summary ---
Author Organization [facility] Address [address] [place] [address] Care Team Providers Care Baggage Inspector Name Role Phone Elsewhere, Pcp Primary Care Provider Unavailabl e Encounter Details Date Type Department Care Team (Late st Contact Info) Description 05/15/2024 Orders Only Department of Radiation Oncology in [place], [place] [address] [place] [phone] Antonette Schulte M.D. [address] [place] [address] 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) Social History Tobacco Use Types Packs/Day Years Used Date Smoking Tobacco: Never Smokeless Tobacco: Never Alcohol Use Standard Drinks/Week Comments Never 0 (1 standard drink = 0.6 oz pur e alcohol) [facility] Utilities Answer Date Recorded In the past 12 months has e [employer], gas, oil, or water company threatened to [...] your living situation today? I have a [facility] place to live 02/04/2024 Comments Unknown Sex and Gender Information Value Date Recorded Sex Assigned at Female 01/30/2024 2:33 PM CORE WINDING OPERATOR Legal Sex Female 4:38 PM CDT Gender Identity Female 01/30/2024 2:33 PM CORE WINDING OPERATOR Sexual Orientation Straight 01/30/2024 2: 33 PM CORE WINDING OPERATOR documented as of this encounter Plan of Treatment Not on file documented as of this encounter Visit Diagnoses Diagnosis Malignant Neoplasm Of Pancreas Head (HCC)- Primary documented in this encounter Additional Health Concerns Infection Onset Date Last Indicated Resolved Time Protective Environment 02/08/2024 02/08/2024 documented as of this encounter Care Teams Baggage Inspector Relationship Specialty Start Date End Date Elsewhere, Pcp PCP - General Internal Medicine 01/27/24 documented as of this encounter
--- OUTSIDE RECORDS SUMMARY | 2024-06-21 06:51 | XMS_ITS | Encounter Summary ---
Author Organization [facility] Address [address] [place] [address] Care Team Providers Care Light Adjuster Name Role Phone Elsewhere, Pcp Primary Care Provider Unavailabl e Encounter Details Date Type Department Care Team (Latest Contact Info) Description 05/26/2024 1:30 PM DIRECTOR OF MEDIA - 05/26/2024 1:59 PM DIRECTOR OF MEDIA Hospital Encounter Department of Radiation Oncology in [place], [place] [address] [place] [address] Antonette Schulte M.D. 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 374 tablet 02/01/2024 8:48 PM DIRECTOR OF MEDIA 02/01/2024 07/31/19 25 cholecalciferol, vitD3,/vit K2 (VITAMIN [...] prior to discharge. Given 05/26/2024 2:55 PM DIRECTOR OF MEDIA 500 Units iohexoL 300 mg iodine/mL solution 1-200 mL (Omnipaque) 1-200 mL, intravenous, Once in imaging, contrast, Starting on Wed05/26/24 at 1416, For 1 dose, Intraprocedure (RAD), Administer 1-200 mL, dosing per medication reference document and per protocol. Given 05/26/2024 2:50 PM DIRECTOR OF MEDIA 140 mL NaCl 0.9 % bolus 1-100 mL 1-100 mL, intravenous, at 1-100 mL/hr, Administer over 1 Hours, Once in imaging, other, Give per medication reference and protocol, Starting on Wed05/26/24 at 1416, For 1 dose, Intraprocedure (RAD) New Bag 05/26/2024 2:50 PM DIRECTOR OF MEDIA 50 mL 100 mL/hr sodium chloride 0.9 % injection 10-20 mL 10-20 mL, intravenous, As needed, line care, Implanted Vascular Access Device (IVAD) Venous Non-Valved, Starting on Wed05/26/24 at 1417, Prior to and following infusion and between multiple consecutive infusions, flush 10 mL to each port/lumen. Given 05/26/2024 2:50 PM DIRECTOR OF MEDIA 10 mL sodium chloride 0.9 % injection 10-20 mL 10-20 mL, intravenous, During hospitalization, line care, Prior to discharge, Starting on Wed05/26/24 at 1417, For 1 dose, Implanted Vascular Access Device (IVAD) Venous Non-Valved: Flush 10 mL per port/lumen followed by heparin flush prior to discharge. Given 05/26/2024 2:55 PM DIRECTOR OF MEDIA 10 mL documented in this encounter Additional Health Concerns Infection Onset Date Last Indicated Resolved Time Protective Environment 02/08/2024 02/08/2024 documented as of this encounter Care Teams Light Adjuster Relationship Specialty Start Date End Date Elsewhere, Pcp PCP - General Internal Medicine 01/27/24 documented as of this encounter
--- OUTSIDE RECORDS SUMMARY | 2024-06-21 06:51 | XMS_ITS | Clinical Summary ---
Author Organization [facility] Address [address] [place] [address] Care Team Providers Care Formula Maker Name Role Phone Elsewhere, Pcp Primary Care Provider Unavailabl e Source Comments Patient records contain information from all sites at [facility]. For routine questions regarding patient records, call [phone] during business hours, M-F 8:00 AM - 5:00 PM Central Time. Record requests for emergency care only can be directed to [phone] at any time.[facility] Allergies No known active allergies Medications [...] a day. 374 tablet 02/01/2024 8:48 PM SHIFT SUPERVISOR RN 02/01/20 025 Active dexAMETHasone (Decadron) 4 mg/mL [...] 06/21/2024 Nurse Triage Department of Family Medicine, [facility], in [place], [place] [address] [place] [phone] Lemus, Denise S, M.S.N., R.N. Difficulty Breathing 06/20/2024 9:00 AM CDT Comprehensive Visit Department of Radiology, [facility], in [place], [place] [address] [place] [address] Maribeth Pinzon APRN, C.N.P., M.S.N. Effusion Pleural; Malignant Neoplasm Of Pancreas Head (HCC) 06/20/2024 7:30 AM CDT - 06/20/2024 11:59 PM CDT Hospital Encounter Department of Radiology, [facility], in [place], [place] [address] [place] [address] Felisa Nunez MPAS, P.A.-C., P.A. Effusion Pleural; Malignant Neoplasm Of Pancreas Head (HCC) Discharge Disposition: Home or Self Care 06/14/2024 Orders Only Department of Oncology in [address] [address] Felisa Nunez MPAS, P.A.-C., P.A. Effusion Pleural (Primary Dx); Malignant Neoplasm Of Pancreas Head (HCC) 05/26/2024 2:00 PM SHIFT SUPERVISOR RN - 05/26/2024 3:13 PM SHIFT SUPERVISOR RN Hospital Encounter Department of Radiation Oncology in [address] [address] Aidan Estrada M.D. Garces, Yolanda I., M.D. Malignant Neoplasm Of Pancreas Head (HCC) 05/26/2024 1:30 PM SHIFT SUPERVISOR RN - 05/26/2024 1:59 PM SHIFT SUPERVISOR RN Hospital Encounter Department of Radiation Oncology in [address] [address] Antonette Schulte M.D. Moorhouse, Alexis E, R.N. 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 Malignant Neoplasm Of Pancreas Head (HCC) Discharge Disposition: Home or Self Care 05/09/2024 2:40 PM SHIFT SUPERVISOR RN Lab Department of Infusion Therapy in [address] [address] Sanjeev Woods M.D., M.P.H. 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) 05/04/2024 2:00 PM SHIFT SUPERVISOR RN Clinical Communication Virtual Review in [address] [address] Pre-visit Intake from Last 3 Months Family History Medical History Relation Name Comments Coronary artery disease Father [place] Martin Diabetes Mother Chase Salazar Relation Name Status Comments Father Celso Salazar Alive Mother Chase Salazar Alive Social History Tobacco Use Types Packs/Day Years Used Date Smoking Tobacco: Never Smokeless Tobacco: Never Tobacco Cessation:Counseling Given: Not Answered Alcohol Use Standard Drinks/Week Comments Never 0 (1 standard drink = 0.6 oz pur e alcohol) [facility] Utilities Answer Date Recorded [...] your living situation today? I have a [facility] place to live 02/04/2024 Comments Unknown Sex and Gender Information Value Date Recorded Sex Assigned at Female 01/30/2024 2:33 PM SHIFT SUPERVISOR RN Legal Sex Female 4:38 PM CDT Gender Identity Female 01/30/2024 2:33 PM SHIFT SUPERVISOR RN Sexual Orientation Straight 01/30/2024 2: 33 PM SHIFT SUPERVISOR RN Last Filed Vital Signs Vital Sign Reading Time Taken Comments Blood Pressure 185/74 05/26/2024 12:49 PM SHIFT SUPERVISOR RN Pulse 77 05/26/2024 12:49 PM SHIFT SUPERVISOR RN Temperature 35.9 C (96.7 F) 05/26/2024 12:49 PM SHIFT SUPERVISOR RN Respiratory Rate 16 05/10/2024 2:25 PM SHIFT SUPERVISOR RN Oxygen Saturation 97% 05/10/2024 2:25 PM SHIFT SUPERVISOR RN Inhaled Oxygen Concentration - - Weight 68.7 kg (151 lb 7.3 oz) 05/26/2024 12:49 PM SHIFT SUPERVISOR RN Height 155.2 cm (5' 1.1) 05/10/2024 2:25 PM SHIFT SUPERVISOR RN Body Mass Index 28.52 05/10/2024 2:25 PM SHIFT SUPERVISOR RN Plan of Treatment Health Maintenance Due Date [...] this topic Medical Devices Implanted Type Area Agricultural Commodities Inspector Device Identifier Shelf Expiration Date Model / Serial / Lot Cardiac Stent Cardiac Stent Heart Implantable Port-01/04/2024 Implanted:01/03 (Quantity not on file) Implantable Port Right: Chest Pacemaker-2018 Implanted:08/10 (Quantity not on file) Pacemaker Heart Medtronic [id number] / [id number] / Description:Placed in 9 Procedures Procedure [...] PLANNING CT SIMULATION Routine 05/26/2024 2:00 PM SHIFT SUPERVISOR RN Malignant Neoplasm Of Pancreas Head (HCC) OUTSIDE CT BODY Routine 05/22/2024 12:35 PM SHIFT SUPERVISOR RN OUTSIDE CT BODY Routine 05/19/2024 8:00 PM SHIFT SUPERVISOR RN OUTSIDE DX GENERAL Routine 05/19/2024 7: 25 PM SHIFT SUPERVISOR RN CT ABDOMEN PELVIS WITH IV CONTRAST RAD - Routine (most inpatients and all outpatients) 05/09/2024 4:43 PM SHIFT SUPERVISOR RN Malignant Neoplasm Of Pancreas Head (HCC) CT CHEST WITH IV CONTRAST RAD - Routine (most inpatients and all outpatients) 05/09/2024 4:43 PM SHIFT SUPERVISOR RN Malignant Neoplasm Of Pancreas Head (HCC) CREATININE, POCT, B Routine 05/09/2024 3 :38 PM SHIFT SUPERVISOR RN CREATININE, POCT, B Routine 05/09/2024 3 :38 PM SHIFT SUPERVISOR RN CARBOHYDRATE AG 19-9 (CA 19-9), S Routine 05/09/2024 2:59 PM SHIFT SUPERVISOR RN Malignant Neoplasm Of Pancreas Head (HCC) COMPREHENSIVE METABOLIC PANEL, S/P Routine 05/09/2024 2:59 PM SHIFT SUPERVISOR RN Malignant Neoplasm Of Pancreas Head (HCC) CBC WITH DIFFERENTIAL, B Routine 05/09/2024 2:59 PM SHIFT SUPERVISOR RN Malignant Neoplasm Of Pancreas Head (HCC) from [...] Provider Not In System IMG DIAGNOSTIC IMAGING DE OCEDURES Final Result Performing Organization Address [facility] de Phone Number II NA * CT Angio Chest PE Protocol-Outside CT Body (06/07/2024 1:50 AM CDT) Only the most recent of3 resultswithin the time period is included. Narrative [facility] - 06/19/2024 4:33 PM CDT This order [...] PROCEDURES Final R esult Performing Organization Address [facility] Phone Number II NA * Initial Rad Onc Treatment Planning CT Simulation (05/26/2024 2:00 PM SHIFT SUPERVISOR RN) Narrative [facility] - 05/26/2024 2:00 PM SHIFT SUPERVISOR RN Antonette Schulte M.D. 05/26/2024 3:13 PM Initial Rad Onc Treatment Planning CT Simulation Performed by: Antonette Schulte M.D. Authorized by: Aidan Estrada M.D. Aidan Estrada M.D. RADIATION ONCOLOGY ORDERAB LES Final Result Performing Organization Address [facility] de Phone Number JUDAH NAVARRETE na * XR abdomen min 2V-Outside Gen Dx Stdy (05/19/2024 7:25 PM SHIFT SUPERVISOR RN) Narrative [facility] - 06/19/2024 4:26 PM CDT This order [...] Provider Not In System IMG DIAGNOSTIC IMAGING DE OCEDURES Final Result BRITTNY NA * CT Abdomen Pelvis with IV Contrast (05/09/2024 4:43 PM SHIFT SUPERVISOR RN) Anatomical Region Laterality Modality Abdomen, Pelvis, Abdominal R ST LOS, Abdominal ARZ LOS, Abdominal FLA LOS N/A Computed Tomography 05/09/2024 5:53 PM SHIFT SUPERVISOR RN Impressions 05/10/2024 7:21 AM SHIFT SUPERVISOR RN Slight decrease size of pancreas head mass. Extensive vascular involvement persists. No new CT evidence of metastatic disease in the abdomen or pelvis. Narrative 05/10/2024 7:21 AM SHIFT SUPERVISOR RN EXAM: CT ABDOMEN PELVIS WITH IV CONTRAST [...] Chest with IV Contrast (05/09/2024 4:43 PM SHIFT SUPERVISOR RN) Anatomical Region Laterality Modality Chest, Thoracic RST LOS, Tho racic ARZ LOS, Thoracic ARZ LOS, Thoracic FLA LOS N/A Computed Tomography 05/09/2024 5:08 PM SHIFT SUPERVISOR RN Impressions 05/10/2024 8:22 AM SHIFT SUPERVISOR RN 1. New small bilateral pleural effusions with suspected pleural nodularities, indeterminate. Short-term follow-up CT can be considered. 2. New patchy groundglass opacities throughout the lungs could be due to infection/inflammation. 3. Stable 5 mm nodule in right lower lobe. 4. Stable mild enlargement of mediastinal lymph nodes. 5. Interval resolution of previously seen right lower lobe pulmonary emboli. Narrative 05/10/2024 8:22 AM SHIFT SUPERVISOR RN EXAM: CT CHEST WITH IV CONTRAST 3D [...] lower lobe pulmonaryemboli. Sanjeev Woods M.D., M.P.H. [facility] PROCEDURES Final Result * Creatinine, POCT (05/09/2024 3:38 PM SHIFT SUPERVISOR RN) Only the most recent of2 resultswithin the time period is included. Creatinine, POCT, B 0.8 0.6 - 1.0 mg/dL 05/09/2024 3:46 PM SHIFT SUPERVISOR RN PCDT Comment: ----ADDITIONAL INFORMATION---- Performed at the Point of Care Blood 05/09/2024 3:38 PM SHIFT SUPERVISOR RN 05/09/2024 3:46 PM SHIFT SUPERVISOR RN Unknown Provider LAB POCT ORDERABLES - DEVICE Fi nal Result Performing Organization Address [facility] de Phone Number [facility] [address] PCDT [facility] [address] [place] [address] * (ABNORMAL) Carbohydrate Antigen 19-9 (CA 19-9) (05/09/2024 2:59 PM SHIFT SUPERVISOR RN) Pathologist [facility] Carbohydrate Ag 19-9, S 1313(H) <35 U/mL 05/09/2024 8:43 PM SHIFT SUPERVISOR RN [facility] Comment: ----ADDITIONAL INFORMATION---- The testing method is an immunoenzymatic assay manufactured by [employer]. and performed on the [employer] DxI 800. Values obtained with different assay methods or kits may be different and cannot be used interchangeably. Test results cannot be interpreted as absolute evidence for the presence or absence of malignant disease. Blood (Blood, Venous) 05/09/2024 2:59 PM SHIFT SUPERVISOR RN 05/09/2024 7:51 PM SHIFT SUPERVISOR RN Sanjeev Woods M.D., M.P.H. LAB BLOOD ADD-ON F inal Result Performing Organization Address [facility] Co de Phone Number [facility] [address] [place] [address] [facility] [address] [place] [address] * (ABNORMAL) CBC with Differential, Blood (05/09/2024 2:59 PM SHIFT SUPERVISOR RN) Pathologist [facility] Hemoglobin 8.4(L) 11.6 - 15.0 g/dL 05/09/2024 3:43 PM SHIFT SUPERVISOR RN DTL Hematocrit 26.5(L) 35.5 - 44.9 % 05/09/2024 3:43 PM SHIFT SUPERVISOR RN DTL Erythrocytes 2.96(L) 3.92 - 5.13 x10(12)/L 05/09/2024 3:43 PM SHIFT SUPERVISOR RN DTL MCV 89.5 78.2 - 97.9 fL 05/09/2024 3:43 PM SHIFT SUPERVISOR RN DTL RBC Distrib Width 15.9 12.2 - 16.1 % 05/09/2024 3:43 PM SHIFT SUPERVISOR RN DTL Platelet Count 104(L) 157 - 371 x10(9)/L 05/09/2024 4:38 PM SHIFT SUPERVISOR RN DTL Leukocytes 7.2 3.4 - 9.6 x10(9)/L 05/09/2024 4:38 PM SHIFT SUPERVISOR RN DTL Neutrophils 4.65 1.56 - 6.45 x10(9)/L 05/09/2024 3:43 PM SHIFT SUPERVISOR RN DHPM Lymphocytes 1.80 0.95 - 3.07 x10(9)/L 05/09/2024 3:43 PM SHIFT SUPERVISOR RN DTL Monocytes 0.45 0.26 - 0.81 x10(9)/L 05/09/2024 3:43 PM SHIFT SUPERVISOR RN DTL Eosinophils 0.25 0.03 - 0.48 x10(9)/L 05/09/2024 3:43 PM SHIFT SUPERVISOR RN DTL Basophils <0.03 0.01 - 0.08 x10(9)/L 05/09/2024 3:43 PM SHIFT SUPERVISOR RN DTL Blood (Blood, Venous) 05/09/2024 2:59 PM SHIFT SUPERVISOR RN 05/09/2024 3:32 PM SHIFT SUPERVISOR RN Sanjeev Woods M.D., M.P.H. LAB BLOOD ADD-ON F inal Result [facility] [place] [address] [place] [address], [facility] DTL [facility] [address] [place] [address] [facility] [address] [place] [address] * (ABNORMAL) Comprehensive Metabolic Panel (05/09/2024 2:59 PM SHIFT SUPERVISOR RN) [facility] Potassium, S 3.9 3.6 - 5.2 mmol/L 05/09/2024 4:05 PM SHIFT SUPERVISOR RN DTL Sodium, S 137 135 - 145 mmol/L 05/09/2024 4:05 PM SHIFT SUPERVISOR RN DTL Chloride, S 101 98 - 107 mmol/L 05/09/2024 4:05 PM SHIFT SUPERVISOR RN DTL Bicarbonate, S 27 22 - 29 mmol/L 05/09/2024 4:05 PM SHIFT SUPERVISOR RN DTL Anion Gap 9 7 - 15 05/09/2024 4:05 PM SHIFT SUPERVISOR RN DTL BUN (Blood Urea Nitrogen), S 18 6 - 21 mg/dL 05/09/2024 4:05 PM SHIFT SUPERVISOR RN DTL Creatinine 0.79 0.59 - 1.04 mg/dL 05/09/2024 4:05 PM SHIFT SUPERVISOR RN DTL Estimated GFR (eGFR) 74 >=60 mL/min/BS A 05/09/2024 4:05 PM SHIFT SUPERVISOR RN DTL Comment: Estimated GFR calculated using the 2020 CKD_EPI creatinine equation. Calcium, Total, S 8.4(L) 8.8 - 10.2 mg/dL 05/09/2024 4:05 PM SHIFT SUPERVISOR RN DTL Glucose, S 200(H) 70 - 140 mg/dL 05/09/2024 4:05 PM SHIFT SUPERVISOR RN DTL Protein, Total, S 6.2(L) 6.3 - 7.9 g/dL 05/09/2024 4:05 PM SHIFT SUPERVISOR RN DTL Albumin, S 3.1(L) 3.5 - 5.0 g/dL 05/09/2024 4:05 PM SHIFT SUPERVISOR RN DTL Aspartate Aminotransferase (AST), S 29 8 - 43 U/L 05/09/2024 4:05 PM SHIFT SUPERVISOR RN DTL Alkaline Phosphatase, S 128(H) 35 - 104 U/L 05/09/2024 4:05 PM SHIFT SUPERVISOR RN DTL Alanine Aminotransferase (ALT), S 25 7 - 45 U/L 05/09/2024 4:05 PM SHIFT SUPERVISOR RN DTL Bilirubin, Total, S 0.4 0.0 - 1.2 mg/dL 05/09/2024 4:05 PM SHIFT SUPERVISOR RN DTL Blood (Blood, Venous) 05/09/2024 2:59 PM SHIFT SUPERVISOR RN 05/09/2024 3:42 PM SHIFT SUPERVISOR RN Sanjeev Woods M.D., M.P.H. LAB BLOOD ADD-ON F inal Result [facility] [address] [place] [address], [place] DTL [facility] [address] [place] [address] from Last 3 Months Additional Health Concerns Infection Onset Date Last Indicated Protective Environment 02/08/2024 Insurance [facility] Advance Directives For more information, please contact: [phone] Documents on File Type Date Recorded Patient Orange Picker Machine Operator Expl anation Advance Directives 02/03/2024 9:38 AM Aidan Carrillo HCPOA/ADVOCATE/AGENT/R EPRESENTATIVE/SURROGAT E Healthcare Agents on File Name Relationship Healthcare Agent Relationship Communication Aidan Blanco Son In-Law Health Care Agent Martin Dinero Alternate Health Care Agent Care Teams Formula Maker Relationship Specialty Start Date End Date Elsewhere, Pcp PCP - General Internal Medicine 01/27/24
--- OUTSIDE RECORDS SUMMARY | 2024-06-21 06:51 | XMS_ITS | Encounter Summary ---
Author Organization [facility] Address [address] [place] [address] Care Team Providers Care Filling And Packing Supervisor Name Role Phone Elsewhere, Pcp Primary Care Provider Unavailabl e Reason for Referral * Outpatient (Routine) - Closed Specialty Diagnoses / Procedures Referred By Contac t Referred To Contact Radiation Oncology Diagnoses Malignant Neoplasm Of Pancreas Head (HCC) Dana Guillen APRN, C.N.P., M.S. [address] [place] [address] Phone: tel: fax: [facility] Referral ID Status Reason Start Date Expiration Date Visits Re quested Visits Authorized [id number] Closed 05/10/2024 11/09/2025 1 1 ING MACHINE HELPER Reason for Visit * Outpatient (Routine) - Closed Specialty Diagnoses / Procedures Referred By Contac t Referred To Contact Oncology Sanjeev Woods M.D., M.P.H. Phone: tel: fax: [facility] Referral ID Status Reason Start Date Expiration Date Visits Re quested Visits Authorized [id number] Closed 03/15/2024 09/14/2025 1 1 Encounter Details Date Type Department Care Team (Late st Contact Info) Description 05/10/2024 2:40 PM MAILING MACHINE HELPER Office Visit Department of Oncology in [place], [place] [address] [place] [address] Dana Guillen, SERGIO, C.N.P., M.S. 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 I have a [facility] place to live 02/04/2024 Comments Unknown Sex and Gender Information Value Date Recorded Sex Assigned at Female 01/30/2024 2:33 PM MAILING MACHINE HELPER Legal Sex Female 4:38 PM CDT Gender Identity Female 01/30/2024 2:33 PM MAILING MACHINE HELPER Sexual Orientation Straight 01/30/2024 2: 33 PM MAILING MACHINE HELPER documented as of this encounter Last Filed Vital Signs Vital Sign Reading Time Taken Comments Blood Pressure 156/66 05/10/2024 2:28 PM MAILING MACHINE HELPER Pulse 67 05/10/2024 2:28 PM MAILING MACHINE HELPER Temperature 37.4 C (99.3 F) 05/10/2024 2:25 PM MAILING MACHINE HELPER Respiratory Rate 16 05/10/2024 2:25 PM MAILING MACHINE HELPER Oxygen Saturation 97% 05/10/2024 2:25 PM MAILING MACHINE HELPER Inhaled Oxygen Concentration - - Weight 67.1 kg (147 lb 14.9 oz) 05/10/2024 2:25 PM MAILING MACHINE HELPER Height 155.2 cm (5' 1.1) 05/10/2024 2:25 PM MAILING MACHINE HELPER Body Mass Index 27.86 05/10/2024 2:25 PM MAILING MACHINE HELPER documented in this encounter Progress Notes * Dana Guillen, SERGIO, C.N.P., M.S. - 05/10/2024 2:40 PM CST SUBJECTIVE PRIMARY CARE PHYSICIAN ELSEWHERE, PCP LOCAL ONCOLOGIST No care marketing team lead to display PRIMARY [place]ADA ONCOLOGIST Sanjeev Woods M.D., M.P.H. CHIEF COMPLAINT [...] in December, both at a hospital in [place], [place]. She has had a persistent cough [...] treatments. She would like that administered in [place]. Would recommend using capecitabine to enhance efficacy. [...] to face andface to face patient care. ING MACHINE HELPER documented in this encounter Plan of Treatment [...] documented as of this encounter Care Teams Filling And Packing Supervisor Relationship Specialty Start Date End Date Elsewhere, Pcp PCP - General Internal Medicine 01/27/24 documented as of this encounter
--- OUTSIDE RECORDS SUMMARY | 2024-06-21 06:51 | XMS_ITS | Encounter Summary ---
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 [address] [place] [address] Phone: tel: fax: [facility] Referral ID Status Reason Start Date Expiration Date Visits Re quested Visits Authorized [id number] Closed 06/14/2024 12/14/2025 1 1 Encounter Details Date Type Department Care Team (Late st Contact Info) Description 06/14/2024 Orders Only Department of Oncology in [place], [place] [address] [facility] [place] [address] Felisa Nunez MPAS, P.A.-C., P.A. [address] [place] [address] Effusion Pleural (Primary Dx); Malignant Neoplasm Of Pancreas Head (HCC) Social History Tobacco Use Types Packs/Day Years Used Date Smoking Tobacco: Never Smokeless Tobacco: Never Alcohol Use Standard Drinks/Week Comments Never 0 (1 standard drink = 0.6 oz pur e alcohol) [facility] Utilities Answer Date Recorded In the past 12 months has th e [employer], gas, oil, or water [employer] threatened to shut off services in your [...] your living situation today? I have a [facility] place to live 02/04/2024 Comments Unknown Sex and Gender Information Value Date Recorded Sex Assigned at Female 01/30/2024 2:33 PM SENIOR LINUX SYSTEMS ADMINISTRATOR Legal Sex Female 4:38 PM CDT Gender Identity Female 01/30/2024 2:33 PM SENIOR LINUX SYSTEMS ADMINISTRATOR Sexual Orientation Straight 01/30/2024 2: 33 PM SENIOR LINUX SYSTEMS ADMINISTRATOR documented as of this encounter Plan [...] documented as of this encounter Care Teams Forest Management Professor Relationship Specialty Start Date End Date Elsewhere, Pcp PCP - General Internal Medicine 01/27/24 documented as of this encounter
--- OUTSIDE RECORDS SUMMARY | 2024-06-21 06:51 | XMS_ITS | Encounter Summary ---
Author Organization [facility] Address [address] [place] [address] Care Team Providers Care Auto Cleaner Name Role Phone Elsewhere, Pcp Primary Care Provider Unavailabl e Encounter Details Date Type Department Care Team (Late st Contact Info) Description 05/09/2024 2:40 PM MINERAL WOOL INSULATION SUPERVISOR Lab Department of Infusion Therapy in [place], [place] [address] [place] [phone] Sanjeev Woods M.D., M.P.H. 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) Social History Tobacco Use Types Packs/Day Years Used Date Smoking Tobacco: Never Smokeless Tobacco: Never Alcohol Use Standard Drinks/Week Comments Never 0 (1 standard drink = 0.6 oz pur e alcohol) [facility] Utilities Answer Date Recorded In the past 12 months has [employer], gas, oil, or water [employer] threatened to shut off services in your [...] Sex Assigned at Female 01/30/2024 2:33 PM MINERAL WOOL INSULATION SUPERVISOR Legal Sex Female 4:38 PM CDT Gender Identity Female 01/30/2024 2:33 PM MINERAL WOOL INSULATION SUPERVISOR Sexual Orientation Straight 01/30/2024 2: 33 PM MINERAL WOOL INSULATION SUPERVISOR documented as of this encounter Plan of Treatment Not on file documented as of this encounter Procedures Procedure Name Priority Date/Time Associated Diagnosis Comments CARBOHYDRATE AG 19-9 (CA 19-9), S Routine 05/09/2024 2:59 PM MINERAL WOOL INSULATION SUPERVISOR Malignant Neoplasm Of Pancreas Head (HCC) CBC WITH DIFFERENTIAL, B Routine 05/09/2024 2:59 PM MINERAL WOOL INSULATION SUPERVISOR Malignant Neoplasm Of Pancreas Head (HCC) COMPREHENSIVE METABOLIC PANEL, S/P Routine 05/09/2024 2:59 PM MINERAL WOOL INSULATION SUPERVISOR Malignant Neoplasm Of Pancreas Head (HCC) documented in this encounter Results * (ABNORMAL) Carbohydrate Antigen 19-9 (CA 19-9) (05/09/2024 2:59 PM MINERAL WOOL INSULATION SUPERVISOR) Pathologist [facility] Carbohydrate Ag 19-9, S 1313(H) <35 U/mL 05/09/2024 8:43 PM MINERAL WOOL INSULATION SUPERVISOR [facility] Comment: ----ADDITIONAL INFORMATION---- The testing method is an immunoenzymatic assay manufactured by [employer] and performed on the Kiio DxI 800. Values obtained with different assay methods or kits may be different and cannot be used interchangeably. Test results cannot be interpreted as absolute evidence for the presence or absence of malignant disease. Blood (Blood, Venous) 05/09/2024 2:59 PM MINERAL WOOL INSULATION SUPERVISOR 05/09/2024 7:51 PM MINERAL WOOL INSULATION SUPERVISOR Sanjeev Woods M.D., M.P.H. LAB BLOOD ADD-ON F inal Result [facility] [address] [place] [address] [facility] [address] [place] [address] * (ABNORMAL) Comprehensive Metabolic Panel (05/09/2024 2:59 PM MINERAL WOOL INSULATION SUPERVISOR) Pathologist [facility] Potassium, S 3.9 3.6 - 5.2 mmol/L 05/09/2024 4:05 PM MINERAL WOOL INSULATION SUPERVISOR DTL Sodium, S 137 135 - 145 mmol/L 05/09/2024 4:05 PM MINERAL WOOL INSULATION SUPERVISOR DTL Chloride, S 101 98 - 107 mmol/L 05/09/2024 4:05 PM MINERAL WOOL INSULATION SUPERVISOR DTL Bicarbonate, S 27 22 - 29 mmol/L 05/09/2024 4:05 PM MINERAL WOOL INSULATION SUPERVISOR DTL Anion Gap 9 7 - 15 05/09/2024 4:05 PM MINERAL WOOL INSULATION SUPERVISOR DTL BUN (Blood Urea Nitrogen), S 18 6 - 21 mg/dL 05/09/2024 4:05 PM MINERAL WOOL INSULATION SUPERVISOR DTL Creatinine 0.79 0.59 - 1.04 mg/dL 05/09/2024 4:05 PM MINERAL WOOL INSULATION SUPERVISOR DTL Estimated GFR (eGFR) 74 >=60 mL/min/BS A 05/09/2024 4:05 PM MINERAL WOOL INSULATION SUPERVISOR DTL Comment: Estimated GFR calculated using the 2020 CKD_EPI creatinine equation. Calcium, Total, S 8.4(L) 8.8 - 10.2 mg/dL 05/09/2024 4:05 PM MINERAL WOOL INSULATION SUPERVISOR DTL Glucose, S 200(H) 70 - 140 mg/dL 05/09/2024 4:05 PM MINERAL WOOL INSULATION SUPERVISOR DTL Protein, Total, S 6.2(L) 6.3 - 7.9 g/dL 05/09/2024 4:05 PM MINERAL WOOL INSULATION SUPERVISOR DTL Albumin, S 3.1(L) 3.5 - 5.0 g/dL 05/09/2024 4:05 PM MINERAL WOOL INSULATION SUPERVISOR DTL Aspartate Aminotransferase (AST), S 29 8 - 43 U/L 05/09/2024 4:05 PM MINERAL WOOL INSULATION SUPERVISOR DTL Alkaline Phosphatase, S 128(H) 35 - 104 U/L 05/09/2024 4:05 PM MINERAL WOOL INSULATION SUPERVISOR DTL Alanine Aminotransferase (ALT), S 25 7 - 45 U/L 05/09/2024 4:05 PM MINERAL WOOL INSULATION SUPERVISOR DTL Bilirubin, Total, S 0.4 0.0 - 1.2 mg/dL 05/09/2024 4:05 PM MINERAL WOOL INSULATION SUPERVISOR DTL Blood (Blood, Venous) 05/09/2024 2:59 PM MINERAL WOOL INSULATION SUPERVISOR 05/09/2024 3:42 PM MINERAL WOOL INSULATION SUPERVISOR Sanjeev Woods M.D., M.P.H. LAB BLOOD ADD-ON F inal Result [facility] [address] [place] [address], [facility] [address] [place] [address] * (ABNORMAL) CBC with Differential, Blood (05/09/2024 2:59 PM MINERAL WOOL INSULATION SUPERVISOR) Hemoglobin 8.4(L) 11.6 - 15.0 g/dL 05/09/2024 3:43 PM MINERAL WOOL INSULATION SUPERVISOR DTL Hematocrit 26.5(L) 35.5 - 44.9 % 05/09/2024 3:43 PM MINERAL WOOL INSULATION SUPERVISOR DTL Erythrocytes 2.96(L) 3.92 - 5.13 x10(12)/L 05/09/2024 3:43 PM MINERAL WOOL INSULATION SUPERVISOR DTL MCV 89.5 78.2 - 97.9 fL 05/09/2024 3:43 PM MINERAL WOOL INSULATION SUPERVISOR DTL RBC Distrib Width 15.9 12.2 - 16.1 % 05/09/2024 3:43 PM MINERAL WOOL INSULATION SUPERVISOR DTL Platelet Count 104(L) 157 - 371 x10(9)/L 05/09/2024 4:38 PM MINERAL WOOL INSULATION SUPERVISOR DTL Leukocytes 7.2 3.4 - 9.6 x10(9)/L 05/09/2024 4:38 PM MINERAL WOOL INSULATION SUPERVISOR DTL Neutrophils 4.65 1.56 - 6.45 x10(9)/L 05/09/2024 3:43 PM MINERAL WOOL INSULATION SUPERVISOR DHPM Lymphocytes 1.80 0.95 - 3.07 x10(9)/L 05/09/2024 3:43 PM MINERAL WOOL INSULATION SUPERVISOR DTL Monocytes 0.45 0.26 - 0.81 x10(9)/L 05/09/2024 3:43 PM MINERAL WOOL INSULATION SUPERVISOR DTL Eosinophils 0.25 0.03 - 0.48 x10(9)/L 05/09/2024 3:43 PM MINERAL WOOL INSULATION SUPERVISOR DTL Basophils <0.03 0.01 - 0.08 x10(9)/L 05/09/2024 3:43 PM MINERAL WOOL INSULATION SUPERVISOR DTL Blood (Blood, Venous) 05/09/2024 2:59 PM MINERAL WOOL INSULATION SUPERVISOR 05/09/2024 3:32 PM MINERAL WOOL INSULATION SUPERVISOR Sanjeev Woods M.D., M.P.H. LAB BLOOD ADD-ON F inal Result [facility] [address] [place] [address], [facility] DTL [facility] [address] [place] [address] DHPM [facility] [address] [place] [address] documented in this encounter Visit Diagnoses Diagnosis [...] Pancreas Head (HCC) Given 05/09/2024 3:05 PM MINERAL WOOL INSULATION SUPERVISOR 500 Units sodium chloride 0.9 % injection 10-20 mL 10-20 mL, intra-catheter, As needed, line care, Starting on Wed05/09/24 at 1504, When IVAD accessed and infusing: Flush prior to and following infusion, between multiple consecutive infusions. 10 mL to each port/lumen.Indications:Malignan t Neoplasm Of Pancreas Head (HCC) Given 05/09/2024 3:05 PM MINERAL WOOL INSULATION SUPERVISOR 20 mL documented in this encounter Additional Health Concerns Infection Onset Date Last Indicated Resolved Time Protective Environment 02/08/2024 02/08/2024 documented as of this encounter Care Teams Auto Cleaner Relationship Specialty Start Date End Date Elsewhere, Pcp PCP - General Internal Medicine 01/27/24 documented as of this encounter
== END 2024-06-21 08:33 | disposition home or self-care (01) ==
PROVIDERS: Emergency Provider Family Medicine; PCP Internal Medicine
DX: R06.02 Shortness of breath (principal); R10.9 Unspecified abdominal pain
CPT/HCPCS: 71046; 99283; 99284